=== PATIENT | female | born 1965 | race Caucasian/White ===

== ENCOUNTER → 2021-10-22 12:51 | Outpatient (BNVA) | payer MEDICARE, SELFPAY | PROVIDERS: PCP Physician Assistant Medical; Visit Provider Nurse Practitioner Family | DX: Z98.1 Arthrodesis status (principal); Z98.890 Other specified postprocedural states | CPT/HCPCS: 99202 ==

== ENCOUNTER → 2021-11-26 13:47 | Outpatient (BNVA) | payer MEDICARE, SELFPAY | PROVIDERS: PCP Family Medicine; Visit Provider Nurse Practitioner Family | DX: M47.816 Spondylosis without myelopathy or radiculopathy, lumbar region (principal); M96.1 Postlaminectomy syndrome, not elsewhere classified; M54.9 Dorsalgia, unspecified; G89.29 Other chronic pain; E66.01 Morbid (severe) obesity due to excess calories; Z68.43 Body mass index [BMI] 50.0-59.9, adult | CPT/HCPCS: 99212 ==

== ENCOUNTER 2021-12-25 18:07 | Emergency (ER) | payer MEDICARE, SELFPAY ==
[2021-12-25 19:01] VITALS: BP 142/64; PULSE 105; RESP 18; TEMP 37.2; O2SAT 97; BMI 64.3
--- NOTE | 2021-12-25 19:15 | ECG_ITS ---
Test Reason : med clear Blood Pressure : / mmHG Vent. Rate : 058 BPM Atrial Rate : 058 BPM P-R Int : 132 ms QRS Dur : 082 ms QT Int : 434 ms P-R-T Axes : 057 -07 046 degrees QTc Int : 426 ms Sinus bradycardia Otherwise normal ECG No previous ECGs available Referred By: Christina Wilks Electronically Signed By:KHRIS CHILEL MD
[2021-12-25 19:38] LABS: COVID-19 Test Negative (Negative)
--- NOTE | 2021-12-25 20:37 | ED_ITS ---
HPI - Psych General Chief Complaint: Psychiatric Symptoms Stated Complaint: Crisis Time Seen by Provider: 12/25/21 19:15 Source: patient Mode of arrival: ambulatory Limitations: no limitations History of Present Illness HPI Narrative: 56-year-old female with a past medical history of asthma, binge eating disorder, chronic back pain, hyperlipidemia, hypertensive disorder, hyperthyroidism, kidney stones, morbid obesity, major depressive disorder, restless leg syndrome and transit cerebral ischemia currently in pain management for her chronic back pain presenting to the ED with complaints of increased anxiety/depression with PTSD exacerbation with racing thoughts and suicidal ideations no plan in place over the past few months since September worse over the past few days. She reports that she has been having flashbacks of her grandmother, uncle and mother dying and this has been really affecting her. She denies any auditory visualizations. She denies any self-injury pearl. She denies any homicidal ideations. She denies any drug or alcohol usage. She denies any other symptoms complaints or concerns at this time. MD complaint: suicidal ideation, feels depressed and anxiety Onset (ago): month(s) Duration: constant and getting worse History of same: Yes Relieving factors: none Exacerbating factors: other (Life stressor she reports she has been through a lot in life and has had multiple losses such as her grandmother uncle and mother) Associated psychiatric symptoms: depression, suicidal ideation and racing thoughts Associated symptoms: denies other symptoms Treatments prior to arrival: none If self harm: admits thoughts of self harm Related Data Home Medications Medication Instructions Recorded Confirmed albuterol sulfate 90 mcg/actuation 2 inh INHALATION Q6H 10/22/21 12/25/21 breath activated powder inhaler,sensor celecoxib 200 mg capsule 200 mg PO BID 10/22/21 12/25/21 famotidine 20 mg tablet 20 mg PO BID 10/22/21 12/25/21 furosemide 20 mg tablet 20 mg PO DAILY 10/22/21 12/25/21 lorazepam 0.5 mg tablet 0.5 mg PO BID PRN 10/22/21 12/25/21 pen needle, diabetic 32 gauge x 10/22/21 12/25/21/32 (BD Lulu 2nd Gen Pen Needle) fluticasone propionate 110 1 puff PO BID 12/25/21 12/25/21 mcg/actuation HFA aerosol inhaler (Flovent HFA) gabapentin 300 mg capsule 600 mg PO QAM 12/25/21 12/25/21 gabapentin 300 mg capsule 900 mg PO BEDTIME 12/25/21 12/25/21 insulin glargine 100 unit/mL (3 30 unit SUBCUT BEDTIME 12/25/21 12/25/21 mL) subcutaneous pen (Lantus Solostar U-100 Insulin) losartan 50 mg tablet 50 mg PO DAILY 12/25/21 12/25/21 methocarbamol 500 mg tablet 2 tab PO BID PRN 12/25/21 12/25/21 pioglitazone 45 mg tablet 1 tab PO DAILY 12/25/21 12/25/21 prazosin 2 mg capsule 2 cap PO BEDTIME 12/25/21 12/25/21 propranolol 40 mg tablet 1 tab PO TID 12/25/21 12/25/21 ropinirole 1 mg tablet 1 - 2 tab PO BEDTIME 12/25/21 12/25/21 tamsulosin 0.4 mg capsule 0.4 mg PO DAILY 12/25/21 12/25/21 tizanidine 4 mg tablet 4 mg PO TID PRN 12/25/21 12/25/21 venlafaxine 150 mg 1 cap PO DAILY 12/25/21 12/25/21 capsule,extended release 24 hr venlafaxine 75 mg capsule,extended 1 cap PO QAM 12/25/21 12/25/21 release 24 hr Allergies Allergy/AdvReac Type Severity Reaction Status Date / Time hydrochlorothiazide Allergy Severe vertigo Verified 11/26/21 14:44 nitrofurantoin Allergy Severe Unknown Verified 11/26/21 14:44 [From Macrobid] benzonatate [Tessalon Perles] Allergy Unknown Unknown Verified 11/26/21 14:44 codeine Allergy Unknown Unknown Verified 11/26/21 14:44 divalproex sodium [Depakote] Allergy Unknown Unknown Verified 11/26/21 14:44 epinephrine Allergy Unknown Unknown Verified 11/26/21 14:44 erythromycin base Allergy Unknown Hives Verified 11/26/21 14:44 Fish Containing Products Allergy Unknown Hives Verified 11/26/21 14:44 fluoxetine [Prozac] Allergy Unknown Unknown Verified 11/26/21 14:44 fluticasone Allergy Unknown Unknown Verified 11/26/21 14:44 guaifenesin Allergy Unknown Unknown Verified 11/26/21 14:44 iodine Allergy Unknown Rash Verified 11/26/21 14:44 levofloxacin [Levaquin] Allergy Unknown Unknown Verified 11/26/21 14:44 lidocaine Allergy Unknown Rash Verified 11/26/21 14:44 morphine Allergy Unknown Unknown Verified 11/26/21 14:44 nortriptyline Allergy Unknown Unknown Verified 11/26/21 14:44 oxcarbazepine Allergy Unknown Hives Verified 11/26/21 14:44 [From Trileptal] penicillin V Allergy Unknown Unknown Verified 11/26/21 14:44 shellfish derived Allergy Unknown Unknown Verified 11/26/21 14:44 Sulfa (Sulfonamide Allergy Unknown Rash Verified 11/26/21 14:44 Antibiotics) sumatriptan [From Imitrex] Allergy Unknown skin Verified 11/26/21 14:44 reaction tramadol Allergy Unknown Itching Verified 11/26/21 14:44 Tricyclic Compounds Allergy Unknown Rash Verified 11/26/21 14:44 strawberry Allergy Unknown Verified 11/26/21 14:44 albuterol AdvReac Unknown other Verified 11/26/21 14:44 bupropion [From Wellbutrin] AdvReac Unknown Hypertensio Verified 11/26/21 14:44 n buspirone AdvReac Unknown Hypertensio Verified 11/26/21 14:44 n duloxetine [From Cymbalta] AdvReac Unknown other Verified 11/26/21 14:44 mirtazapine [From Remeron] AdvReac Unknown Unknown Verified 11/26/21 14:44 montelukast AdvReac Unknown Depression Verified 11/26/21 14:44 prednisone AdvReac Unknown Headache Verified 11/26/21 14:44 prochlorperazine AdvReac Unknown Nausea Verified 11/26/21 14:44 thioridazine [From Mellaril] AdvReac Unknown Hypertensio Verified 11/26/21 14:44 n tiotropium AdvReac Unknown Headache Verified 11/26/21 14:44 [From Spiriva with HandiHaler] trazodone AdvReac Unknown Hallucinati Verified 11/26/21 14:44 ons adhesive tape AdvReac Rash Verified 11/26/21 14:44 Novocain Allergy Unknown Unknown Uncoded 10/22/21 13:28 Review of Systems Review of Systems: Constitutional : No Fever, No Chills ENT/Mouth : No Ear Pain, No Nasal Congestion, No sore throat Eyes: No Eye Pain, No Swelling, No Redness Cardiovascular : No Chest Pain, No SOB Respiratory : No Cough, No Sputum, No Dyspnea Gastrointestinal : No ingestions, No Nausea, No Vomiting, No Diarrhea, No Hematochezia, No Melena Genitourinary : No Dysuria, No Urinary Frequency, No Hematuria Musculoskeletal : No Myalgias Skin : No Skin Lesions, No rash Neuro : No Weakness, No Numbness, No Paresthesias, No Dizziness, No Headache Psych : + Anxiety, + Depression, + SI, No thoughts of self injury, No HI, No AVH, Heme/Lymph: No Lymphadenopathy Endocrine : No Polyuria, No Polydipsia Yes all other systems are reviewed and are negative [facility] Past Medical History Attestation statement: The following information was validated with the patient. Medical History Acquired hallux valgus Arthropathy of spinal facet joint Asthma Binge eating disorder Chronic back pain Congenital valgus deformity Hyperlipidemia Hypertensive disorder Hyperthyroidism Intestinal malabsorption of carbohydrate Kidney stone Morbid obesity Recurrent major depressive episodes Restless leg Transient cerebral ischemia Surgical History H/O gastric sleeve Family History Family History Mother Diabetes mellitus COPD (chronic obstructive pulmonary disease) Pemphigoid Depressive disorder Hyperlipidemia Father Malignant neoplastic disease Myocardial infarction Maternal Grandmother Myocardial infarction Social History Social History Alcohol intake: never Patient Tobacco Use Status: Never used Tobacco Advance Directives: No Advance Directives Information Provided: No Patient : No Physical Exam 2 Vital Signs: Vital Signs: Last Vital Signs Temp 99 F 12/25/21 19:01 Pulse 105 H 12/25/21 19:01 Resp 18 12/25/21 19:01 BP 142/64 H 12/25/21 19:01 Pulse Ox 97 12/25/21 19:01 BMI result Body Mass Index 64.3 vital signs have been reviewed as normal and appeared to be correct. Blood pressure 142/64. Heart rate 105. Respiration rate normal. Temperature normal. Oxygen saturation normal. Appearance: Alert. Oriented X3. No acute distress. Head: Normal external exam. Normocephalic. Atraumatic. No Rico signs noted. No raccoon eyes noted Eyes: PERRLA. EOMI. Conjunctiva and sclera normal. Eyelids normal. ENT: EAC normal. TM's Normal. Pharynx normal. Uvula midline. Moist mucous membranes. No trismus noted. No drooling noted. No muffled voice noted. Neck: Normal inspection. Neck supple. FROM. No adenopathy. Thyroid Normal. No meningeal signs. No neck mass noted. CVS: Normal heart rate and rhythm. Heart sound normal. No murmurs noted. Pulses normal throughout. Respiratory: No respiratory distress. Painless inspiration. Breath sounds normal. No wheezes/rales/rhonchi noted. Chest nontender. No accessory muscle usage noted or decreased air movement noted. Abdomen: Soft and nontender. Bowel sounds normal in all 4 quadrants. No distention noted. No organomegaly noted. No visible injury noted. Back: No CVA tenderness. Full range of motion noted. Skin: Skin warm and dry. Normal skin color. Normal skin turgor. No rashes/lesions/lacerations noted. Extremities: No lower extremity edema. Extremities exhibit normal range of motion. Extremities nontender. Neuro: Oriented X 3. No motor deficit. No sensory deficit. Reflexes normal. CN's II-XII intact bilaterally? Psych: Appearance grossly normal, well-kept, mental status normal, speech and movement normal, speech clear, patient appears very sad and anxious along with depressed. Is cooperative. Normal thought process. Normal thought content. Normal good insight. Judgment good. Course Course Course Narrative: 20:35pm - 56-year-old female with a past medical history of asthma, binge eating disorder, chronic back pain, hyperlipidemia, hypertensive disorder, hyperthyroidism, kidney stones, morbid obesity, major depressive disorder, restless leg syndrome and transit cerebral ischemia currently in pain management for her chronic back pain presenting to the ED with complaints of increased anxiety/depression with PTSD exacerbation with racing thoughts and suicidal ideations no plan in place over the past few months since September worse over the past few days. She reports that she has been having flashbacks of her grandmother, uncle and mother dying and this has been really affecting her. She denies any auditory visualizations. She denies any self-injury pearl. She denies any homicidal ideations. She denies any drug or alcohol usage. She denies any other symptoms complaints or concerns at this time. Plan: Labs, UA, EKG, Drug urine screen. Then Crisis evaluation Reevaluation(s) Reevaluation #1: - labs reviewed patient with an elevated white blood cell count at 11,000. Carbon dioxide 30. BUN 30. Random glucose 132. Otherwise all other labs are within normal limits. UA revealed 5 ketones otherwise no evidence of UTI. Drugs of abuse screen negative. ETOH level negative. COVID swab negative. - therefore at this time patient is medically cleared and placed in Physician observation because the patient needs more time to be evaluated by crisis. Will continue to monitor. Time: 21:28 [facility] - Psych Medical Records Attestation: I reviewed the patient's medical records. Lab Data Attestation: I reviewed the patient's lab results. Result diagrams: 12/25/21 20:35 12/25/21 20:35 Labs: Lab Results 12/25/21 12/25/21 12/25/21 Range/Units 19:15 20:35 20:35 WBC 11.5 H (4.8-10.8) X10*3/uL RBC 4.42 (4.20-5.50) X10*6/uL Hgb 12.8 (12.0-16.0) g/dl Hct 40.3 (37.0-47.0) % MCV 91.2 (80.0-98.0) fL MCH 29.0 (27.0-33.0) pg MCHC 31.8 (31.0-35.0) g/dl RDW 14.1 (11.0-16.0) % Plt Count 318 (160-400) X10*3/uL MPV 10.5 (9.4-12.3) fL Immature Gran % (Auto) 0.4 (0.0-0.4) % Neut % (Auto) 65.6 (45-73) % Lymph % (Auto) 22.9 (20-40) % [place] % (Auto) 8.8 (2-11) % Eos % (Auto) 2.0 (0-4) % Baso % (Auto) 0.3 (0-2) % Lymph # (Auto) 2.6 (1.2-4.9) X10*3/uL [place] # (Auto) 1.0 (0.1-1.2) X10*3/uL Eos # (Auto) 0.2 (0.0-0.4) X10*3/uL Baso # (Auto) 0.0 (0.0-0.2) X10*3/uL Abs Immat Gran (auto) 0.05 H (0.00-0.03) X10*3/uL Absolute Neuts (auto) 7.5 (2.0-8.3) x10*3/uL Absolute Nucleated RBC 0.000 (0.0-0.012) X10*3/uL Nucleated RBC % (auto) 0.0 (0.0-0.2) /100WBC Sodium 143 (135-145) mmol/L Potassium 4.3 (3.3-5.1) mmol/L Chloride 105 (96-108) mmol/L Carbon Dioxide 30 H (22-29) mmol/L Anion Gap 12 (12-20) BUN 30 H (9-16) mg/dL Creatinine 1.13 (0.5-1.4) mg/dL Estim Creat Clear Calc 88.4 Estimated GFR 50 Random Glucose 132 H (60-115) mg/dL Calcium 9.2 (8.4-10.2) mg/dL Magnesium 2.2 (1.6-2.6) mg/dL Total Bilirubin 0.4 (0.0-1.0) mg/dL AST 25 (5-31) U/L ALT 26 (0-31) U/L Alkaline Phosphatase 113 (39-117) U/L Total Protein 7.0 (6.5-8.0) g/dL Albumin 4.3 (3.5-5.0) g/dL Lipase 66 (8-78) U/L TSH 3.17 (0.32-4.0) uIU/mL Urine Color Urine Appearance Urine pH (5.0-8.0) Ur Specific [place] (1.005-1.025) Urine Protein (NEG-TRACE) MG/DL Urine Glucose (UA) (NEG) MG/DL Urine Ketones (NEG) MG/DL Urine Blood (NEG) Urine Nitrite (NEG) Ur Leukocyte Esterase (NEG) Urine Opiates Screen (Not Detect) Urine Fentanyl Screen (Not Detect) Ur Barbiturates Screen (Not Detect) Ur Phencyclidine Scrn (Not Detect) Ur Amphetamines Screen (Not Detect) U Benzodiazepines Scrn (Not Detect) Urine Cocaine Screen (Not Detect) U Marijuana (THC) Screen (Not Detect) Ethyl Alcohol mg/dL COVID-19 ([facility]) Negative (Negative) COVID-19 Clin Com See Note 12/25/21 12/25/21 12/25/21 Range/Units 20:35 20:43 20:43 WBC (4.8-10.8) X10*3/uL RBC (4.20-5.50) X10*6/uL Hgb (12.0-16.0) g/dl Hct (37.0-47.0) % MCV (80.0-98.0) fL MCH (27.0-33.0) pg MCHC (31.0-35.0) g/dl RDW (11.0-16.0) % Plt Count (160-400) X10*3/uL MPV (9.4-12.3) fL Immature Gran % (Auto) (0.0-0.4) % Neut % (Auto) (45-73) % Lymph % (Auto) (20-40) % [place] % (Auto) (2-11) % Eos % (Auto) (0-4) % Baso % (Auto) (0-2) % Lymph # (Auto) (1.2-4.9) X10*3/uL [place] # (Auto) (0.1-1.2) X10*3/uL Eos # (Auto) (0.0-0.4) X10*3/uL Baso # (Auto) (0.0-0.2) X10*3/uL Abs Immat Gran (auto) (0.00-0.03) X10*3/uL Absolute Neuts (auto) (2.0-8.3) x10*3/uL Absolute Nucleated RBC (0.0-0.012) X10*3/uL Nucleated RBC % (auto) (0.0-0.2) /100WBC Sodium (135-145) mmol/L Potassium (3.3-5.1) mmol/L Chloride (96-108) mmol/L Carbon Dioxide (22-29) mmol/L Anion Gap (12-20) BUN (9-16) mg/dL Creatinine (0.5-1.4) mg/dL Estim Creat Clear Calc Estimated GFR Random Glucose (60-115) mg/dL Calcium (8.4-10.2) mg/dL Magnesium (1.6-2.6) mg/dL Total Bilirubin (0.0-1.0) mg/dL AST (5-31) U/L ALT (0-31) U/L Alkaline Phosphatase (39-117) U/L Total Protein (6.5-8.0) g/dL Albumin (3.5-5.0) g/dL Lipase (8-78) U/L TSH (0.32-4.0) uIU/mL Urine Color YELLOW Urine Appearance CLEAR Urine pH 6.0 (5.0-8.0) Ur Specific [place] >= 1.030 H (1.005-1.025) Urine Protein TRACE (NEG-TRACE) MG/DL Urine Glucose (UA) NEG (NEG) MG/DL Urine Ketones 5 (NEG) MG/DL Urine Blood NEG (NEG) Urine Nitrite NEG (NEG) Ur Leukocyte Esterase NEG (NEG) Urine Opiates Screen Not Detected (Not Detect) Urine Fentanyl Screen Not Detected (Not Detect) Ur Barbiturates Screen Not Detected (Not Detect) Ur Phencyclidine Scrn Not Detected (Not Detect) Ur Amphetamines Screen Not Detected (Not Detect) U Benzodiazepines Scrn Not Detected (Not Detect) Urine Cocaine Screen Not Detected (Not Detect) U Marijuana (THC) Screen Not Detected (Not Detect) Ethyl Alcohol < 10 mg/dL COVID-19 ([facility]) (Negative) COVID-19 Clin Com Discharge Plan Discharge Clinical Impression: Suicidal ideation, Depression, Acute anxiety, Acute post-traumatic stress disorder Patient Disposition: Still a Patient Prescriptions: No Action gabapentin 300 mg capsule 600 mg PO QAM 0RF gabapentin 300 mg capsule 900 mg PO BEDTIME 0RF venlafaxine 75 mg capsule,extended release 24hr 1 cap PO QAM 0RF venlafaxine 150 mg capsule,extended release 24hr 1 cap PO DAILY 0RF Lantus Solostar U-100 Insulin 100 unit/mL (3 mL) insulin pen 30 unit SUBCUT BEDTIME 0RF losartan 50 mg tablet 50 mg PO DAILY 0RF methocarbamol 500 mg tablet 2 tab PO BID PRN (Reason: Pain) 0RF ropinirole 1 mg tablet 1 - 2 tab PO BEDTIME 0RF propranolol 40 mg tablet 1 tab PO TID 0RF prazosin 2 mg capsule 2 cap PO BEDTIME 0RF tizanidine 4 mg tablet 4 mg PO TID PRN (Reason: Pain muscle spasms) 0RF pioglitazone 45 mg tablet 1 tab PO DAILY 0RF tamsulosin 0.4 mg capsule 0.4 mg PO DAILY 0RF Flovent HFA 110 mcg/actuation HFA aerosol inhaler 1 puff PO BID 0RF albuterol sulfate 90 mcg/actuation aero powdr breath act w/sensor 2 inh inhalation Q6H 0RF (DME) pen needle, diabetic [BD Lulu 2nd Gen Pen Needle] 32 gauge x 5/32 needle See Rx Instructions .ROUTE 0RF Rx Instructions: As directed celecoxib 200 mg capsule 200 mg PO BID 0RF famotidine 20 mg tablet 20 mg PO BID 0RF furosemide 20 mg tablet 20 mg PO DAILY 0RF lorazepam 0.5 mg tablet 0.5 mg PO BID PRN (Reason: Anxiety) 0RF
[2021-12-25 20:48] LABS: MANUAL DIFF FLAG NO
[2021-12-25 20:54] LABS: Appearance Urine CLEAR; Color Urine YELLOW; Glucose Urine UA NEG (NEG); Leukocyte Esterase Urine NEG (NEG); Nitrite Urine NEG (NEG); Specific Gravity - Urine >= 1.030 (1.005-1.025); Urine Blood NEG (NEG); Urine Ketones 5 MG/DL (NEG); Urine Protein TRACE MG/DL (NEG-TRACE)
[2021-12-25 20:59] LABS: Basophils Percent Auto 0.3 % (0-2); Eosinophils Absolute Auto 0.2 X10*3/uL (0.0-0.4); Hematocrit 40.3 % (37.0-47.0); Hemoglobin 12.8 g/dl (12.0-16.0); Imm Gran Abs Auto 0.05 X10*3/uL (0.00-0.03); Imm Gran Pct Auto 0.4 % (0.0-0.4); Lymphocytes Absolute Auto 2.6 X10*3/uL (1.2-4.9); Lymphocytes Percent Auto 22.9 % (20-40); Mean Corpuscular HGB Conc 31.8 g/dl (31.0-35.0); Mean Corpuscular Volume 91.2 fL (80.0-98.0); Mean Platelet Volume 10.5 fL (9.4-12.3); Monocytes Percent Auto 8.8 % (2-11); Neutrophils Absolute Auto 7.5 x10*3/uL (2.0-8.3); Neutrophils Percent Auto 65.6 % (45-73); Platelet Count 318 X10*3/uL (160-400); Red Blood Count 4.42 X10*6/uL (4.20-5.50); Red Cell Distribution Width 14.1 % (11.0-16.0); White Blood Count 11.5 X10*3/uL (4.8-10.8)
[2021-12-25 21:00] LABS: Ethanol < 10 mg/dL
[2021-12-25 21:04] LABS: Alanine Aminotransferase 26 U/L (0-31); Albumin Level 4.3 g/dL (3.5-5.0); Alkaline Phosphatase 113 U/L (39-117); Anion Gap 12 (12-20); Aspartate Amino Transferase 25 U/L (5-31); Bilirubin Total 0.4 mg/dL (0.0-1.0); Blood Urea Nitrogen 30 mg/dL (9-16); Calcium 9.2 mg/dL (8.4-10.2); Carbon Dioxide 30 mmol/L (22-29); Chloride 105 mmol/L (96-108); Creatinine Clr Calc Pharmacy 88.4; Estimated Glomerular Filt Rate 50; Glucose Random 132 mg/dL (60-115); Lipase 66 U/L (8-78); Magnesium 2.2 mg/dL (1.6-2.6); Potassium 4.3 mmol/L (3.3-5.1); Sodium 143 mmol/L (135-145)
[2021-12-25 21:10] LABS: Amphetamine Screen Urine Not Detected (Not Detect); Barbiturates, Urine Not Detected (Not Detect); Benzodiazepines Screen Urine Not Detected (Not Detect); Cannabinoid Screen Urine Not Detected (Not Detect); Cocaine Screen Urine Not Detected (Not Detect); Fentanyl, urine Not Detected (Not Detect); Opiate Screen Urine Not Detected (Not Detect); Phencyclidine Screen Urine Not Detected (Not Detect)
[2021-12-25 21:26] LABS: TSH reflex Free T4 3.17 uIU/mL (0.32-4.0)
--- NOTE | 2021-12-25 21:34 | PHA.MEDREC ---
Pharmacy Consult ? Medication Reconciliation Pharmacy has completed the medication reconciliation.
[2021-12-26] MEDS: Gabapentin 300 MG CAPSULE 600 MG PO ×2 (01:10→08:00)
[2021-12-26] MEDS: Albuterol Sulfate 90 MCG 8 GM INHALER 2 PUFF INHALE (01:10)
[2021-12-26] MEDS: Famotidine 20 MG TABLET PO ×2 (01:10→08:00)
[2021-12-26] MEDS: Celecoxib 200 MG CAPSULE PO ×2 (01:12→07:59)
[2021-12-26] MEDS: Venlafaxine HCl ER 75 MG CAP.ER.24H PO ×2 (01:12→07:59)
[2021-12-26] MEDS: TiZANidine HCL 4 MG TABLET PO (01:35)
[2021-12-26 02:53] VITALS: BP 133/69; PULSE 61; RESP 19; TEMP 37.2; O2SAT 97
--- NOTE | 2021-12-26 06:43 | PC.NURSE ---
Patient was awake whole night, in and out of room multiple times, behavior appropriate and non concerning at this time, medication compliant, [facility] referral completed/confirmed/pending evaluation AM, VSS, will continue to monitor.
--- NOTE | 2021-12-26 07:24 | PC.NURSE ---
patient appears to remain asleep respirations are even and unlabored patient appears in no distress
[2021-12-26] MEDS: Pioglitazone HCL 45 MG TABLET PO (07:59)
[2021-12-26] MEDS: Tamsulosin HCL 0.4 MG CAPSULE PO (08:00)
[2021-12-26] MEDS: Cyclobenzaprine HCl 10 MG TABLET PO (08:00)
[2021-12-26] MEDS: Venlafaxine HCl ER 150 MG CAP.ER.24H PO (08:00)
[2021-12-26] MEDS: Losartan Potassium 50 MG TABLET PO (08:00)
[2021-12-26] MEDS: Furosemide 20 MG TABLET PO (08:00)
[2021-12-26] MEDS: Propranolol HCL 40 MG TABLET PO (09:38)
[2021-12-26] MEDS: Acetaminophen 325 MG TABLET 975 MG PO (09:40)
== END 2021-12-26 10:38 | disposition home or self-care (01) ==
PROVIDERS: Physician Assistant Medical; Emergency Provider Emergency Medicine Emergency Medical Services; PCP Family Medicine
DX: F33.1 Major depressive disorder, recurrent, moderate (principal); R45.851 Suicidal ideations; F41.1 Generalized anxiety disorder; F43.0 Acute stress reaction; F43.10 Post-traumatic stress disorder, unspecified; Z20.822 Contact with and (suspected) exposure to COVID-19; Z63.8 Other specified problems related to primary support group; Z79.899 Other long term (current) drug therapy
CPT/HCPCS: 36415; 80053; 80307; 81003; 82077; 83690; 83735; 84443; 85025; 87635; 93005; 99285

== ENCOUNTER → 2022-04-11 08:52 | Outpatient (BNVA) | payer MEDICARE, SELFPAY | PROVIDERS: PCP Family Medicine; Visit Provider Internal Medicine | DX: Z98.1 Arthrodesis status (principal); M96.1 Postlaminectomy syndrome, not elsewhere classified; Z98.890 Other specified postprocedural states | CPT/HCPCS: 99212 ==

== ENCOUNTER → 2022-06-03 08:04 | Outpatient (BNVA) | payer MEDICARE, SELFPAY | PROVIDERS: PCP Family Medicine; Visit Provider Internal Medicine | DX: M79.18 Myalgia, other site (principal); M96.1 Postlaminectomy syndrome, not elsewhere classified; Z98.1 Arthrodesis status | CPT/HCPCS: 20553; J2795 ==

== ENCOUNTER → 2022-08-15 11:43 | Outpatient (BNVA) | payer OTHER, SELFPAY | PROVIDERS: PCP Family Medicine; Visit Provider Internal Medicine | DX: M96.1 Postlaminectomy syndrome, not elsewhere classified (principal); R22.2 Localized swelling, mass and lump, trunk; Z98.1 Arthrodesis status | CPT/HCPCS: 99212 ==

== ENCOUNTER 2022-08-17 10:41 | Day surgery (SDC) | payer OTHER, SELFPAY ==
[2022-08-11 11:14] VITALS: BMI 52.8
--- NOTE | 2022-08-16 08:46 | HO.ANESPROP2 ---
Documented by User: Radha Valero NP 08/16/22 08:48 HPI - Anesthesia Eval Consult details Narrative: 57yo F for Lumbar Spinal Cord Stimulation Trial Chronic opioids *Multiple allergies including severe rash from drape tape* PMFSH Active Problems Active Problems: All Active Problems (Updated 08/11/22 @ 11:17 by Piper Parish RN) Failed back syndrome (Acute) History of fusion of lumbar spine (Acute) History of lumbar laminectomy (Acute) Lumbar spondylosis (Acute) Morbid obesity (Acute) Chronic back pain (Acute) Arthropathy of spinal facet joint (Acute) Past Medical History Medical History Acquired hallux valgus Arthropathy of spinal facet joint Asthma Binge eating disorder Chronic back pain Congenital valgus deformity Diabetes Hyperlipidemia Hypertensive disorder Hyperthyroidism Intestinal malabsorption of carbohydrate Kidney stone Morbid obesity Recurrent major depressive episodes Restless leg Sleep apnea Tachycardia Transient cerebral ischemia Family History Family History Mother Diabetes mellitus COPD (chronic obstructive pulmonary disease) Pemphigoid Depressive disorder Hyperlipidemia Father Malignant neoplastic disease Myocardial infarction Maternal Grandmother Myocardial infarction Surgical History Surgical History (Updated 08/17/22 @ 12:40 by Iva Hood MD) H/O gastric sleeve H/O: hysterectomy History of fusion of cervical spine History of fusion of lumbar spine History of laparoscopic cholecystectomy History of lumbar laminectomy Social History Social History Alcohol intake: never Patient Tobacco Use Status: Never used Tobacco Use of substances other than those prescribed or required for medical reasons: No Have you been hit, kicked, punched, or otherwise hurt by someone within the past year? If so, by whom?: No Are you DNR?: No Advance Directives: Yes Advance Directives Information Provided: Yes (as above noted-to bring copy DOS) Advance Directives on File: Yes Advance Directives Date on File: 08/17/22 Recently lost weight without trying: No Eating poorly because of decreased appetite: No Nutrition Risks: No Nutritional Risk Poor oral hygiene: No (adentulous-not able to wear dentures) Meds Allergies Allergy/AdvReac Type Severity Reaction Status Date / Time fluoxetine [Prozac] Allergy Severe suicidal Verified 08/15/22 11:52 ideation/HTN hydrochlorothiazide Allergy Severe vertigo Verified 08/15/22 11:52 benzonatate [Tessalon Perles] Allergy Intermediate Rash Verified 08/15/22 11:52 codeine Allergy Intermediate Itching Verified 08/15/22 11:52 divalproex sodium [Depakote] Allergy Intermediate rapid Verified 08/15/22 11:52 toxicity epinephrine Allergy Intermediate tachycardia Verified 08/15/22 11:52 erythromycin base Allergy Intermediate Hives Verified 08/15/22 11:52 Fish Containing Products Allergy Intermediate Hives Verified 08/15/22 11:52 guaifenesin Allergy Intermediate Itching Verified 08/15/22 11:52 iodine Allergy Intermediate Rash Verified 08/15/22 11:52 levofloxacin [Levaquin] Allergy Intermediate Itching/ivana Verified 08/15/22 11:52 h lidocaine Allergy Intermediate Rash Verified 08/15/22 11:52 morphine Allergy Intermediate itching/rash/redness Verified 08/15/22 11:52 @ injection site nitrofurantoin Allergy Intermediate Itching Verified 08/15/22 11:52 [From Macrobid] nortriptyline Allergy Intermediate Itching Verified 08/15/22 11:52 oxcarbazepine Allergy Intermediate Hives Verified 08/15/22 11:52 [From Trileptal] penicillin V Allergy Intermediate rash/itch Verified 08/15/22 11:52 shellfish derived Allergy Intermediate Rash Verified 08/15/22 11:52 strawberry Allergy Intermediate Itching Verified 08/15/22 11:52 Sulfa (Sulfonamide Allergy Intermediate Rash Verified 08/15/22 11:52 Antibiotics) sumatriptan [From Imitrex] Allergy Intermediate skin Verified 08/15/22 11:52 reaction tramadol Allergy Intermediate Itching Verified 08/15/22 11:52 Tricyclic Antidepressants Allergy Intermediate Rash Verified 08/15/22 11:52 and Tricy [Tricyclic Compounds] adhesive tape AdvReac Intermediate Rash Verified 08/15/22 11:52 bupropion [From Wellbutrin] AdvReac Intermediate Hypertensio Verified 08/15/22 11:52 n buspirone AdvReac Intermediate Hypertensio Verified 08/15/22 11:52 n duloxetine [From Cymbalta] AdvReac Intermediate tachycardia Verified 08/15/22 11:52 fluticasone AdvReac Intermediate burning of Verified 08/15/22 11:52 nasal passages mirtazapine [From Remeron] AdvReac Intermediate HTN/weight Verified 08/15/22 11:52 gain montelukast AdvReac Intermediate Depression Verified 08/15/22 11:52 prednisone AdvReac Intermediate Headache Verified 08/15/22 11:52 thioridazine [From Mellaril] AdvReac Intermediate Hypertensio Verified 08/15/22 11:52 n tiotropium AdvReac Intermediate Headache Verified 08/15/22 11:52 [From Spiriva with HandiHaler] trazodone AdvReac Intermediate Hallucinati Verified 08/15/22 11:52 ons Novocain Allergy Intermediate tachycardia Uncoded 08/15/22 11:52 (when given w/epinephrine) Home Medications Medication Instructions Recorded Confirmed Last Taken Type albuterol sulfate 90 mcg/actuation 2 inh inhalation Q6H 10/22/21 08/15/22 Unknown History breath activated powder inhaler,sensor celecoxib 200 mg capsule 200 mg PO BID 10/22/21 08/15/22 Unknown History famotidine 20 mg tablet 20 mg PO BID 10/22/21 08/15/22 Unknown History furosemide 20 mg tablet 20 mg PO DAILY 10/22/21 08/15/22 Unknown History lorazepam 0.5 mg tablet 0.5 mg PO BID PRN Anxiety 10/22/21 08/15/22 Unknown History pen needle, diabetic 32 gauge x 10/22/21 12/25/21 Unknown History (BD Lulu 2nd Gen Pen Needle) fluticasone propionate 110 1 puff PO BID 12/25/21 08/15/22 Unknown History mcg/actuation HFA aerosol inhaler (Flovent HFA) gabapentin 300 mg capsule 900 mg PO BID 12/25/21 08/15/22 Unknown History insulin glargine 100 unit/mL (3 40 unit subcut BEDTIME 12/25/21 08/15/22 Unknown History mL) subcutaneous pen (Lantus Solostar U-100 Insulin) losartan 50 mg tablet 50 mg PO DAILY 12/25/21 08/15/22 Unknown History methocarbamol 500 mg tablet 2 tab PO BID PRN Pain 12/25/21 08/15/22 Unknown History pioglitazone 45 mg tablet 1 tab PO DAILY 0408/15/22 12/25/21 History prazosin 2 mg capsule 2 cap PO BEDTIME 12/25/21 08/15/22 Unknown History ropinirole 1 mg tablet 1 - 2 tab PO BEDTIME 12/25/21 08/15/22 Unknown History tamsulosin 0.4 mg capsule 0.4 mg PO DAILY 12/25/21 08/11/22 12/25/21 History tizanidine 4 mg tablet 4 mg PO TID PRN Pain muscle spasms 12/25/21 08/15/22 12/25/21 History venlafaxine 150 mg 1 cap PO QAM 12/25/21 08/15/22 Unknown History capsule,extended release 24 hr venlafaxine 75 mg capsule,extended 1 cap PO QAM 12/25/21 08/15/22 Unknown History release 24 hr propranolol 40 mg tablet 40 mg PO DAILY 04/11/22 08/15/22 Unknown History melatonin 10 mg capsule 10 mg PO BEDTIME PRN Insomnia 06/03/22 08/15/22 Unknown History hydromorphone 2 mg tablet 2 mg PO BID PRN Pain 08/01/22 08/15/22 Unknown History Exam Exam Date and Time: August 16, 2022 0846 Height,Weight and Vital Signs: Height 5 ft 4 in Weight 139.706 kg Pertinent Lab Results Pertinent Lab Results: Laboratory Tests 12/25/21 12/25/21 20:35 20:35 WBC 11.5 H Hgb 12.8 Hct 40.3 Plt Count 318 Sodium 143 Potassium 4.3 Chloride 105 Carbon Dioxide 30 H BUN 30 H Creatinine 1.13 Assessment and Plan Assessment Anesthesia Assessment: Chart Reviewed Documented by User: Iva Hood MD 08/17/22 12:44 PMFSH Active Problems Active Problems: All Active Problems (Updated 08/11/22 @ 11:17 by Piper Parish RN) Failed back syndrome (Acute) History of fusion of lumbar spine (Acute) History of lumbar laminectomy (Acute) Lumbar spondylosis (Acute) Morbid obesity (Acute) BMI 52.9 Chronic back pain (Acute) Arthropathy of spinal facet joint (Acute) MICHAEL. Not using CPAP machine-unable to tolerate due to cervical fusion Restless leg syndrome, leg spasms Past Medical History Medical History Acquired hallux valgus Arthropathy of spinal facet joint Asthma Binge eating disorder Chronic back pain Congenital valgus deformity Diabetes Hyperlipidemia Hypertensive disorder Hyperthyroidism Intestinal malabsorption of carbohydrate Kidney stone Morbid obesity Recurrent major depressive episodes Restless leg Sleep apnea Tachycardia Transient cerebral ischemia Family History Family History Mother Diabetes mellitus COPD (chronic obstructive pulmonary disease) Pemphigoid Depressive disorder Hyperlipidemia Father Malignant neoplastic disease Myocardial infarction Maternal Grandmother Myocardial infarction Family history of problems with anesthesia: No Surgical History Surgical History (Updated 08/17/22 @ 12:40 by Iva Hood MD) H/O gastric sleeve H/O: hysterectomy History of fusion of cervical spine History of fusion of lumbar spine History of laparoscopic cholecystectomy History of lumbar laminectomy History of Problems with Anesthesia: No Social History Social History Alcohol intake: never Patient Tobacco Use Status: Never used Tobacco Use of substances other than those prescribed or required for medical reasons: No Have you been hit, kicked, punched, or otherwise hurt by someone within the past year? If so, by whom?: No Are you DNR?: No Advance Directives: Yes Advance Directives Information Provided: Yes (as above noted-to bring copy DOS) Advance Directives on File: Yes Advance Directives Date on File: 08/17/22 Recently lost weight without trying: No Eating poorly because of decreased appetite: No Nutrition Risks: No Nutritional Risk Poor oral hygiene: No (adentulous-not able to wear dentures) Meds Allergies Allergy/AdvReac Type Severity Reaction Status Date / Time fluoxetine [Prozac] Allergy Severe suicidal Verified 08/15/22 11:52 ideation/HTN hydrochlorothiazide Allergy Severe vertigo Verified 08/15/22 11:52 benzonatate [Tessalon Perles] Allergy Intermediate Rash Verified 08/15/22 11:52 codeine Allergy Intermediate Itching Verified 08/15/22 11:52 divalproex sodium [Depakote] Allergy Intermediate rapid Verified 08/15/22 11:52 toxicity epinephrine Allergy Intermediate tachycardia Verified 08/15/22 11:52 erythromycin base Allergy Intermediate Hives Verified 08/15/22 11:52 Fish Containing Products Allergy Intermediate Hives Verified 08/15/22 11:52 guaifenesin Allergy Intermediate Itching Verified 08/15/22 11:52 iodine Allergy Intermediate Rash Verified 08/15/22 11:52 levofloxacin [Levaquin] Allergy Intermediate Itching/ivana Verified 08/15/22 11:52 h lidocaine Allergy Intermediate Rash Verified 08/15/22 11:52 morphine Allergy Intermediate itching/rash/redness Verified 08/15/22 11:52 @ injection site nitrofurantoin Allergy Intermediate Itching Verified 08/15/22 11:52 [From Macrobid] nortriptyline Allergy Intermediate Itching Verified 08/15/22 11:52 oxcarbazepine Allergy Intermediate Hives Verified 08/15/22 11:52 [From Trileptal] penicillin V Allergy Intermediate rash/itch Verified 08/15/22 11:52 shellfish derived Allergy Intermediate Rash Verified 08/15/22 11:52 strawberry Allergy Intermediate Itching Verified 08/15/22 11:52 Sulfa (Sulfonamide Allergy Intermediate Rash Verified 08/15/22 11:52 Antibiotics) sumatriptan [From Imitrex] Allergy Intermediate skin Verified 08/15/22 11:52 reaction tramadol Allergy Intermediate Itching Verified 08/15/22 11:52 Tricyclic Antidepressants Allergy Intermediate Rash Verified 08/15/22 11:52 and Tricy [Tricyclic Compounds] adhesive tape AdvReac Intermediate Rash Verified 08/15/22 11:52 bupropion [From Wellbutrin] AdvReac Intermediate Hypertensio Verified 08/15/22 11:52 n buspirone AdvReac Intermediate Hypertensio Verified 08/15/22 11:52 n duloxetine [From Cymbalta] AdvReac Intermediate tachycardia Verified 08/15/22 11:52 fluticasone AdvReac Intermediate burning of Verified 08/15/22 11:52 nasal passages mirtazapine [From Remeron] AdvReac Intermediate HTN/weight Verified 08/15/22 11:52 gain montelukast AdvReac Intermediate Depression Verified 08/15/22 11:52 prednisone AdvReac Intermediate Headache Verified 08/15/22 11:52 thioridazine [From Mellaril] AdvReac Intermediate Hypertensio Verified 08/15/22 11:52 n tiotropium AdvReac Intermediate Headache Verified 08/15/22 11:52 [From Spiriva with HandiHaler] trazodone AdvReac Intermediate Hallucinati Verified 08/15/22 11:52 ons Novocain Allergy Intermediate tachycardia Uncoded 08/15/22 11:52 (when given w/epinephrine) Home Medications Medication Instructions Recorded Confirmed Last Taken Type albuterol sulfate 90 mcg/actuation 2 inh inhalation Q6H 10/22/21 08/15/22 Unknown History breath activated powder inhaler,sensor celecoxib 200 mg capsule 200 mg PO BID 10/22/21 08/15/22 Unknown History famotidine 20 mg tablet 20 mg PO BID 10/22/21 08/15/22 Unknown History furosemide 20 mg tablet 20 mg PO DAILY 10/22/21 08/15/22 Unknown History lorazepam 0.5 mg tablet 0.5 mg PO BID PRN Anxiety 10/22/21 08/15/22 Unknown History pen needle, diabetic 32 gauge x 10/22/21 12/25/21 Unknown History (BD Lulu 2nd Gen Pen Needle) fluticasone propionate 110 1 puff PO BID 12/25/21 08/15/22 Unknown History mcg/actuation HFA aerosol inhaler (Flovent HFA) gabapentin 300 mg capsule 900 mg PO BID 12/25/21 08/15/22 Unknown History insulin glargine 100 unit/mL (3 40 unit subcut BEDTIME 12/25/21 08/15/22 Unknown History mL) subcutaneous pen (Lantus Solostar U-100 Insulin) losartan 50 mg tablet 50 mg PO DAILY 12/25/21 08/15/22 Unknown History methocarbamol 500 mg tablet 2 tab PO BID PRN Pain 12/25/21 08/15/22 Unknown History pioglitazone 45 mg tablet 1 tab PO DAILY 12/25/21 08/15/22 12/25/21 History prazosin 2 mg capsule 2 cap PO BEDTIME 12/25/21 08/15/22 Unknown History ropinirole 1 mg tablet 1 - 2 tab PO BEDTIME 12/25/21 08/15/22 Unknown History tamsulosin 0.4 mg capsule 0.4 mg PO DAILY 12/25/21 08/11/22 12/25/21 History tizanidine 4 mg tablet 4 mg PO TID PRN Pain muscle spasms 12/25/21 08/15/22 12/25/21 History venlafaxine 150 mg 1 cap PO QAM 12/25/21 08/15/22 Unknown History capsule,extended release 24 hr venlafaxine 75 mg capsule,extended 1 cap PO QAM 12/25/21 08/15/22 Unknown History release 24 hr propranolol 40 mg tablet 40 mg PO DAILY 04/11/22 08/15/22 Unknown History melatonin 10 mg capsule 10 mg PO BEDTIME PRN Insomnia 06/03/22 08/15/22 Unknown History hydromorphone 2 mg tablet 2 mg PO BID PRN Pain 08/01/22 08/15/22 Unknown History Exam Height,Weight and Vital Signs: Height 5 ft 4 in Weight 139.706 kg Vital Signs Temp Pulse Resp BP Pulse Ox O2 Del Method 08/17/22 11:46 97 F 75 20 146/68 H 98 Room Air Narrative Narrative: Lab Results 08/17/22 Range/Units 11:30 POC Glucose 108 (60-115) mg/dL Airway Mallampati Class: II TM Dist: >3cm Neck ROM: Full Heart: RRR Lungs: CTAB Assessment and Plan Assessment Anesthesia Assessment: Anesthesia Plan Discussed Final Anesthetic Review Family History of Problems with Anesthesia: No History of Problems with Anesthesia: No NPO: Yes ASA Class: III Final Preanesthetic Review: No Changes in Pt Med Stat, Meds/Allgs Chart Reviewed, Consent Obtained/Reviewed and Anes Risks/Benef Reviewed Patient Risk: Intermediate Procedure Risk: Low Assessment/Block/Sedation in SS: Assess/Block/Sedation-SS Anesthetic Plan Anesthetic Plan: MAC: Disposition: Standard PACU
--- NOTE | ~2022-08-17 | FL_ITS ---
EXAMINATION: XR FLUOROSCOPY WITH IMAGES CLINICAL INFORMATION: Lumbar spinal cord stimulation trial COMPARISON: None. TECHNIQUE: Fluoroscopy Supervised By: Yvon Mock. Fluoroscopy Time: 10.9. Cumulative Dose: 436 mGy. DAP: 53.5 Gycm2. Images: 2. FINDINGS: There are 2 digital images revealing and posterior electrode insertion at the T12-L1 disc level. Visualized bones are grossly unremarkable. FL/FL guidance in OR IMPRESSION: Fluoroscopy was provided to referring physician for spinal cord stimulation trial.
[2022-08-17 11:33] LABS: Glucose, Whole Blood 108 mg/dL (60-115)
[2022-08-17 11:46] VITALS: BP 146/68; PULSE 75; RESP 20; TEMP 36.1; O2SAT 98
[2022-08-17] MEDS: Lactated Ringers 1,000 ML 100 ML IVCONT (12:22)
[2022-08-17 14:50] VITALS: BP 104/66; PULSE 89; RESP 22; TEMP 36.5; O2SAT 97
[2022-08-17 15:05] VITALS: BP 117/63; PULSE 96; RESP 20; O2SAT 97
[2022-08-17 15:15] VITALS: BP 136/70; PULSE 92; RESP 20; TEMP 37.1; O2SAT 95
--- NOTE | 2022-08-18 16:12 | MHC.SHP ---
Pre-Procedural Eval Section A Date of Service: 08/17/22 The patient is an INPATIENT: No Changes since office visit: Yes Patient answered all questions The History & Physical has been completed within 30 days and I have reviewed it.: Yes Section B Chief Complaint: Postlaminectomy syndrome, not elsewhere classified Relevant Family History (Specify if Yes): No Relevant Social History: None Present Medications: see Short Stay Collaborative assessment Medical History: No relevant PMH History of Previous Operations: Relevant previous surgery/procedure and date(s) (Spinal fusion lumbar) Allergies: Allergies Allergy/AdvReac Type Severity Reaction Status Date / Time fluoxetine [Prozac] Allergy Severe suicidal Verified 08/15/22 11:52 ideation/HTN hydrochlorothiazide Allergy Severe vertigo Verified 08/15/22 11:52 benzonatate [Tessalon Perles] Allergy Intermediate Rash Verified 08/15/22 11:52 codeine Allergy Intermediate Itching Verified 08/15/22 11:52 divalproex sodium [Depakote] Allergy Intermediate rapid Verified 08/15/22 11:52 toxicity epinephrine Allergy Intermediate tachycardia Verified 08/15/22 11:52 erythromycin base Allergy Intermediate Hives Verified 08/15/22 11:52 Fish Containing Products Allergy Intermediate Hives Verified 08/15/22 11:52 guaifenesin Allergy Intermediate Itching Verified 08/15/22 11:52 iodine Allergy Intermediate Rash Verified 08/15/22 11:52 levofloxacin [Levaquin] Allergy Intermediate Itching/ivana Verified 08/15/22 11:52 h lidocaine Allergy Intermediate Rash Verified 08/15/22 11:52 morphine Allergy Intermediate itching/rash/redness Verified 08/15/22 11:52 @ injection site nitrofurantoin Allergy Intermediate Itching Verified 08/15/22 11:52 [From Macrobid] nortriptyline Allergy Intermediate Itching Verified 08/15/22 11:52 oxcarbazepine Allergy Intermediate Hives Verified 08/15/22 11:52 [From Trileptal] penicillin V Allergy Intermediate rash/itch Verified 08/15/22 11:52 shellfish derived Allergy Intermediate Rash Verified 08/15/22 11:52 strawberry Allergy Intermediate Itching Verified 08/15/22 11:52 Sulfa (Sulfonamide Allergy Intermediate Rash Verified 08/15/22 11:52 Antibiotics) sumatriptan [From Imitrex] Allergy Intermediate skin Verified 08/15/22 11:52 reaction tramadol Allergy Intermediate Itching Verified 08/15/22 11:52 Tricyclic Antidepressants Allergy Intermediate Rash Verified 08/15/22 11:52 and Tricy [Tricyclic Compounds] adhesive tape AdvReac Intermediate Rash Verified 08/15/22 11:52 bupropion [From Wellbutrin] AdvReac Intermediate Hypertensio Verified 08/15/22 11:52 n buspirone AdvReac Intermediate Hypertensio Verified 08/15/22 11:52 n duloxetine [From Cymbalta] AdvReac Intermediate tachycardia Verified 08/15/22 11:52 fluticasone AdvReac Intermediate burning of Verified 08/15/22 11:52 nasal passages mirtazapine [From Remeron] AdvReac Intermediate HTN/weight Verified 08/15/22 11:52 gain montelukast AdvReac Intermediate Depression Verified 08/15/22 11:52 prednisone AdvReac Intermediate Headache Verified 08/15/22 11:52 thioridazine [From Mellaril] AdvReac Intermediate Hypertensio Verified 08/15/22 11:52 n tiotropium AdvReac Intermediate Headache Verified 08/15/22 11:52 [From Spiriva with HandiHaler] trazodone AdvReac Intermediate Hallucinati Verified 08/15/22 11:52 ons Novocain Allergy Intermediate tachycardia Uncoded 08/15/22 11:52 (when given w/epinephrine) Review of Systems Sugical H&P ROS: Negative: Constitution, Cardiovascular and Respiratory Exam Surgical H&P Exam: Normal: HEENT, Normal: Heart and Normal: Lungs Plan Diagnosis/Plan: Unchanged I have reviewed the history and physical and performed a pertinent physical examination on my patient. No changes have occurred unless specified. Time Spent With Patient Time: Total time managing care of this patient today 150 minutes.
--- NOTE | 2022-08-18 16:13 | P.BOP_ITS ---
Brief Operative Note Date of Service: 08/17/22 Pre-op diagnosis: Lumbar post-laminectomy syndrome Post-op diagnosis: same Procedure: Attempted lumbar spinal cord stimulation trial lead placement Implants: None Surgeon: Yvon Urias MD Anesthesia: MAC Was an Qualified Craft Worker Electrician used for this Procedure?: No Estimated blood loss (mL): 15 Pathology: none sent Condition: stable Disposition: PACU
--- NOTE | 2022-08-18 16:13 | W.PM.OPN ---
Operative Note Operative Note Date of Service: 08/17/22 Narrative: Attempted Percutaneous Spinal Cord Stimulator Trial, Lumbar After obtaining written consent, pre-procedure blood pressure and heart rate were recorded and are in the nursing record for review. A peripheral IV was started. Antibiotics, clindamycin 900 mg, were given intraoperatively. The patient was placed in a prone position.? The patient was sedated by the anesthesiologist. The thoracolumbar area was widely prepped with ChloraPrep, allowed to dry and draped in sterile fashion. Fluoroscopy was used to identify the T12/L1 interlaminar spaces and appropriate needle insertion sites. The skin and subcutaneous tissue was anesthetized with a mixture of 0.25% ropivacaine and 1% lidocaine. Access was first attempted on the right side using a 4 in 14 gauge Touhy needle, advanced in a paramedian approach from 2 levels below. Unfortunately the 4 inch needle length was found to be insufficient to access the epidural space given the patient's morbid obesity. The needle was removed. A 6 in 14 gauge Touhy needle was requested from the [employer] bilingual inside sales representative but I was informed that this is not available. Needle procurement time was stated to be more than 2 hours. At this point I decided to attempt epidural access from the left side using a more steep trajectory starting one level below the intended level of access. Loss of resistance was found in the T12/L1 interlaminar space using air. No paresthesias were elicited with needle placement. No CSF or heme was present upon needle placement. A guidewire was then used to confirm placement into the epidural space under live fluoroscopy. Multiple attempts were made to thread the lead in in the dorsal epidural space but unfortunately due to the angle of access, the lead tended to drop ventrally immediately upon entering the epidural space. Given the inability to achieve the desired lead trajectory with the 4 in Touhy needle, the procedure was aborted in the interest of minimizing adverse effects related to anesthesia and fluoroscopy exposure. The Tuohy needle was then completely removed. The patient tolerated the procedure well and no complications were encountered. Following the procedure the patient's vital signs were stable. The patient was discharged home in good condition after being informed of the course of events while she was under anesthesia. The patient expressed her interest in rescheduling the procedure with appropriate needles available under general anesthesia to minimize intraoperative movement. Time Out: Immediately prior to the procedure, the following was verbally confirmed that there is a signed consent form and that the correct patient, planned procedure, site and side are consistent with documentation and that necessary equipment and/or blood products are available prior to the start of the case. Complications: none EBL: 15 cc
== END 2022-08-17 15:37 | disposition home or self-care (01) ==
LOC: HO.SSS 10:42
PROVIDERS: PCP Family Medicine; Visit Provider Internal Medicine
PROC: (CPT 63650; principal; 2022-08-17 12:30)
DX: M96.1 Postlaminectomy syndrome, not elsewhere classified (principal); G89.29 Other chronic pain; Z98.1 Arthrodesis status; E66.01 Morbid (severe) obesity due to excess calories; Z68.43 Body mass index [BMI] 50.0-59.9, adult; I10 Essential (primary) hypertension; E11.9 Type 2 diabetes mellitus without complications; J45.909 Unspecified asthma, uncomplicated; Z79.4 Long term (current) use of insulin; Z79.51 Long term (current) use of inhaled steroids; Z79.899 Other long term (current) drug therapy; Z88.8 Allergy status to other drugs, medicaments and biological substances; Z88.0 Allergy status to penicillin; Z88.1 Allergy status to other antibiotic agents; Z88.2 Allergy status to sulfonamides; Z98.84 Bariatric surgery status
CPT/HCPCS: 63650; 82947; J1100; J2250; J2405; J2795; J3010

== ENCOUNTER 2022-10-26 10:31 | Day surgery (SDC) | payer OTHER, SELFPAY ==
[2022-10-14 10:46] VITALS: BMI 52.0
[2022-10-26] VITALS (9 sets, daily range): BP systolic 114–190; BP diastolic 70–81; PULSE 77–89; RESP 16–20; TEMP 36.2–36.7; O2SAT 91–98
--- NOTE | ~2022-10-26 | FL_ITS ---
EXAMINATION: XR FLUOROSCOPY WITH IMAGES CLINICAL INFORMATION: Lumbar spinal cord stimulation lead trail system. COMPARISON: Fluoroscopic spot views spine 08/17/2022 TECHNIQUE: Fluoroscopy Supervised By: Dr. Yvon Urias. Fluoroscopy Time: 8.7 minutes. Cumulative Dose: 294 mGy. DAP: 39.0 Gycm2. Images: 6. FINDINGS: There are 2 spinal stimulator electrodes seen ascending the posterior spinal canal. The electrode tips are at level of mid thoracic spine, approximately T7. There is no visible kinking or defect of the leads. FL/FL guidance in OR IMPRESSION: Fluoroscopy for pain management procedure.
[2022-10-26 11:02] LABS: Glucose, Whole Blood 111 mg/dL (60-115)
--- NOTE | 2022-10-26 11:02 | HO.ANESPROP2 ---
HPI - Anesthesia Eval Consult details Narrative: Dorsal column stimulator implant PMFSH Active Problems Active Problems: All Active Problems (Updated 08/11/22 @ 11:17 by Piper Parish RN) Failed back syndrome (Acute) Lumbar spondylosis (Acute) Morbid obesity (Acute) Chronic back pain (Acute) Arthropathy of spinal facet joint (Acute) Past Medical History Medical History Acquired hallux valgus Arthropathy of spinal facet joint Asthma Binge eating disorder Chronic back pain Congenital valgus deformity Diabetes Hyperlipidemia Hypertensive disorder Hyperthyroidism Intestinal malabsorption of carbohydrate Kidney stone Morbid obesity Recurrent major depressive episodes Restless leg Sleep apnea Tachycardia Transient cerebral ischemia Family History Family History Mother Diabetes mellitus COPD (chronic obstructive pulmonary disease) Pemphigoid Depressive disorder Hyperlipidemia Father Malignant neoplastic disease Myocardial infarction Maternal Grandmother Myocardial infarction Family history of problems with anesthesia: No Surgical History Surgical History (Updated 08/17/22 @ 12:40 by Iva Hood MD) H/O gastric sleeve H/O: hysterectomy History of fusion of cervical spine History of fusion of lumbar spine History of laparoscopic cholecystectomy History of lumbar laminectomy History of Problems with Anesthesia: No Social History Social History (Updated 10/14/22 @ 10:50 by Naheed Khan RN) Are you a primary day care supervisor to a significant other at home: No Do you presently have visiting nurse or other home services: No Alcohol intake: never Patient Tobacco Use Status: Never used Tobacco Use of substances other than those prescribed or required for medical reasons: No Have you been hit, kicked, punched, or otherwise hurt by someone within the past year? If so, by whom?: No Are you DNR?: No Advance Directives: Yes Advance Directives Information Provided: No Advance Directives on File: Yes Advance Directives Date on File: 08/17/22 Recently lost weight without trying: No Nutrition Risks: No Nutritional Risk Meds Allergies Allergy/AdvReac Type Severity Reaction Status Date / Time codeine Allergy Severe Itching Verified 10/26/22 11:02 divalproex sodium [Depakote] Allergy Severe rapid Verified 10/26/22 11:02 toxicity fluoxetine [Prozac] Allergy Severe suicidal Verified 10/26/22 11:02 ideation/HTN hydrochlorothiazide Allergy Severe vertigo Verified 10/26/22 11:02 benzonatate [Tessalon Perles] Allergy Intermediate Rash Verified 10/26/22 11:02 epinephrine Allergy Intermediate tachycardia Verified 10/26/22 11:02 erythromycin base Allergy Intermediate Hives Verified 10/26/22 11:02 Fish Containing Products Allergy Intermediate Hives Verified 10/26/22 11:02 guaifenesin Allergy Intermediate Itching Verified 10/26/22 11:02 iodine Allergy Intermediate Rash Verified 10/26/22 11:02 levofloxacin [Levaquin] Allergy Intermediate Itching/ivana Verified 10/26/22 11:02 h lidocaine Allergy Intermediate Rash Verified 10/26/22 11:02 morphine Allergy Intermediate itching/rash/redness Verified 10/26/22 11:02 @ injection site nitrofurantoin Allergy Intermediate Itching Verified 10/26/22 11:02 [From Macrobid] nortriptyline Allergy Intermediate Itching Verified 10/26/22 11:02 oxcarbazepine Allergy Intermediate Hives Verified 10/26/22 11:02 [From Trileptal] penicillin V Allergy Intermediate rash/itch Verified 10/26/22 11:02 shellfish derived Allergy Intermediate Rash Verified 10/26/22 11:02 strawberry Allergy Intermediate Itching Verified 10/26/22 11:02 Sulfa (Sulfonamide Allergy Intermediate Rash Verified 10/26/22 11:02 Antibiotics) sumatriptan [From Imitrex] Allergy Intermediate skin Verified 10/26/22 11:02 reaction tramadol Allergy Intermediate Itching Verified 10/26/22 11:02 Tricyclic Antidepressants Allergy Intermediate Rash Verified 10/26/22 11:02 and Tricy [Tricyclic Compounds] adhesive tape AdvReac Intermediate Rash Verified 10/26/22 11:02 bupropion [From Wellbutrin] AdvReac Intermediate Hypertensio Verified 10/26/22 11:02 n buspirone AdvReac Intermediate Hypertensio Verified 10/26/22 11:02 n duloxetine [From Cymbalta] AdvReac Intermediate tachycardia Verified 10/26/22 11:02 fluticasone AdvReac Intermediate burning of Verified 10/26/22 11:02 nasal passages mirtazapine [From Remeron] AdvReac Intermediate HTN/weight Verified 10/26/22 11:02 gain montelukast AdvReac Intermediate Depression Verified 10/26/22 11:02 prednisone AdvReac Intermediate Headache Verified 10/26/22 11:02 thioridazine [From Mellaril] AdvReac Intermediate Hypertensio Verified 10/26/22 11:02 n tiotropium AdvReac Intermediate Headache Verified 10/26/22 11:02 [From Spiriva with HandiHaler] trazodone AdvReac Intermediate Hallucinati Verified 10/26/22 11:02 ons Novocain Allergy Intermediate tachycardia Uncoded 10/26/22 11:02 (when given w/epinephrine) Active Medications: Current Medications Clindamycin Phosphate (Cleocin) 900 mg in 50 mls @ 50 mls/hr IV PREOP ONE Stop: 10/26/22 11:36 Home Medications Medication Instructions Recorded Confirmed Last Taken Type albuterol sulfate 90 mcg/actuation 2 inh inhalation Q6H PRN Shortness 10/22/21 10/14/22 Unknown History breath activated powder Of Breath Or Wheezing inhaler,sensor celecoxib 200 mg capsule 200 mg PO BID 10/22/21 10/14/22 Unknown History famotidine 20 mg tablet 20 mg PO BID 10/22/21 10/14/22 Unknown History furosemide 20 mg tablet 20 mg PO DAILY 10/22/21 10/14/22 Unknown History lorazepam 0.5 mg tablet 0.5 mg PO BID PRN Anxiety 10/22/21 10/14/22 Unknown History pen needle, diabetic 32 gauge x 10/22/21 12/25/21 Unknown History (BD Lulu 2nd Gen Pen Needle) fluticasone propionate 110 1 puff PO BID 12/25/21 10/14/22 Unknown History mcg/actuation HFA aerosol inhaler (Flovent HFA) gabapentin 300 mg capsule 900 mg PO BID 12/25/21 10/14/22 Unknown History insulin glargine 100 unit/mL (3 40 unit subcut BEDTIME 12/25/21 10/14/22 Unknown History mL) subcutaneous pen (Lantus Solostar U-100 Insulin) losartan 50 mg tablet 50 mg PO DAILY 12/25/21 10/14/22 Unknown History methocarbamol 500 mg tablet 2 tab PO BID PRN Pain 12/25/21 10/14/22 Unknown History pioglitazone 45 mg tablet 1 tab PO DAILY 12/25/21 10/14/22 12/25/21 History prazosin 2 mg capsule 2 cap PO BEDTIME 12/25/21 10/14/22 Unknown History ropinirole 1 mg tablet 1 - 2 tab PO BEDTIME 12/25/21 10/14/22 Unknown History tamsulosin 0.4 mg capsule 0.4 mg PO DAILY 12/25/21 10/14/22 12/25/21 History tizanidine 4 mg tablet 4 mg PO TID PRN Pain muscle spasms 12/25/21 10/14/22 12/25/21 History venlafaxine 75 mg capsule,extended 225 mg PO QAM 12/25/21 10/14/22 Unknown History release 24 hr melatonin 10 mg capsule 10 mg PO BEDTIME PRN Insomnia 06/03/22 10/14/22 Unknown History hydromorphone 2 mg tablet 2 mg PO TID PRN Pain 08/01/22 10/14/22 Unknown History propranolol 160 mg capsule,24 1 cap PO DAILY 10/14/22 10/14/22 Unknown History hr,extended release Exam Exam Date and Time: October 26, 2022 1102 Height,Weight and Vital Signs: Height 5 ft 5 in Weight 141.974 kg Last Vital Signs Temp 98.1 F 10/26/22 10:54 Pulse 77 10/26/22 10:54 Resp 16 10/26/22 10:54 BP 190/81 H 10/26/22 10:54 Pulse Ox 98 10/26/22 10:54 O2 Del Method 10/26/22 10:54 Pertinent Lab Results Pertinent Lab Results: Laboratory Tests 10/26/22 10:58 POC Glucose 111 Airway Mallampati Class: II TM Dist: >3cm Neck ROM: Limited Heart: rrr Lungs: cta Assessment and Plan Assessment Anesthesia Assessment: Anesthesia Plan Discussed and Chart Reviewed Final Anesthetic Review Family History of Problems with Anesthesia: No History of Problems with Anesthesia: No NPO: Yes ASA Class: III Final Preanesthetic Review: No Changes in Pt Med Stat, Meds/Allgs Chart Reviewed, Consent Obtained/Reviewed and Anes Risks/Benef Reviewed Patient Risk: Intermediate Procedure Risk: Intermediate Anesthetic Plan Anesthetic Plan: GA and Agree w/ Assess. and Plan Disposition: Standard PACU
[2022-10-26 12:24] LABS: MRSA Nasal PCR NEGATIVE (Negative); SA Nasal PCR POSITIVE (Negative)
--- NOTE | 2022-10-26 12:40 | PC.NURSE ---
Dr. Amin made aware of patients blood pressure in preop. He stated I will take care of it in the OR . No new orders at this time. Dr. Urias made aware of patients preop MRSA swab results.
--- NOTE | 2022-10-26 13:00 | MHC.SHP ---
Pre-Procedural Eval Section A Date of Service: 10/26/22 Changes since office visit: Yes Patient answered all questions The History & Physical has been completed within 30 days and I have reviewed it.: No Section B Chief Complaint: Postlaminectomy syndrome, lumbar Relevant Family History (Specify if Yes): No Relevant Social History: None Present Medications: see Short Stay Collaborative assessment Medical History: No relevant PMH History of Previous Operations: Relevant previous surgery/procedure and date(s) (Lumbar spine surgeries) Allergies: Allergies Allergy/AdvReac Type Severity Reaction Status Date / Time codeine Allergy Severe Itching Verified 10/26/22 11:02 divalproex sodium [Depakote] Allergy Severe rapid Verified 10/26/22 11:02 toxicity fluoxetine [Prozac] Allergy Severe suicidal Verified 10/26/22 11:02 ideation/HTN hydrochlorothiazide Allergy Severe vertigo Verified 10/26/22 11:02 benzonatate [Tessalon Perles] Allergy Intermediate Rash Verified 10/26/22 11:02 epinephrine Allergy Intermediate tachycardia Verified 10/26/22 11:02 erythromycin base Allergy Intermediate Hives Verified 10/26/22 11:02 Fish Containing Products Allergy Intermediate Hives Verified 10/26/22 11:02 guaifenesin Allergy Intermediate Itching Verified 10/26/22 11:02 iodine Allergy Intermediate Rash Verified 10/26/22 11:02 levofloxacin [Levaquin] Allergy Intermediate Itching/ivana Verified 10/26/22 11:02 h lidocaine Allergy Intermediate Rash Verified 10/26/22 11:02 morphine Allergy Intermediate itching/rash/redness Verified 10/26/22 11:02 @ injection site nitrofurantoin Allergy Intermediate Itching Verified 10/26/22 11:02 [From Macrobid] nortriptyline Allergy Intermediate Itching Verified 10/26/22 11:02 oxcarbazepine Allergy Intermediate Hives Verified 10/26/22 11:02 [From Trileptal] penicillin V Allergy Intermediate rash/itch Verified 10/26/22 11:02 shellfish derived Allergy Intermediate Rash Verified 10/26/22 11:02 strawberry Allergy Intermediate Itching Verified 10/26/22 11:02 Sulfa (Sulfonamide Allergy Intermediate Rash Verified 10/26/22 11:02 Antibiotics) sumatriptan [From Imitrex] Allergy Intermediate skin Verified 10/26/22 11:02 reaction tramadol Allergy Intermediate Itching Verified 10/26/22 11:02 Tricyclic Antidepressants Allergy Intermediate Rash Verified 10/26/22 11:02 and Tricy [Tricyclic Compounds] adhesive tape AdvReac Intermediate Rash Verified 10/26/22 11:02 bupropion [From Wellbutrin] AdvReac Intermediate Hypertensio Verified 10/26/22 11:02 n buspirone AdvReac Intermediate Hypertensio Verified 10/26/22 11:02 n duloxetine [From Cymbalta] AdvReac Intermediate tachycardia Verified 10/26/22 11:02 fluticasone AdvReac Intermediate burning of Verified 10/26/22 11:02 nasal passages mirtazapine [From Remeron] AdvReac Intermediate HTN/weight Verified 10/26/22 11:02 gain montelukast AdvReac Intermediate Depression Verified 10/26/22 11:02 prednisone AdvReac Intermediate Headache Verified 10/26/22 11:02 thioridazine [From Mellaril] AdvReac Intermediate Hypertensio Verified 10/26/22 11:02 n tiotropium AdvReac Intermediate Headache Verified 10/26/22 11:02 [From Spiriva with HandiHaler] trazodone AdvReac Intermediate Hallucinati Verified 10/26/22 11:02 ons Novocain Allergy Intermediate tachycardia Uncoded 10/26/22 11:02 (when given w/epinephrine) Review of Systems Sugical H&P ROS: Negative: Constitution, Cardiovascular and Respiratory Exam Surgical H&P Exam: Normal: HEENT, Normal: Heart and Normal: Lungs Plan Diagnosis/Plan: Unchanged I have reviewed the history and physical and performed a pertinent physical examination on my patient. No changes have occurred unless specified. Time Spent With Patient Time: Total time managing care of this patient today ____ minutes.
--- NOTE | 2022-10-26 13:00 | PM.OP ---
Brief Operative Note Date of Service: 10/26/22 Pre-op diagnosis: Lumbar postlaminectomy pain syndrome Post-op diagnosis: same Procedure: Thoracolumbar SCS trial lead placement Implants: Santana Proclaim temporary SCS trial leads Surgeon: Yvon Urias MD Anesthesia: MAC Was an Applications Coordinator used for this Procedure?: No Estimated blood loss (mL): 3 Pathology: none sent Condition: stable Disposition: PACU
--- NOTE | 2022-10-26 13:01 | W.PM.OPN ---
Operative Note Operative Note Date of Service: 10/26/22 Narrative: Percutaneous Spinal Cord Stimulator Trial, Lumbar After obtaining written consent, pre-procedure blood pressure and heart rate were recorded and are in the nursing record for review. A peripheral IV was started. Antibiotics, clindamycin 900 milligram, were given intraoperatively. The patient was anesthetized and intubated by the anesthesiologist. The patient was placed in a prone position with appropriate cushioning. The thoracolumbar area was widely prepped with ChloraPrep, allowed to dry and draped in sterile fashion. Fluoroscopy was used to identify the T12/L1 interlaminar spaces and appropriate needle insertion sites. The skin and subcutaneous tissue was anesthetized with 0.5% ropivacaine at all subsequent needle insertion sites. A 14 gauge 6 in Touhy needle was advanced to the T12/L1 interspace in the left parasagittal position first. Loss of resistance was obtained to air. There were no signs of CSF leakage with needle placement. Three attempts were made to advance the lead but we were unable to achieve satisfactory dorsal positioning. The lead and the needle were removed. The needle was then placed in the T11/T12 interspace in the left parasagittal position and loss of resistance was obtained to air once again. There were no signs of CSF leakage with needle placement. Lead was once again inserted and advanced in the epidural space but it continued to travel in the right parasagittal gutter without satisfactory dorsal positioning. The lead and the needle were then removed. Two separate 14 gauge Tuohy epidural needles were then advanced in a right paramedian approach to the epidural space opening at T11/T12 interspace, where loss of resistance was found using air. No paresthesias were elicited with needle placement. No CSF or heme was present upon needle placement. The 1x8 stimulator lead wire was then threaded to the top of T7 in the right parasagittal position and top of of T8 in the left parasagittal position under live fluoroscopy. The leads advanced midline.? There were some coursing of the lead body observed along the paramedian gutter but the eventual electrode positioning was confirmed to be dorsal on lateral fluoroscopy. The Tuohy needles were then completely removed under live fluoroscopy. The stimulator wires were then secured with 1-0 Tycron sutures to the skin, followed by steristrips, gauze and tegaderm for skin dressing. The patient tolerated the procedure well and no complications were encountered. Following the procedure the patient's vital signs were stable. Postoperative neurologic exam was consistent with preoperative exam. She endorsed normal lower extremity strength and sensation. The patient was programmed for paresthesia coverage in the PACU and confirmed adequate programming for both low back and leg pain. The patient was discharged home in good condition after being given discharge instructions. Time Out: Immediately prior to the procedure, the following was verbally confirmed that there is a signed consent form and that the correct patient, planned procedure, site and side are consistent with documentation and that necessary equipment and/or blood products are available prior to the start of the case. Complications: none EBL: <5 cc Breast [place] Node Biopsy Substrate(s) used for sentinel node biopsy in the neoadjuvant setting: N/A General Surg. - Synoptic Notes Breast [place] Node Biopsy Substrate(s) used for sentinel node biopsy in the neoadjuvant setting: N/A
--- NOTE | 2022-10-26 16:54 | PC.NURSE ---
patient sitting up in chair following walk to bathroom and encouraged coughing and deep breathing,and incentive spriometry, sats 96% or greater.
== END 2022-10-26 17:19 | disposition home or self-care (01) ==
PROVIDERS: Nurse Practitioner Family; PCP Family Medicine; Visit Provider Internal Medicine
PROC: (CPT 63650; principal; 2022-10-26 12:00)
DX: M96.1 Postlaminectomy syndrome, not elsewhere classified (principal); M47.816 Spondylosis without myelopathy or radiculopathy, lumbar region; M46.96 Unspecified inflammatory spondylopathy, lumbar region; G89.29 Other chronic pain; Z98.1 Arthrodesis status; I10 Essential (primary) hypertension; J45.909 Unspecified asthma, uncomplicated; F50.81 Binge eating disorder; E66.01 Morbid (severe) obesity due to excess calories; Z68.43 Body mass index [BMI] 50.0-59.9, adult; E11.9 Type 2 diabetes mellitus without complications; Z79.84 Long term (current) use of oral hypoglycemic drugs; Z79.51 Long term (current) use of inhaled steroids; Z79.4 Long term (current) use of insulin; Z79.899 Other long term (current) drug therapy; Z88.1 Allergy status to other antibiotic agents; Z88.8 Allergy status to other drugs, medicaments and biological substances; Z91.041 Radiographic dye allergy status; Z98.890 Other specified postprocedural states
CPT/HCPCS: 63650 ×2; 82947; 87640; 87641; C1897; J1100; J2405; J2795

== ENCOUNTER → 2022-11-03 09:01 | Outpatient (BNVA) | payer OTHER, SELFPAY | PROVIDERS: PCP Family Medicine; Visit Provider Internal Medicine | DX: M96.1 Postlaminectomy syndrome, not elsewhere classified (principal) | CPT/HCPCS: 99212 ==

== ENCOUNTER → 2022-11-10 09:04 | Outpatient (BNVA) | payer OTHER, SELFPAY | PROVIDERS: PCP Family Medicine; Visit Provider Internal Medicine ==

== ENCOUNTER → 2023-01-13 13:20 | Outpatient (BNVA) | payer OTHER, SELFPAY | PROVIDERS: PCP Family Medicine; Visit Provider Registered Nurse Emergency | DX: M96.1 Postlaminectomy syndrome, not elsewhere classified (principal) | CPT/HCPCS: 99212 ==

== ENCOUNTER 2023-01-18 09:48 | Day surgery (SDC) | payer OTHER, SELFPAY ==
[2023-01-13 14:47] VITALS: BMI 53.2
--- NOTE | 2023-01-17 10:55 | HO.ANESPROP2 ---
Documented by User: Radha Valero NP 01/17/23 10:57 HPI - Anesthesia Eval Consult details Narrative: 57yo F for Lumbar Spinal cord Stimulation Implant s/p Trial 10/2022 with GA-ETT 7 *Multiple Allergies* PMFSH Active Problems Active Problems: All Active Problems (Updated 08/11/22 @ 11:17 by Piper Parish RN) Failed back syndrome (Acute) Lumbar spondylosis (Acute) Morbid obesity (Acute) Chronic back pain (Acute) Arthropathy of spinal facet joint (Acute) Past Medical History Medical History Acquired hallux valgus Arthropathy of spinal facet joint Asthma Binge eating disorder Chronic back pain Congenital valgus deformity Diabetes Hyperlipidemia Hypertensive disorder Hyperthyroidism Intestinal malabsorption of carbohydrate Kidney stone Morbid obesity Recurrent major depressive episodes Restless leg Sleep apnea Tachycardia Transient cerebral ischemia Family History Family History Mother Diabetes mellitus COPD (chronic obstructive pulmonary disease) Pemphigoid Depressive disorder Hyperlipidemia Father Malignant neoplastic disease Myocardial infarction Maternal Grandmother Myocardial infarction Family history of problems with anesthesia: No Surgical History Surgical History H/O gastric sleeve H/O: hysterectomy History of fusion of cervical spine History of fusion of lumbar spine History of laparoscopic cholecystectomy History of lumbar laminectomy History of surgery History of Problems with Anesthesia: No Social History Social History Are you a primary healthcare sales representative to a significant other at home: No Do you presently have visiting nurse or other home services: No Alcohol intake: never Patient Tobacco Use Status: Never used Tobacco Second Hand Smoke Exposure: No Use of substances other than those prescribed or required for medical reasons: No Are you DNR?: No Advance Directives: No Advance Directives Information Provided: Yes Advance Directives on File: Yes Advance Directives Date on File: 08/17/22 Meds Allergies Allergy/AdvReac Type Severity Reaction Status Date / Time codeine Allergy Severe Itching Verified 01/13/23 13:35 divalproex sodium [Depakote] Allergy Severe rapid Verified 01/13/23 13:35 toxicity fluoxetine [Prozac] Allergy Severe suicidal Verified 01/13/23 13:35 ideation/HTN hydrochlorothiazide Allergy Severe vertigo Verified 01/13/23 13:35 benzonatate [Tessalon Perles] Allergy Intermediate Rash Verified 01/13/23 13:35 epinephrine Allergy Intermediate tachycardia Verified 01/13/23 13:35 erythromycin base Allergy Intermediate Hives Verified 01/13/23 13:35 Fish Containing Products Allergy Intermediate Hives Verified 01/13/23 13:35 guaifenesin Allergy Intermediate Itching Verified 01/13/23 13:35 iodine Allergy Intermediate Rash Verified 01/13/23 13:35 levofloxacin [Levaquin] Allergy Intermediate Itching/ivana Verified 01/13/23 13:35 h lidocaine Allergy Intermediate Rash Verified 01/13/23 13:35 morphine Allergy Intermediate itching/rash/redness Verified 01/13/23 13:35 @ injection site nitrofurantoin Allergy Intermediate Itching Verified 01/13/23 13:35 [From Macrobid] nortriptyline Allergy Intermediate Itching Verified 01/13/23 13:35 oxcarbazepine Allergy Intermediate Hives Verified 01/13/23 13:35 [From Trileptal] penicillin V Allergy Intermediate rash/itch Verified 01/13/23 13:35 shellfish derived Allergy Intermediate Rash Verified 01/13/23 13:35 strawberry Allergy Intermediate Itching Verified 01/13/23 13:35 Sulfa (Sulfonamide Allergy Intermediate Rash Verified 01/13/23 13:35 Antibiotics) sumatriptan [From Imitrex] Allergy Intermediate skin Verified 01/13/23 13:35 reaction tramadol Allergy Intermediate Itching Verified 01/13/23 13:35 Tricyclic Antidepressants Allergy Intermediate Rash Verified 01/13/23 13:35 and Tricy [Tricyclic Compounds] adhesive tape AdvReac Intermediate Rash Verified 01/13/23 13:35 bupropion [From Wellbutrin] AdvReac Intermediate Hypertensio Verified 01/13/23 13:35 n buspirone AdvReac Intermediate Hypertensio Verified 01/13/23 13:35 n duloxetine [From Cymbalta] AdvReac Intermediate tachycardia Verified 01/13/23 13:35 fluticasone AdvReac Intermediate burning of Verified 01/13/23 13:35 nasal passages mirtazapine [From Remeron] AdvReac Intermediate HTN/weight Verified 01/13/23 13:35 gain montelukast AdvReac Intermediate Depression Verified 01/13/23 13:35 prednisone AdvReac Intermediate Headache Verified 01/13/23 13:35 thioridazine [From Mellaril] AdvReac Intermediate Hypertensio Verified 01/13/23 13:35 n tiotropium AdvReac Intermediate Headache Verified 01/13/23 13:35 [From Spiriva with HandiHaler] trazodone AdvReac Intermediate Hallucinati Verified 01/13/23 13:35 ons Novocain Allergy Intermediate tachycardia Uncoded 10/26/22 11:02 (when given w/epinephrine) Home Medications Medication Instructions Recorded Confirmed Last Taken Type albuterol sulfate 90 mcg/actuation 2 inh inhalation Q6H PRN Shortness 10/22/21 01/13/23 Unknown History breath activated powder Of Breath Or Wheezing inhaler,sensor celecoxib 200 mg capsule 200 mg PO BID 10/22/21 01/13/23 10/24/22 History famotidine 20 mg tablet 20 mg PO BID 10/22/21 01/13/23 Unknown History furosemide 20 mg tablet 20 mg PO DAILY 10/22/21 01/13/23 Unknown History lorazepam 0.5 mg tablet 0.5 mg PO BID PRN Anxiety 10/22/21 01/13/23 Unknown History pen needle, diabetic 32 gauge x 10/22/21 10/26/22 Unknown History (BD Lulu 2nd Gen Pen Needle) fluticasone propionate 110 1 puff PO BID 12/25/21 01/13/23 Unknown History mcg/actuation HFA aerosol inhaler (Flovent HFA) gabapentin 300 mg capsule 900 mg PO BID 12/25/21 01/13/23 Unknown History insulin glargine 100 unit/mL (3 40 unit subcut BEDTIME 12/25/21 01/13/23 10/25/22 History mL) subcutaneous pen (Lantus 20 units Solostar U-100 Insulin) losartan 50 mg tablet 50 mg PO DAILY 12/25/21 01/13/23 10/25/22 History methocarbamol 500 mg tablet 2 tab PO BID PRN Pain 12/25/21 01/13/23 Unknown History pioglitazone 45 mg tablet 1 tab PO DAILY 12/25/21 01/13/23 12/25/21 History prazosin 2 mg capsule 2 cap PO BEDTIME 12/25/21 01/13/23 Unknown History ropinirole 1 mg tablet 1 - 2 tab PO BEDTIME 12/25/21 01/13/23 Unknown History tamsulosin 0.4 mg capsule 0.4 mg PO DAILY 12/25/21 01/13/23 12/25/21 History tizanidine 4 mg tablet 4 mg PO TID PRN Pain muscle spasms 12/25/21 01/13/23 12/25/21 History venlafaxine 75 mg capsule,extended 225 mg PO QAM 12/25/21 01/13/23 Unknown History release 24 hr melatonin 10 mg capsule 10 mg PO BEDTIME PRN Insomnia 06/03/22 01/13/23 Unknown History hydromorphone 2 mg tablet 2 mg PO TID PRN Pain 08/01/22 01/13/23 Unknown History propranolol 160 mg capsule,24 1 cap PO DAILY 10/14/22 01/13/23 10/25/22 History hr,extended release Exam Exam Date and Time: January 17, 2023 1055 Height,Weight and Vital Signs: Height 5 ft 5 in Weight 145.15 kg Assessment and Plan Assessment Anesthesia Assessment: Chart Reviewed Final Anesthetic Review Family History of Problems with Anesthesia: No History of Problems with Anesthesia: No Documented by User: Iva Hood MD 01/18/23 12:30 [facility] Active Problems Active Problems: All Active Problems (Updated 01/18/23 @ 12:10 by Raisa Hood MD) Failed back syndrome (Acute) Lumbar spondylosis (Acute) Morbid obesity (Acute) BMI 53 Chronic back pain (Acute) Arthropathy of spinal facet joint (Acute) Some MICHAEL. No CPAP machine Past Medical History Medical History Acquired hallux valgus Arthropathy of spinal facet joint Asthma Binge eating disorder Chronic back pain Congenital valgus deformity Diabetes Hyperlipidemia Hypertensive disorder Hyperthyroidism Intestinal malabsorption of carbohydrate Kidney stone Morbid obesity Recurrent major depressive episodes Restless leg Sleep apnea Tachycardia Transient cerebral ischemia Family History Family History Mother Diabetes mellitus COPD (chronic obstructive pulmonary disease) Pemphigoid Depressive disorder Hyperlipidemia Father Malignant neoplastic disease Myocardial infarction Maternal Grandmother Myocardial infarction Surgical History Surgical History H/O gastric sleeve H/O: hysterectomy History of fusion of cervical spine History of fusion of lumbar spine History of laparoscopic cholecystectomy History of lumbar laminectomy History of surgery Social History Social History Are you a primary healthcare sales representative to a significant other at home: No Do you presently have visiting nurse or other home services: No Alcohol intake: never Patient Tobacco Use Status: Never used Tobacco Second Hand Smoke Exposure: No Use of substances other than those prescribed or required for medical reasons: No Are you DNR?: No Advance Directives: No Advance Directives Information Provided: Yes Advance Directives on File: Yes Advance Directives Date on File: 08/17/22 Meds Allergies Allergy/AdvReac Type Severity Reaction Status Date / Time codeine Allergy Severe Itching Verified 01/13/23 13:35 divalproex sodium [Depakote] Allergy Severe rapid Verified 01/13/23 13:35 toxicity fluoxetine [Prozac] Allergy Severe suicidal Verified 01/13/23 13:35 ideation/HTN hydrochlorothiazide Allergy Severe vertigo Verified 01/13/23 13:35 benzonatate [Tessalon Perles] Allergy Intermediate Rash Verified 01/13/23 13:35 epinephrine Allergy Intermediate tachycardia Verified 01/13/23 13:35 erythromycin base Allergy Intermediate Hives Verified 01/13/23 13:35 Fish Containing Products Allergy Intermediate Hives Verified 01/13/23 13:35 guaifenesin Allergy Intermediate Itching Verified 01/13/23 13:35 iodine Allergy Intermediate Rash Verified 01/13/23 13:35 levofloxacin [Levaquin] Allergy Intermediate Itching/ivana Verified 01/13/23 13:35 h lidocaine Allergy Intermediate Rash Verified 01/13/23 13:35 morphine Allergy Intermediate itching/rash/redness Verified 01/13/23 13:35 @ injection site nitrofurantoin Allergy Intermediate Itching Verified 01/13/23 13:35 [From Macrobid] nortriptyline Allergy Intermediate Itching Verified 01/13/23 13:35 oxcarbazepine Allergy Intermediate Hives Verified 01/13/23 13:35 [From Trileptal] penicillin V Allergy Intermediate rash/itch Verified 01/13/23 13:35 shellfish derived Allergy Intermediate Rash Verified 01/13/23 13:35 strawberry Allergy Intermediate Itching Verified 01/13/23 13:35 Sulfa (Sulfonamide Allergy Intermediate Rash Verified 01/13/23 13:35 Antibiotics) sumatriptan [From Imitrex] Allergy Intermediate skin Verified 01/13/23 13:35 reaction tramadol Allergy Intermediate Itching Verified 01/13/23 13:35 Tricyclic Antidepressants Allergy Intermediate Rash Verified 01/13/23 13:35 and Tricy [Tricyclic Compounds] adhesive tape AdvReac Intermediate Rash Verified 01/13/23 13:35 bupropion [From Wellbutrin] AdvReac Intermediate Hypertensio Verified 01/13/23 13:35 n buspirone AdvReac Intermediate Hypertensio Verified 01/13/23 13:35 n duloxetine [From Cymbalta] AdvReac Intermediate tachycardia Verified 01/13/23 13:35 fluticasone AdvReac Intermediate burning of Verified 01/13/23 13:35 nasal passages mirtazapine [From Remeron] AdvReac Intermediate HTN/weight Verified 01/13/23 13:35 gain montelukast AdvReac Intermediate Depression Verified 01/13/23 13:35 prednisone AdvReac Intermediate Headache Verified 01/13/23 13:35 thioridazine [From Mellaril] AdvReac Intermediate Hypertensio Verified 01/13/23 13:35 n tiotropium AdvReac Intermediate Headache Verified 01/13/23 13:35 [From Spiriva with HandiHaler] trazodone AdvReac Intermediate Hallucinati Verified 01/13/23 13:35 ons Novocain Allergy Intermediate tachycardia Uncoded 10/26/22 11:02 (when given w/epinephrine) Home Medications Medication Instructions Recorded Confirmed Last Taken Type albuterol sulfate 90 mcg/actuation 2 inh inhalation Q6H PRN Shortness 10/22/21 01/13/23 Unknown History breath activated powder Of Breath Or Wheezing inhaler,sensor celecoxib 200 mg capsule 200 mg PO BID 10/22/21 01/13/23 10/24/22 History famotidine 20 mg tablet 20 mg PO BID 10/22/21 01/13/23 Unknown History furosemide 20 mg tablet 20 mg PO DAILY 10/22/21 01/13/23 Unknown History lorazepam 0.5 mg tablet 0.5 mg PO BID PRN Anxiety 10/22/21 01/13/23 Unknown History pen needle, diabetic 32 gauge x 10/22/21 10/26/22 Unknown History (BD Lulu 2nd Gen Pen Needle) fluticasone propionate 110 1 puff PO BID 12/25/21 01/13/23 Unknown History mcg/actuation HFA aerosol inhaler (Flovent HFA) gabapentin 300 mg capsule 900 mg PO BID 12/25/21 01/13/23 Unknown History insulin glargine 100 unit/mL (3 40 unit subcut BEDTIME 12/25/21 01/13/23 10/25/22 History mL) subcutaneous pen (Lantus 20 units Solostar U-100 Insulin) losartan 50 mg tablet 50 mg PO DAILY 12/25/21 01/13/23 10/25/22 History methocarbamol 500 mg tablet 2 tab PO BID PRN Pain 12/25/21 01/13/23 Unknown History pioglitazone 45 mg tablet 1 tab PO DAILY 12/25/21 01/13/23 12/25/21 History prazosin 2 mg capsule 2 cap PO BEDTIME 12/25/21 01/13/23 Unknown History ropinirole 1 mg tablet 1 - 2 tab PO BEDTIME 12/25/21 01/13/23 Unknown History tamsulosin 0.4 mg capsule 0.4 mg PO DAILY 12/25/21 01/13/23 12/25/21 History tizanidine 4 mg tablet 4 mg PO TID PRN Pain muscle spasms 12/25/21 01/13/23 12/25/21 History venlafaxine 75 mg capsule,extended 225 mg PO QAM 12/25/21 01/13/23 Unknown History release 24 hr melatonin 10 mg capsule 10 mg PO BEDTIME PRN Insomnia 06/03/22 01/13/23 Unknown History hydromorphone 2 mg tablet 2 mg PO TID PRN Pain 08/01/22 01/13/23 Unknown History propranolol 160 mg capsule,24 1 cap PO DAILY 10/14/22 01/13/23 10/25/22 History hr,extended release Exam Height,Weight and Vital Signs: Height 5 ft 5 in Weight 145.15 kg Vital Signs Temp Pulse Resp BP Pulse Ox O2 Del Method 01/18/23 10:28 98.3 F 72 18 133/49 L 96 Room Air Pertinent Lab Results Pertinent Lab Results: Lab Results 01/18/23 01/18/23 Range/Units 10:46 10:53 POC Glucose 129 H (60-115) mg/dL Nasal Screen MRSA (PCR) NEGATIVE (Negative) Nasal S. aureus Screen NEGATIVE (Negative) Nasal MRSA/S.aureus Interp SEE NOTE Airway Mallampati Class: II TM Dist: >3cm Neck ROM: Full Denture: Upper and Lower Loose/Missing/Broken Teeth: Yes (Dentures at home) Heart: RRR Lungs: CTAB Assessment and Plan Assessment Anesthesia Assessment: Anesthesia Plan Discussed Final Anesthetic Review NPO: Yes ASA Class: III Final Preanesthetic Review: No Changes in Pt Med Stat, Meds/Allgs Chart Reviewed, Consent Obtained/Reviewed and Anes Risks/Benef Reviewed Patient Risk: Intermediate Procedure Risk: Low Assessment/Block/Sedation in SS: Assess/Block/Sedation-SS Anesthetic Plan Anesthetic Plan: GA Disposition: Standard PACU
[2023-01-18] VITALS (7 sets, daily range): BP systolic 108–143; BP diastolic 49–97; PULSE 72–91; RESP 18–24; TEMP 36.2–36.8; O2SAT 94–100
--- NOTE | ~2023-01-18 | FL_ITS ---
EXAMINATION: XR FLUOROSCOPY WITH IMAGES CLINICAL INFORMATION: Lumbar spine stimulator implant. COMPARISON: None available. TECHNIQUE: Fluoroscopy Supervised By: Dr. Yvon Urias. Fluoroscopy Time: 11.6 minutes. Cumulative Dose: 403 mGy. DAP: 56.5 Gy-cm2. Images: 2. FINDINGS: There are 2 digital images revealing 2 stimulator implants posterior from T8 through T10 vertebrae. Visualized bones are grossly unremarkable. FL/FL guidance in OR IMPRESSION: Fluoroscopy was provided to referring physician for pain management.
[2023-01-18 10:57] LABS: Glucose, Whole Blood 129 mg/dL (60-115)
[2023-01-18 12:11] LABS: MRSA Nasal PCR NEGATIVE (Negative); SA Nasal PCR NEGATIVE (Negative)
--- NOTE | 2023-01-18 18:01 | PM.OP ---
Brief Operative Note Date of Service: 01/18/23 Pre-op diagnosis: Lumbar postlaminectomy syndrome Post-op diagnosis: same Procedure: Lumbar spinal cord stimulator implant Implants: [employer] recharge-free SCS system Surgeon: Yvon Urias MD Anesthesia: GETA Was an Server Support Technician used for this Procedure?: No Estimated blood loss (mL): 25 Pathology: none sent Condition: stable Disposition: PACU
--- NOTE | 2023-01-18 18:03 | W.PM.OPN ---
Operative Note Operative Note Date of Service: 01/18/23 Narrative: Lumbar SCS Implant After proper identification, the patient was brought to the operating room. After the patient was placed under general anesthesia, she was placed in the prone position with adequate padding. Care was taken during positioning to protect and pad all pressure points. Clindamycin 900 mg was given as preoperative antibiotic prophylaxis. The back was prepped and draped in the usual sterile fashion using Chloroprep. The fluoroscope unit was sterilely draped and brought into field, the vertebral target and the T12/L1 interspace was localized with fluoroscopy. Two 6 in 14 gauge coude needles were then advanced in a parasagittal position starting to levels below the target at the level of the skin under AP and contralateral oblique fluoroscopy to the target interspace on either side of the inferior spinous process. Upon loss of resistance, a flexible stylet was advanced and verified to be in the epidural space. The left electrode was then threaded up to the bottom of T7 vertebral body. The right electrode was threaded to the bottom of T6 vertebral body. A 4 in incision was then made in the midline back with a 15 blade between the L1 and L3 spinous processes. Electrocautery was used to dissect down to the prevertebral fascia. The incision was dissected until the 2 paramedian needles were internalized within the incision. With the needles covering the leads, we placed 2 sets of Ticron sutures per electrode for the anchor stitches. We then backed out the needle under live fluoroscopy, verifying that the electrodes were in the correct position and we then used the locking anchors to secure the electrodes down to the prevertebral fascia, tying them down with the Tycron sutures. The needles were removed from the original insertion sites and the leads were internalized within the midline incision. At this point, a pocket for the generator was made in the left iliac fossa. With the skin and subcutaneous tissues anesthetized with 0.25% ropivicaine with 1:200,000 epinephrine and 1% lidocaine, a horizontal 2-inch incision was made using a 15 blade and combination of sharp dissection, blunt dissection and electrocautery was used. A pocket was created about half an inch below the skin. The pocket was then irrigated with normal saline containing vancomycin. Hemostasis was attained with electrocautery. We then tunneled the electrodes from the back into the pocket using the tunneling device. The electrodes were then connected to the generator. Two Tycron sutures were thrown across the floor of the pocket and through the medial and lateral anchor holds of the generator. Both the incision sites were then irrigated with copious vancomycin solution. Both the wounds were closed with a continuous 2-0 Vicryl running suture, followed by 3-0 Vicryl interrupted sutures, followed by lu for skin closure. Bacitracin ointment was applied on top of the lu. The site was dressed with gauze and Tegaderm. The patient was then flipped supine, extubated and brought to the PACU in stable condition.
[2023-01-18] MEDS: Acetaminophen 1,000 MG/100 ML PIGGYBACK 400 MG IV (18:32)
== END 2023-01-18 19:18 | disposition home or self-care (01) ==
PROVIDERS: Registered Nurse Emergency; PCP Internal Medicine; Visit Provider Internal Medicine
PROC: (CPT 63685; principal; 2023-01-18 12:00)
DX: M96.1 Postlaminectomy syndrome, not elsewhere classified (principal); M47.816 Spondylosis without myelopathy or radiculopathy, lumbar region; G89.29 Other chronic pain; M54.50 Low back pain, unspecified; Z98.1 Arthrodesis status; F33.9 Major depressive disorder, recurrent, unspecified; I10 Essential (primary) hypertension; R00.0 Tachycardia, unspecified; E78.5 Hyperlipidemia, unspecified; E05.90 Thyrotoxicosis, unspecified without thyrotoxic crisis or storm; G45.9 Transient cerebral ischemic attack, unspecified; E66.01 Morbid (severe) obesity due to excess calories; E11.9 Type 2 diabetes mellitus without complications; Z79.4 Long term (current) use of insulin; Z79.51 Long term (current) use of inhaled steroids; Z79.899 Other long term (current) drug therapy; Z88.0 Allergy status to penicillin; Z88.1 Allergy status to other antibiotic agents; Z88.2 Allergy status to sulfonamides; Z88.8 Allergy status to other drugs, medicaments and biological substances; Z91.041 Radiographic dye allergy status; Z98.84 Bariatric surgery status; Z98.890 Other specified postprocedural states; Z90.49 Acquired absence of other specified parts of digestive tract
CPT/HCPCS: 63685; 63650 ×2; 82947; 87640; 87641; C1713; C1883; C1897; J0131; J1100; J2250; J2405; J3010; J3370

== ENCOUNTER → 2023-01-24 14:21 | Outpatient (BNVA) | payer OTHER, SELFPAY | PROVIDERS: PCP Internal Medicine; Visit Provider Registered Nurse Emergency | DX: Z48.811 Encounter for surgical aftercare following surgery on the nervous system (principal); M96.1 Postlaminectomy syndrome, not elsewhere classified; Z96.82 Presence of neurostimulator | CPT/HCPCS: 99212 ==

== ENCOUNTER → 2023-01-31 13:51 | Outpatient (BNVA) | payer OTHER, SELFPAY | PROVIDERS: PCP Family Medicine; Visit Provider Registered Nurse Emergency | DX: Z48.02 Encounter for removal of sutures (principal); M96.1 Postlaminectomy syndrome, not elsewhere classified | CPT/HCPCS: 99212; Q3014 ==

== ENCOUNTER → 2023-02-07 12:52 | Outpatient (BNVA) | payer OTHER, SELFPAY | PROVIDERS: PCP Family Medicine; Visit Provider Registered Nurse Emergency | DX: Z48.01 Encounter for change or removal of surgical wound dressing (principal); Z96.82 Presence of neurostimulator | CPT/HCPCS: 99211 ==

== ENCOUNTER 2023-04-28 09:49 | Outpatient (AMB) | payer OTHER, SELFPAY ==
--- NOTE | 2023-04-28 10:00 | MHC.OFFVIS ---
Intake Vital Signs 04/28/23 10:01 Height 5 ft 5 in Weight 312 lb BMI 51.9 BP 158/66 H Blood Pressure Location Rt radial Position Sitting Respiration 14 Intake Visit Reasons: Patient C/O Increasing Pain Allergies codeine Allergy (Severe, Verified 04/28/23 10:01) Itching divalproex sodium [Depakote] Allergy (Severe, Verified 04/28/23 10:01) rapid toxicity fluoxetine [Prozac] Allergy (Severe, Verified 04/28/23 10:01) suicidal ideation/HTN hydrochlorothiazide Allergy (Severe, Verified 04/28/23 10:01) vertigo benzonatate [Tessalon Perles] Allergy (Intermediate, Verified 04/28/23 10:01) Rash epinephrine Allergy (Intermediate, Verified 04/28/23 10:01) tachycardia erythromycin base Allergy (Intermediate, Verified 04/28/23 10:01) Hives Fish Containing Products Allergy (Intermediate, Verified 04/28/23 10:01) Hives guaifenesin Allergy (Intermediate, Verified 04/28/23 10:01) Itching iodine Allergy (Intermediate, Verified 04/28/23 10:01) Rash levofloxacin [Levaquin] Allergy (Intermediate, Verified 04/28/23 10:01) Itching/rash lidocaine Allergy (Intermediate, Verified 04/28/23 10:01) Rash morphine Allergy (Intermediate, Verified 04/28/23 10:01) itching/rash/redness @ injection site nitrofurantoin [From Macrobid] Allergy (Intermediate, Verified 04/28/23 10:01) Itching nortriptyline Allergy (Intermediate, Verified 04/28/23 10:01) Itching oxcarbazepine [From Trileptal] Allergy (Intermediate, Verified 04/28/23 10:01) Hives penicillin V Allergy (Intermediate, Verified 04/28/23 10:01) rash/itch shellfish derived Allergy (Intermediate, Verified 04/28/23 10:01) Rash strawberry Allergy (Intermediate, Verified 04/28/23 10:01) Itching Sulfa (Sulfonamide Antibiotics) Allergy (Intermediate, Verified 04/28/23 10:01) Rash sumatriptan [From Imitrex] Allergy (Intermediate, Verified 04/28/23 10:01) skin reaction tramadol Allergy (Intermediate, Verified 04/28/23 10:01) Itching Tricyclic Antidepressants and Tricy [Tricyclic Compounds] Allergy (Intermediate, Verified 04/28/23 10:01) Rash adhesive tape Adverse Reaction (Intermediate, Verified 04/28/23 10:01) Rash bupropion [From Wellbutrin] Adverse Reaction (Intermediate, Verified 04/28/23 10:01) Hypertension buspirone Adverse Reaction (Intermediate, Verified 04/28/23 10:01) Hypertension duloxetine [From Cymbalta] Adverse Reaction (Intermediate, Verified 04/28/23 10:01) tachycardia fluticasone Adverse Reaction (Intermediate, Verified 04/28/23 10:01) burning of nasal passages mirtazapine [From Remeron] Adverse Reaction (Intermediate, Verified 04/28/23 10:01) HTN/weight gain montelukast Adverse Reaction (Intermediate, Verified 04/28/23 10:01) Depression prednisone Adverse Reaction (Intermediate, Verified 04/28/23 10:01) Headache thioridazine [From Mellaril] Adverse Reaction (Intermediate, Verified 04/28/23 10:01) Hypertension tiotropium [From Spiriva with HandiHaler] Adverse Reaction (Intermediate, Verified 04/28/23 10:01) Headache trazodone Adverse Reaction (Intermediate, Verified 04/28/23 10:01) Hallucinations Novocain Allergy (Intermediate, Uncoded 04/28/23 10:01) tachycardia (when given w/epinephrine) oxycodone/acetaminophen Allergy (Mild, Uncoded 04/28/23 10:01) Rash HPI Patient C/O Increasing Pain HPI Details 58-year-old female presenting today for a follow-up of increasing pain. The patient reports 40-50% relief from the spinal cord stimulator but continues to have some axial pain especially with activity. She states her pain symptom aggravates with weather changes. She had 12 surgeries in the past with no significant benefits. The patient is currently on hydromorphone 3 mg T.I.D. she is interested in trying to wean off the hydromorphone. She also has significant knee pain. She has tried gel injections in the past without much benefit. Past procedures: 01/18/23: Lumbar SCS Implant: 40-50% relief. 10/26/22: Percutaneous Spinal Cord Stimulator Trial, Lumbar: >60% relief. PFSH Medical History Acquired hallux valgus Arthropathy of spinal facet joint Asthma Binge eating disorder Chronic back pain Congenital valgus deformity Diabetes Hyperlipidemia Hypertensive disorder Hyperthyroidism Intestinal malabsorption of carbohydrate Kidney stone Morbid obesity Recurrent major depressive episodes Restless leg Sleep apnea Tachycardia Transient cerebral ischemia Surgical History H/O gastric sleeve H/O: hysterectomy History of fusion of cervical spine History of fusion of lumbar spine History of laparoscopic cholecystectomy History of lumbar laminectomy History of surgery Family History Mother Diabetes mellitus COPD (chronic obstructive pulmonary disease) Pemphigoid Depressive disorder Hyperlipidemia Father Malignant neoplastic disease Myocardial infarction Maternal Grandmother Myocardial infarction Social History Are you a primary career services director to a significant other at home: No Do you presently have visiting nurse or other home services: No Alcohol intake: never Patient Tobacco Use Status: Never used Tobacco Second Hand Smoke Exposure: No Advance Directives Date on File: 08/17/22 Review of Systems Const All systems reviewed & are unremarkable except as noted in HPI and below Physical Exam Vital Signs: Last Vital Signs Resp 14 04/28/23 10:01 BP 158/66 H 04/28/23 10:01 BMI result Body Mass Index 51.9 General: Appears afebrile. Alert and oriented. Mood and affect appropriate. Follows and participates in conversation appropriately. Respiratory effort is unlabored. Able to transition from sit to stand unassisted. Ambulates with bilaterally normal heel strike and toe off. Results Reviewed Results Reviewed: No imaging is available for review. Assessment & Plan Assessment & Plan (1) Failed back syndrome: Code(s): M96.1 - Postlaminectomy syndrome, not elsewhere classified (2) Lumbar spondylosis: Code(s): M47.816 - Spondylosis without myelopathy or radiculopathy, lumbar region Plan Discussed facet injections vs. RFA as possible treatment options with the patient for facet mediated pain. Will start with bilateral L3-L4-L5 diagnostic medial branch block. Discussed the risks and benefits of the procedure with the patient in detail. All questions were answered. The patient is on board with the plan. Justification for interventional therapy: ? Patient with average pain > 6/10 ? Patient is already utilizing multiple modes of therapy with residual pain including SCS, oral medication, multiple spine surgeries ? Patient unable to tolerate physical therapy due to pain Scribed for Dr. Urias by Mario Power, medical records custodian, on 04/28/2023. I, Dr. Urias, have personally reviewed and agree with the information entered by the scribe. Coding Level of Care Code Est Pt Level 3 (50941) Diagnoses Failed back syndrome M96.1 Lumbar spondylosis M47.816
[2023-04-28 10:01] VITALS: BP 158/66; RESP 14; BMI 51.9
== END 2023-04-28 10:37 | disposition home or self-care (01) ==
PROVIDERS: PCP Family Medicine; Visit Provider Internal Medicine
DX: M96.1 Postlaminectomy syndrome, not elsewhere classified (principal); M47.816 Spondylosis without myelopathy or radiculopathy, lumbar region
CPT/HCPCS: 99213

== ENCOUNTER → 2023-04-28 09:49 | Outpatient (BNVA) | payer OTHER, SELFPAY | PROVIDERS: PCP Family Medicine; Visit Provider Internal Medicine | DX: M96.1 Postlaminectomy syndrome, not elsewhere classified (principal); M47.816 Spondylosis without myelopathy or radiculopathy, lumbar region | CPT/HCPCS: 99212 ==

== ENCOUNTER → 2023-05-02 14:20 | Outpatient (BNVA) | payer OTHER, SELFPAY | PROVIDERS: PCP Family Medicine; Visit Provider Nurse Practitioner Family ==

== ENCOUNTER 2023-07-03 19:46 | Inpatient (IN) | payer OTHER, SELFPAY ==
[2023-07-03 20:10] VITALS: BP 134/60; PULSE 68; RESP 18; TEMP 36; O2SAT 95
[2023-07-03 21:57] LABS: Glucose, Whole Blood 134 mg/dL (60-115)
[2023-07-03] MEDS: Gabapentin 300 MG CAPSULE 900 MG PO (23:38)
[2023-07-03] MEDS: Melatonin 3 MG TABLET 9 MG PO (23:38)
[2023-07-03] MEDS: Prazosin HCL 1 MG CAPSULE 4 MG PO (23:38)
[2023-07-03] MEDS: Insulin Glargine,Hum.rec.anlog 100 UNIT/ML 10 ML VIAL 40 UNIT SUBCUT (23:39)
[2023-07-03] MEDS: LORazepam 0.5 MG TABLET PO (23:41)
[2023-07-04] MEDS: Zolpidem Tartrate 5 MG TABLET PO ×2 (00:24→20:27)
[2023-07-04] MEDS: rOPINIRole HCL 2 MG TABLET PO ×2 (00:25→20:26)
[2023-07-04] MEDS: TiZANidine HCL 4 MG TABLET PO ×2 (00:25→20:32)
[2023-07-04 00:39] VITALS: BMI 52.2
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
[2023-07-04 07:55] VITALS: BP 132/70; PULSE 70; RESP 18; TEMP 36.7; O2SAT 97
[2023-07-04 08:09] LABS: Estimated Average Glucose 137 mg/dL; Hemoglobin A1c % 6.4 % (<6.0)
[2023-07-04 08:25] LABS: Alanine Aminotransferase 16 U/L (0-31); Albumin Level 3.9 g/dL (3.5-5.0); Alkaline Phosphatase 83 U/L (39-117); Anion Gap 15 (12-20); Aspartate Amino Transferase 24 U/L (5-31); Bilirubin Total 0.4 mg/dL (0.0-1.0); Blood Urea Nitrogen 22 mg/dL (9-16); Calcium 9.5 mg/dL (8.4-10.2); Carbon Dioxide 25 mmol/L (22-29); Chloride 107 mmol/L (96-108); Cholesterol 133 mg/dL (<200); Creatinine Clr Calc Pharmacy 84.8; Estimated Glomerular Filt Rate 54; Glucose Fasting 133 mg/dL (60-99); HDL Cholesterol 42 mg/dL (>40); LDL Cholesterol Calculated 68 mg/dL (<100); Sodium 143 mmol/L (135-145); Total Protein 6.7 g/dL (6.5-8.0); Triglycerides 119 mg/dL (<150)
[2023-07-04] MEDS: Gabapentin 300 MG CAPSULE 900 MG PO ×2 (08:25→20:25)
[2023-07-04] MEDS: Propranolol HCL LA 80 MG CAP.SA.24H 160 MG PO (08:25)
[2023-07-04] MEDS: Furosemide 20 MG TABLET PO (08:25)
[2023-07-04] MEDS: Tamsulosin HCL 0.4 MG CAPSULE PO (08:25)
[2023-07-04] MEDS: Pioglitazone HCL 45 MG TABLET PO (08:25)
[2023-07-04] MEDS: Famotidine 20 MG TABLET PO ×2 (08:26→20:29)
[2023-07-04] MEDS: Pravastatin Sodium 40 MG TABLET PO (08:26)
[2023-07-04] MEDS: Losartan Potassium 50 MG TABLET PO (08:26)
[2023-07-04] MEDS: Calcium + Vitamin D 250 MG TABLET PO ×2 (08:26→20:31)
[2023-07-04] MEDS: Loratadine 10 MG TABLET PO (08:26)
[2023-07-04] MEDS: Venlafaxine HCl ER 150 MG CAP.ER.24H PO (08:26)
[2023-07-04 08:39] LABS: Thyroid Stimulating Hormone 1.55 uIU/mL (0.32-4.0)
[2023-07-04 08:45] LABS: Vitamin B12 839 pg/mL (200-900)
[2023-07-04 11:31] LABS: Glucose, Whole Blood 119 mg/dL (60-115)
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
[2023-07-04 18:00] VITALS: BP 111/79; PULSE 64; RESP 16; TEMP 36.5; O2SAT 96
[2023-07-04] MEDS: Prazosin HCL 1 MG CAPSULE 4 MG PO (20:24)
[2023-07-04] MEDS: Melatonin 3 MG TABLET 9 MG PO (20:31)
[2023-07-04] MEDS: Insulin Glargine,Hum.rec.anlog 100 UNIT/ML 10 ML VIAL 40 UNIT SUBCUT (20:33)
[2023-07-05 07:45] LABS: Glucose, Whole Blood 159 mg/dL (60-115)
[2023-07-05 08:36] VITALS: BP 127/66; PULSE 72; RESP 18; TEMP 36.5; O2SAT 98
[2023-07-05] MEDS: Calcium + Vitamin D 250 MG TABLET PO ×2 (08:40→20:08)
[2023-07-05] MEDS: Famotidine 20 MG TABLET PO ×2 (08:41→20:08)
[2023-07-05] MEDS: Furosemide 20 MG TABLET PO (08:41)
[2023-07-05] MEDS: Gabapentin 300 MG CAPSULE 900 MG PO ×2 (08:42→20:08)
[2023-07-05] MEDS: Losartan Potassium 50 MG TABLET PO (08:43)
[2023-07-05] MEDS: Propranolol HCL LA 80 MG CAP.SA.24H 160 MG PO (08:43)
[2023-07-05] MEDS: Pioglitazone HCL 45 MG TABLET PO (08:44)
[2023-07-05] MEDS: Venlafaxine HCl ER 150 MG CAP.ER.24H PO (08:44)
--- NOTE | 2023-07-05 10:39 | PC.NURSE ---
BS poc 176 on 07/05 at 10:36, RN notified.
[2023-07-05 10:40] LABS: Glucose, Whole Blood 176 mg/dL (60-115)
[2023-07-05] MEDS: Pravastatin Sodium 40 MG TABLET PO (12:01)
--- NOTE | 2023-07-05 12:19 | HO.PSYCHPN ---
Subjective Subjective Date of Service: 07/05/23 Reason For Visit: Depression, Borderline Personality Disorder. Subjective Notes: Conditional Voluntary Interim History: The nursing staff reported the patient had been compliant with treatment she is alert oriented x4 denies active suicidal ideation. She slept 8 hours. The occupational therapist reported that she scored 26/30 on the [place] test and over 4.2 on the [place] test. She has very mild cognitive impairment. On interview the patient reports that she is feeling depressed, I offered to increase her Effexor up to 225 mg daily. She will think about it but at this moment she does not want to change her medications.. Mental Status Exam Mental Status Exam Patient Appearance: Well Grooomed and Appropriate Patient Orientation: Person and Situation Level of Consciousness: Awake and Appropriate Patient Behavior: Guarded and Passive Mood Description: Withdrawn Affect Description: Constricted Patient Cognition Impaired: Yes Ability to Follow Directions: Good Speech Pattern: Clear Hallucinations: None Delusions: Not Present Thought Process: Goal Oriented and Linear Thought Content: positive for [place] and positive for Poverty of Content Judgement: Fair Diagnostics Vital Signs (24Hr): Vital Signs - 24 hr 07/04/23 18:00 07/05/23 08:36 Temperature 97.7 F 97.7 F Pulse Rate 64 72 Respiratory Rate 16 18 Blood Pressure 111/79 127/66 Pulse Oximetry 96 98 Oxygen Delivery Method Room Air Room Air BMI result Body Mass Index 52.2 Labs 07/04/23 07:53 Labs: Laboratory Results - last 48 hr 07/03/23 07/04/23 07/04/23 21:52 06:12 07:53 Sodium 143 Potassium 4.0 Chloride 107 Carbon Dioxide 25 Anion Gap 15 BUN 22 H Creatinine 1.04 Estim Creat Clear Calc 84.8 Estimated GFR 54 POC Glucose 134 H 119 H Fasting Glucose 133 H Estimat Average Glucose 137 Hemoglobin A1c % 6.4 H Calcium 9.5 Total Bilirubin 0.4 AST 24 ALT 16 Alkaline Phosphatase 83 Total Protein 6.7 Albumin 3.9 Triglycerides 119 Cholesterol 133 LDL Cholesterol, Calc 68 HDL Cholesterol 42 Vitamin B12 839 TSH 1.55 07/04/23 07/05/23 19:51 10:36 Sodium Potassium Chloride Carbon Dioxide Anion Gap BUN Creatinine Estim Creat Clear Calc Estimated GFR POC Glucose 159 H 176 H Fasting Glucose Estimat Average Glucose Hemoglobin A1c % Calcium Total Bilirubin AST ALT Alkaline Phosphatase Total Protein Albumin Triglycerides Cholesterol LDL Cholesterol, Calc HDL Cholesterol Vitamin B12 TSH Medications Medications Current Medications Acetaminophen (Acetaminophen 325 Mg Tablet) 650 mg PO Q6H PRN PRN Reason: Headache/Pain Mild Scale (1-3) Al Hydroxide/Mg Hydroxide (Magnesium Hydrox/Alum Hydrox 30 Ml Oral.Susp) 30 ml PO Q6H PRN PRN Reason: Heartburn/Nausea Albuterol Sulfate (Albuterol Sulfate 90 Mcg 8 Gm Inhaler) 2 puff INHALE Q6H PRN PRN Reason: Shortness Of Breath Or Wheezing Calcium Carbonate/Cholecalciferol (Calcium + Vitamin D 250 Mg Tablet) 250 mg PO BID COUNTS INCLUDE 234 BEDS AT THE [facility] Last Admin: 07/05/23 08:40 Dose: 250 mg Famotidine (Famotidine 20 Mg Tablet) 20 mg PO BID COUNTS INCLUDE 234 BEDS AT THE [facility] Last Admin: 07/05/23 08:41 Dose: 20 mg Furosemide (Furosemide 20 Mg Tablet) 20 mg PO DAILY COUNTS INCLUDE 234 BEDS AT THE [facility]; Protocol Last Admin: 07/05/23 08:41 Dose: 20 mg Gabapentin (Gabapentin 300 Mg Capsule) 900 mg PO BID COUNTS INCLUDE 234 BEDS AT THE [facility] Last Admin: 07/05/23 08:42 Dose: 900 mg Hydroxyzine HCl (Hydroxyzine Hcl 25 Mg Tablet) 25 mg PO Q6H PRN PRN Reason: Anxiety Insulin Glargine (Insulin Glargine,Hum.Rec.Anlog 100 Unit/Ml 10 Ml Vial) 40 unit SUBCUT BEDTIME COUNTS INCLUDE 234 BEDS AT THE [facility] Last Admin: 07/04/23 20:33 Dose: 40 unit Loratadine (Loratadine 10 Mg Tablet) 10 mg PO DAILY COUNTS INCLUDE 234 BEDS AT THE [facility] Last Admin: 07/04/23 08:26 Dose: 10 mg Lorazepam (Lorazepam 0.5 Mg Tablet) 0.5 mg PO BID PRN PRN Reason: Anxiety Last Admin: 07/03/23 23:41 Dose: 0.5 mg Losartan Potassium (Losartan Potassium 50 Mg Tablet) 50 mg PO DAILY COUNTS INCLUDE 234 BEDS AT THE [facility]; Protocol Last Admin: 07/05/23 08:43 Dose: 50 mg Magnesium Hydroxide (Milk Of Magnesia 30 Ml Oral.Susp) 30 ml PO DAILY PRN PRN Reason: Constipation Melatonin (Melatonin 3 Mg Tablet) 9 mg PO BEDTIME PRN PRN Reason: Insomnia Last Admin: 07/04/23 20:31 Dose: 9 mg Pioglitazone HCl (Pioglitazone Hcl 45 Mg Tablet) 45 mg PO DAILY COUNTS INCLUDE 234 BEDS AT THE [facility] Last Admin: 07/05/23 08:44 Dose: 45 mg Pravastatin Sodium (Pravastatin Sodium 40 Mg Tablet) 40 mg PO DAILY COUNTS INCLUDE 234 BEDS AT THE [facility] Last Admin: 07/05/23 12:01 Dose: 40 mg Prazosin HCl (Prazosin Hcl 1 Mg Capsule) 4 mg PO BEDTIME COUNTS INCLUDE 234 BEDS AT THE [facility]; Protocol Last Admin: 07/04/23 20:24 Dose: 4 mg Propranolol HCl (Propranolol Hcl La 80 Mg Cap.Sa.24h) 160 mg PO DAILY COUNTS INCLUDE 234 BEDS AT THE [facility]; Protocol Last Admin: 07/05/23 08:43 Dose: 160 mg Ropinirole HCl (Ropinirole Hcl 2 Mg Tablet) 2 mg PO BEDTIME COUNTS INCLUDE 234 BEDS AT THE [facility] Last Admin: 07/04/23 20:26 Dose: 2 mg Tamsulosin HCl (Tamsulosin Hcl 0.4 Mg Capsule) 0.4 mg PO DAILY COUNTS INCLUDE 234 BEDS AT THE [facility] Last Admin: 07/04/23 08:25 Dose: 0.4 mg Tizanidine HCl (Tizanidine Hcl 4 Mg Tablet) 4 mg PO TID PRN PRN Reason: Pain muscle spasms Last Admin: 07/04/23 20:32 Dose: 4 mg Venlafaxine HCl (Venlafaxine Hcl Er 150 Mg Cap.Er.24h) 150 mg PO DAILY COUNTS INCLUDE 234 BEDS AT THE [facility] Last Admin: 07/05/23 08:44 Dose: 150 mg Zolpidem Tartrate (Zolpidem Tartrate 5 Mg Tablet) 5 mg PO BEDTIME COUNTS INCLUDE 234 BEDS AT THE [facility] Allergies Allergies Allergy/AdvReac Type Severity Reaction Status Date / Time codeine Allergy Severe Itching Verified 04/28/23 10:01 divalproex sodium [Depakote] Allergy Severe rapid Verified 04/28/23 10:01 toxicity fluoxetine [Prozac] Allergy Severe suicidal Verified 04/28/23 10:01 ideation/HTN hydrochlorothiazide Allergy Severe vertigo Verified 04/28/23 10:01 benzonatate [Tessalon Perles] Allergy Intermediate Rash Verified 04/28/23 10:01 epinephrine Allergy Intermediate tachycardia Verified 04/28/23 10:01 erythromycin base Allergy Intermediate Hives Verified 04/28/23 10:01 Fish Containing Products Allergy Intermediate Hives Verified 04/28/23 10:01 guaifenesin Allergy Intermediate Itching Verified 04/28/23 10:01 iodine Allergy Intermediate Rash Verified 04/28/23 10:01 levofloxacin [Levaquin] Allergy Intermediate Itching/ivana Verified 04/28/23 10:01 h lidocaine Allergy Intermediate Rash Verified 04/28/23 10:01 morphine Allergy Intermediate itching/rash/redness Verified 04/28/23 10:01 @ injection site nitrofurantoin Allergy Intermediate Itching Verified 04/28/23 10:01 [From Macrobid] nortriptyline Allergy Intermediate Itching Verified 04/28/23 10:01 oxcarbazepine Allergy Intermediate Hives Verified 04/28/23 10:01 [From Trileptal] penicillin V Allergy Intermediate rash/itch Verified 04/28/23 10:01 shellfish derived Allergy Intermediate Rash Verified 04/28/23 10:01 strawberry Allergy Intermediate Itching Verified 04/28/23 10:01 Sulfa (Sulfonamide Allergy Intermediate Rash Verified 04/28/23 10:01 Antibiotics) sumatriptan [From Imitrex] Allergy Intermediate skin Verified 04/28/23 10:01 reaction tramadol Allergy Intermediate Itching Verified 04/28/23 10:01 Tricyclic Antidepressants Allergy Intermediate Rash Verified 04/28/23 10:01 and Tricy [Tricyclic Compounds] adhesive tape AdvReac Intermediate Rash Verified 04/28/23 10:01 bupropion [From Wellbutrin] AdvReac Intermediate Hypertensio Verified 04/28/23 10:01 n buspirone AdvReac Intermediate Hypertensio Verified 04/28/23 10:01 n duloxetine [From Cymbalta] AdvReac Intermediate tachycardia Verified 04/28/23 10:01 fluticasone AdvReac Intermediate burning of Verified 04/28/23 10:01 nasal passages mirtazapine [From Remeron] AdvReac Intermediate HTN/weight Verified 04/28/23 10:01 gain montelukast AdvReac Intermediate Depression Verified 04/28/23 10:01 prednisone AdvReac Intermediate Headache Verified 04/28/23 10:01 thioridazine [From Mellaril] AdvReac Intermediate Hypertensio Verified 04/28/23 10:01 n tiotropium AdvReac Intermediate Headache Verified 04/28/23 10:01 [From Spiriva with HandiHaler] trazodone AdvReac Intermediate Hallucinati Verified 04/28/23 10:01 ons Novocain Allergy Intermediate tachycardia Uncoded 04/28/23 10:01 (when given w/epinephrine) oxycodone/acetaminophen Allergy Mild Rash Uncoded 04/28/23 10:01 Assessment & Plan Assessment & Plan (1) Major depressive disorder: Status: Acute Code(s): F32.9 - Major depressive disorder, single episode, unspecified (2) Borderline personality disorder: Status: Acute Code(s): F60.3 - Borderline personality disorder Plan The patient is a 58-year-old female, morbidly obese, with borderline personality disorder, major depressive disorder with several prior admissions into the hospital for suicidality. The patient also has several medical comorbidities and abundant allergies. She was brought into this facility due to exacerbation of depression after the of her sister 2 weeks ago. At this moment she is able to contract for safety. Plan 1. Gather collateral information. 2. Continue with regular psychotropics as per medication reconciliation form. 3. Continue with medical treatment as per hospitalist. 4. Regular blood work. 5. Reassessment with results 6. 15 minute checks. Reason for continued inpatient stay Substantial Risk for: inability to function, rapid decompensation and med/psych decompensation Time Spent With Patient Time: Total time managing care of this patient today __20__ minutes.
[2023-07-05] MEDS: Tamsulosin HCL 0.4 MG CAPSULE PO (13:46)
--- NOTE | 2023-07-05 14:59 | MHC.CLN ---
NUTRITION DISCUSSED DIET WITH PATIENT. WOULD LIKE PROTEIN SHAKES TID. STATED THAT TAKES AT HOME SINCE HAD BARIATRIC SURGERY 2019. DOES NOT WANT DIABETIC DIET. REPORTS THAT HAS MULTIPLE ALLERGIES INCLUDING ARTIFICIAL SWEETENERS.
[2023-07-05 18:00] VITALS: BP 156/73; PULSE 67; RESP 18; TEMP 36.2; O2SAT 98
[2023-07-05] MEDS: Prazosin HCL 1 MG CAPSULE 4 MG PO (20:08)
[2023-07-05] MEDS: rOPINIRole HCL 2 MG TABLET PO (20:08)
[2023-07-05] MEDS: Insulin Glargine,Hum.rec.anlog 100 UNIT/ML 10 ML VIAL 40 UNIT SUBCUT (20:08)
[2023-07-05] MEDS: TiZANidine HCL 4 MG TABLET PO (20:09)
[2023-07-05] MEDS: Melatonin 3 MG TABLET 9 MG PO (20:54)
[2023-07-05] MEDS: Acetaminophen 325 MG TABLET 650 MG PO (20:55)
[2023-07-05] MEDS: LORazepam 0.5 MG TABLET PO (20:56)
[2023-07-05] MEDS: Zolpidem Tartrate 5 MG TABLET PO (21:00)
[2023-07-06] MEDS: Acetaminophen 325 MG TABLET 650 MG PO ×2 (07:01→20:33)
[2023-07-06 07:03] LABS: Glucose, Whole Blood 135 mg/dL (60-115)
[2023-07-06 07:03] LABS: Glucose, Whole Blood 120 mg/dL (60-115)
[2023-07-06 08:00] VITALS: BP 130/80; PULSE 66; RESP 18; TEMP 36.2; O2SAT 96
[2023-07-06] MEDS: Famotidine 20 MG TABLET PO ×2 (08:09→20:33)
[2023-07-06] MEDS: Propranolol HCL LA 80 MG CAP.SA.24H 160 MG PO (08:09)
[2023-07-06] MEDS: Furosemide 20 MG TABLET PO (08:09)
[2023-07-06] MEDS: Gabapentin 300 MG CAPSULE 900 MG PO ×2 (08:10→20:33)
[2023-07-06] MEDS: Loratadine 10 MG TABLET PO (08:10)
[2023-07-06] MEDS: Losartan Potassium 50 MG TABLET PO (08:10)
[2023-07-06] MEDS: Calcium + Vitamin D 250 MG TABLET PO ×2 (08:10→20:33)
[2023-07-06] MEDS: Pioglitazone HCL 45 MG TABLET PO (08:10)
[2023-07-06] MEDS: Venlafaxine HCl ER 150 MG CAP.ER.24H PO (08:10)
[2023-07-06] MEDS: Pravastatin Sodium 40 MG TABLET PO (11:50)
[2023-07-06] MEDS: LORazepam 0.5 MG TABLET PO ×2 (11:51→20:34)
--- NOTE | 2023-07-06 13:31 | P.PNPSI_ITS ---
Subjective Subjective Date of Service: 07/06/23 Reason For Visit: Depression, Borderline Personality Disorder. Subjective Notes: Conditional Voluntary Interim History: The nursing staff reported the patient had been pleasant, asking for changes in his point of care medications. She was seen watching TV and reported severe pain later on. The staff has noticed that the patient is and honest with another peer who is grossly demented. On interview I explained her that her peer is very impaired. Since there were no safety concerns we are discussing the possibility of discharge planning. Mental Status Exam Mental Status Exam Patient Appearance: Well Grooomed and Appropriate Patient Orientation: Person and Situation Level of Consciousness: Awake and Appropriate Patient Behavior: Guarded and Passive Mood Description: Withdrawn Affect Description: Constricted Patient Cognition Impaired: Yes Ability to Follow Directions: Good Speech Pattern: Clear Hallucinations: None Delusions: Not Present Thought Process: Distracted and Linear Thought Content: positive for [place] and positive for Poverty of Content Judgement: Fair Diagnostics Vital Signs (24Hr): Vital Signs - 24 hr 07/05/23 18:00 07/06/23 08:00 Temperature 97.1 F 97.2 F Pulse Rate 67 66 Respiratory Rate 18 18 Blood Pressure 156/73 H 130/80 Pulse Oximetry 98 96 Oxygen Delivery Method Room Air Room Air BMI result Body Mass Index 52.2 Labs 07/04/23 07:53 Labs: Laboratory Results - last 48 hr 07/04/23 07/05/23 07/05/23 19:51 10:36 19:54 POC Glucose 159 H 176 H 135 H 07/06/23 06:28 POC Glucose 120 H Medications Medications Current Medications Acetaminophen (Acetaminophen 325 Mg Tablet) 650 mg PO Q6H PRN PRN Reason: Headache/Pain Mild Scale (1-3) Last Admin: 07/06/23 07:01 Dose: 650 mg Al Hydroxide/Mg Hydroxide (Magnesium Hydrox/Alum Hydrox 30 Ml Oral.Susp) 30 ml PO Q6H PRN PRN Reason: Heartburn/Nausea Albuterol Sulfate (Albuterol Sulfate 90 Mcg 8 Gm Inhaler) 2 puff INHALE Q6H PRN PRN Reason: Shortness Of Breath Or Wheezing Calcium Carbonate/Cholecalciferol (Calcium + Vitamin D 250 Mg Tablet) 250 mg PO BID [facility] Last Admin: 07/06/23 08:10 Dose: 250 mg Famotidine (Famotidine 20 Mg Tablet) 20 mg PO BID [facility] Last Admin: 07/06/23 08:09 Dose: 20 mg Furosemide (Furosemide 20 Mg Tablet) 20 mg PO DAILY NEREYDA; Protocol Last Admin: 07/06/23 08:09 Dose: 20 mg Gabapentin (Gabapentin 300 Mg Capsule) 900 mg PO BID NEREYDA Last Admin: 07/06/23 08:10 Dose: 900 mg Hydroxyzine HCl (Hydroxyzine Hcl 25 Mg Tablet) 25 mg PO Q6H PRN PRN Reason: Anxiety Insulin Glargine (Insulin Glargine,Hum.Rec.Anlog 100 Unit/Ml 10 Ml Vial) 40 unit SUBCUT BEDTIME NEREYDA Last Admin: 07/05/23 20:08 Dose: 40 unit Loratadine (Loratadine 10 Mg Tablet) 10 mg PO DAILY NEREYDA Last Admin: 07/06/23 08:10 Dose: 10 mg Lorazepam (Lorazepam 0.5 Mg Tablet) 0.5 mg PO BID PRN PRN Reason: Anxiety Last Admin: 07/06/23 11:51 Dose: 0.5 mg Losartan Potassium (Losartan Potassium 50 Mg Tablet) 50 mg PO DAILY NEREYDA; Protocol Last Admin: 07/06/23 08:10 Dose: 50 mg Magnesium Hydroxide (Milk Of Magnesia 30 Ml Oral.Susp) 30 ml PO DAILY PRN PRN Reason: Constipation Melatonin (Melatonin 3 Mg Tablet) 9 mg PO BEDTIME PRN PRN Reason: Insomnia Last Admin: 07/05/23 20:54 Dose: 9 mg Nystatin (Nystatin Cream 15 Gm Tube) 1 appl TOPICAL BID NEREYDA; Protocol Pioglitazone HCl (Pioglitazone Hcl 45 Mg Tablet) 45 mg PO DAILY NEREYDA Last Admin: 07/06/23 08:10 Dose: 45 mg Pravastatin Sodium (Pravastatin Sodium 40 Mg Tablet) 40 mg PO DAILY NEREYDA Last Admin: 07/06/23 11:50 Dose: 40 mg Prazosin HCl (Prazosin Hcl 1 Mg Capsule) 4 mg PO BEDTIME NEREYDA; Protocol Last Admin: 07/05/23 20:08 Dose: 4 mg Propranolol HCl (Propranolol Hcl La 80 Mg Cap.Sa.24h) 160 mg PO DAILY NEREYDA; Protocol Last Admin: 07/06/23 08:09 Dose: 160 mg Ropinirole HCl (Ropinirole Hcl 2 Mg Tablet) 2 mg PO BEDTIME NEREYDA Last Admin: 07/05/23 20:08 Dose: 2 mg Tamsulosin HCl (Tamsulosin Hcl 0.4 Mg Capsule) 0.4 mg PO DAILY [facility] Last Admin: 07/05/23 13:46 Dose: 0.4 mg Tizanidine HCl (Tizanidine Hcl 4 Mg Tablet) 4 mg PO TID PRN PRN Reason: Pain muscle spasms Last Admin: 07/05/23 20:09 Dose: 4 mg Venlafaxine HCl (Venlafaxine Hcl Er 150 Mg Cap.Er.24h) 150 mg PO DAILY [facility] Last Admin: 07/06/23 08:10 Dose: 150 mg Zolpidem Tartrate (Zolpidem Tartrate 5 Mg Tablet) 5 mg PO BEDTIME [facility] Allergies Allergies Allergy/AdvReac Type Severity Reaction Status Date / Time codeine Allergy Severe Itching Verified 04/28/23 10:01 divalproex sodium [Depakote] Allergy Severe rapid Verified 04/28/23 10:01 toxicity fluoxetine [Prozac] Allergy Severe suicidal Verified 04/28/23 10:01 ideation/HTN hydrochlorothiazide Allergy Severe vertigo Verified 04/28/23 10:01 benzonatate [Tessalon Perles] Allergy Intermediate Rash Verified 04/28/23 10:01 epinephrine Allergy Intermediate tachycardia Verified 04/28/23 10:01 erythromycin base Allergy Intermediate Hives Verified 04/28/23 10:01 Fish Containing Products Allergy Intermediate Hives Verified 04/28/23 10:01 guaifenesin Allergy Intermediate Itching Verified 04/28/23 10:01 iodine Allergy Intermediate Rash Verified 04/28/23 10:01 levofloxacin [Levaquin] Allergy Intermediate Itching/ivana Verified 04/28/23 10:01 h lidocaine Allergy Intermediate Rash Verified 04/28/23 10:01 morphine Allergy Intermediate itching/rash/redness Verified 04/28/23 10:01 @ injection site nitrofurantoin Allergy Intermediate Itching Verified 04/28/23 10:01 [From Macrobid] nortriptyline Allergy Intermediate Itching Verified 04/28/23 10:01 oxcarbazepine Allergy Intermediate Hives Verified 04/28/23 10:01 [From Trileptal] penicillin V Allergy Intermediate rash/itch Verified 04/28/23 10:01 shellfish derived Allergy Intermediate Rash Verified 04/28/23 10:01 strawberry Allergy Intermediate Itching Verified 04/28/23 10:01 Sulfa (Sulfonamide Allergy Intermediate Rash Verified 04/28/23 10:01 Antibiotics) sumatriptan [From Imitrex] Allergy Intermediate skin Verified 04/28/23 10:01 reaction tramadol Allergy Intermediate Itching Verified 04/28/23 10:01 Tricyclic Antidepressants Allergy Intermediate Rash Verified 04/28/23 10:01 and Tricy [Tricyclic Compounds] adhesive tape AdvReac Intermediate Rash Verified 04/28/23 10:01 bupropion [From Wellbutrin] AdvReac Intermediate Hypertensio Verified 04/28/23 10:01 n buspirone AdvReac Intermediate Hypertensio Verified 04/28/23 10:01 n duloxetine [From Cymbalta] AdvReac Intermediate tachycardia Verified 04/28/23 10:01 fluticasone AdvReac Intermediate burning of Verified 04/28/23 10:01 nasal passages mirtazapine [From Remeron] AdvReac Intermediate HTN/weight Verified 04/28/23 10:01 gain montelukast AdvReac Intermediate Depression Verified 04/28/23 10:01 prednisone AdvReac Intermediate Headache Verified 04/28/23 10:01 thioridazine [From Mellaril] AdvReac Intermediate Hypertensio Verified 04/28/23 10:01 n tiotropium AdvReac Intermediate Headache Verified 04/28/23 10:01 [From Spiriva with HandiHaler] trazodone AdvReac Intermediate Hallucinati Verified 04/28/23 10:01 ons Novocain Allergy Intermediate tachycardia Uncoded 04/28/23 10:01 (when given w/epinephrine) oxycodone/acetaminophen Allergy Mild Rash Uncoded 04/28/23 10:01 Assessment & Plan Assessment & Plan (1) Major depressive disorder: Status: Acute Code(s): F32.9 - Major depressive disorder, single episode, unspecified (2) Borderline personality disorder: Status: Acute Code(s): F60.3 - Borderline personality disorder Plan The patient is a 58-year-old female, morbidly obese, with borderline personality disorder, major depressive disorder with several prior admissions into the hospital for suicidality. The patient also has several medical comorbidities and abundant allergies. She was brought into this facility due to exacerbation of depression after the of her sister 2 weeks ago. At this moment she is able to contract for safety. Plan 1. Gather collateral information. 2. Continue with regular psychotropics as per medication reconciliation form. 3. Continue with medical treatment as per hospitalist. 4. Regular blood work. 5. Reassessment with results 6. 15 minute checks. 7. Start working on discharge planning Reason for continued inpatient stay Substantial Risk for: inability to function, rapid decompensation and med/psych decompensation Time Spent With Patient Time: Total time managing care of this patient today __20__ minutes.
[2023-07-06] MEDS: Tamsulosin HCL 0.4 MG CAPSULE PO (13:33)
[2023-07-06] MEDS: LORazepam 1 MG TABLET PO (13:33)
[2023-07-06 19:50] VITALS: BP 131/64; PULSE 81; RESP 16; TEMP 35.3; O2SAT 96
[2023-07-06] MEDS: Insulin Glargine,Hum.rec.anlog 100 UNIT/ML 10 ML VIAL 40 UNIT SUBCUT (20:31)
[2023-07-06] MEDS: Prazosin HCL 1 MG CAPSULE 4 MG PO (20:32)
[2023-07-06] MEDS: Zolpidem Tartrate 5 MG TABLET PO (20:33)
[2023-07-06] MEDS: rOPINIRole HCL 2 MG TABLET PO (20:33)
[2023-07-06] MEDS: Melatonin 3 MG TABLET 9 MG PO (20:33)
[2023-07-06] MEDS: TiZANidine HCL 4 MG TABLET PO (20:33)
[2023-07-07 00:23] LABS: Glucose, Whole Blood 185 mg/dL (60-115)
[2023-07-07] MEDS: Acetaminophen 325 MG TABLET 650 MG PO (06:12)
[2023-07-07 06:50] LABS: Glucose, Whole Blood 114 mg/dL (60-115)
[2023-07-07 08:21] VITALS: BP 144/64; PULSE 80; RESP 20; TEMP 36.6; O2SAT 96
[2023-07-07] MEDS: Famotidine 20 MG TABLET PO (08:47)
[2023-07-07] MEDS: Losartan Potassium 50 MG TABLET PO (08:47)
[2023-07-07] MEDS: Tamsulosin HCL 0.4 MG CAPSULE PO (08:47)
[2023-07-07] MEDS: Gabapentin 300 MG CAPSULE 900 MG PO (08:47)
[2023-07-07] MEDS: Venlafaxine HCl ER 150 MG CAP.ER.24H PO (08:47)
[2023-07-07] MEDS: Propranolol HCL LA 80 MG CAP.SA.24H 160 MG PO (08:47)
[2023-07-07] MEDS: Calcium + Vitamin D 250 MG TABLET PO (08:47)
[2023-07-07] MEDS: Loratadine 10 MG TABLET PO (08:47)
[2023-07-07] MEDS: Pravastatin Sodium 40 MG TABLET PO (08:47)
[2023-07-07] MEDS: Furosemide 20 MG TABLET PO (08:47)
[2023-07-07] MEDS: Pioglitazone HCL 45 MG TABLET PO (08:47)
--- NOTE | 2023-07-07 09:21 | PM.PSYDC ---
DS: Providers Provider Date of Service: 07/07/23 Date of admission: 07/03/23 19:46 Date of discharge: 07/07/23 Primary care physician: Kylie Crook MD Consults: 07/03/23 20:19 Consult to Hospitalist Routine Comment: Consulting Provider: Hospitalist Reason For Exam: medical H&P Attending physician on discharge: Edu Gutierrez DS: Diagnosis Discharge Diagnosis (1) Major depressive disorder: Status: Acute (2) Borderline personality disorder: Status: Acute DS: Medications Discharge Medications Home Medications: Home Medications Medication Instructions Recorded Confirmed albuterol sulfate 90 mcg/actuation 2 inh inhalation Q6H PRN Shortness 10/22/21 07/03/23 breath activated powder Of Breath Or Wheezing inhaler,sensor famotidine 20 mg tablet 20 mg PO BID 10/22/21 07/03/23 furosemide 20 mg tablet 20 mg PO DAILY 10/22/21 07/03/23 lorazepam 0.5 mg tablet 0.5 mg PO BID PRN Anxiety 10/22/21 07/03/23 pen needle, diabetic 32 gauge x 10/22/21 07/03/23 5/32 (BD Lulu 2nd Gen Pen Needle) gabapentin 300 mg capsule 900 mg PO BID 12/25/21 07/03/23 insulin glargine 100 unit/mL (3 40 unit subcut BEDTIME 12/25/21 07/03/23 mL) subcutaneous pen (Lantus Solostar U-100 Insulin) losartan 50 mg tablet 50 mg PO DAILY 12/25/21 07/03/23 methocarbamol 500 mg tablet 2 tab PO BID PRN Pain 12/25/21 07/03/23 pioglitazone 45 mg tablet 1 tab PO DAILY 12/25/21 07/03/23 prazosin 2 mg capsule 2 cap PO BEDTIME 12/25/21 07/03/23 ropinirole 1 mg tablet 1 - 2 tab PO BEDTIME 12/25/21 07/03/23 tamsulosin 0.4 mg capsule 0.4 mg PO DAILY 12/25/21 07/03/23 tizanidine 4 mg tablet 4 mg PO TID PRN Pain muscle spasms 12/25/21 07/03/23 venlafaxine 75 mg capsule,extended 150 mg PO QAM 12/25/21 07/03/23 release 24 hr melatonin 10 mg capsule 10 mg PO BEDTIME PRN Insomnia 06/03/22 07/03/23 hydromorphone 2 mg tablet 2 mg PO TID PRN Pain 08/01/22 07/03/23 propranolol 160 mg capsule,24 1 cap PO DAILY 10/14/22 07/03/23 hr,extended release zolpidem 5 mg tablet 5 mg PO BEDTIME PRN Insomnia 02/07/23 07/03/23 calcium carbonate 600 mg-vitamin 1 tab PO BID 07/03/23 07/03/23 D3 10 mcg (400 unit) tablet levocetirizine 5 mg tablet 5 mg PO DAILY 07/03/23 07/03/23 pravastatin 40 mg tablet 40 mg PO DAILY 07/03/23 07/03/23 Mental Status Exam Mental Status Exam Patient Appearance: Well Grooomed and Appropriate Patient Orientation: Person, Place, Time and Situation Level of Consciousness: Awake and Appropriate Patient Behavior: Appropriate, Cooperative and Passive Mood Description: Calm Affect Description: Constricted Patient Cognition Impaired: No Ability to Follow Directions: Good Speech Pattern: Clear Hallucinations: None Delusions: Not Present Thought Process: Distracted, Goal Oriented and Linear Thought Content: positive for Circumstantial and positive for Linear Judgement: Fair Data Data Completed and Pending Completed studies during hospitalization [Text1]: 07/03/23 07/04/23 07/04/23 21:52 06:12 07:53 Sodium 143 Potassium 4.0 Chloride 107 Carbon Dioxide 25 Anion Gap 15 BUN 22 H Creatinine 1.04 Estim Creat Clear Calc 84.8 Estimated GFR 54 POC Glucose 134 H 119 H Fasting Glucose 133 H Estimat Average Glucose 137 Hemoglobin A1c % 6.4 H Calcium 9.5 Total Bilirubin 0.4 AST 24 ALT 16 Alkaline Phosphatase 83 Total Protein 6.7 Albumin 3.9 Triglycerides 119 Cholesterol 133 LDL Cholesterol, Calc 68 HDL Cholesterol 42 Vitamin B12 839 TSH 1.55 07/04/23 07/05/23 07/05/23 19:51 10:36 19:54 Sodium Potassium Chloride Carbon Dioxide Anion Gap BUN Creatinine Estim Creat Clear Calc Estimated GFR POC Glucose 159 H 176 H 135 H Fasting Glucose Estimat Average Glucose Hemoglobin A1c % Calcium Total Bilirubin AST ALT Alkaline Phosphatase Total Protein Albumin Triglycerides Cholesterol LDL Cholesterol, Calc HDL Cholesterol Vitamin B12 TSH 07/06/23 07/06/23 07/07/23 06:28 19:52 06:15 Sodium Potassium Chloride Carbon Dioxide Anion Gap BUN Creatinine Estim Creat Clear Calc Estimated GFR POC Glucose 120 H 185 H 114 Fasting Glucose Estimat Average Glucose Hemoglobin A1c % Calcium Total Bilirubin AST ALT Alkaline Phosphatase Total Protein Albumin Triglycerides Cholesterol LDL Cholesterol, Calc HDL Cholesterol Vitamin B12 TSH DS: Summary Hospital Course Hospital Course: The patient is a 58-year-old female, single, with no children, chronically mentally ill with a past history of major depressive disorder, borderline personality disorder and generalized anxiety disorder referred to this facility after she complained of exacerbation of depressions in the context of the loss of 1 of her sisters who a few weeks ago and she could not have closure with her. She was assessed by crisis and transferring to this facility for psychiatric stabilization since she was complaining of suicidal ideation. Please see the HPI of the admission note for further details. On intake, the patient reported that she was feeling very depressed, she stated that she was feeling worse due to the psychosocial stressors but she was able to contract for safety in the facility. We review her list of medications and apparently the patient had been on Effexor for a few months with no side effects. We decided to keep on her regular medications and reassess. The patient slept better here at the facility, she was able to contract for safety and she was future oriented, participating groups. Since there were no safety concerns discharge planning was discussed. We did a cognitive assessment and she scored 26/30 on the [place] and high score on the [place] test. At this moment there was no need to start any medications for neuro cognitive impairment. Time spent discussing smoking cessation with patient: 3 to 10 minutes Status at Discharge Cognitive/behavioral status at discharge: At baseline Functional status at discharge: independent ambulation Overall status at discharge: patient is back to baseline Time Spent with Patient Time attestation: Total time managing care of this patient today __30__ minutes. Discharge Plan Discharge Anticipated Discharge Date/Time: 07/07/23 10:00 Patient Disposition: Home, Self-Care Discharge Diagnosis: Major depressive disorder recurrent episode severe without psychotic symptoms. Borderline personality disorder Referrals: Dr. Becky Francisco - Psychiatrist [Other] - 07/11/23 3:15 pm (Appointment: 07/11/2023 @ 3:15pm ) Paula Dumont - Mental Health Therapist [Other] - 07/13/23 2:00 pm (Appointment: 07/13/2023 @ 2pm ) DR Ray - Endocrinology [Other] - 11/15/23 2:00 pm (Appointment: November 15, 2023 @ 2pm Patient will be called if there is any conciliation, for sooner appointment. ) Kylie Crook MD [Primary Care Provider] - 1 Week (Follow up appointment has been scheduled for 07/20/23 @ 8:15am. ) Discharge Medications: New ropinirole 2 mg Tablet 2 mg PO BEDTIME 30 Days Qty: 30 0RF zolpidem 5 mg Tablet 5 mg PO BEDTIME 30 Days Qty: 30 0RF nystatin 100,000 unit/gram Cream 1 appl topical BID 30 Days Qty: 1 0RF Protocol: Apply to: Apply to: affected area Continued losartan 50 mg tablet 50 mg PO DAILY 30 Days Qty: 30 0RF methocarbamol 500 mg tablet 2 tab PO BID PRN (Reason: Pain) 30 Days Qty: 60 0RF venlafaxine 75 mg capsule,extended release 24hr 150 mg PO QAM 30 Days Qty: 60 0RF propranolol 160 mg capsule,extended release 24 hr 1 cap PO DAILY 30 Days Qty: 30 0RF pravastatin 40 mg tablet 40 mg PO DAILY 30 Days Qty: 30 0RF tizanidine 4 mg tablet 4 mg PO TID PRN (Reason: Pain muscle spasms) 30 Days Qty: 60 0RF pioglitazone 45 mg tablet 1 tab PO DAILY 30 Days Qty: 30 0RF hydromorphone 2 mg tablet 2 mg PO TID PRN (Reason: Pain) 14 Days Qty: 28 0RF famotidine 20 mg tablet 20 mg PO BID 30 Days Qty: 60 0RF lorazepam 0.5 mg tablet 0.5 mg PO BID PRN (Reason: Anxiety) 30 Days Qty: 60 0RF tamsulosin 0.4 mg capsule 0.4 mg PO DAILY 30 Days Qty: 30 0RF gabapentin 300 mg capsule 900 mg PO BID 30 Days Qty: 180 0RF furosemide 20 mg tablet 20 mg PO DAILY 30 Days Qty: 30 0RF prazosin 2 mg capsule 2 cap PO BEDTIME 30 Days Qty: 60 0RF calcium carbonate-vitamin D3 600 mg-10 mcg (400 unit) tablet 1 tab PO BID Qty: 60 0RF insulin glargine [Lantus Solostar U-100 Insulin] 100 unit/mL (3 mL) insulin pen 40 unit SUBCUT BEDTIME 30 Days Qty: 12 0RF levocetirizine 5 mg tablet 5 mg PO DAILY 30 Days Qty: 30 0RF (DME) pen needle, diabetic 32 gauge x 5/32 needle See Rx Instructions .Route Qty: 1,200 0RF Rx Instructions: As directed melatonin 10 mg capsule 10 mg PO BEDTIME PRN (Reason: Insomnia) Qty: 30 0RF albuterol sulfate 90 mcg/actuation aero powdr breath act w/sensor 2 inh inhalation Q6H PRN (Reason: Shortness Of Breath Or Wheezing) Qty: 1 0RF Discontinued ropinirole 1 mg tablet 1 - 2 tab PO BEDTIME zolpidem 5 mg tablet 5 mg PO BEDTIME PRN (Reason: Insomnia) Discharge Orders: Discharge Order (Routine); Ordered 07/07/23 Ordered By: Edu Gutierrez Diet: Advance to usual diet Activity on Discharge: As tolerated Stand Alone Forms: Patient Portal Discharge page Care Plan Goals: Care plan goals achieved in this admission Health Concerns: Continue treatment with outpatient providers such as PCP and other specialists. Plan of Treatment: Continue with regular outpatient providers in the community. Assessment: Middle-aged female with a long history of major depressive disorder, borderline personality disorder and other medical comorbidities admitted for exacerbation of depression in the context of losses and psychosocial stressors with suicidal ideation. At this moment safe to be in the community, future oriented ready for discharge.
--- NOTE | 2023-07-07 11:21 | PC.ADMIT ---
Pt. alert and oriented X 4. Reports readiness for discharge, I'm not perfect, but I'm good to go. Discharge instructions and medications reviewed with pt., who verbalized understanding. Pt. left unit via WC at 10:58.
== END 2023-07-07 10:58 | disposition home or self-care (01) | DRG 885 ==
PROVIDERS: Social Worker; Admitting Provider Psychiatry & Neurology Psychiatry; PCP Family Medicine; Visit Provider Psychiatry & Neurology Psychiatry
DX: F33.2 Major depressive disorder, recurrent severe without psychotic features (principal); Z68.43 Body mass index [BMI] 50.0-59.9, adult; F60.3 Borderline personality disorder; E66.01 Morbid (severe) obesity due to excess calories; E03.9 Hypothyroidism, unspecified; M96.1 Postlaminectomy syndrome, not elsewhere classified; I12.9 Hypertensive chronic kidney disease with stage 1 through stage 4 chronic kidney disease, or unspecified chronic kidney disease; N18.30 Chronic kidney disease, stage 3 unspecified; E11.22 Type 2 diabetes mellitus with diabetic chronic kidney disease; J45.909 Unspecified asthma, uncomplicated; Z96.82 Presence of neurostimulator; Z71.3 Dietary counseling and surveillance; Z98.84 Bariatric surgery status; Z98.1 Arthrodesis status; Z79.4 Long term (current) use of insulin; Z79.899 Other long term (current) drug therapy
CPT/HCPCS: 36415; 80053; 80061; 82607; 82947; 83036; 84443

== ENCOUNTER → 2023-07-03 19:46 | Outpatient (BNV) | payer OTHER, SELFPAY | PROVIDERS: Admitting Provider Psychiatry & Neurology Psychiatry; PCP Family Medicine; Visit Provider Physician Assistant | DX: E11.22 Type 2 diabetes mellitus with diabetic chronic kidney disease (principal); N18.30 Chronic kidney disease, stage 3 unspecified; E66.09 Other obesity due to excess calories; Z68.43 Body mass index [BMI] 50.0-59.9, adult; Z98.84 Bariatric surgery status | CPT/HCPCS: 99222 ==

== ENCOUNTER → 2023-07-03 19:46 | Outpatient (BNV) | payer OTHER, SELFPAY | PROVIDERS: Admitting Provider Psychiatry & Neurology Psychiatry; PCP Family Medicine; Visit Provider Psychiatry & Neurology Psychiatry | DX: F60.3 Borderline personality disorder (principal); F33.2 Major depressive disorder, recurrent severe without psychotic features | CPT/HCPCS: 90792; 99231; 99239 ==

== ENCOUNTER 2023-07-17 11:35 | Outpatient (AMB) | payer OTHER, SELFPAY ==
--- NOTE | 2023-07-17 11:58 | MHC.OFFVIS ---
Intake Vital Signs 07/17/23 11:59 BP 118/84 Blood Pressure Location Rt radial Position Sitting Respiration 12 Pulse 92 Pulse Source Pulse Oximeter Intake Visit Reasons: increased pain at battery site/confirmed Allergies codeine Allergy (Severe, Verified 07/17/23 11:59) Itching divalproex sodium [Depakote] Allergy (Severe, Verified 07/17/23 11:59) rapid toxicity fluoxetine [Prozac] Allergy (Severe, Verified 07/17/23 11:59) suicidal ideation/HTN hydrochlorothiazide Allergy (Severe, Verified 07/17/23 11:59) vertigo benzonatate [Tessalon Perles] Allergy (Intermediate, Verified 07/17/23 11:59) Rash epinephrine Allergy (Intermediate, Verified 07/17/23 11:59) tachycardia erythromycin base Allergy (Intermediate, Verified 07/17/23 11:59) Hives Fish Containing Products Allergy (Intermediate, Verified 07/17/23 11:59) Hives guaifenesin Allergy (Intermediate, Verified 07/17/23 11:59) Itching iodine Allergy (Intermediate, Verified 07/17/23 11:59) Rash levofloxacin [Levaquin] Allergy (Intermediate, Verified 07/17/23 11:59) Itching/rash lidocaine Allergy (Intermediate, Verified 07/17/23 11:59) Rash morphine Allergy (Intermediate, Verified 07/17/23 11:59) itching/rash/redness @ injection site nitrofurantoin [From Macrobid] Allergy (Intermediate, Verified 07/17/23 11:59) Itching nortriptyline Allergy (Intermediate, Verified 07/17/23 11:59) Itching oxcarbazepine [From Trileptal] Allergy (Intermediate, Verified 07/17/23 11:59) Hives penicillin V Allergy (Intermediate, Verified 07/17/23 11:59) rash/itch shellfish derived Allergy (Intermediate, Verified 07/17/23 11:59) Rash strawberry Allergy (Intermediate, Verified 07/17/23 11:59) Itching Sulfa (Sulfonamide Antibiotics) Allergy (Intermediate, Verified 07/17/23 11:59) Rash sumatriptan [From Imitrex] Allergy (Intermediate, Verified 07/17/23 11:59) skin reaction tramadol Allergy (Intermediate, Verified 07/17/23 11:59) Itching Tricyclic Antidepressants and Tricy [Tricyclic Compounds] Allergy (Intermediate, Verified 07/17/23 11:59) Rash adhesive tape Adverse Reaction (Intermediate, Verified 07/17/23 11:59) Rash bupropion [From Wellbutrin] Adverse Reaction (Intermediate, Verified 07/17/23 11:59) Hypertension buspirone Adverse Reaction (Intermediate, Verified 07/17/23 11:59) Hypertension duloxetine [From Cymbalta] Adverse Reaction (Intermediate, Verified 07/17/23 11:59) tachycardia fluticasone Adverse Reaction (Intermediate, Verified 07/17/23 11:59) burning of nasal passages mirtazapine [From Remeron] Adverse Reaction (Intermediate, Verified 07/17/23 11:59) HTN/weight gain montelukast Adverse Reaction (Intermediate, Verified 07/17/23 11:59) Depression prednisone Adverse Reaction (Intermediate, Verified 07/17/23 11:59) Headache thioridazine [From Mellaril] Adverse Reaction (Intermediate, Verified 07/17/23 11:59) Hypertension tiotropium [From Spiriva with HandiHaler] Adverse Reaction (Intermediate, Verified 07/17/23 11:59) Headache trazodone Adverse Reaction (Intermediate, Verified 07/17/23 11:59) Hallucinations Novocain Allergy (Intermediate, Uncoded 07/17/23 11:59) tachycardia (when given w/epinephrine) oxycodone/acetaminophen Allergy (Mild, Uncoded 07/17/23 11:59) Rash HPI increased pain at battery site/confirmed HPI Details 58-year-old female who presents today to the office for an increased pain at battery site. The patient reports swelling around her battery that started a few weeks ago. She scratched the site last night. She has been experiencing sensitivity to the skin around the device. She reports a rash as an allergic reaction to adhesives. She states her back pain is not completely resolved, but the pain frequency has been reduced. Past procedures: 01/18/23: Lumbar SCS Implant: 40-50% relief. 10/26/22: Percutaneous Spinal Cord Stimulator Trial, Lumbar: >60% relief. [facility] Medical History (Updated 07/15/23 @ 00:04 by Background Daemon) Lumbar spondylosis Failed back syndrome Tachycardia Diabetes Sleep apnea Congenital valgus deformity Acquired hallux valgus Chronic back pain Arthropathy of spinal facet joint Kidney stone Intestinal malabsorption of carbohydrate Asthma Transient cerebral ischemia Hypertensive disorder Restless leg Binge eating disorder Recurrent major depressive episodes Morbid obesity Hyperlipidemia Hyperthyroidism Surgical History History of surgery History of fusion of cervical spine H/O: hysterectomy History of laparoscopic cholecystectomy History of lumbar laminectomy History of fusion of lumbar spine H/O gastric sleeve Family History Mother Diabetes mellitus COPD (chronic obstructive pulmonary disease) Pemphigoid Depressive disorder Hyperlipidemia Father Malignant neoplastic disease Myocardial infarction Maternal Grandmother Myocardial infarction Social History Household Members: None Housing: Apartment Are you a primary nursing care attendant to a significant other at home: No Do you presently have visiting nurse or other home services: Yes Alcohol intake: never Patient Tobacco Use Status: Never used Tobacco Second Hand Smoke Exposure: No Advance Directives Date on File: 08/17/22 service: No Sexual orientation: Straight/Heterosexual Review of Systems Const All systems reviewed & are unremarkable except as noted in HPI and below Physical Exam Vital Signs: Last Vital Signs Pulse 92 07/17/23 11:59 Resp 12 07/17/23 11:59 BP 118/84 07/17/23 11:59 General: Appears afebrile. Alert and oriented. Mood and affect appropriate. Follows and participates in conversation appropriately. Respiratory effort is unlabored. Able to transition from sit to stand unassisted. Ambulates with bilaterally normal heel strike and toe off. There is no swelling or erythema on site. There is mild tenderness to palpation at the edges of the IPG. There are some excoriation pearl as well. Results Reviewed Results Reviewed: No imaging is available for review. Assessment & Plan Assessment & Plan (1) Failed back syndrome: Code(s): M96.1 - Postlaminectomy syndrome, not elsewhere classified Plan I prescribed topical lidocaine ointment to be applied on the top of the skin around the IPG device. I advised her to try ointment away from the IPG site first and make sure she does not have any outbreaks of rash. If she is able to tolerate it, she can apply it as needed. I also advised the patient to avoid scratching the IPG site. Scribed for Dr. Urias by Mario Power, biomedical equipment support specialist, on 07/17/2023. I, Dr. Urias, have personally reviewed and agree with the information entered by the scribe. Medications: New lidocaine 5% 1 appl topical DAILY 50 grams 0RF Coding Level of Care Code Est Pt Level 3 (09963) Diagnoses Failed back syndrome M96.1
[2023-07-17 11:59] VITALS: BP 118/84; PULSE 92; RESP 12
== END 2023-07-17 12:08 | disposition home or self-care (01) ==
PROVIDERS: PCP Family Medicine; Visit Provider Internal Medicine
DX: M96.1 Postlaminectomy syndrome, not elsewhere classified (principal)
CPT/HCPCS: 99213

== ENCOUNTER → 2023-07-17 11:35 | Outpatient (BNVA) | payer OTHER, SELFPAY | PROVIDERS: PCP Family Medicine; Visit Provider Internal Medicine | DX: M96.1 Postlaminectomy syndrome, not elsewhere classified (principal) | CPT/HCPCS: 99212 ==

== ENCOUNTER 2024-07-12 11:22 | Outpatient (AMB) | payer OTHER, SELFPAY ==
--- NOTE | 2024-07-12 11:28 | A.OFFVIS_ITS ---
Vital Signs 07/12/24 11:32 Height 5 ft 5 in Weight 299 lb BMI 49.8 BP 129/83 Blood Pressure Location Lt radial Position Sitting Respiration 16 Pulse 80 Pulse Source Pulse Oximeter Pulse Oximetry (%) 98 Oxygen Delivery Method Room Air Intake Visit Reasons: Back pain Allergies codeine Allergy (Severe, Verified 07/12/24 11:33) Itching divalproex sodium [Depakote] Allergy (Severe, Verified 07/12/24 11:33) rapid toxicity fluoxetine [Prozac] Allergy (Severe, Verified 07/12/24 11:33) suicidal ideation/HTN hydrochlorothiazide Allergy (Severe, Verified 07/12/24 11:33) vertigo benzonatate [Tessalon Perles] Allergy (Intermediate, Verified 07/12/24 11:33) Rash epinephrine Allergy (Intermediate, Verified 07/12/24 11:33) tachycardia erythromycin base Allergy (Intermediate, Verified 07/12/24 11:33) Hives Fish Containing Products Allergy (Intermediate, Verified 07/12/24 11:33) Hives guaifenesin Allergy (Intermediate, Verified 07/12/24 11:33) Itching iodine Allergy (Intermediate, Verified 07/12/24 11:33) Rash levofloxacin [Levaquin] Allergy (Intermediate, Verified 07/12/24 11:33) Itching/rash lidocaine Allergy (Intermediate, Verified 07/12/24 11:33) Rash morphine Allergy (Intermediate, Verified 07/12/24 11:33) itching/rash/redness @ injection site nitrofurantoin [From Macrobid] Allergy (Intermediate, Verified 07/12/24 11:33) Itching nortriptyline Allergy (Intermediate, Verified 07/12/24 11:33) Itching oxcarbazepine [From Trileptal] Allergy (Intermediate, Verified 07/12/24 11:33) Hives penicillin V Allergy (Intermediate, Verified 07/12/24 11:33) rash/itch shellfish derived Allergy (Intermediate, Verified 07/12/24 11:33) Rash strawberry Allergy (Intermediate, Verified 07/12/24 11:33) Itching Sulfa (Sulfonamide Antibiotics) Allergy (Intermediate, Verified 07/12/24 11:33) Rash sumatriptan [From Imitrex] Allergy (Intermediate, Verified 07/12/24 11:33) skin reaction tramadol Allergy (Intermediate, Verified 07/12/24 11:33) Itching Tricyclic Antidepressants and Tricy [Tricyclic Compounds] Allergy (Intermediate, Verified 07/12/24 11:33) Rash adhesive tape Adverse Reaction (Intermediate, Verified 07/12/24 11:33) Rash bupropion [From Wellbutrin] Adverse Reaction (Intermediate, Verified 07/12/24 11:33) Hypertension buspirone Adverse Reaction (Intermediate, Verified 07/12/24 11:33) Hypertension duloxetine [From Cymbalta] Adverse Reaction (Intermediate, Verified 07/12/24 11:33) tachycardia fluticasone Adverse Reaction (Intermediate, Verified 07/12/24 11:33) burning of nasal passages mirtazapine [From Remeron] Adverse Reaction (Intermediate, Verified 07/12/24 11:33) HTN/weight gain montelukast Adverse Reaction (Intermediate, Verified 07/12/24 11:33) Depression prednisone Adverse Reaction (Intermediate, Verified 07/12/24 11:33) Headache thioridazine [From Mellaril] Adverse Reaction (Intermediate, Verified 07/12/24 11:33) Hypertension tiotropium [From Spiriva with HandiHaler] Adverse Reaction (Intermediate, Verified 07/12/24 11:33) Headache trazodone Adverse Reaction (Intermediate, Verified 07/12/24 11:33) Hallucinations Novocain Allergy (Intermediate, Uncoded 07/12/24 11:33) tachycardia (when given w/epinephrine) oxycodone/acetaminophen Allergy (Mild, Uncoded 07/12/24 11:33) Rash HPI HPI Back pain: Details: 59-year-old female who presents today to the office for a back pain and TPI. Denies any recent cough, cold, infection, fever or other significant changes in medical history since last office visit. She reports worsening of the muscle spasms. She states that spinal cord stimulator is helping with the pain but her muscle spasm is bothersome. She has tried flexeril, balcofen, and other muscle relaxants without any relief. She inquired about trying TPI for muscle spasms. She is amenable to receive TPI today in the office. Past procedures: 01/18/23: Lumbar SCS Implant: 40-50% relief. 10/26/22: Percutaneous Spinal Cord Stimulator Trial, Lumbar: >60% relief. 06/03/22: Trigger point injections to paraspinal muscles. [facility] Medical History (Updated 07/23/24 @ 15:27 by Yvon Urias MD) Lumbar spondylosis Failed back syndrome Tachycardia Diabetes Sleep apnea Congenital valgus deformity Acquired hallux valgus Chronic back pain Arthropathy of spinal facet joint Kidney stone Intestinal malabsorption of carbohydrate Asthma Transient cerebral ischemia Hypertensive disorder Restless leg Binge eating disorder Recurrent major depressive episodes Morbid obesity Hyperlipidemia Hyperthyroidism Surgical History History of surgery History of fusion of cervical spine H/O: hysterectomy History of laparoscopic cholecystectomy History of lumbar laminectomy History of fusion of lumbar spine H/O gastric sleeve Family History Mother Diabetes mellitus COPD (chronic obstructive pulmonary disease) Pemphigoid Depressive disorder Hyperlipidemia Father Malignant neoplastic disease Myocardial infarction Maternal Grandmother Myocardial infarction Social History Household Members: None Housing: Apartment Are you a primary post anesthesia care unit nurse to a significant other at home: No Do you presently have visiting nurse or other home services: Yes Alcohol intake: never Patient Tobacco Use Status: Never used Tobacco Second Hand Smoke Exposure: No Advance Directives Date on File: 08/17/22 service: No Sexual orientation: Straight/Heterosexual Review of Systems Const All systems reviewed & are unremarkable except as noted in HPI and below Physical Exam Vital Signs: Last Vital Signs Pulse 80 07/12/24 11:32 Resp 16 07/12/24 11:32 BP 129/83 07/12/24 11:32 Pulse Ox 98 07/12/24 11:32 Oxygen Delivery Method Room Air 07/12/24 11:32 BMI result Body Mass Index 49.8 General: Appears afebrile. Alert and oriented. Mood and affect appropriate. Follows and participates in conversation appropriately. Respiratory effort is unlabored. Able to transition from sit to stand unassisted. Ambulates with bilaterally normal heel strike and toe off. Office Procedures Injection Trigger Point Multi Pre-procedure diagnosis: Myofascial pain Post-procedure diagnosis: Myofascial pain Site and number of trigger points: Rhomboid Lumbar paraspinal muscles Solution: Total volume administered 9 ml (0.25% ropivacaine) The procedure, its benefits, and its risks were explained to the patient and all questions were answered. A pulse oximeter monitor was attached and the patient was monitored throughout the procedure. Prior to the start of the procedure, a ?time out? was performed to confirm correct patient, procedure, and laterality. Trigger points were identified by manual palpation and marked. The skin was cleaned with Chloraprep. A 5/8 inch 25 G needle was used. Each of the trigger points were approximated and elevated in the direction away from the body. Dry needling then took place for five seconds. Approximately 0.5 ml to 1 ml of injectate was delivered to the trigger point followed by dry needling for five seconds. This process was repeated at each trigger point site. The patient tolerated the procedure well. Post-procedure, breath sounds were equal at both sides of the chest. The patient tolerated the procedure well, without complication. The patient denied any numbness, paresthesias, or weakness. Post-procedure vitals were recorded as part of the nursing discharge note in electronic medical record. Following a period of observation, the patient was discharged in stable condition with written discharge instructions. Trigger Point Multiple: 19860- Trigger point injection =/>3 Results Reviewed Results Reviewed: No imaging is available for review. Assessment & Plan Assessment & Plan (1) Myofascial pain: Code(s): M79.18 - Myalgia, other site Category: Medical Plan Patient is status post trigger point injections to the lumbar paraspinal muscles. Patient tolerated procedure well and was discharged home in stable condition with discharge instructions.? All questions were answered. Follow up as needed. Scribed for Dr. Urias by Mario Power clinical medical assistant, on 07/12/2024. I, Dr. Urias, have personally reviewed and agree with the information entered by the scribe. Coding Level of Care Code Procedure Only Diagnoses Myofascial pain M79.18 CPT Codes Details - Trigger Point Multiple: 65106- Trigger point injection =/>3 ([id number])
[2024-07-12 11:32] VITALS: BP 129/83; PULSE 80; RESP 16; O2SAT 98; BMI 49.8
== END 2024-07-12 11:59 | disposition home or self-care (01) ==
PROVIDERS: PCP Family Medicine; Visit Provider Internal Medicine
DX: M79.18 Myalgia, other site (principal)
CPT/HCPCS: 20553

== ENCOUNTER → 2024-07-12 11:22 | Outpatient (BNVA) | payer OTHER, SELFPAY | PROVIDERS: PCP Family Medicine; Visit Provider Internal Medicine | DX: M79.18 Myalgia, other site (principal) | CPT/HCPCS: 20553; J2795 ==

== ENCOUNTER 2024-07-29 12:12 | Outpatient (AMB) | payer OTHER, SELFPAY ==
--- NOTE | 2024-07-29 12:13 | A.OFFVIS_ITS ---
Intake Visit Reasons: f/u s/p TPI Allergies codeine Allergy (Severe, Verified 07/12/24 11:33) Itching divalproex sodium [Depakote] Allergy (Severe, Verified 07/12/24 11:33) rapid toxicity fluoxetine [Prozac] Allergy (Severe, Verified 07/12/24 11:33) suicidal ideation/HTN hydrochlorothiazide Allergy (Severe, Verified 07/12/24 11:33) vertigo benzonatate [Tessalon Perles] Allergy (Intermediate, Verified 07/12/24 11:33) Rash epinephrine Allergy (Intermediate, Verified 07/12/24 11:33) tachycardia erythromycin base Allergy (Intermediate, Verified 07/12/24 11:33) Hives Fish Containing Products Allergy (Intermediate, Verified 07/12/24 11:33) Hives guaifenesin Allergy (Intermediate, Verified 07/12/24 11:33) Itching iodine Allergy (Intermediate, Verified 07/12/24 11:33) Rash levofloxacin [Levaquin] Allergy (Intermediate, Verified 07/12/24 11:33) Itching/rash lidocaine Allergy (Intermediate, Verified 07/12/24 11:33) Rash morphine Allergy (Intermediate, Verified 07/12/24 11:33) itching/rash/redness @ injection site nitrofurantoin [From Macrobid] Allergy (Intermediate, Verified 07/12/24 11:33) Itching nortriptyline Allergy (Intermediate, Verified 07/12/24 11:33) Itching oxcarbazepine [From Trileptal] Allergy (Intermediate, Verified 07/12/24 11:33) Hives penicillin V Allergy (Intermediate, Verified 07/12/24 11:33) rash/itch shellfish derived Allergy (Intermediate, Verified 07/12/24 11:33) Rash strawberry Allergy (Intermediate, Verified 07/12/24 11:33) Itching Sulfa (Sulfonamide Antibiotics) Allergy (Intermediate, Verified 07/12/24 11:33) Rash sumatriptan [From Imitrex] Allergy (Intermediate, Verified 07/12/24 11:33) skin reaction tramadol Allergy (Intermediate, Verified 07/12/24 11:33) Itching Tricyclic Antidepressants and Tricy [Tricyclic Compounds] Allergy (Intermediate, Verified 07/12/24 11:33) Rash adhesive tape Adverse Reaction (Intermediate, Verified 07/12/24 11:33) Rash bupropion [From Wellbutrin] Adverse Reaction (Intermediate, Verified 07/12/24 11:33) Hypertension buspirone Adverse Reaction (Intermediate, Verified 07/12/24 11:33) Hypertension duloxetine [From Cymbalta] Adverse Reaction (Intermediate, Verified 07/12/24 11:33) tachycardia fluticasone Adverse Reaction (Intermediate, Verified 07/12/24 11:33) burning of nasal passages mirtazapine [From Remeron] Adverse Reaction (Intermediate, Verified 07/12/24 11:33) HTN/weight gain montelukast Adverse Reaction (Intermediate, Verified 07/12/24 11:33) Depression prednisone Adverse Reaction (Intermediate, Verified 07/12/24 11:33) Headache thioridazine [From Mellaril] Adverse Reaction (Intermediate, Verified 07/12/24 11:33) Hypertension tiotropium [From Spiriva with HandiHaler] Adverse Reaction (Intermediate, Verified 07/12/24 11:33) Headache trazodone Adverse Reaction (Intermediate, Verified 07/12/24 11:33) Hallucinations Novocain Allergy (Intermediate, Uncoded 07/12/24 11:33) tachycardia (when given w/epinephrine) oxycodone/acetaminophen Allergy (Mild, Uncoded 07/12/24 11:33) Rash HPI HPI f/u s/p TPI: Details: 59-year-old female who presents today via tele visit for status post trigger point injection. The patient reports 50% relief following the procedure for a week. She reports burning sensations in her buttock region near battery pack with certain position and been in wheelchair. She recently changed her wheelchair. She suspects that the burning pain is from battery pack. She has tried lidocaine patches with minimal relief. She has been using heating pad for back pain. Past procedures: 07/12/24: Injection Trigger Point Multi: 50% relief. 01/18/23: Lumbar SCS Implant: 40-50% relief. 10/26/22: Percutaneous Spinal Cord Stimulator Trial, Lumbar: >60% relief. 06/03/22: Trigger point injections to paraspinal muscles. [facility] Medical History (Updated 07/23/24 @ 15:27 by Yvon Urias MD) Lumbar spondylosis Failed back syndrome Tachycardia Diabetes Sleep apnea Congenital valgus deformity Acquired hallux valgus Chronic back pain Arthropathy of spinal facet joint Kidney stone Intestinal malabsorption of carbohydrate Asthma Transient cerebral ischemia Hypertensive disorder Restless leg Binge eating disorder Recurrent major depressive episodes Morbid obesity Hyperlipidemia Hyperthyroidism Surgical History (Updated 07/31/24 @ 16:14 by Yvon Urias MD) Status post insertion of spinal cord stimulator History of surgery History of fusion of cervical spine H/O: hysterectomy History of laparoscopic cholecystectomy History of lumbar laminectomy History of fusion of lumbar spine H/O gastric sleeve Family History Mother Diabetes mellitus COPD (chronic obstructive pulmonary disease) Pemphigoid Depressive disorder Hyperlipidemia Father Malignant neoplastic disease Myocardial infarction Maternal Grandmother Myocardial infarction Social History Household Members: None Housing: Apartment Are you a primary dialysis patient care technician to a significant other at home: No Do you presently have visiting nurse or other home services: Yes Alcohol intake: never Patient Tobacco Use Status: Never used Tobacco Second Hand Smoke Exposure: No Advance Directives Date on File: 08/17/22 service: No Sexual orientation: Straight/Heterosexual Review of Systems Const All systems reviewed & are unremarkable except as noted in HPI and below Telehealth Telehealth Telehealth Platform: Telephone Location of provider rendering services: practice address Location of patient: address on file Patient Identification confirmed using: Name, : Yes Telehealth method: voice only Patient verbally consented to treatment: Yes Patient verbally consented to billing insurance company: Yes Patient informed of any privacy concerns related to visit: Yes Minutes spent on Phone/Video with Pt.: 8 Results Reviewed Results Reviewed: No imaging is available for review. Assessment & Plan Assessment & Plan (1) Chronic back pain: Code(s): M54.9 - Dorsalgia, unspecified; G89.29 - Other chronic pain Category: Medical (2) Myofascial pain: Code(s): M79.18 - Myalgia, other site Category: Medical (3) Status post insertion of spinal cord stimulator: Code(s): Z96.89 - Presence of other specified functional implants Category: Medical Plan She will follow up in two weeks for another round of trigger point injections as well as to assess her IPG site given recent complaints of increased burning and discomfort. The patient will call and schedule an appointment. Scribed for Dr. Urias by Mario Power, medical operations supervisor, on 07/29/2024. I, Dr. Urias, have personally reviewed and agree with the information entered by the scribe. Coding Level of Care Code Tele Est Pt Level 3 (80668) Diagnoses Chronic back pain M54.9; G89.29 Myofascial pain M79.18 Status post insertion of spinal cord stimulator Z96.89
== END 2024-07-29 12:13 | disposition home or self-care (01) ==
LOC: HO.PMC 12:12
PROVIDERS: PCP Family Medicine; Visit Provider Internal Medicine
DX: M54.9 Dorsalgia, unspecified (principal); G89.29 Other chronic pain; M79.18 Myalgia, other site; Z96.89 Presence of other specified functional implants
CPT/HCPCS: 99441

== ENCOUNTER → 2024-07-29 12:12 | Outpatient (BNVA) | payer OTHER, SELFPAY | PROVIDERS: PCP Family Medicine; Visit Provider Internal Medicine ==

== ENCOUNTER 2024-10-14 10:26 | Outpatient (AMB) | payer OTHER, SELFPAY ==
--- NOTE | 2024-10-14 10:30 | MHC.OFFVIS ---
Vital Signs 10/14/24 10:31 Height 5 ft 5 in Weight 300 lb BMI 49.9 BP 135/69 Blood Pressure Location Lt radial Position Sitting Respiration 16 Pulse 70 Pulse Source Pulse Oximeter Pulse Oximetry (%) 96 Oxygen Delivery Method Room Air Intake Visit Reasons: FOLLLOW UP FOR BACK SPASMS Exhibit Specialist Required: No Allergies codeine Allergy (Severe, Verified 10/14/24 10:33) Itching divalproex sodium [Depakote] Allergy (Severe, Verified 10/14/24 10:33) rapid toxicity fluoxetine [Prozac] Allergy (Severe, Verified 10/14/24 10:33) suicidal ideation/HTN hydrochlorothiazide Allergy (Severe, Verified 10/14/24 10:33) vertigo benzonatate [Tessalon Perles] Allergy (Intermediate, Verified 10/14/24 10:33) Rash epinephrine Allergy (Intermediate, Verified 10/14/24 10:33) tachycardia erythromycin base Allergy (Intermediate, Verified 10/14/24 10:33) Hives Fish Containing Products Allergy (Intermediate, Verified 10/14/24 10:33) Hives guaifenesin Allergy (Intermediate, Verified 10/14/24 10:33) Itching iodine Allergy (Intermediate, Verified 10/14/24 10:33) Rash levofloxacin [Levaquin] Allergy (Intermediate, Verified 10/14/24 10:33) Itching/rash lidocaine Allergy (Intermediate, Verified 10/14/24 10:33) Rash morphine Allergy (Intermediate, Verified 10/14/24 10:33) itching/rash/redness @ injection site nitrofurantoin [From Macrobid] Allergy (Intermediate, Verified 10/14/24 10:33) Itching nortriptyline Allergy (Intermediate, Verified 10/14/24 10:33) Itching oxcarbazepine [From Trileptal] Allergy (Intermediate, Verified 10/14/24 10:33) Hives penicillin V Allergy (Intermediate, Verified 10/14/24 10:33) rash/itch shellfish derived Allergy (Intermediate, Verified 10/14/24 10:33) Rash strawberry Allergy (Intermediate, Verified 10/14/24 10:33) Itching Sulfa (Sulfonamide Antibiotics) Allergy (Intermediate, Verified 10/14/24 10:33) Rash sumatriptan [From Imitrex] Allergy (Intermediate, Verified 10/14/24 10:33) skin reaction tramadol Allergy (Intermediate, Verified 10/14/24 10:33) Itching Tricyclic Antidepressants and Tricy [Tricyclic Compounds] Allergy (Intermediate, Verified 10/14/24 10:33) Rash adhesive tape Adverse Reaction (Intermediate, Verified 10/14/24 10:33) Rash bupropion [From Wellbutrin] Adverse Reaction (Intermediate, Verified 10/14/24 10:33) Hypertension buspirone Adverse Reaction (Intermediate, Verified 10/14/24 10:33) Hypertension duloxetine [From Cymbalta] Adverse Reaction (Intermediate, Verified 10/14/24 10:33) tachycardia fluticasone Adverse Reaction (Intermediate, Verified 10/14/24 10:33) burning of nasal passages mirtazapine [From Remeron] Adverse Reaction (Intermediate, Verified 10/14/24 10:33) HTN/weight gain montelukast Adverse Reaction (Intermediate, Verified 10/14/24 10:33) Depression prednisone Adverse Reaction (Intermediate, Verified 10/14/24 10:33) Headache thioridazine [From Mellaril] Adverse Reaction (Intermediate, Verified 10/14/24 10:33) Hypertension tiotropium [From Spiriva with HandiHaler] Adverse Reaction (Intermediate, Verified 10/14/24 10:33) Headache trazodone Adverse Reaction (Intermediate, Verified 10/14/24 10:33) Hallucinations Novocain Allergy (Intermediate, Uncoded 10/14/24 10:33) tachycardia (when given w/epinephrine) oxycodone/acetaminophen Allergy (Mild, Uncoded 10/14/24 10:33) Rash Medication List - Last Reconciled 10/14/24 by Shyanne Castellanos LPN albuterol sulfate 90 mcg/actuation 2 inhalations inhalation Q6H PRN calcium carbonate-vitamin D3 600 mg-10 mcg (400 unit) 1 tab PO BID famotidine 20 mg PO BID 30 days furosemide 20 mg PO DAILY 30 days gabapentin 900 mg (3 x 300 mg) PO BID 30 days hydromorphone 2 mg PO TID PRN 14 days insulin glargine (Lantus Solostar U-100 Insulin) 40 units (0.4 mL) subcut BEDTIME 30 days levocetirizine 5 mg PO DAILY 30 days lidocaine 5% 1 appl topical DAILY lorazepam 0.5 mg PO BID PRN 30 days losartan 50 mg PO DAILY 30 days melatonin 10 mg PO BEDTIME PRN methocarbamol 2 tabs PO BID PRN 30 days nystatin 1 appl See Protocol topical BID 30 days pen needle, diabetic As directed pioglitazone 1 tab PO DAILY 30 days pravastatin 40 mg PO DAILY 30 days prazosin 2 caps PO BEDTIME 30 days propranolol ER 1 cap PO DAILY 30 days ropinirole 2 mg PO BEDTIME 30 days tizanidine 4 mg PO TID PRN 30 days venlafaxine ER 150 mg (2 x 75 mg) PO QAM 30 days zolpidem 5 mg PO BEDTIME 30 days HPI HPI FOLLLOW UP FOR BACK SPASMS: Details: History of Present Illness The patient is a 59-year-old female presenting with chronic muscle spasms in the lower back. She manages the condition with a spinal cord stimulator but cannot use it continuously due to causing leg spasms. The patient reports that hydromorphone is not providing adequate relief, and she is interested in more permanent pain management options. There's resistance to prolonged cortisone injections for knee osteoarthritis, as they have become ineffective. Cold weather exacerbates femur pain caused by the position of the stimulator?s battery pack. The patient manages her symptoms with postural adjustments, occasional use of a heating pad, and public transportation for mobility. Pain Description - Primary Location: Lower back with radiating spasms to the legs and knee. - Quality: Muscle spasms. - Exacerbating Factors: Continuous stimulator use, cold weather. - Relieving Factors: Intermittent use of spinal cord stimulator, brief heating pad application, postural adjustments. - Functional Impact: Difficulty maintaining continuous stimulator usage, reliance on public transportation. Physical Exam - Mild tenderness IPG inferior border; skin intact Results Pain Management - Affect: Chronic pain leads to fatigue and decreased motivation. - Analgesia: Current pain managed with hydromorphone and spinal cord stimulator (intermittent). - Adverse Effects: Discomfort from battery pack. - Activities of Daily Living: Patient uses public transportation; chronic pain management affects daily function. - Aberrant Drug Related Behaviors: None reported. [facility] Medical History (Updated 07/23/24 @ 15:27 by Yvon Urias MD) Lumbar spondylosis Failed back syndrome Tachycardia Diabetes Sleep apnea Congenital valgus deformity Acquired hallux valgus Chronic back pain Arthropathy of spinal facet joint Kidney stone Intestinal malabsorption of carbohydrate Asthma Transient cerebral ischemia Hypertensive disorder Restless leg Binge eating disorder Recurrent major depressive episodes Morbid obesity Hyperlipidemia Hyperthyroidism Surgical History (Updated 07/31/24 @ 16:14 by Yvon Urias MD) Status post insertion of spinal cord stimulator History of surgery History of fusion of cervical spine H/O: hysterectomy History of laparoscopic cholecystectomy History of lumbar laminectomy History of fusion of lumbar spine H/O gastric sleeve Family History Mother Diabetes mellitus COPD (chronic obstructive pulmonary disease) Pemphigoid Depressive disorder Hyperlipidemia Father Malignant neoplastic disease Myocardial infarction Maternal Grandmother Myocardial infarction Social History Household Members: None Housing: Apartment Are you a primary critical care clinical nurse specialist to a significant other at home: No Do you presently have visiting nurse or other home services: Yes Alcohol intake: never Patient Tobacco Use Status: Never used Tobacco Second Hand Smoke Exposure: No Advance Directives Date on File: 08/17/22 service: No Sexual orientation: Straight/Heterosexual Physical Exam Vital Signs: Last Vital Signs Pulse 70 10/14/24 10:31 Resp 16 10/14/24 10:31 BP 135/69 10/14/24 10:31 Pulse Ox 96 10/14/24 10:31 Oxygen Delivery Method Room Air 10/14/24 10:31 BMI result Body Mass Index 49.9 Assessment & Plan Assessment & Plan (1) Status post insertion of spinal cord stimulator: Code(s): Z96.89 - Presence of other specified functional implants Category: Medical (2) Failed back syndrome: Code(s): M96.1 - Postlaminectomy syndrome, not elsewhere classified Category: Medical Plan Plan For the management of chronic muscle spasms, the patient is to continue with the spinal cord stimulator and explore additional program settings with her provider. Lidocaine patches are suggested for relief from battery pack discomfort. Alternative pain relief measures should be reconsidered due to the ineffectiveness of cortisone injections. Monitoring and reassessment of the patient's pain management plan will continue as needed. Patient was informed and verbally consented to the use of an ambient scribe for clinic note documentation during this visit. Discussion Notes I discussed with the patient that there are no permanent nerve block options available for her current condition. The importance of continuing with the spinal cord stimulator, despite its limitations, was emphasized. I suggested trying different program settings, including tingling options, and recommended using lidocaine patches for localized pain relief from the battery pack. Risks and benefits of using brief applications of a heating pad were addressed. I advised against further cortisone injections for knee pain due to their lack of efficacy, and we agreed on maintaining a [id number] approach with the stimulator?s settings. We covered follow-up options should the patient require further intervention. Patient Instructions - Continue using the spinal cord stimulator as currently configured. - Discuss alternative program settings with the provider, including tingling sensations. - Apply lidocaine patches for localized discomfort from the battery pack. - Use a heating pad briefly for occasional relief. - Avoid further cortisone shots for knee pain unless otherwise advised. - Use public transportation for mobility and daily activities. Coding Level of Care Code Est Pt Level 3 (66837) Diagnoses Status post insertion of spinal cord stimulator Z96.89 Failed back syndrome M96.1
[2024-10-14 10:31] VITALS: BP 135/69; PULSE 70; RESP 16; O2SAT 96; BMI 49.9
== END 2024-10-14 11:28 | disposition home or self-care (01) ==
PROVIDERS: PCP Family Medicine; Visit Provider Internal Medicine
DX: Z96.89 Presence of other specified functional implants (principal); M96.1 Postlaminectomy syndrome, not elsewhere classified
CPT/HCPCS: 99213

== ENCOUNTER → 2024-10-14 10:26 | Outpatient (BNVA) | payer OTHER, SELFPAY | PROVIDERS: PCP Family Medicine; Visit Provider Internal Medicine | DX: M96.1 Postlaminectomy syndrome, not elsewhere classified (principal); Z96.89 Presence of other specified functional implants | CPT/HCPCS: 99212 ==

== ENCOUNTER 2024-12-30 11:48 | Outpatient (AMB) | payer OTHER, SELFPAY ==
--- NOTE | 2024-12-30 12:07 | A.OFFVIS_ITS ---
Vital Signs 12/30/24 12:09 Height 5 ft 5 in Weight 305 lb BMI 50.7 BP 130/80 Blood Pressure Location Rt radial Position Sitting Respiration 16 Pulse 69 Pulse Source Pulse Oximeter Pulse Oximetry (%) 100 Oxygen Delivery Method Room Air Intake Visit Reasons: F/U: Increased Pain at Battery Site & (R)Knee Pain Sales Associate Key Holder Required: No Allergies codeine Allergy (Severe, Verified 12/30/24 12:10) Itching divalproex sodium [Depakote] Allergy (Severe, Verified 12/30/24 12:10) rapid toxicity fluoxetine [Prozac] Allergy (Severe, Verified 12/30/24 12:10) suicidal ideation/HTN hydrochlorothiazide Allergy (Severe, Verified 12/30/24 12:10) vertigo benzonatate [Tessalon Perles] Allergy (Intermediate, Verified 12/30/24 12:10) Rash epinephrine Allergy (Intermediate, Verified 12/30/24 12:10) tachycardia erythromycin base Allergy (Intermediate, Verified 12/30/24 12:10) Hives Fish Containing Products Allergy (Intermediate, Verified 12/30/24 12:10) Hives guaifenesin Allergy (Intermediate, Verified 12/30/24 12:10) Itching iodine Allergy (Intermediate, Verified 12/30/24 12:10) Rash levofloxacin [Levaquin] Allergy (Intermediate, Verified 12/30/24 12:10) Itching/rash lidocaine Allergy (Intermediate, Verified 12/30/24 12:10) Rash morphine Allergy (Intermediate, Verified 12/30/24 12:10) itching/rash/redness @ injection site nitrofurantoin [From Macrobid] Allergy (Intermediate, Verified 12/30/24 12:10) Itching nortriptyline Allergy (Intermediate, Verified 12/30/24 12:10) Itching oxcarbazepine [From Trileptal] Allergy (Intermediate, Verified 12/30/24 12:10) Hives penicillin V Allergy (Intermediate, Verified 12/30/24 12:10) rash/itch shellfish derived Allergy (Intermediate, Verified 12/30/24 12:10) Rash strawberry Allergy (Intermediate, Verified 12/30/24 12:10) Itching Sulfa (Sulfonamide Antibiotics) Allergy (Intermediate, Verified 12/30/24 12:10) Rash sumatriptan [From Imitrex] Allergy (Intermediate, Verified 12/30/24 12:10) skin reaction tramadol Allergy (Intermediate, Verified 12/30/24 12:10) Itching Tricyclic Antidepressants and Tricy [Tricyclic Compounds] Allergy (Intermediate, Verified 12/30/24 12:10) Rash adhesive tape Adverse Reaction (Intermediate, Verified 12/30/24 12:10) Rash bupropion [From Wellbutrin] Adverse Reaction (Intermediate, Verified 12/30/24 12:10) Hypertension buspirone Adverse Reaction (Intermediate, Verified 12/30/24 12:10) Hypertension duloxetine [From Cymbalta] Adverse Reaction (Intermediate, Verified 12/30/24 12:10) tachycardia fluticasone Adverse Reaction (Intermediate, Verified 12/30/24 12:10) burning of nasal passages mirtazapine [From Remeron] Adverse Reaction (Intermediate, Verified 12/30/24 12:10) HTN/weight gain montelukast Adverse Reaction (Intermediate, Verified 12/30/24 12:10) Depression prednisone Adverse Reaction (Intermediate, Verified 12/30/24 12:10) Headache thioridazine [From Mellaril] Adverse Reaction (Intermediate, Verified 12/30/24 12:10) Hypertension tiotropium [From Spiriva with HandiHaler] Adverse Reaction (Intermediate, Verified 12/30/24 12:10) Headache trazodone Adverse Reaction (Intermediate, Verified 12/30/24 12:10) Hallucinations Novocain Allergy (Intermediate, Uncoded 12/30/24 12:10) tachycardia (when given w/epinephrine) oxycodone/acetaminophen Allergy (Mild, Uncoded 12/30/24 12:10) Rash Medication List - Last Reconciled 12/30/24 by Shyanne Castellanos LPN albuterol sulfate 90 mcg/actuation 2 inhalations inhalation Q6H PRN calcium carbonate-vitamin D3 600 mg-10 mcg (400 unit) 1 tab PO BID famotidine 20 mg PO BID 30 days furosemide 20 mg PO DAILY 30 days gabapentin 900 mg (3 x 300 mg) PO BID 30 days hydromorphone 2 mg PO TID PRN 14 days insulin glargine (Lantus Solostar U-100 Insulin) 40 units (0.4 mL) subcut BEDTIME 30 days levocetirizine 5 mg PO DAILY 30 days lidocaine 5% 1 appl topical DAILY lorazepam 0.5 mg PO BID PRN 30 days losartan 50 mg PO DAILY 30 days melatonin 10 mg PO BEDTIME PRN methocarbamol 2 tabs PO BID PRN 30 days nystatin 1 appl See Protocol topical BID 30 days pen needle, diabetic As directed pioglitazone 1 tab PO DAILY 30 days pravastatin 40 mg PO DAILY 30 days prazosin 2 caps PO BEDTIME 30 days propranolol ER 1 cap PO DAILY 30 days ropinirole 2 mg PO BEDTIME 30 days tizanidine 4 mg PO TID PRN 30 days venlafaxine ER 150 mg (2 x 75 mg) PO QAM 30 days zolpidem 5 mg PO BEDTIME 30 days HPI HPI F/U: Increased Pain at Battery Site & (R)Knee Pain: Details: History of Present Illness The patient is a 59-year-old female presenting with persistent pain despite the use of a spinal cord stimulator. Her pain experience includes sporadic zap sensations suggestive of electrode displacement, affecting the overall effectiveness of the stimulation. The partial benefit from the stimulator highlights the challenge in achieving adequate pain relief. Furthermore, elevated blood sugar levels limit the administration of corticosteroid injections, necessitating alternative pain management approaches. Pain Description - Chronic persistent pain irrespective of stimulator use. - [place] sensations due to positional shifts of electrodes. - Pain relief through spinal stimulation is minimal. - Corticosteroid injections are limited by high blood sugar levels. Pain Management - Affect: Persistent pain despite stimulation leads to discomfort. - Analgesia: Both spinal cord stimulator and previous corticosteroid use are minimally effective. - Adverse Effects: Elevated blood sugars limit corticosteroid use. - Activities of Daily Living: Compromised due to persistent pain. - Aberrant Drug Related Behaviors: None reported or observed. [facility] Medical History (Updated 07/23/24 @ 15:27 by Yvon Urias MD) Lumbar spondylosis Failed back syndrome Tachycardia Diabetes Sleep apnea Congenital valgus deformity Acquired hallux valgus Chronic back pain Arthropathy of spinal facet joint Kidney stone Intestinal malabsorption of carbohydrate Asthma Transient cerebral ischemia Hypertensive disorder Restless leg Binge eating disorder Recurrent major depressive episodes Morbid obesity Hyperlipidemia Hyperthyroidism Surgical History (Updated 07/31/24 @ 16:14 by Yvon Urias MD) Status post insertion of spinal cord stimulator History of surgery History of fusion of cervical spine H/O: hysterectomy History of laparoscopic cholecystectomy History of lumbar laminectomy History of fusion of lumbar spine H/O gastric sleeve Family History Mother Diabetes mellitus COPD (chronic obstructive pulmonary disease) Pemphigoid Depressive disorder Hyperlipidemia Father Malignant neoplastic disease Myocardial infarction Maternal Grandmother Myocardial infarction Social History Household Members: None Housing: Apartment Are you a primary acute care surgeon to a significant other at home: No Do you presently have visiting nurse or other home services: Yes Alcohol intake: never Patient Tobacco Use Status: Never used Tobacco Second Hand Smoke Exposure: No Advance Directives Date on File: 08/17/22 service: No Sexual orientation: Straight/Heterosexual Physical Exam Vital Signs: Last Vital Signs Pulse 69 12/30/24 12:09 Resp 16 12/30/24 12:09 BP 130/80 12/30/24 12:09 Pulse Ox 100 12/30/24 12:09 Oxygen Delivery Method Room Air 12/30/24 12:09 BMI result Body Mass Index 50.7 Assessment & Plan Assessment & Plan (1) Status post insertion of spinal cord stimulator: Code(s): Z96.89 - Presence of other specified functional implants Category: Medical (2) Lumbar spondylosis: Code(s): M47.816 - Spondylosis without myelopathy or radiculopathy, lumbar region Category: Medical (3) Failed back syndrome: Code(s): M96.1 - Postlaminectomy syndrome, not elsewhere classified Category: Medical (4) Myofascial pain: Code(s): M79.18 - Myalgia, other site Category: Medical Plan Plan - Evaluate potential spinal cord stimulator adjustments or additional interven tions to manage electrode shift-related discomfort. - Schedule and execute non-corticosteroid trigger point injections, respecting patient's medical history of high blood sugars. - Collaborate on further pain management considering limitations and patient preference for physical therapies. Patient was informed and verbally consented to the use of an ambient scribe for clinic note documentation during this visit. Discussion Notes During the visit, I discussed with the patient the persistent nature of her pain despite the use of a spinal cord stimulator. We reviewed the limitations posed by her elevated blood sugar, particularly affecting the use of corticosteroid injections. We agreed on scheduling trigger point injections without corticosteroids, mindful of her diabetic status's implications. Consent was obtained for the planned interventions, ensuring her understanding of the potential benefits and risks. We also explored alternative pain management options that align with her current health needs and preferences. Patient Instructions - Follow up as scheduled for trigger point injections. - Continue current pain management regimen as directed. - Monitor blood sugar levels regularly. - Report any new symptoms or discomforts promptly. - Avoid exceeding prescribed medication doses. - Maintain appointments for further evaluations and adjustments. Coding Level of Care Code Est Pt Level 3 (58912) Diagnoses Status post insertion of spinal cord stimulator Z96.89 Lumbar spondylosis M47.816 Failed back syndrome M96.1 Myofascial pain M79.18
[2024-12-30 12:09] VITALS: BP 130/80; PULSE 69; RESP 16; O2SAT 100; BMI 50.7
--- OUTSIDE RECORDS SUMMARY | 2024-12-30 14:10 | XMS_ITS | Data Portability ---
Author Organization [place] [facility] Address [address] [place] [id number] Care Team Providers Care Thread Twister Name Role Phone IMELDA GARCES Primary Care Provider [phone] Assessment Encounter Date Assessment Date Assessment LastModified by Organization Details LastModified Time 05/10/2020 05/10/2020 Time On Scene with Patient: 00:37:50 DDX: kidney stone, UTI, pyelonephritis, sciatica, cauda equina, SEA, Pt has no red flags to suggest acute cord compression or cauda equina and low risk for SEA given lack of risk factors. Consider kidney stone and UTI but UA done unremarkable. Pt appears non-toxic, hemodynamically stable. Will treat for sciatica with toradol IM. Pt has multiple allergies. Will defer other medications. Pt has follow up and will seek ED for any worsening pain. Not available 05/10/2020 14:50:57 06/14/2020 06/14/2020 Overview/History : 55yoF known to DH pmhx obesity, HTN, HDL, DM, multiple back surgeries most recently in 2016 with worsened back pain x 2 days. Patient reports walking on an unever surface. Denies new LE pain or numbness and tingling. Denies fever or drug use. No trauma to the spine. No urinary symptoms. She is taking Dilaudid 2mg TID and Tizanidine for the pain Exam: VSS patient well appearing Heart and lung sounds clear Lower extremity sensation intact and symmetrical 5/5 motor throughout all joints of LE no rash noted to area of pain on the back full ROM of R arm witout sig pain DDx considered, but not limited to: chrnic back pain patient is not demonstrating signs of cauda equina, epidural abscess or hematoma doubt fx as no trauma doubt renal colic as no urinary symptoms Work up/Results: none at this time Plan/Discussion: Patient is hemodynamically stable non toxic appearing seen for lower back pain. Patient reports the last time her kidney function was checked it was normal. Patient given an injection of 15mg of Toradol into L arm. States this helped in the past. Patient given precautions that if she develops worsened pain, LE pain, weakness, saddle paresthesias or bowel and bladder incontinence to seek immediate medical care. She verbalized understanding and was agreeable with overall plan Proper Personal Protective Equipment (PPE), including gloves, eye protection and masks were donned and doffed appropriately and all equipment cleaned using approved technique with germicidal disposable wipes prior to and after care of this patient according to [facility] Time On Scene with Patient: 00:31:20 [email or web address] Not available 06/14/2020 16:45:04 08/17/2020 08/17/2020 Overview/History : This is a 55-year-old female who is known to [facility] but new to this provider with a past medical history significant for diabetes, obesity, chronic kidney disease, chronic back pain, hypertension, high cholesterol, depression, in chronic pain for which she takes Dilantin. She is being seen today for a blister on her right foot 2nd toe. The blister has been there for several months since the summer. She reports when it becomes painful she will pop it with a needle it will drain a blood tinged clear fluid and relieve the pain. Inevitably reappears and she pops it again she called today requesting us to pop it because it is difficult for her to get into the physician to reach her toe. She denies any fevers or pus draining from the toe. Denies any chest pain or shortness of breath. Denies any nausea, vomiting, or diarrhea. Reports eating a normal appetite & feeling well besides the blister. She does have a gas appliance adjuster that she has not seen in some time. Exam: Patient is alert and oriented, in no apparent distress, nontoxic appearing. Normal heart sounds. Lungs sound clear, no rales, rhonchi or wheezes. Palpable pulses. She has a blister noted on her right 2nd toe. There is no erythema, warmth or signs of infection- see picture attached to chart.. DDx considered, but not limited to: Herpes zoster, stasis dermatitis, tinea pedis, bug bite or sting, all considered. Cellulitis considered however area is not red or warm. Irritant contact dermatitis most likely from shoes causing the blister. Work up/Results: Blister cleaned with alcohol prep (pt reports intolerance to betadine), sm nevaeh performed at patients insistence, sm amt serosanguinous fluid drained, cleansed with wound wash, Bacitracin applied with non adhesive dsg and Coban tape. Instructed to leave in place x 24hrs. Plan/Discussion: Discussed with patient she should no longer wear those shoes since it keeps causing her to have the same blister on the same toe. Encouraged to elevate her legs, soak feet in warm water and Epsom salts. Encouraged to keep clean & not pop the blister if it reappears but let it heal on its own. Instructed if area becomes red warm or she develops a fever or shows any signs of infection to be evaluated at the ER. Since patient is diabetic, I advised patient to make an appointment with her gas appliance adjuster to have the blister evaluated as well as new shoes ordered. ER precautions were reviewed, and all questions answered prior to her departure. The patient is advised to make an appt with PCP in 3-5 days to discuss ongoing symptoms/ further management. The patient is also advised to go to the ED immediately for any worsening symptoms. The patient understood and agreed with this plan. The patient was given discharge instructions and all questions were answered prior to DH team departure. In order to obtain further information and compare any laboratory results/values, I have accessed old patient records. This information was pertinent in my medical decision making today. Proper Personal Protective Equipment (PPE), including gloves, eye protection and masks were donned and doffed appropriately and all equipment cleaned using approved technique with germicidal disposable wipes prior to and after care of this patient according to [facility] infection prevention protocols. Time On Scene with Patient: 00:36:14 Not available 08/17/2020 16:20:05 08/23/2020 08/23/2020 Overview/History : 55-year-old female with past medical history significant for hyperlipidemia, hypertension, CKD, nephrolithiasis, depression, and chronic back pain, [facility], who presents with complaints of a thing on her neck . She is a very vague historian. She states it started itching night when she noticed it and she tried using tweezers to dig something out but never found anything. She states that it is not very painful. Denies drainage. She never had anything like this before. Nothing makes it better or worse. No trouble swallowing. No fever or chills. No numbness or tingling. No recent injuries. Exam: afebrile, RRR, mildly hypertensive, normal resps, O2 sat 97% on RA, non-toxic, well appearing. GENERAL: well developed, well nourished, appears stated age, sitting comfortably in no acute distress. HEENT: normocephalic, atraumatic, PERRL, EOMI, sclera anicteric, no conjunctival injection, nares patent, mmm. NECK: trachea midline, no masses, cervical lymphadenopathy, or thyromegaly. RESP: normal I:E, clear to auscultation bilaterally, no wheezes, rhonchi, or rales. CARDIO: RRR, normal S1, S2, no murmurs, rubs, or gallops, radial pulses 2+ bilaterally. NEURO: awake, alert, oriented x3, no focal neuro deficits, moving all extremities spontaneously, b/l upper extremities with intact sensation to light touch distally. SKIN: 1 cm healing abrasion on left lower neck mildly TTP without erythema, edema, mass, ecchymosis, drainage, skin intact, good turgor, no cyanosis, pallor, or lacerations. DDx considered, but not limited to: abrasion - most likely, patient reports digging at her skin goiter - unlikely, lesion too high and lateral lymphadenopathy - unlikely, no cervical lymphadenopathy on exam, no URI sxs abscess - unlikely, no fluctuance or drainage cellulitis - unlikely, no erythema or calor Work up/Results: No further work up indicated at this time. Plan/Discussion: No mass, deformity, or lesion noted. There is a small abrasion likely due to patient digging at neck with tweezers. Does not appear infected at this time and is healing. Applied small amount of bacitracin and 2x2 sterile gauze with tegaderm to clean and dry abrasion. Patient states allergic to adhesives but can use tegaderm. Continue to monitor for signs of infection. Follow up with PCP as scheduled. Thank you for your visit with [facility] today. We cannot always find the exact cause of your symptoms during your initial visit. Please follow up with your primary care provider or specialist to be rechecked or seek medical attention if your symptoms do not go away or get worse. If you develop any new or worsening symptoms and need after hours care, please go to nearest ER and/or call 911. If you have additional concerns or develop a change in your condition between 8am-10pm, please call [facility] at [phone] to help navigate your care. In order to obtain further information and compare any laboratory results/values, I have accessed old patient records. This information was pertinent in my medical decision making today. [email or web address] Not available 08/23/2020 14:16:41 10/10/2020 10/10/2020 Overview/History : 55yoF known to pmx HTN, HDL, CKD, depression and chronic back pain reports worsened back pain. Patient reports recent admission to [facility] from 08/28-09/04/2020 for suicidal ideation. Patient denies any change in her medications but reports she just felt a lot better with the support. Denies any SI at this time. Reports while in the hospital her back pain worsened and radiates into her hips. Patient is taking hydromorphone 2mg BID with some relief. No numbness and tingling or saddle paresthesias. Patient wants to have her pain stimulator put back in to help with the pain. Patient had an appointment with her PCP this week. Patient also reports a hx of vertigo diagnosed a few years ago. Patient was lying in bed and the room began to spin. Took Meclazine and the spinning went away. No dizziness today. No ALCANTARA, vision changes, trouble talking or swallowing. No nasal congestion or ear fullness. Reports it feels like her vertigo. Patient also reports rash in her abdominal skin fold for as long as she remembers. No pain. No itching but some irritation. Patient is not applying any creams or lotions to the area. Exam: VSS patient well appearing heart and lung sounds clear 5/5 motor of all 4 extremities no midline lumbar tenderness +paraspinal tenderness CN III-XII intact. Patient able to perform cerebellar testing without fdi DDx considered, but not limited to: chronic back pain spinal fracture-doubt as no injury cauda equina-doubt as no Le weakness episural abscess-doubt as no fever AAA-doubt as pain has been ongoing for years and patient is not hepertensive renal colick-doubt as no urinary symptoms vertigo posterior CVA-doubt as symptoms resolved and patient is neuro intact skin candidal infection no signs of cellulitis no signs of necrrotizing fascitis Work up/Results: none at this time Plan/Discussion: Patient is hemodynamically stable non toxic appearing seen today for multiple complaints. Patient has been seen in the past for similar back pain. Will provide a single injection of Toradol for pain relief. Patient understands she needs to follow up with her PCP for her continued pain. Precautions given to again seek care if the pain worsens, she develops LE weakness or any bowel and bladder incontinence. Patient also reports a single episode of vertigo last night. Maria Eugenia has a hx of this and symptoms went away with Meclizine. Neuro exam intact at this time. Again precautions given to seek immediate care if she develops a headache, vision changes, weakness, numbness and tingling or again develops vertigo. Patient is noted to have a yeast infection in one of her abdominal folds. She has nystatin powder at home and I encouraged her to use this. Patient verbalized understanding of plan and was agreeable. In order to obtain further information and compare any laboratory results/values, I have accessed old patient records. This information was pertinent in my medical decision making today. Time On Scene with Patient: 00:27:19 [email or web address] Not available 10/10/2020 19:33:50 Plan of Treatment Reminders Order Date Submit Date Provider Last Modified By Organization Details Last Modified Time Details Appointments None recorded. Lab urinalysi s, dipstick [address] [facility], [address] [place] [address], [id number], 0 14:16:41 Referral None recorded. Procedures None recorded. Surgeries None recorded. Imaging None recorded. Medication Orders ketorolac 30 mg/mL (1 mL) injection solution 2020 021 [email or web address] Not available 1 11:42:22 ketorolac 30 mg/mL (1 mL) injection solution 2019 020 [email or web address] Not available 0 16:30:25 ketorolac 30 mg/mL (1 mL) injection solution 2019 020 jere Jerez ([facility]), [address] , [place], [place], [id number], 0 14:12:59 Patient TargetsNo targets recorded. Patient Instructions Encounter Date Encounter Id Patient Instructions Last Modified By Organization Details Last Modified Time 05/10/2020 [id number] [facility] for evaluation of left lower back pain that radiates into your butt. This has been going on for the past 4 days. You had one bout of nausea yesterday that went away after zofran and has not recurred. You have been eating without difficulty. We checked your urine and it was unremarkable. We gave you toradol for your pain. You should continue your medications. Please call your PCP for follow up . If you develop any worsening pain, or you develop weakness, urinary symptoms, fevers or chills, please go to the emergency department. Back Pain - Discharge Instructions Basic Information: Back pain is a common problem, and has many different causes. Most back pain will improve within 2 weeks of onset. Common causes include lifting, twisting movements, overuse, unusual movements, stress, prolonged sitting, poor posture, being overweight and less commonly structural issues such as disc problems(sciatica) or fractures. X-rays and MRI? s are rarely indicated unless there has been significant trauma, if you are having certain abnormal neurologic abnormalities, or if you have certain underlying medical conditions that can cause spinal problems. Instructions: Avoid heavy lifting, bending ,twisting or prolonged sitting. Be as active as you can comfortably be, walking often makes back pain feel better. Be sure to change position at least every 2 hours to avoid stiffening up. BED REST IS NOT RECOMMENDED FOR BACK PAIN AND WILL MAKE YOU FEEL WORSE! Ice for 15 minutes every 2 hours and after 48 hours you may alternate with moist heat for 15 minutes. DO NOT FALL ASLEEP ON THE HEATING PAD, this will cause the area to swell and hurt more! When getting out of bed, roll to your side, and dangle your legs over the edge of the bed while pushing up with your hand and elbow to a seated position. Place a pillow between your knees while lying on your side, and under your legs when lying on your back to remove stress from the spine. Practice good posture as much as you are able, shoulders back, head up, abdomen pulled in. Gentle stretching, lie on your back and gently hug your knees. When you are feeling better there are many exercises that can help you treat and prevent low back pain, check with your Provider. If you are having pain/numbness going down your legs the Shira exercises are designed to relieve this pain, you can find demonstrations on [employer] loss will help to relieve stress on your back. Smoking can make back pain worse, try to limit or quit smoking, check with your provider about methods to help stop smoking. Medications: Based on your history and examination your provider will design a medication regimen specifically for your condition, this may include some of the following medications. Acetaminophen/Tyle nol: if you do not have any liver issues. Non-steroidal anti inflammatories/NSA IDS: These category includes ibuprofen (Motrin. Advil) and Naproxen (Aleve/Naprsoyn) and other medications. Anti-inflammatorie s are powerful pain relievers and the first line treatment for back pain. NSAID? s should be taken with food. People with kidney disease, hypertension or on blood thinners should not take these medications. Other medications may be prescribed, if they contain muscle relaxants or narcotic pain relievers DO NOT DRINK ALCOHOL, DRIVE OR OPERATE HEAVY MACHINERY WHILE TAKING THESE MEDICATIONS! Follow Up: You will need to follow up with your PCP for reevaluation within a few days If your back pain persists for more than 2 months or your condition deteriorates you may require further evaluation and testing. If you experience worsening and persistent numbness/weakness/ tingling, have numbness of your genitals, inability to urinate or losing urine, severe pain, fever more than 101.5, or are worse go to the ER for further evaluation. If you have additional concerns or develop a change in your condition between 8am-10pm, please call [facility] at [phone] to help navigate your care. Not available 05/10/2020 14:17:06 06/14/2020 [id number] low back pain: exercises [email or web address] Not available 06/14/2020 16:17:00 TODAY YOU WERE GIVEN 15MG OF TORADOL PLEASE FOLLOW UP WITH YOUR PRIMARY CARE PROVIDER FOR YOUR CONTINUED BACK PAIN TAKE YOUR OTHER MEDICATIONS PRESCRIBED TRY DOING SOME OF THE STRETCHES AND EXERCISES GIVEN TO YOU FOLLOW UP WITH YOUR PRIMARY CARE PROVIDER IF YOU DEVELOP SEVERE PAIN, PAIN OR WEAKNESS IN YOUR LEGS OR DIFFICULTY CONTROLLING YOUR BOWEL AND BLADDER PLEASE SEEK IMMEDIATE MEDICAL HELP Thank you for your visit with [facility] today. We cannot always find the exact cause of your symptoms during your initial visit. Please follow up with your primary care provider or specialist within 12-24 hours within 24-48 hours within 2-3 days to be rechecked or seek medical attention if your symptoms do not go away or get worse. If you develop any new or worsening symptoms and need after hours care, please go to nearest ER and/or call 911. If you have additional concerns or develop a change in your condition between 8am-10pm, please call [facility] at [phone] to help navigate your care. Not available 06/14/2020 16:18:34 08/17/2020 [id number] Please call and arrange a visit with a gas appliance adjuster and have toe evaluated and new shoes prescribed. [facility]. You were seen today for treatment of a wound. Please seek immediate medical attention if you develop increased pain, redness, or swelling of your wound. Also, you should be evaluated if the wound becomes warm to the touch, or if there is a cloudy, yellow-brown discharge from the wound. There is always the possibility of a hidden tendon injury or foreign object in the wound. If you have problems moving your arm or leg, or if you see red streaks up the arm or leg, seek immediate medical attention. If you develop any new or worsening symptoms and need after hours care, please go to nearest ER and/or call 911. If you have additional concerns or develop a change in your condition between 8am-10pm, please call [facility] at [phone] to help navigate your care. [email or web address] Not available 08/17/2020 14:22:27 08/23/2020 [id number] [facility] came to evaluate the sore on your neck. You have an abrasion, likely from digging at it with tweezers. It does not appear infected at this time. Keep clean and covered with antibiotic ointment and bandaid until healed. Change dressing daily. Continue to monitor for signs of infection, increasing redness, pain, swelling, warmth, drainage, or fever. Follow up with your PCP as scheduled. Call [facility] for new or worsening symptoms. Thank you for your visit with [facility] today. We cannot always find the exact cause of your symptoms during your initial visit. Please follow up with your primary care provider or specialist to be rechecked or seek medical attention if your symptoms do not go away or get worse. If you develop any new or worsening symptoms and need after hours care, please go to nearest ER and/or call 911. If you have additional concerns or develop a change in your condition between 8am-10pm, please call [facility] at [phone] to help navigate your care. [email or web address] Not available 08/23/2020 13:51:57 Reason for Referral None Reported. Results Created Date Observation Date Name Description Value Unit Range Abnormal Flag Note LastModifiedBy Organization Detail LastModifiedTime 05/10/20 20 05/10/2020 urina lysis , dipst ick Appearance clear Not Available [facility] [address] [place], [address], 05/10/2020 14:04:26 05/10/20 20 05/10/2020 urina lysis , dipst ick Color yellow Not Available [facility] [address] [place], [address], 05/10/2020 14:04:26 05/10/2005/10/2020 urina lysis , dipst ick Glucose negati ve Not Available [facility] [address] [place], [address], 05/10/2020 14:04:26 05/10/20 20 05/10/2020 urina lysis , dipst ick Bilirubin negati ve Not Available [facility] [address] [place], [address], 05/10/2020 14:04:26 05/10/20 20 05/10/2020 urina lysis , dipst ick Ketones NEG Not Available [facility] [address] [place], [address], 05/10/2020 14:04:26 05/10/2005/10/2020 urina lysis , dipst ick Sp. Forest 1.03 Not Available [facility] [address] [place], [address], 05/10/2020 14:04:26 05/10/2005/10/2020 urina lysis , dipst ick Blood NEG Not Available [facility] [address] [place], [address], 05/10/2020 14:04:26 05/10/2005/10/2020 urina lysis , dipst ick pH 5.0 Not Available [facility] [address] [place], [address], 05/10/2020 14:04:26 05/10/2005/10/2020 urina lysis , dipst ick Protein positi ve Not Available [facility] [address] [place], [address], 05/10/2020 14:04:26 05/10/2005/10/2020 urina lysis , dipst ick Urobilirubin negati ve Not Available [facility] [address] [place], [address], 05/10/2020 14:04:26 05/10/2005/10/2020 urina lysis , dipst ick Nitrites NEG Not Available [facility] [address] [place], [address], 05/10/2020 14:04:26 05/10/2005/10/2020 urina lysis , dipst ick Leukocytes NEG Not Available [facility] [address] [place], [address], 05/10/2020 14:04:26 Result Notes None recorded. Problems Name Problem SNOMED Code Status Onset Date Resolution Date Notes Provider Name and Address Organization Details Recorded Time Obesity 229779406 Active 020 QUETA GONZALES NP [address], [place], [address], [place] [facility] 0 13:57:59 Chronic back pain 647396639 Active 020 QEUTA GONZALES NP [address], [place], [address], [place] [facility] 0 13:58:09 Problem Notes None recorded. Procedures Surgical History Date Name Laterality Status Provider Name and Address Organization Details Recorded Time neurostimulation of spinal cord tissue completed QUETA GONZALES NP [address], [place], [address], [place] [facility] 05/10/2020 13:54:09 Cholecystectomy completed QUETA GONZALES NP [address], [place], [address], [place] [facility] 05/10/2020 13:54:55 hysterectomy completed QUETA GONZALES NP [address], [place], [address], [place] [facility] 05/10/2020 13:55:05 Appendectomy completed QUETA GONZALES NP [address], [place], [address], [place] [facility] 05/10/2020 13:55:14 lithotripsy completed QUETA GONZALES NP [address], [place], [address], [place] [facility] 05/10/2020 13:55:25 Imaging Results None recorded. Procedure Notes None recorded. Medical Equipment None Reported. Allergies Allergen ID Allergen Name Allergen Category Reaction Reaction Severity Criticality Documentation Date Start Date Code Code System Note Provider Name and Address Organization Details Recorded Time 239882 codeine medicatio n Not available Not available Not available 05/10/2020 2670 RxNorm QUETA GONZALES NP [address] [place] [place], [address], [place] [facility] 0 13:50:21 [id number] adhesive environme nt,medica tion Not available Not available Not available 05/10/2020 78332 UNK QUETA GONZALES NP [address] [place] [place], [address], [place] [facility] 0 13:50:30 [id number] Cymbalta medicatio n Not available Not available Not available 05/10/2020 98184 4 RxNorm QUETA GONZALES, PHYSICAL AERODYNAMICIST [address], [place], [address], [place] [facility] 0 13:50:43 [id number] Depakote medicatio n Not available Not available Not available 05/10/2020 47093 9 RxNorm QUETA GONZALES, PHYSICAL AERODYNAMICIST [address], [place], [address], [place] [facility] 0 13:50:58 198225 morphine medicatio n Not available Not available Not available 05/10/2020 7052 RxNorm QUETA GONZALES, PHYSICAL AERODYNAMICIST [address], [place], [address], [place] [facility] 0 13:51:11 916561 Levaquin medicatio n Not available Not available Not available 05/10/2020 29751 2 RxNorm QUETA GONZALES, PHYSICAL AERODYNAMICIST [address], [place], [address], [place] [facility] 0 13:51:23 [id number] Product containin g penicilli n (product) medicatio n Not available Not available Not available 05/10/2020 29655 8001 SNOMED QUETA GONZALES, PHYSICAL AERODYNAMICIST [address], [place], [address], [place] [facility] 0 13:51:37 380299 Prozac medicatio n Not available Not available Not available 05/10/2020 43476 RxNorm QUETA GONZALES, PHYSICAL AERODYNAMICIST [address], [place], [address], [place] [facility] 0 13:51:46 706704 Substance with sulfonami de structure and antibacte rial mechanism of action (substanc e) medicatio n Not available Not available Not available 05/10/2020 98472 8003 SNOMED QUETA GONZALES, PHYSICAL AERODYNAMICIST [address], [place], [address], [place] [facility] 0 13:51:59 051339 trazodone medicatio n Not available Not available Not available 05/10/2020 95788 RxNorm QUETA GONZALES, PHYSICAL AERODYNAMICIST [address], [place], [address], [place] [facility] 0 13:52:06 807087 Trileptal medicatio n Not available Not available Not available 05/10/2020 26255 0 RxNorm QUETA GONZALES, PHYSICAL AERODYNAMICIST [address], [place], [address], [place] [facility] 0 13:52:19 850016 nortripty line medicatio n Not available Not available Not available 05/10/2020 7531 RxNorm QUETA GONZALES, PHYSICAL AERODYNAMICIST [address], [place], [address], [place] [facility] 0 13:52:40 884395 shellfish derived food,medi cation Not available Not available Not available 05/10/2020 31346 UNK QUETA GONZALES, PHYSICAL AERODYNAMICIST [address], [place], [address], [place] [facility] 0 13:52:51 764905 sumatript an medicatio n Not available Not available Not available 05/10/2020 95848 RxNorm QUETA GONZALES, PHYSICAL AERODYNAMICIST [address], [place], [address], [place] [facility] 0 13:53:02 207896 procaine hydrochlo ride medicatio n Not available Not available Not available 05/10/2020 95864 8 RxNorm QUETA GONZALES, PHYSICAL AERODYNAMICIST [address], [place], [address], [place] [facility] 0 13:53:15 128732 thioridaz ine hydrochlo ride medicatio n Not available Not available Not available 05/10/2020 10912 5 RxNorm QUETA GONZALES, JENNIFER [address] [place], [address] [facility] 0 13:53:23 Medications Name Sig Start Date Stop Date Status Note LastModified by Organization Details LastModified Time losartan 50 mg tablet TAKE 2 TABLETS BY MOUTH DAILY active Not Available Not Available Not Available cyclobenzapr ine 10 mg tablet TAKE 1 TABLET BY MOUTH EVERY DAY AT BEDTIME NEEDED FOR SPASM active Not Available Not Available No t Available hydroxyzine pamoate 100 mg capsule active Not Available Not Available N ot Available lamotrigine 150 mg tablet TK 1 T PO D active Not Available Not Available Not Available venlafaxine ER 75 mg capsule,exte nded release 24 hr active Not Available Not Available Not Available doxycycline hyclate 100 mg capsule TK 1 C PO BID FOR 10 DAYS active Not Available Not Available No t Available lamotrigine 200 mg tablet active Not Available Not Available Not Available ropinirole 1 mg tablet TAKE 1 TABLET BY MOUTH DAILY AT BEDTIME active Not Available Not Available N ot Available tizanidine 2 mg tablet TK 1 T PO QID active Not Available Not Available No t Available clindamycin HCl 300 mg capsule TK ONE C PO Q 6 H TAT active Not Available Not Available No t Available loperamide 2 mg capsule active Not Available Not Available N ot Available pravastatin 40 mg tablet TAKE 1 TABLET BY MOUTH EVERY DAY active Not Available Not Available No t Available tizanidine 4 mg tablet TK 1 T PO D FOR 15 DAYS active Not Available Not Available Not Available fluconazole 150 mg tablet TAKE 1 TABLET BY MOUTH EVERY 72 HOURS FOR 6 DAYS active Not Available Not Available N ot Available Nystop 100,000 unit/gram topical powder APPLY TOPICALLY TWICE DAILY TO SKIN FOLDS active Not Available Not Available No t Available ondansetron HCl 8 mg tablet TAKE 1 TABLET BY MOUTH EVERY DAY NEEDED FOR NAUSEA active Not Available Not Available No t Available sucralfate 1 gram tablet active Not Available Not Available Not Available lisinopril 20 mg tablet active Not Available Not Available Not Available prednisone 20 mg tablet active Not Available Not Available Not Available venlafaxine ER 150 mg capsule,exte nded release 24 hr TK 2 CS PO QD active Not Available Not Available No t Available cyanocobalam in (vit B-12) 1,000 mcg tablet TK 1 T PO QD active Not Available Not Available No t Available hydroxyzine pamoate 50 mg capsule TK 2 CS PO HS active Not Available Not Available No t Available pioglitazone 45 mg tablet active Not Available Not Available Not Available meclizine 12.5 mg tablet active Not Available Not Available Not Available hydroxyzine HCl 50 mg tablet TK 2 TS PO HS active Not Available Not Available No t Available melatonin 3 mg tablet TAKE 1 TO 2 TABLETS BY MOUTH AT NIGHT FOR INSOMNIA NEEDED active Not Available Not Available No t Available bacitracin zinc 500 unit/gram topical ointment TC TOPICALLY BID FOR 7 DAYS active Not Available Not Available No t Available ketorolac 30 mg/mL (1 mL) injection solution 15 mg IM administere d on scene. Time administere d: 1412 2020 active Not Available Not Available Not Avai lable propranolol 40 mg tablet active Not Available Not Available Not Available hydromorphon e 2 mg tablet TAKE 1 TABLET BY MOUTH TWICE DAILY NEEDED FOR PAIN active Not Available Not Available No t Available famotidine 20 mg tablet TK 1 T PO BID active Not Available Not Available No t Available DOK 100 mg capsule active Not Available Not Available Not Available tamsulosin 0.4 mg capsule TAKE 1 CAPSULE BY MOUTH DAILY active Not Available Not Available Not Available colesevelam 625 mg tablet active Not Available Not Available Not Available baclofen 10 mg tablet TK 1 T PO TID active Not Available Not Available No t Available lisinopril 10 mg tablet TK 1 T PO QD active Not Available Not Available No t Available ferrous gluconate 240 mg (27 mg iron) tablet TK 1 T PO QD active Not Available Not Available No t Available nitroglyceri n 0.4 mg sublingual tablet active Not Available Not Available Not Available gabapentin 300 mg capsule TAKE 2 CAPSULES BY MOUTH EVERY MORNING AND 3 CAPSULES BY MOUTH EVERY NIGHT AT BEDTIME active Not Available Not Available N ot Available omeprazole 20 mg capsule,francesca yed release TK 1 C PO BID active Not Available Not Available No t Available Banophen 25 mg capsule active Not Available Not Available N ot Available etodolac 400 mg tablet TAKE 1 TABLET BY MOUTH TWICE DAILY FOR 3 DAYS NEEDED FOR HEADACHE active Not Available Not Available No t Available montelukast 10 mg tablet TAKE 1 TABLET BY MOUTH AT BEDTIME active Not Available Not Available No t Available pravastatin 20 mg tablet TAKE 1 TABLET BY MOUTH DAILY BEFORE LUNCH active Not Available Not Available No t Available furosemide 20 mg tablet TAKE 1 TABLET BY MOUTH DAILY active Not Available Not Available Not Available lorazepam 1 mg tablet TK 1 T PO HS PRF INSOMNIA active Not Available Not Available No t Available ibuprofen 600 mg tablet TAKE 1 TABLET BY MOUTH EVERY 6 HOURS NEEDED FOR PAIN active Not Available Not Available No t Available albuterol sulfate HFA 90 mcg/actuatio n aerosol inhaler INL 2 PFS PO QID PRF WHZ active Not Available Not Available No t Available pioglitazone 30 mg tablet active Not Available Not Available Not Available ketoconazole 2 % topical cream TC EXT AA BID active Not Available Not Available No t Available ondansetron 4 mg disintegrati ng tablet active Not Available Not Available No t Available dicyclomine 10 mg capsule active Not Available Not Available Not Available lamotrigine 100 mg tablet TK 1 AND 1/2 TS PO HS active Not Available Not Available No t Available ipratropium bromide 0.02 % solution for inhalation U 2.5 ML VIA NEB QID active Not Available Not Available Not Available prazosin 2 mg capsule TK 2 CS PO HS active Not Available Not Available No t Available metocloprami de 10 mg tablet active Not Available Not Available Not Available topiramate 50 mg tablet TK 1 T PO BID active Not Available Not Available No t Available nitrofuranto in monohydrate/ macrocrystal s 100 mg capsule active Not Available Not Available Not Available Flovent HFA 110 mcg/actuatio n aerosol inhaler INHALE 1 PUFF BY MOUTH TWICE DAILY active Not Available Not Available No t Available chlorhexidin e gluconate 0.12 % mouthwash SWISH 1 CFL AND HOLD FOR 2 MIN THEN EXPECTORATE TID PC active Not Available Not Available No t Available FreeStyle Lite Meter kit USE TO CHECK BLOOD SUGAR TID active Not Available Not Available No t Available Calcium 600 + D(3) 600 mg-10 mcg (400 unit) tablet active Not Available Not Available Not Available FreeStyle Lite Strips USE TO TEST THREE TIMES DAILY BEFORE MEALS active Not Available Not Available No t Available Lantus Solostar U-100 Insulin 100 unit/mL (3 mL) subcutaneous pen INJECT 40 UNITS SUBCUTANEOU S NIGHTLY active Not Available Not Available No t Available levocetirizi ne 5 mg tablet TAKE 1 TABLET BY MOUTH DAILY IN THE EVENING active Not Available Not Available No t Available cholecalcife rol (vitamin D3) 50 mcg (2,000 unit) tablet TK 1 T PO QD active Not Available Not Available No t Available calcium 315 mg (as citrate)-vit steinberg D3 6.25 mcg (250 unit) tablet TK 1 T PO ONCE A DAY active Not Available Not Available N ot Available Mucus Relief ER 600 mg tablet, extended release TK 1 T PO Q 12 H FOR 10 DAYS PRF COUGH active Not Available Not Available No t Available Wal-Mucil Fiber 0.52 gram capsule TAKE 2 CAPSULES BY MOUTH DAILY BEFORE LUNCH active Not Available Not Available No t Available BD Lulu 2nd Gen Pen Needle 32 gauge x USE ONCE D active Not Available Not Available N ot Available Vitals Date Recorded Heart rate Oxygen saturation Oxygen saturation in Arterial blood by Pulse oximetry Respiratory rate Body temperature Systolic blood pressure Diastolic blood pressure Provider Name and Address Organization Details Last Updated DateTime 0 75 /min 98 % 98 % 22 /min 98.2 [degF] 134 mm[Hg] 76 mm[Hg] Not Available [facility] 0 13:51:53 Date Recorded Respiratory rate Body temperature Heart rate Oxygen saturation Oxygen saturation in Arterial blood by Pulse oximetry Systolic blood pressure Diastolic blood pressure Provider Name and Address Organization Details Last Updated DateTime 0 18 /min 98.9 [degF] 89 /min 97 % 97 % 108 mm[Hg] 62 mm[Hg] Not Available [facility] 0 16:13:12 Date Recorded Body temperature Heart rate Respiratory rate Oxygen saturation Oxygen saturation in Arterial blood by Pulse oximetry Systolic blood pressure Diastolic blood pressure Provider Name and Address Organization Details Last Updated DateTime 0 97.6 [degF] 87 /min 20 /min 98 % 98 % 112 mm[Hg] 82 mm[Hg] Not Available [facility] 0 14:11:34 Date Recorded Oxygen saturation Oxygen saturation in Arterial blood by Pulse oximetry Heart rate Respiratory rate Body temperature Systolic blood pressure Diastolic blood pressure Provider Name and Address Organization Details Last Updated DateTime 0 97 % 97 % 72 /min 20 /min 98.9 [degF] 132 mm[Hg] 86 mm[Hg] Not Available [facility] 0 13:42:44 Date Recorded Body temperature Respiratory rate Heart rate Oxygen saturation Oxygen saturation in Arterial blood by Pulse oximetry Systolic blood pressure Diastolic blood pressure Provider Name and Address Organization Details Last Updated DateTime 1 98.3 [degF] 18 /min 78 /min 98 % 98 % 110 mm[Hg] 70 mm[Hg] Not Available [facility] 1 16:30:24 Social History Question Answer Notes LastModified by Organizat ion Details LastModified Time Tobacco Smoking Status Never Smoker QUETA GONZALES NP [address], [place], [address], [place] [facility] 05/10/2020 13:57:08 What Is Your Code Status? Full Code Information not available 05/10/2020 Sex: Unknown Functional Status None recorded. Mental Status None recorded. Family History Nothing Reported. Medical History Condition Response Hypertension Y High Cholesterol Y Kidney Disease Y Gynecological HistoryNo gynecological history recorded. Obstetrics History GPAL:G 0 P 0 0 0 0 Past Encounters Encounter ID Performer Location Encounter Start Date Encounter Closed Date Diagnosis/Indication Diagnosis SNOMED-CT Code Diagnosis ICD10 Code Diagnosis Note [id number] QUETA GONZALES NP [facility] [address] [place] [address] 05/10/2020 13:47:10 05/13/2020 21:43:00 Low back pain 395067216 M54.5 [id number] JAY HERRERA [facility] [address] [place] [address] 06/14/2020 15:58:29 06/18/2020 11:03:39 Low back pain 039176957 M54.5 [id number] Caron Mendez NP [facility] [address] [place] [address] 08/17/2020 14:03:23 08/18/2020 10:56:08 Blister 727625716 R23.8 R second toe Diabetes mellitus 494262 09 E11.9 [id number] JAY GONSALVES [facility] [address] [place] [address] 08/23/2020 13:34:57 08/24/2020 17:26:27 Abrasion [id number] T14.8XXA [id number] JAY [facility]A [facility] [address] [facility] [address] 10/10/2020 15:38:43 10/13/2020 11:59:02 Low back pain 156410326 M54.5 Candidiasis of skin 4988 3006 B37.2 Vertigo 414033921 R42 Health Concerns Section Related Observation LastModified by Organization Detai ls LastModified Time None Recorded Concern Status LastModified by Organization Details LastModified Time None Recorded Advance Directives Directive None Recorded Payers Encounter Date Sequence Insurance Name Policy Number Policy Jc Covered Member ID Jc Member ID Guarantor Name 05/10/[address] [facility] - DOS PRIOR TO 2022 - DUAL ELIGIBLE (MEDICARE REPLACEMENT/AD VANTAGE - HMO) Kaur Meyre [id number] Kaur Meyer 06/14/[address] [facility] - DOS PRIOR TO 2022 - DUAL ELIGIBLE (MEDICARE REPLACEMENT/AD VANTAGE - HMO) Kaur Meyer [id number] Kaur Meyer 08/17/[address] [facility] - DOS PRIOR TO 2022 - DUAL ELIGIBLE (MEDICARE REPLACEMENT/AD VANTAGE - HMO) Kaur Meyer [id number] Kaur Meyer 08/23/[address] [facility] - DOS PRIOR TO 2022 - DUAL ELIGIBLE (MEDICARE REPLACEMENT/AD VANTAGE - HMO) Kaur Meyer [id number] Kaur Meyer 10/10/[address] [facility] - DOS PRIOR TO 2022 - DUAL ELIGIBLE (MEDICARE REPLACEMENT/AD VANTAGE - HMO) Kaur Meyer [id number] Kaur Meyer 10/10/2020 2 [place] [facility] Kaur Meyer [id number] Kaur Meyer Notes Date Note Type Note Provider Name and Address Organization Details Recorded Time 05/10/2020 text/html 55 year-old female, morbidly obese, multiple back surgeries, most recent 2016, chronic back pain, HTN, HLD, depression, anxiety, DM, and kidney stones, who calls to her home for evaluation of back pain. Pt reports she has been having left lower back pain that radiates into her left buttock. She has had flares like this before. She has been taking her dilaudid as prescribed but finds it isn'thelping. She went to the ED a couple of weeks ago for similar pain and was given toradol and muscle relaxant which helped.She denies any numbness or weakness. She denies any urinary symptoms, fevers, chills, or recent trauma. She has been eating as usual. She did have some nausea last night but used zofran and it has not returned. QUETA GONZALES NP [address], [place], [address], [place] [facility] 05/10/2020 14:51:06 06/14/2020 text/html 55yoF known to H pmhx HTN, HDL, CKD, DM (blood sugar 125 this AM), multiple back surgeries in the past with chronic back pain with worsened back pain x 2 days while walking on some planks. Denies any new pain or numbness and tingling in her legs. No saddle paresthesias or bowel and bladder incontinence. No urinary symptoms. No fevers. No drug use. Patient takes Tizanidine and Dilaudid 2mg TID for the pain. JAY HERRERA [address], [place], [address], [place] [facility] 06/14/2020 16:45:11 08/17/2020 text/html This is a 55-year-old female who is known to [facility] but new to this provider with a past medical history of high cholesterol, hypertension, kidney disease, kidney stones, chronic back pain, depression, diabetes and obesity. She requested to be seen today to evaluate a blister on her right 2nd toe. She reports she has had this blister since the summer. She admits when it becomes painful she pops it with a needle, which relieves the pain. It drains a a blood tinged thin liquid, no pus. She reports it comes back whenever she wears her shoes. She denies any fevers. She denies any chest pain, shortness of breath, nausea vomiting or diarrhea. She reports feeling well, no fevers, normal appetite. She has an extensive list of allergies denies any recent rashes, reports she cannot use adhesive tape Coban tape is okay Caron Mendez, JENNIFER [address], [place], [address], [place] [facility] 08/17/2020 18:37:19 08/23/2020 text/html 55-year-old femwilmer ramirez with past medical history significant for hyperlipidemia, hypertension, CKD, nephrolithiasis, depression, and chronic back pain, [facility], who presents with complaints of a thing on her neck . She is a very vague historian. She states it started itching Th night when she noticed it and she tried using tweezers to dig something out but never found anything. She states that it is not very painful. Denies drainage. She never had anything like this before. Nothing makes it better or worse. No trouble swallowing. No fever or chills. No numbness or tingling. No recent injuries. JAY GONSALVES [address], [place], [address], [place] [facility] 08/23/2020 14:17:03 10/10/2020 text/html 55yoF known to D H pmhx HTN, HDL, CKD, depression and chronic back pain reports worsened back pain. Patient reports recent admission to [facility] from 08/28-09/04/2020 for suicidal ideation. Patient denies any change in her medications but reports she just felt a lot better with the support. Denies any SI at this time. Reports while in the hospital her back pain worsened and radiates into her hips. Patient is taking hydrocodone-acetam inophen 5/325mg BID with some relief. No numbness and tingling or saddle paresthesias. Patient wants to have her pain stimulator put back in to help with the pain. Patient had an appointment with her PCP this week. Patient also reports a hx of vertigo diagnosed a few years ago. Patient was lying in bed and the room began to spin. Took Meclazine and the spinning went away. No dizziness today. No ALC[place]ARA, vision changes, trouble talking or swallowing. No nasal congestion or ear fullness. Reports it feels like her vertigo. Patient also reports rash in her abdominal skin fold for as long as she remembers. No pain. No itching but some irritation. Patient is not applying any creams or lotions to the area. JAY HERRERA [address], [place], [address], [place] [facility] 10/10/2020 19:34:08 OBGyn Episode No OBEpisode recorded.
--- OUTSIDE RECORDS SUMMARY | 2024-12-30 14:10 | XMS_ITS | Data Portability ---
Author Organization Send Word Now [facility] [place] - [employer] Address [address] [place] [address] Care Team Providers Care Trap Operator Name Role Phone HIM CCA OTHER Assessment Encounter Date Assessment Date Assessment LastModified by Organization Details LastModified Time 01/27/2023 01/27/2023 Ms. Kaur Meyer is a 57yoF who is s/p spinal cord stimulator implantation on 01/20 who is seen today for a wound check/dressing change. Ms. Meyer reports that her dressing and ul are supposed to be removed this upcoming Monday, but her dressing came off today [facility]. She has no complaints and feels well otherwise. VSS. Heater Installer on site reports wound appears to be healing well, with no discharge or erythema. Area re-dressed. [email or web address] Not available 01/27/2023 19:39:10 08/05/2024 08/05/2024 59 yo F with recent R ankle pain and swelling. No injury or trauma to the area. Has used an TANIA wrap, which has helped. On exam, VS wnl. No visible joint swelling or edema of surrounding tissue. Pt is able to bear weight and has full ROM ankle. Can take tylenol PRN pain and should FUP PCP should sxs continue. [email or web address] Not available 08/05/2024 20:26:43 Plan of Treatment Reminders Order Date Submit Date Provider Last Modified By Organization Details Last Modified Time Details Appointments None record ed. Lab None record ed. Referral None record ed. Procedures None record ed. Surgeries None record ed. Imaging None record ed. Medication Orders None record ed. Patient TargetsNo targets recorded. Patient InstructionsNo instructions recorded. Reason for Referral None Reported. Medical Equipment None Reported. Allergies Allergen ID Allergen Name Allergen Category Reaction Reaction Severity Criticality Documentation Date Start Date Code Code System Note Provider Name and Address Organization Details Recorded Time Adderall medicatio n Not available Not available Not available 08/05/2024 43934 [facility] 12:44:08 05635 albuterol medicatio n Not available Not available Not available 08/05/2024 435 RxNorm [facility] 12:44:08 86293 buspirone medicatio n Not available Not available Not available 08/05/2024 1827 RxNorm Not [facility] 12:44:08 43313 Celebrex medicatio n Not available Not available Not available 08/05/2024 78799 7 RxNorm [facility] 4 12:44:08 40849 codeine medicatio n Not available Not available Not available 08/05/2024 2670 RxNorm Not Available [facility] - production 4 12:44:08 03539 Cymbalta medicatio n Not available Not available Not available 08/05/2024 22784 4 RxNorm [facility] 12:44:08 59266 Depakote medicatio n Not available Not available Not available 08/05/2024 77001 9 RxNorm [facility] 12:44:08 44219 fentanyl medicatio n Not available Not available Not available 08/05/2024 4337 RxNorm Not [facility] 4 12:44:08 02339 fluticaso ne Not available Not available Not available Not available 08/05/2024 66582 RxNorm Not [facility] 4 12:44:08 59105 morphine medicatio n Not available Not available Not available 08/05/2024 7052 RxNorm Not Available [facility] 4 12:44:08 30765 acetamino phen / oxycodone medicatio n Not available Not available Not available 08/05/2024 75634 3 RxNorm Not [facility] 4 12:44:08 74465 prednison e medicatio n Not available Not available Not available 08/05/2024 8640 RxNorm Not Available [facility] - production 4 12:44:08 62101 tramadol medicatio n Not available Not available Not available 08/05/2024 80029 RxNorm Not Available [facility] - production 4 12:44:08 38676 erythromy bridget medicatio n Not available Not available Not available 08/05/2024 4053 RxNorm Not Available [facility] 4 12:44:08 03260 sulfameth oxazole medicatio n Not available Not available Not available 08/05/2024 [address] [facility] - production 4 12:44:08 7169 Bactrim medicatio n Not available Not available Not available 07/02/2024 54899 9 RxNorm Not Available [facility] 4 03:35:31 Medications Name Sig Start Date Stop Date Status Note LastModified by Organization Details LastModified Time losartan 50 mg tablet TAKE 1 TABLET BY MOUTH EVERY DAY active Not Available Not Available No t Available celecoxib 200 mg capsule TAKE 1 CAPSULE BY MOUTH TWICE DAILY active Not Available Not Available No t Available fluconazole 100 mg tablet TAKE 2 TABLETS BY MOUTH ON DAY 1 THEN 1 TABLET DAILY active Not Available Not Available No t Available methocarbamo l 500 mg tablet TAKE 2 TABLETS BY MOUTH TWICE DAILY NEEDED active Not Available Not Available No t Available venlafaxine ER 75 mg capsule,exte nded release 24 hr TAKE 1 CAPSULE BY MOUTH EVERY MORNING. TOTAL DAILY DOSE IS 225 MG active Not Available Not Available No t Available gabapentin 600 mg tablet TAKE 1 TABLET BY MOUTH THREE TIMES DAILY active Not Available Not Available Not Available propranolol ER 160 mg capsule,24 hr,extended release TAKE 1 CAPSULE BY MOUTH EVERY DAY active Not Available Not Available No t Available ropinirole 1 mg tablet TAKE 1 TO 2 TABLETS BY MOUTH DAILY AT BEDTIME active Not Available Not Available N ot Available pravastatin 40 mg tablet TAKE 1 TABLET BY MOUTH EVERY DAY active Not Available Not Available No t Available nystatin 100,000 unit/gram topical ointment APPLY TOPICALLY TO THE AFFECTED AREA THREE TIMES DAILY active Not Available Not Available Not Available tizanidine 4 mg tablet TAKE 1 TABLET BY MOUTH THREE TIMES DAILY NEEDED active Not Available Not Available No t Available fluconazole 150 mg tablet TAKE 1 TABLET BY MOUTH EVERY 72 HOURS active Not Available Not Available No t Available venlafaxine ER 150 mg capsule,exte nded release 24 hr TAKE 1 CAPSULE BY MOUTH EVERY DAY. TOTAL DAILY DOSE IS 225 MG active Not Available Not Available No t Available pioglitazone 45 mg tablet active Not Available Not Available Not Available melatonin 3 mg tablet TAKE 3 TABLETS BY MOUTH AT BEDTIME active Not Available Not Available No t Available acetaminophe n 500 mg tablet TAKE 2 CAPLETS BY MOUTH TWICE DAILY NEEDED active Not Available Not Available No t Available triamcinolon e acetonide 0.1 % topical cream APPLY THIN LAYER TOPICALLY TO THE AFFECTED AREA THREE TIMES DAILY FOR 14 DAYS active Not Available Not Available Not Available propranolol 40 mg tablet TAKE 1 TABLET BY MOUTH THREE TIMES DAILY active Not Available Not Available Not Available hydromorphon e 2 mg tablet TAKE 1 TABLET BY MOUTH TWICE DAILY NEEDED FOR PAIN. MAY TAKE AN EXTRA TABLET FOR A TOTAL OF 3 IN A 24 HOUR PERIOD UP TO 2 TIMES A WEEK active Not Available Not Available No t Available famotidine 20 mg tablet TAKE 1 TABLET BY MOUTH TWICE DAILY active Not Available Not Available No t Available lorazepam 0.5 mg tablet TAKE 1 TABLET BY MOUTH TWICE DAILY NEEDED active Not Available Not Available No t Available tamsulosin 0.4 mg capsule TAKE 1 CAPSULE BY MOUTH DAILY active Not Available Not Available Not Available meclizine 25 mg tablet TAKE 1 TABLET BY MOUTH THREE TIMES DAILY FOR 5 DAYS NEEDED FOR DIZZINESS active Not Available Not Available No t Available cephalexin 500 mg capsule TAKE 1 CAPSULE BY MOUTH THREE TIMES DAILY FOR 7 DAYS. active Not Available Not Available Not Available clotrimazole -betamethaso ne 1 %-0.05 % topical cream active Not Available Not Available Not Available nitroglyceri n 0.4 mg sublingual tablet active Not Available Not Available Not Available gabapentin 300 mg capsule TAKE 3 CAPSULES BY MOUTH EVERY MORNING AND AT BEDTIME active Not Available Not Available N ot Available Banophen 25 mg capsule TAKE 1-2 CAPSULES EVERY 4-6 HOURS NEEDED FOR ITCHING/ALL ERGY OR MIGRAINE COCKTAIL active Not Available Not Available No t Available etodolac 400 mg tablet TAKE 1 TABLET BY MOUTH TWICE DAILY FOR 3 TO 5 DAYS NEEDED FOR HEADACHE OR ACUTE PAIN active Not Available Not Available N ot Available furosemide 20 mg tablet TAKE 1 TABLET BY MOUTH DAILY. MAY TAKE EXTRA TABLET DAILY FOR TOTAL OF 2 TABLETS DIRECTED BY PROVIDER active Not Available Not Available No t Available nystatin 100,000 unit/gram topical powder APPLY TOPICALLY TWICE DAILY FOR SKIN FOLDS active Not Available Not Available No t Available epinephrine 0.3 mg/0.3 mL injection, auto-injecto r active Not Available Not Available Not Available hydroxyzine HCl 10 mg tablet TAKE 1 TO 2 TABLETS BY MOUTH EVERY NIGHT AT BEDTIME active Not Available Not Available No t Available prazosin 2 mg capsule TAKE 2 CAPSULES BY MOUTH AT BEDTIME active Not Available Not Available No t Available Ventolin HFA 90 mcg/actuatio n aerosol inhaler INHALE 2 PUFFS BY MOUTH EVERY 4 HOURS NEEDED active Not Available Not Available No t Available cyclobenzapr ine 5 mg tablet TAKE 1 TABLET BY MOUTH AT BEDTIME NEEDED FOR MODERATE PAIN FOR 3 DAYS active Not Available Not Available No t Available Flovent HFA 110 mcg/actuatio n aerosol inhaler INHALE 1 PUFF BY MOUTH TWICE DAILY active Not Available Not Available No t Available calcium 600 mg (as carbonate)-v itamin D3 10 mcg (400 unit) tablet TAKE 1 TABLET BY MOUTH TWICE DAILY. active Not Available Not Available No t Available FreeStyle Lite Meter kit USE DIRECTED active Not Available Not Available No t Available FreeStyle Lite Strips USE TO TEST THREE TIMES DAILY BEFORE A MEAL active Not Available Not Available No t Available Lantus Solostar U-100 Insulin 100 unit/mL (3 mL) subcutaneous pen ADMINISTER 40 UNITS UNDER THE SKIN DAILY active Not Available Not Available N ot Available levocetirizi ne 5 mg tablet TAKE 1 TABLET BY MOUTH TWICE DAILY FOR 14 DAYS THEN 1 TABLET EVERY DAY active Not Available Not Available No t Available diclofenac 1 % topical gel APPLY 2 GRAMS TOPICALLY TO THE AFFECTED AREA 3 TO 4 TIMES DAILY active Not Available Not Available Not Available Wal-Mucil Fiber 0.52 gram capsule TAKE 2 CAPSULES BY MOUTH DAILY BEFORE LUNCH active Not Available Not Available No t Available BD Lulu 2nd Gen Pen Needle 32 gauge x 5/32 USE ONCE DAILY active Not Available Not Available No t Available QuickVue At-Home COVID-19 Test kit TEST DIRECTED TODAY active Not Available Not Available No t Available Vitals Date Recorded Body temperature Body height Heart rate Body weight Respiratory rate Oxygen saturation Oxygen saturation in Arterial blood by Pulse oximetry Systolic blood pressure Diastolic blood pressure Provider Name and Address Organization Details Last Updated DateTime 4 97.1 [degF] 165.1 cm 70 /min 617733. 6 g 16 /min 96 % 96 % 132 mm[Hg] 94 mm[Hg] Not Available [email or web address] 4 20:08:51 Date Recorded Heart rate Body temperature Respiratory rate Oxygen saturation Oxygen saturation in Arterial blood by Pulse oximetry Respiratory rate Oxygen saturation Oxygen saturation in Arterial blood by Pulse oximetry Body temperature Heart rate Systolic blood pressure Diastolic blood pressure Systolic blood pressure Diastolic blood pressure Provider Name and Address Organization Details Last Updated DateTime 2 76 /min 99.1 [degF] 20 /min 96 % 96 % 20 /min 96 % 96 % 99.1 [degF] 76 /min 113 mm[Hg] 76 mm[Hg] 113 mm[Hg] 76 mm[Hg] Not Available [email or web address] 2 18:37:02 Date Recorded Respiratory rate Oxygen saturation Oxygen saturation in Arterial blood by Pulse oximetry Body temperature Heart rate Systolic blood pressure Diastolic blood pressure Provider Name and Address Organization Details Last Updated DateTime 3 18 /min 95 % 95 % 98.4 [degF] 60 /min 145 mm[Hg] 90 mm[Hg] Not Available [email or web address] 3 19:35:15 Social History None recorded. Functional Status None recorded. Mental Status None recorded. Family History Nothing Reported. Medical History No medical history recorded. Gynecological HistoryNo gynecological history recorded. Obstetrics History GPAL:G 0 P 0 0 0 0 Past Encounters Encounter ID Performer Location Encounter Start Date Encounter Closed Date Diagnosis/Indication Diagnosis SNOMED-CT Code Diagnosis ICD10 Code Diagnosis Note [id number] Rubio Goldberg MD [facility] [address] [place] [address] [id number] 07/29/2022 17:29:40 08/01/2022 10:50:25 Neuropathy 461862870 G62.9 New onset neuropathy in lower extremitie s with weakness; recommende d ED for evaluation but patient declined, as states has follow-up with surgeon soon Dizziness [id number] R42 Unclear etiology. Negative orthostati cs and states does not feel same as vertigo that was responsive to Meclizine in the past. Recommende d CMP and EKG, and definitive care/imagi ng [facility]. Pt refused further testing and ED recommenda tion. She was fully informed of the risks of refusing transport to the ED, and that her neurologic al symptoms could worsen and cause permanent damage up to and including . She still refused. Red flags discussed. Pt verbalized understand ing, and that she would contact and inform her surgeon [facility]. [id number] Carrie Lopez MD [facility] [address] [place] [address] [id number] 01/27/2023 19:35:14 01/30/2023 18:31:47 Post-surgical wound care [id number] Z48.01 [id number] JOSE PECK MD [facility] [address] [place] [address] [id number] 08/05/2024 20:08:47 08/05/2024 21:24:15 Ankle pain 894693599 M25.579 Health Concerns Section Related Observation LastModified by Organization Detai ls LastModified Time None Recorded Concern Status LastModified by Organization Details LastModified Time None Recorded Advance Directives Directive None Recorded Payers Encounter Date Sequence Insurance Name Policy Number Policy Jc Covered Member ID Jc Member ID Guarantor Name 07/29/2022 1 [facility] - DOS PRIOR TO 2022 - DUAL ELIGIBLE (MEDICARE REPLACEMENT/AD VANTAGE - HMO) Kaur Meyer [id number] Michell Meyer 01/27/2023 1 [facility] - DOS ON OR AFTER 2022 - DUAL ELIGIBLE - FPC OPTIONS AND ONE CARE (MEDICARE REPLACEMENT/AD VANTAGE - HMO) Kaur Meyer [id number] Michell Meyer 08/05/2024 1 [facility] - DOS ON OR AFTER 2022 - MEDICARE [place]VANTAGE [place] (MEDICARE REPLACEMENT/AD VANTAGE - PPO) Michell Meyer [id number] Michell Meyer Notes Date Note Type Note Provider Name and Address Organization Details Recorded Time 07/29/2022 text/html HPI: Todd is a 57 y/o with c/o lightheadedness and back pain. States that she hurt her back while lifting a 15lb turkey on 07/28. This morning she woke up feeling lightheaded with new onset tingling to bilateral feet. Dimar also c/o weakness to both legs. Mbr is a diabetic. Last BG 125. States that she walked to [employer] this morning using her walker and she felt like she was in 2 worlds. Reports that her eyes feel weird from the dizziness she is experiencing. States that she is concerned her BP is bottoming out. Asked mbr if she had a machine to check her BP and she said yes. Mbr checked her BP while on the call 135/60 with a pulse 70. Advised mbr that given the new onset lightheadedness with the BLE weakness and tingling in both feet mbr should go to the ER. Mbr opposed with going to the ER stating she has been to the ER a few times this week and they have sent her home with pain mgt. States she takes dilaudid at home. Unaware of when last dose was taken. Offered [facility]. Mbr agreeable. Best contact num [phone] CODE: Full Code ALLERGIES: PCN, Iodine, Trileptal, Epinephrine, Morphine, Oxycodone, Trazadone, Remeron, Wellbutrin, HCTZ, Tricyclic compounds, Levaquin, Shellfish, Prozac, Novocain, Tessalon and others PMHx: DM2, HTN, PTSD, major depressive d/o, borderline personality d/o, tachycardia ..................... ..................... ..................... ..................... ..................... ..................... ............... CRC Nursing Assessment: Comments: CRC RN did not require any additional information to process this visit. ..................... ..................... ..................... ..................... ..................... ..................... ............... Heater Installer Note: [facility] Heater Installer NarayanLeana Romulo [email or web address] dispatched to a [facility] for a 57 yof C/O dizziness. Upon arrival, the pt was sitting in her living room, awake and alert, VO X4, in no apparent distress. The pt stated that she had a failed back with multiple diagnoses, including spinal stenosis. She stated that she had a surgery scheduled in 2 weeks to implant a spinal stimulator. She stated that the day prior, her baseline lower back pain was exacerbated by lifting a turkey, and that in the morning she woke up with dizziness. She described the dizziness as different from her past vertigo, that it felt as if her head was spinning rather than the room spinning. She denied any N/V, falls, headaches, or vision changes. She stated the dizziness was intermittent at rest and more often while standing/walking, with feet numbness/tingling as well. No facial droop, confusion, slurred speech, or unilateral weakness. She stated her legs felt like jelly, ; ROM and sensation equal bilaterally. Orthostatic vitals: HR 74, systolic BP 105 at rest, HR 85 and BP 119/63 while standing. Pt was opposed to transport to ED. [facility] [place]; Physician recommended CMP and EKG, and definitive care/imaging [facility]. Pt refused further testing and ED recommendation. She was fully informed of the risks of refusing transport to the ED, and that her neurological symptoms could worsen and cause permanent damage up to and including . She still refused. Red flags discussed. Pt verbalized understanding, and that she would contact and inform her surgeon [facility]. ..................... ..................... ..................... ..................... ..................... ..................... ............... Disposition: Fulfilled Rubio Goldberg MD [address] [facility],[address], [place], [id number], [employer] 07/30/2022 08:20:38 01/27/2023 text/html CRC Nursing Assessment: Reason For Request: wound Chief Complaints: Wound Care PMH: Diabetes, Severe Persistent Mental Illness (SPMI), Hypertension Allergies: Bactrim Comments: Verified identity by Member had a spinal cord stimulator implant , per member she was told that the dressing she stay on . Larose to be removed Monday . They changed the dressing on Monday. The dressing is tegaderm and gauze pad. The member does not have tegaderm . ..................... ..................... ..................... ..................... ..................... ..................... ............... Heater Installer Note From Sharifa Hobson: Sent to evaluate pt with general wound care request. Upon arrival, found pt sitting in arm chair. Pt is awake and alert, airway open and patent, breathing regular. Pt had spinal cord stimulator placed in back on 01/18 with f/u on 01/23 where surgical site with dressed and bandaged. Pt states that the adhesive is starting to peel away and she's requesting dressing change. Pt denies complaints including pain around surgical site, fever, chills, cp, abd pain, clay, n/v/d, or sob. Pt reports itching around surgical site due to healing and pt reports she is self treating with benadryl. Pt has no other complaints. Assessment of site reveals clean and dry area, lu are intact with no drainage. No erythema or signs of infection. Placed strip of 5X9 and covered with two large tegaderms to secure in place. [place]ed [facility] who had no further recommendations or orders at this time. Left pt with additional dressing supplies and pt voiced understanding on how to instruct friend to do it if needed. Pt has f/u with surgeon office on 01/31. No further questions or concerns at this time. ..................... ..................... ..................... ..................... ..................... ..................... ............... Disposition: Fulfilled Carrie Lopez MD [address] [place] [address],[address], [place], [phone], [employer] 01/27/2023 21:13:47 08/05/2024 text/html HPI: Pt is having swelling to right ankle with pain, no known injury ..................... ..................... ..................... ..................... ..................... ..................... ............... CRC Nurse Triage Notes (Estefanía Lerma): Chief Complaints: Joint pain/swelling PMH: Severe Persistent Mental Illness (SPMI), Hypertension, Anxiety Disorder, Diabetes Mellitus Type 2, Depression, Chronic Kidney Disease, Hyperlipidemia, Kidney Stones, Asthma, Chronic Pain Comments: HPI reviewed- NE ..................... ..................... ..................... ..................... ..................... ..................... ............... Heater Installer Note From Marcell Steele: This 59-year-old female with a history including but not limited to chronic pain, anxiety/depression, HTN, DM type II, CKD, HLD, kidney stones, asthma requested a visit today to address one week of intermittent pain and swelling right. Patient denies any trauma and has never had pain like this before. Patient states she is taking Tylenol 1 g PO TID as well as her PRN Dilaudid and it seems to help with the pain. She says it's worse at times when walks. Patient states she wrapped it in an tania bandage last night and that seemed to help. Patient states she is also tried heat, ice, rest and elevation.Patient presents awake and alert, and no acute distress. Her vital signs are reasonably stable and she is afebrile. Nonfocal neurological exam. Normal gait. Lungs are clear throughout auscultation. Abdomen is soft, nontender, nondistended. No lower extremity edema, erythema, contusions or any other obvious signs of injury. Normal distal pulses, sensation, capillary refill and motor function.I recommend she follow up with her primary care office in the morning to discuss a plan that may include imaging and/or physical therapy. I recommend she continue taking her medications as prescribed and continue the RICE technique. The patient was given the opportunity to ask questions and is agreeable to this plan. ..................... ..................... ..................... ..................... ..................... ..................... ............... [facility] Consulted: Jose Peck ..................... ..................... ..................... ..................... ..................... ..................... ............... Disposition: Fulfilled JOSE PECK MD [address] [facility],[address], [place], [phone], [employer] - OmiciaWYATT MAYO 08/05/2024 21:12:16 OBGyn Episode No OBEpisode recorded.
== END 2024-12-30 12:35 | disposition home or self-care (01) ==
LOC: HO.PMC 11:49
PROVIDERS: PCP Family Medicine; Visit Provider Internal Medicine
DX: M47.816 Spondylosis without myelopathy or radiculopathy, lumbar region (principal); M96.1 Postlaminectomy syndrome, not elsewhere classified; M79.18 Myalgia, other site; Z96.89 Presence of other specified functional implants
CPT/HCPCS: 99213

== ENCOUNTER → 2024-12-30 11:48 | Outpatient (BNVA) | payer OTHER, SELFPAY | PROVIDERS: PCP Family Medicine; Visit Provider Internal Medicine | DX: M47.816 Spondylosis without myelopathy or radiculopathy, lumbar region (principal); M96.1 Postlaminectomy syndrome, not elsewhere classified; M79.18 Myalgia, other site; Z96.82 Presence of neurostimulator | CPT/HCPCS: 99212 ==

== ENCOUNTER 2025-02-21 15:49 | Inpatient (IN) | payer OTHER, SELFPAY ==
--- NOTE | ~2025-02-21 | CT_ITS ---
EXAMINATION: CT HEAD WITHOUT IV CONTRAST HISTORY: blackouts. TECHNIQUE: Unenhanced helical CT of the head was performed per standard departmental protocol. Coronal and sagittal reformats of the head were also evaluated. One or more of the following techniques was used for dose reduction: Automated exposure control, adjustment of the mA and/or kV according to patient size, use of iterative reconstruction technique. DLP: 730 mGy-cm COMPARISON: There are no prior studies available for comparison. FINDINGS: BRAIN: The brain parenchyma is unremarkable. There is normal perea/white differentiation. The ventricular system is normal in size and configuration. There is no mass effect or midline shift. No intra- or extra-axial fluid collections are identified. SINUSES: The visualized paranasal sinuses are clear. The mastoid air cells and middle ear cavities are well pneumatized. ORBITS: The visualized orbits are unremarkable. BONES/SOFT TISSUES: The extracranial soft tissues are unremarkable. The calvarium is intact. No suspicious lytic or sclerotic lesions. CT/CT head/brain wo IV con IMPRESSION: Unremarkable unenhanced head CT. Electronically signed by: Golden Ltaham MD 02/26/2025 12:19 PM EDT
[2025-02-21 16:22] VITALS: BP 131/58; PULSE 66; RESP 17; TEMP 36.8; O2SAT 99
--- NOTE | 2025-02-21 17:53 | PC.ADMIT ---
Pt arrived on the unit at 1605 via stretcher from [facility]. She has been admitted to for worsening depression, thoughts of self harm, and vague SI , per crisis report. Pt has past medical hx of: bipolar 1 d/o, anxiety, depression, and SI. Pt has been placed on 5 minute checks due to rollator. She reported a fall in December 2024. She appears to have a steady gait while using rollator. Pt with a plethora of allergies, please see MAR for additional information. However, most of note is artificial sweeteners which cause anaphylactic shock. Skin check reveled several scars. Three on spinal area are from previous surgeries, several on left forearm are from self inflicted wounds with finger nails, and one is a healing burn received while cooking. There is no s&s of infection anywhere. In addition, pt has what appears to be a fungal rash in groin area. In addition, pt.'s R leg is larger than her L. Non-pitting edema noted on R side only. Pt requires bariatric clothing, additional Johnnies brought up from basement. During admission interview, pt denied AH, however, endorsed hearing spirits , which give her information about self and others . Due to her chronic and persistent depression, pt is requesting ECT treatment. Pt is a POC BID. During assessment, pt was pleasant, cooperative, and forthcoming with information. She is here on a CV.
[2025-02-21 18:54] VITALS: BMI 45.2
[2025-02-21 20:00] VITALS: BP 135/62; PULSE 98; RESP 15; TEMP 36.4; O2SAT 100
[2025-02-21 22:51] LABS: Glucose, Whole Blood 185 mg/dL (60-115)
[2025-02-21] MEDS: Insulin Glargine,Hum.rec.anlog 100 UNIT/ML 10 ML VIAL 40 UNIT SUBCUT (23:02)
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
[2025-02-22 07:54] LABS: Glucose, Whole Blood 100 mg/dL (60-115)
[2025-02-22 08:07] VITALS: BP 97/60; PULSE 79; RESP 16; TEMP 36.7; O2SAT 98
[2025-02-22] MEDS: Calcium + Vitamin D 250 MG TABLET 500 MG PO ×2 (09:01→18:41)
[2025-02-22] MEDS: Propranolol HCL LA 80 MG CAP.SA.24H 160 MG PO (09:02)
[2025-02-22 09:25] LABS: Hemoglobin A1C 171.7926 umol/L; Total Hemoglobin (HGBA1C) 3405.6485 umol/L
[2025-02-22 09:42] LABS: Cholesterol 132 mg/dL (<200); HDL Cholesterol 49 mg/dL (>40); Magnesium 2.2 mg/dL (1.6-2.6); Triglycerides 81 mg/dL (<150)
[2025-02-22 10:00] LABS: Free T4 (Free Thyroxine) 1.17 ng/dL (0.71-1.85); Thyroid Stimulating Hormone 2.44 uIU/mL (0.32-4.0)
[2025-02-22 10:12] LABS: Folate 11.1 ng/mL (> or = 4.0); Vitamin B12 973 pg/mL (200-900)
--- NOTE | 2025-02-22 10:25 | PC.NURSE ---
pt reports she will utilize her nystatin and lidocaine creams after she naps then showers. will reapproach pt at the time
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
[2025-02-22 16:48] VITALS: BP 126/62; PULSE 69; O2SAT 98
[2025-02-22 17:07] LABS: Lipase 30 U/L (8-78)
--- NOTE | 2025-02-22 17:21 | PM.EVENT ---
Event Note Date of Service: 02/22/25 Event Note: 5:20 PM - hospitalist service was re-consulted for evaluation of severe abdominal pain. Denied nausea, vomiting or diarrhea. I evaluated the patient. She was sitting at her desk making puzzles, in no acute distress. She denied abdominal pain and abdominal exam is benign. Patient said: I am just wondering if my pancreatitis is flaring up . Labs ordered: CBC, CMP and lipase. Time Spent With Patient Time: Total time managing care of this patient today ____ minutes.
[2025-02-22 17:33] LABS: Glucose, Whole Blood 144 mg/dL (60-115)
[2025-02-22 18:14] LABS: MANUAL DIFF FLAG NO
[2025-02-22 18:15] LABS: Hematocrit 40.8 % (37.0-47.0); Hemoglobin 13.6 g/dl (12.0-16.0); Imm Gran Abs Auto 0.02 X10*3/uL (0.00-0.03); Imm Gran Pct Auto 0.2 % (0.0-0.4); Lymphocytes Absolute Auto 2.5 X10*3/uL (1.2-4.9); Mean Corpuscular HGB Conc 33.3 g/dl (31.0-35.0); Mean Corpuscular Hemoglobin 29.1 pg (27.0-33.0); Mean Corpuscular Volume 87.2 fL (80.0-98.0); NRBC Abs Auto 0.000 X10*3/uL (0.0-0.012); NRBC Pct Auto 0.0 /100WBC (0.0-0.2); Platelet Count 319 X10*3/uL (160-400); Red Blood Count 4.68 X10*6/uL (4.20-5.50); White Blood Count 8.3 X10*3/uL (4.8-10.8)
[2025-02-22 18:33] LABS: Alanine Aminotransferase 26 U/L (0-31); Albumin Level 4.7 g/dL (3.5-5.0); Alkaline Phosphatase 91 U/L (39-117); Anion Gap 15 (12-20); Aspartate Amino Transferase 30 U/L (5-31); Blood Urea Nitrogen 30 mg/dL (9-16); Calcium 9.9 mg/dL (8.4-10.2); Carbon Dioxide 29 mmol/L (22-29); Chloride 103 mmol/L (96-108); Creatinine Clr Calc Pharmacy 65.1; Estimated Glomerular Filt Rate 39; Lipase 44 U/L (8-78); Potassium 4.5 mmol/L (3.3-5.1); Sodium 142 mmol/L (135-145); Total Protein 7.8 g/dL (6.5-8.0)
--- NOTE | 2025-02-22 18:49 | PC.NURSE ---
per pharmacy; they are unable to deliver pt own bariatric vitamins as bottle is open. Pt would need to bring in a sealed bottle in order to administer.
[2025-02-22 20:00] VITALS: BP 135/58; PULSE 65; RESP 16; TEMP 36.6; O2SAT 99
[2025-02-22 21:19] LABS: Glucose, Whole Blood 152 mg/dL (60-115)
[2025-02-22] MEDS: Insulin Glargine,Hum.rec.anlog 100 UNIT/ML 10 ML VIAL 40 UNIT SUBCUT (21:30)
[2025-02-22] MEDS: Clotrimazole 1 % Cream 15 GM TUBE 1 APPL TOPICAL (21:50)
--- NOTE | 2025-02-23 | EEG_ITS ---
FINDINGS: The waking background activity consists of a [id number] diffuse 7 to 7.5 theta intermixed with low voltage, fast frequencies anteriorly. Photic stimulation is without activation. Hyperventilation is omitted. No focal, lateralizing, or paroxysmal discharges are seen. IMPRESSION: This EEG is considered mildly abnormal due to mild diffuse background slowing consistent with mild diffuse encephalopathic process. No epileptiform discharges are seen. MD JAROD Contreras/SUYAPA / [id number]
--- NOTE | 2025-02-23 05:36 | P.PNPSI_ITS ---
Subjective Subjective Date of Service: 02/23/25 Reason For Visit: major depressive disorder, recurrent episode Subjective Notes: Conditional Voluntary Healthcare Proxy: No Guardianship: No Medical Problems Affecting Mental Status: No Interim History: Pt calmer today. Becoming familiar with the unit, team and routine. Reports med regime to be correct. Discussed MICHAEL-she declines CPAP-we discussed possible consult for a more appropriate mask. Agrees to ordering an EEG to begin to assess blackout episodes Agrees to nutrition consult to address options to intolerances Discussed dx of MPD which she received a while ago, and the difficulties it brings to effective mgt of sx. Discussed possibly increasing Latuda in addition Medication Compliance: Yes Side effects from medications: No Attending Groups: Yes Review of Systems Acute medical concerns: Yes Medical Review of Systems: unchanged Review of Systems Review of Systems not currently Mental Status Exam Mental Status Exam Patient Appearance: Appropriate Patient Orientation: Person, Place, Time and Situation Level of Consciousness: Alert Patient Behavior: Talkative, Cooperative, Anxious and Good Eye Contact Mood Description: Anxious and Apprehensive Affect Description: Flat Patient Cognition Impaired: No Ability to Follow Directions: Good Speech Pattern: Spontaneous Speech Memory Description: Episodic Impaired Hallucinations: None Delusions: Not Present Perceptual Disturbances: Depersonalization and Derealization Thought Process: Intact and Goal Oriented Thought Content: positive for Intact, positive for Circumstantial and positive for Goal Oriented Depressive Symptoms: Increased Anxiety, Diff. Making Decisions, Difficulty Sleeping, Loss of Int. in Activity and Low Self Esteem Judgement: Good Diagnostics Vital Signs (24Hr): Vital Signs - 24 hr 02/22/25 08:07 02/22/25 16:48 02/22/25 20:00 Temperature 98.0 F 97.8 F Pulse Rate 79 69 65 Respiratory Rate 16 16 Blood Pressure 97/60 126/62 135/58 L Pulse Oximetry 98 98 99 Oxygen Delivery Method Room Air Room Air BMI result Body Mass Index 45.2 Labs 02/23/25 06:26 02/23/25 06:26 Labs: Laboratory Results - last 48 hr 02/21/25 02/22/25 02/22/25 22:46 07:50 08:46 WBC RBC Hgb Hct MCV MCH MCHC RDW Plt Count MPV Immature Gran % (Auto) Neut % (Auto) Lymph % (Auto) [place] % (Auto) Eos % (Auto) Baso % (Auto) Lymph # (Auto) [place] # (Auto) Eos # (Auto) Baso # (Auto) Abs Immat Gran (auto) Absolute Neuts (auto) Absolute Nucleated RBC Nucleated RBC % (auto) Sodium Potassium Chloride Carbon Dioxide Anion Gap BUN Creatinine Estim Creat Clear Calc Estimated GFR POC Glucose 185 H 100 Random Glucose Estimat Average Glucose 148 Hemoglobin A1c % 6.8 H Calcium Magnesium 2.2 Total Bilirubin AST ALT Alkaline Phosphatase Total Protein Albumin Triglycerides 81 Cholesterol 132 LDL Cholesterol, Calc 67 HDL Cholesterol 49 Lipase 30 Vitamin B12 973 H Folate 11.1 TSH 2.44 Free T4 1.17 02/22/25 02/22/25 02/22/25 16:55 17:35 21:13 WBC 8.3 RBC 4.68 Hgb 13.6 Hct 40.8 MCV 87.2 MCH 29.1 MCHC 33.3 RDW 13.7 Plt Count 319 MPV 10.0 Immature Gran % (Auto) 0.2 Neut % (Auto) 58.1 Lymph % (Auto) 30.0 [place] % (Auto) 8.9 Eos % (Auto) 2.3 Baso % (Auto) 0.5 Lymph # (Auto) 2.5 [place] # (Auto) 0.7 Eos # (Auto) 0.2 Baso # (Auto) 0.0 Abs Immat Gran (auto) 0.02 Absolute Neuts (auto) 4.8 Absolute Nucleated RBC 0.000 Nucleated RBC % (auto) 0.0 Sodium 142 Potassium 4.5 Chloride 103 Carbon Dioxide 29 Anion Gap 15 BUN 30 H Creatinine 1.38 Estim Creat Clear Calc 65.1 Estimated GFR 39 POC Glucose 144 H 152 H Random Glucose 140 H Estimat Average Glucose Hemoglobin A1c % Calcium 9.9 Magnesium Total Bilirubin 0.4 AST 30 ALT 26 Alkaline Phosphatase 91 Total Protein 7.8 Albumin 4.7 Triglycerides Cholesterol LDL Cholesterol, Calc HDL Cholesterol Lipase 44 Vitamin B12 Folate TSH Free T4 Medications Medications Current Medications Acetaminophen (Acetaminophen 325 Mg Tablet) 650 mg PO Q6H PRN PRN Reason: Headache/Pain, Scale 1-10 Last Admin: 02/22/25 21:31 Dose: 650 mg Albuterol Sulfate (Albuterol Sulfate 90 Mcg 8 Gm Inhaler) 2 puff INHALE RQ6H PRN PRN Reason: Shortness of Breath/Wheezing Calcium Carbonate/Cholecalciferol (Calcium + Vitamin D 250 Mg Tablet) 500 mg PO 1700 NEREYDA Last Admin: 02/22/25 18:41 Dose: 500 mg Clotrimazole (Clotrimazole 1 % Cream 15 Gm Tube) 1 appl TOPICAL BID COUNT INCLUDES THE [facility] Last Admin: 02/22/25 21:50 Dose: 1 appl Dextrose (Dextrose 50 % 25 Gm/50 Ml Syringe) 25 gm IVPUSH Q15M PRN; Protocol PRN Reason: per Hypoglycemia Standing Ord. Famotidine (Famotidine 20 Mg Tablet) 40 mg PO BID@0800,1700 COUNT INCLUDES THE [facility] Last Admin: 02/22/25 16:52 Dose: 40 mg Furosemide (Furosemide 20 Mg Tablet) 20 mg PO DAILY COUNT INCLUDES THE [facility]; Protocol Last Admin: 02/22/25 09:02 Dose: 20 mg Gabapentin (Gabapentin 300 Mg Capsule) 900 mg PO BID COUNT INCLUDES THE [facility] Last Admin: 02/22/25 21:32 Dose: 900 mg Glucose (Glucose Gel 15 Gm Gel..Gram.) 15 gm PO Q15M PRN; Protocol PRN Reason: per Hypoglycemia Standing Ord. Hydromorphone HCl (Hydromorphone Hcl 2 Mg Tablet) 4 mg PO Q8H PRN PRN Reason: Pain, Severe (Pain Scale 7-10) Last Admin: 02/22/25 17:01 Dose: 4 mg Insulin Glargine (Insulin Glargine,Hum.Rec.Anlog 100 Unit/Ml 10 Ml Vial) 40 unit SUBCUT BEDTIME COUNT INCLUDES THE [facility] Last Admin: 02/22/25 21:30 Dose: 40 unit Insulin Human Lispro (Insulin Lispro 100 Unit/Ml 3 Ml Vial) 0 unit SUBCUT QIDACHS COUNT INCLUDES THE [facility]; Protocol Last Admin: 02/22/25 22:03 Dose: Not Given Lidocaine (Lidocaine 5 % Ointment 35 Gm) 1 appl TOPICAL DAILY COUNT INCLUDES THE [facility]; Protocol Last Admin: 02/22/25 18:30 Dose: Not Given Loratadine (Loratadine 10 Mg Tablet) 10 mg PO BEDTIME COUNT INCLUDES THE [facility] Last Admin: 02/22/25 21:34 Dose: 10 mg Lorazepam (Lorazepam 1 Mg Tablet) 1 mg PO BEDTIME PRN PRN Reason: Anxiety Last Admin: 02/22/25 21:32 Dose: 1 mg Lurasidone HCl (Lurasidone Hcl 20 Mg Tablet) 20 mg PO DAILY COUNT INCLUDES THE [facility] Last Admin: 02/22/25 16:52 Dose: 20 mg Magnesium Hydroxide (Milk Of Magnesia 30 Ml Oral.Susp) 30 ml PO DAILY PRN PRN Reason: Constipation Melatonin (Melatonin 3 Mg Tablet) 9 mg PO BEDTIME PRN PRN Reason: Insomnia Last Admin: 02/22/25 21:31 Dose: 9 mg Methocarbamol (Methocarbamol 500 Mg Tablet) 1,000 mg PO BID@0900,1700 COUNT INCLUDES THE [facility] Last Admin: 02/22/25 18:37 Dose: Not Given Nitroglycerin (Nitroglycerin 0.4 Mg Tab.Subl) 0.4 mg SUBLINGUAL Q5MX3 PRN PRN Reason: Chest Pain Non-Formulary Medication (Bariatric Multivitamin) 1 cap PO DAILY COUNT INCLUDES THE [facility] Nystatin (Nystatin Cream 15 Gm Tube) 1 appl TOPICAL BID COUNT INCLUDES THE [facility]; Protocol Last Admin: 02/22/25 22:05 Dose: Not Given Ondansetron HCl (Ondansetron Odt 4 Mg Tab.Rapdis) 4 mg TRANSLINGU Q8H PRN PRN Reason: Nausea and Vomiting Last Admin: 02/22/25 19:17 Dose: 4 mg Pioglitazone HCl (Pioglitazone Hcl 45 Mg Tablet) 45 mg PO DAILY COUNT INCLUDES THE [facility] Pravastatin Sodium (Pravastatin Sodium 40 Mg Tablet) 40 mg PO DAILY@1200 NEREYDA Last Admin: 02/22/25 16:52 Dose: 40 mg Prazosin HCl (Prazosin Hcl 1 Mg Capsule) 4 mg PO BEDTIME COUNT INCLUDES THE [facility]; Protocol Last Admin: 02/22/25 21:33 Dose: 4 mg Propranolol HCl (Propranolol Hcl La 60 Mg Cap.Sa.24h) 120 mg PO DAILY COUNT INCLUDES THE [facility] Last Admin: 02/22/25 18:35 Dose: Not Given Ropinirole HCl (Ropinirole Hcl 2 Mg Tablet) 2 mg PO BEDTIME COUNT INCLUDES THE [facility] Last Admin: 02/22/25 21:35 Dose: 2 mg Tizanidine HCl (Tizanidine Hcl 4 Mg Tablet) 4 mg PO BEDTIME PRN PRN Reason: muscle cramping Last Admin: 02/22/25 21:33 Dose: 4 mg Allergies Allergies Allergy/AdvReac Type Severity Reaction Status Date / Time codeine Allergy Severe Itching Verified 12/30/24 12:10 divalproex sodium (Depakote) Allergy Severe rapid Verified 12/30/24 12:10 toxicity fluoxetine (Prozac) Allergy Severe suicidal Verified 12/30/24 12:10 ideation/HTN hydrochlorothiazide Allergy Severe vertigo Verified 12/30/24 12:10 benzonatate (Tessalon Perles) Allergy Intermediate Rash Verified 12/30/24 12:10 epinephrine Allergy Intermediate tachycardia Verified 12/30/24 12:10 erythromycin base Allergy Intermediate Hives Verified 12/30/24 12:10 Fish Containing Products Allergy Intermediate Hives Verified 12/30/24 12:10 guaifenesin Allergy Intermediate Itching Verified 12/30/24 12:10 iodine Allergy Intermediate Rash Verified 12/30/24 12:10 levofloxacin (Levaquin) Allergy Intermediate Itching/ivana Verified 12/30/24 12:10 h lidocaine Allergy Intermediate Rash Verified 12/30/24 12:10 morphine Allergy Intermediate itching/rash/redness Verified 12/30/24 12:10 @ injection site nitrofurantoin (From Allergy Intermediate Itching Verified 12/30/24 12:10 Macrobid) nortriptyline Allergy Intermediate Itching Verified 12/30/24 12:10 oxcarbazepine (From Allergy Intermediate Hives Verified 12/30/24 12:10 Trileptal) penicillin V Allergy Intermediate rash/itch Verified 12/30/24 12:10 shellfish derived Allergy Intermediate Rash Verified 12/30/24 12:10 strawberry Allergy Intermediate Itching Verified 12/30/24 12:10 Sulfa (Sulfonamide Allergy Intermediate Rash Verified 12/30/24 12:10 Antibiotics) sumatriptan (From Imitrex) Allergy Intermediate skin Verified 12/30/24 12:10 reaction tramadol Allergy Intermediate Itching Verified 12/30/24 12:10 Tricyclic Antidepressants Allergy Intermediate Rash Verified 12/30/24 12:10 and Tricy (Tricyclic Compounds) adhesive tape AdvReac Intermediate Rash Verified 12/30/24 12:10 bupropion (From Wellbutrin) AdvReac Intermediate Hypertensio Verified 12/30/24 12:10 n buspirone AdvReac Intermediate Hypertensio Verified 12/30/24 12:10 n duloxetine (From Cymbalta) AdvReac Intermediate tachycardia Verified 12/30/24 12:10 fluticasone AdvReac Intermediate burning of Verified 12/30/24 12:10 nasal passages mirtazapine (From Remeron) AdvReac Intermediate HTN/weight Verified 12/30/24 12:10 gain montelukast AdvReac Intermediate Depression Verified 12/30/24 12:10 prednisone AdvReac Intermediate Headache Verified 12/30/24 12:10 thioridazine (From Mellaril) AdvReac Intermediate Hypertensio Verified 12/30/24 12:10 n tiotropium (From Spiriva AdvReac Intermediate Headache Verified 12/30/24 12:10 with HandiHaler) trazodone AdvReac Intermediate Hallucinati Verified 12/30/24 12:10 ons Novocain Allergy Intermediate tachycardia Uncoded 12/30/24 12:10 (when given w/epinephrine) oxycodone/acetaminophen Allergy Mild Rash Uncoded 12/30/24 12:10 Assessment & Plan Assessment & Plan (1) Bipolar disorder: Status: Acute Code(s): F31.9 - Bipolar disorder, unspecified (2) PTSD (post-traumatic stress disorder): Status: Acute Code(s): F43.10 - Post-traumatic stress disorder, unspecified (3) Borderline personality disorder: Status: Acute Code(s): F60.3 - Borderline personality disorder Plan Admit, CV, 15 minute checks Diagnostics as needed Possible neuro consult and eval-blackouts Collateral Contacts Encourage full milieu Continue Latuda with titration as tolerated Discharge planning. 02/23: EEG Nutrition Evaluation Ensure tid Reason for continued inpatient stay Substantial Risk for: rapid decompensation Time Spent With Patient Time: Total time managing care of this patient today ____ minutes.
[2025-02-23 06:33] LABS: Hematocrit 35.5 % (37.0-47.0); Hemoglobin 11.8 g/dl (12.0-16.0); Mean Corpuscular HGB Conc 33.2 g/dl (31.0-35.0); Mean Corpuscular Hemoglobin 29.1 pg (27.0-33.0); Mean Corpuscular Volume 87.4 fL (80.0-98.0); NRBC Abs Auto 0.000 X10*3/uL (0.0-0.012); NRBC Pct Auto 0.0 /100WBC (0.0-0.2); Platelet Count 223 X10*3/uL (160-400); Red Blood Count 4.06 X10*6/uL (4.20-5.50); White Blood Count 5.1 X10*3/uL (4.8-10.8)
[2025-02-23 06:46] LABS: Anion Gap 12 (12-20); Blood Urea Nitrogen 30 mg/dL (9-16); Carbon Dioxide 27 mmol/L (22-29); Chloride 107 mmol/L (96-108); Creatinine Clr Calc Pharmacy 73.1; Estimated Glomerular Filt Rate 45; Potassium 3.9 mmol/L (3.3-5.1); Sodium 142 mmol/L (135-145)
[2025-02-23 06:53] LABS: Calcium 8.6 mg/dL (8.4-10.2)
[2025-02-23 08:16] LABS: Glucose, Whole Blood 103 mg/dL (60-115)
[2025-02-23 08:20] VITALS: BP 122/82; PULSE 70; RESP 16; TEMP 36.4; O2SAT 98
[2025-02-23] MEDS: Propranolol HCL LA 60 MG CAP.SA.24H 120 MG PO (08:24)
[2025-02-23 12:20] LABS: Glucose, Whole Blood 122 mg/dL (60-115)
[2025-02-23] MEDS: Calcium + Vitamin D 250 MG TABLET 500 MG PO (16:30)
[2025-02-23 17:17] LABS: Glucose, Whole Blood 114 mg/dL (60-115)
[2025-02-23 20:00] VITALS: BP 129/66; PULSE 69; RESP 15; TEMP 36.6; O2SAT 96
[2025-02-23 20:44] LABS: Glucose, Whole Blood 200 mg/dL (60-115)
[2025-02-23] MEDS: Insulin Glargine,Hum.rec.anlog 100 UNIT/ML 10 ML VIAL 40 UNIT SUBCUT (21:03)
[2025-02-23] MEDS: Albuterol Sulfate 90 MCG 8 GM INHALER 2 PUFF INHALE (21:36)
[2025-02-24 07:52] LABS: Glucose, Whole Blood 115 mg/dL (60-115)
[2025-02-24 08:22] VITALS: BP 124/66
[2025-02-24] MEDS: Propranolol HCL LA 60 MG CAP.SA.24H 120 MG PO ×2 (08:22→11:40)
[2025-02-24 08:23] VITALS: BP 124/66
--- NOTE | 2025-02-24 08:48 | MHC.CLN ---
NUTRITION CONSULT PATIENT WITH EXTREME OBESITY AND MULTIPLE ALLERGIES/INTOLERANCES. DISCUSSED WITH PROVIDER. ADM NOTE STATING ARTIFICIAL SWEETENERS CAUSE ANAPHYLACTIC SHOCK . PATIENT REQUESTED ENSURE 3 TIMES DAILY. SUPPLEMENT PROVIDES 1050 KCALS, 60 G PROTEIN. DOES NOT APPEAR TO HAVE NUTRITIONAL NEED FOR SUPPLEMENT BASED ON EXTREME OBESITY. ALERTED DINING SERVICES OF ALLERGIES ARTIFICIAL SWEETENERS, FISH AND STRAWBERRY. PROVIDER TO REVIEW ALLERGIES.
--- NOTE | 2025-02-24 09:18 | PC.NURSE ---
approached pt with 9am scheduled medication. Pt was irritable due to her breakfast order being incorrect. TW called kitchen to order correct breakfast for pt however pt continued with irritability. She was handed her medication and then asked what a particular pill was. TW explained it was a multivitamin and pt stated I have my own special bariatric vitamins TW explained that since her own bariatric vitamins were opened prior to admission the pharmacy was not allowed to dispense them as they could not be verified. Pt then slammed the medication cup down and several pills landed on the table and the floor. TW picked up and wasted all medication. Pt was instructed that RN would return in 1hr to allow her time to deescalate. Pt is currently sitting crossed arm in the common area.
--- NOTE | 2025-02-24 10:36 | PC.NURSE ---
approached pt to reattempt to administer 9am scheduled medications. Pt demanded to speak with the pharmacist and reports it's against my ADA rights to not have my bariatric vitamins that were specifically formulated just for me !!! Pt also reports she is upset that a SW approached her and started asking about her family. She began slamming her fist onto the table able and yelled, I hate when people ask about my family. They are all . Pt still refuses to accept any of her medications. TW offered pt a human rights complaint form. Complaint form refused by pt.
[2025-02-24 11:35] VITALS: BP 130/75; PULSE 78; RESP 16; TEMP 36.8; O2SAT 97
[2025-02-24 12:27] LABS: Glucose, Whole Blood 123 mg/dL (60-115)
--- NOTE | 2025-02-24 15:48 | P.PNPSI_ITS ---
Subjective Subjective Date of Service: 02/24/25 Reason For Visit: major depressive disorder, recurrent episode Subjective Notes: Conditional Voluntary Healthcare Proxy: No Guardianship: No Medical Problems Affecting Mental Status: No Interim History: Team reports pt to have increased irritability and lability. Angry this a.m. Refused and threw her medication. She is easily triggered by different people, interactions, attempt by team to gather history. Upset that [facility] will not allow her bariatric vitamins as they are open. A new supply was ordered for her today. Anxious about eval of blackouts, but feels this to be necessary as she wants to have some confirmation of what the issues are. Uses puzzles to help herself ground. Encouraging milieu involvement. Medication Compliance: Intermittent Side effects from medications: No Attending Groups: Intermittent Review of Systems Review of Systems Evaluation of blackouts Mental Status Exam Mental Status Exam Patient Appearance: Appropriate Patient Orientation: Person, Place, Time and Situation Level of Consciousness: Alert Patient Behavior: Talkative, Cooperative, Anxious and Good Eye Contact Mood Description: Anxious, Labile and Apprehensive Affect Description: Labile and Flat Patient Cognition Impaired: No Ability to Follow Directions: Good Speech Pattern: Spontaneous Speech Memory Description: Episodic Impaired Hallucinations: None Delusions: Not Present Perceptual Disturbances: Depersonalization and Derealization Thought Process: Intact and Goal Oriented Thought Content: positive for Intact, positive for Circumstantial and positive for Goal Oriented Depressive Symptoms: Increased Anxiety, Diff. Making Decisions, Difficulty Sleeping, Loss of Int. in Activity and Low Self Esteem Judgement: Good Diagnostics Vital Signs (24Hr): Vital Signs - 24 hr 02/23/25 20:00 02/24/25 08:22 02/24/25 08:23 Temperature 98 F Pulse Rate 69 Respiratory Rate 15 Blood Pressure 129/66 124/66 124/66 Pulse Oximetry 96 Oxygen Delivery Method 02/24/25 11:35 Temperature 98.2 F Pulse Rate 78 Respiratory Rate 16 Blood Pressure 130/75 Pulse Oximetry 97 Oxygen Delivery Method Room Air BMI result Body Mass Index 45.2 Labs 02/23/25 06:26 02/23/25 06:26 Labs: Laboratory Results - last 48 hr 02/22/25 02/22/25 02/22/25 08:46 16:55 17:35 WBC 8.3 RBC 4.68 Hgb 13.6 Hct 40.8 MCV 87.2 MCH 29.1 MCHC 33.3 RDW 13.7 Plt Count 319 MPV 10.0 Immature Gran % (Auto) 0.2 Neut % (Auto) 58.1 Lymph % (Auto) 30.0 [place] % (Auto) 8.9 Eos % (Auto) 2.3 Baso % (Auto) 0.5 Lymph # (Auto) 2.5 [place] # (Auto) 0.7 Eos # (Auto) 0.2 Baso # (Auto) 0.0 Abs Immat Gran (auto) 0.02 Absolute Neuts (auto) 4.8 Absolute Nucleated RBC 0.000 Nucleated RBC % (auto) 0.0 Sodium 142 Potassium 4.5 Chloride 103 Carbon Dioxide 29 Anion Gap 15 BUN 30 H Creatinine 1.38 Estim Creat Clear Calc 65.1 Estimated GFR 39 POC Glucose 144 H Random Glucose 140 H Calcium 9.9 Total Bilirubin 0.4 AST 30 ALT 26 Alkaline Phosphatase 91 Total Protein 7.8 Albumin 4.7 Lipase 30 44 02/22/25 02/23/25 02/23/25 21:13 06:26 08:13 WBC 5.1 RBC 4.06 L Hgb 11.8 L Hct 35.5 L MCV 87.4 MCH 29.1 MCHC 33.2 RDW 13.4 Plt Count 223 D MPV 9.9 Immature Gran % (Auto) Neut % (Auto) Lymph % (Auto) [place] % (Auto) Eos % (Auto) Baso % (Auto) Lymph # (Auto) [place] # (Auto) Eos # (Auto) Baso # (Auto) Abs Immat Gran (auto) Absolute Neuts (auto) Absolute Nucleated RBC 0.000 Nucleated RBC % (auto) 0.0 Sodium 142 Potassium 3.9 Chloride 107 Carbon Dioxide 27 Anion Gap 12 BUN 30 H Creatinine 1.23 Estim Creat Clear Calc 73.1 Estimated GFR 45 POC Glucose 152 H 103 Random Glucose 105 Calcium 8.6 D Total Bilirubin AST ALT Alkaline Phosphatase Total Protein Albumin Lipase 02/23/25 02/23/25 02/23/25 12:16 17:13 20:38 WBC RBC Hgb Hct MCV MCH MCHC RDW Plt Count MPV Immature Gran % (Auto) Neut % (Auto) Lymph % (Auto) [place] % (Auto) Eos % (Auto) Baso % (Auto) Lymph # (Auto) [place] # (Auto) Eos # (Auto) Baso # (Auto) Abs Immat Gran (auto) Absolute Neuts (auto) Absolute Nucleated RBC Nucleated RBC % (auto) Sodium Potassium Chloride Carbon Dioxide Anion Gap BUN Creatinine Estim Creat Clear Calc Estimated GFR POC Glucose 122 H 114 200 H Random Glucose Calcium Total Bilirubin AST ALT Alkaline Phosphatase Total Protein Albumin Lipase 02/24/25 02/24/25 07:46 12:24 WBC RBC Hgb Hct MCV MCH MCHC RDW Plt Count MPV Immature Gran % (Auto) Neut % (Auto) Lymph % (Auto) [place] % (Auto) Eos % (Auto) Baso % (Auto) Lymph # (Auto) [place] # (Auto) Eos # (Auto) Baso # (Auto) Abs Immat Gran (auto) Absolute Neuts (auto) Absolute Nucleated RBC Nucleated RBC % (auto) Sodium Potassium Chloride Carbon Dioxide Anion Gap BUN Creatinine Estim Creat Clear Calc Estimated GFR POC Glucose 115 123 H Random Glucose Calcium Total Bilirubin AST ALT Alkaline Phosphatase Total Protein Albumin Lipase Medications Medications Current Medications Acetaminophen (Acetaminophen 325 Mg Tablet) 650 mg PO Q6H PRN PRN Reason: Headache/Pain, Scale 1-10 Last Admin: 02/24/25 01:20 Dose: 650 mg Albuterol Sulfate (Albuterol Sulfate 90 Mcg 8 Gm Inhaler) 2 puff INHALE RQ6H PRN PRN Reason: Shortness of Breath/Wheezing Last Admin: 02/23/25 21:36 Dose: 2 puff Calcium Carbonate/Cholecalciferol (Calcium + Vitamin D 250 Mg Tablet) 500 mg PO 1700 [facility] Last Admin: 02/23/25 16:30 Dose: 500 mg Clotrimazole (Clotrimazole 1 % Cream 15 Gm Tube) 1 appl TOPICAL BID [facility] Last Admin: 02/24/25 11:55 Dose: Not Given Dextrose (Dextrose 50 % 25 Gm/50 Ml Syringe) 25 gm IVPUSH Q15M PRN; Protocol PRN Reason: per Hypoglycemia Standing Ord. Famotidine (Famotidine 20 Mg Tablet) 40 mg PO BID@0800,1700 [facility] Last Admin: 02/24/25 08:22 Dose: 40 mg Furosemide (Furosemide 20 Mg Tablet) 20 mg PO DAILY [facility]; Protocol Last Admin: 02/24/25 11:40 Dose: 20 mg Gabapentin (Gabapentin 300 Mg Capsule) 900 mg PO BID [facility] Last Admin: 02/24/25 11:41 Dose: 900 mg Glucose (Glucose Gel 15 Gm Gel..Gram.) 15 gm PO Q15M PRN; Protocol PRN Reason: per Hypoglycemia Standing Ord. Hydromorphone HCl (Hydromorphone Hcl 2 Mg Tablet) 4 mg PO Q8H PRN PRN Reason: Pain, Severe (Pain Scale 7-10) Last Admin: 02/23/25 21:06 Dose: 4 mg Insulin Glargine (Insulin Glargine,Hum.Rec.Anlog 100 Unit/Ml 10 Ml Vial) 40 unit SUBCUT BEDTIME [facility] Last Admin: 02/23/25 21:03 Dose: 40 unit Insulin Human Lispro (Insulin Lispro 100 Unit/Ml 3 Ml Vial) 0 unit SUBCUT QIDACHS [facility]; Protocol Last Admin: 02/24/25 12:48 Dose: Not Given Lidocaine (Lidocaine 5 % Ointment 35 Gm) 1 appl TOPICAL DAILY [facility]; Protocol Last Admin: 02/24/25 11:55 Dose: Not Given Loratadine (Loratadine 10 Mg Tablet) 10 mg PO BEDTIME [facility] Last Admin: 02/23/25 21:06 Dose: 10 mg Lorazepam (Lorazepam 1 Mg Tablet) 1 mg PO BEDTIME PRN PRN Reason: Anxiety Last Admin: 02/23/25 19:35 Dose: 1 mg Lorazepam (Lorazepam 0.5 Mg Tablet) 0.5 mg PO DAILY PRN PRN Reason: anxiety Lurasidone HCl (Lurasidone Hcl 20 Mg Tablet) 20 mg PO DAILY [facility] Last Admin: 02/24/25 11:40 Dose: 20 mg Magnesium Hydroxide (Milk Of Magnesia 30 Ml Oral.Susp) 30 ml PO DAILY PRN PRN Reason: Constipation Melatonin (Melatonin 3 Mg Tablet) 9 mg PO BEDTIME PRN PRN Reason: Insomnia Last Admin: 02/23/25 21:04 Dose: 9 mg Methocarbamol (Methocarbamol 500 Mg Tablet) 1,000 mg PO BID@0900,1700 [facility] Last Admin: 02/24/25 11:39 Dose: 1,000 mg Multivitamins/Vitamin C (Multivitamin Tablet) 1 tab PO DAILY [facility] Last Admin: 02/24/25 08:22 Dose: 1 tab Nitroglycerin (Nitroglycerin 0.4 Mg Tab.Subl) 0.4 mg SUBLINGUAL Q5MX3 PRN PRN Reason: Chest Pain Nystatin (Nystatin Cream 15 Gm Tube) 1 appl TOPICAL BID [facility]; Protocol Last Admin: 02/24/25 11:55 Dose: Not Given Ondansetron HCl (Ondansetron Odt 4 Mg Tab.Rapdis) 4 mg TRANSLINGU Q8H PRN PRN Reason: Nausea and Vomiting Last Admin: 02/22/25 19:17 Dose: 4 mg Pioglitazone HCl (Pioglitazone Hcl 45 Mg Tablet) 45 mg PO DAILY [facility] Last Admin: 02/24/25 11:40 Dose: 45 mg Pravastatin Sodium (Pravastatin Sodium 40 Mg Tablet) 40 mg PO DAILY@1200 [facility] Last Admin: 02/24/25 12:39 Dose: 40 mg Prazosin HCl (Prazosin Hcl 1 Mg Capsule) 4 mg PO BEDTIME [facility]; Protocol Last Admin: 02/23/25 21:05 Dose: 4 mg Propranolol HCl (Propranolol Hcl La 60 Mg Cap.Sa.24h) 120 mg PO DAILY [facility] Last Admin: 02/24/25 11:40 Dose: 120 mg Ropinirole HCl (Ropinirole Hcl 2 Mg Tablet) 2 mg PO BEDTIME [facility] Last Admin: 02/23/25 21:05 Dose: 2 mg Tizanidine HCl (Tizanidine Hcl 4 Mg Tablet) 4 mg PO BEDTIME PRN PRN Reason: muscle cramping Last Admin: 02/23/25 21:05 Dose: 4 mg Allergies Allergies Allergy/AdvReac Type Severity Reaction Status Date / Time codeine Allergy Severe Itching Verified 12/30/24 12:10 divalproex sodium (Depakote) Allergy Severe rapid Verified 12/30/24 12:10 toxicity fluoxetine (Prozac) Allergy Severe suicidal Verified 12/30/24 12:10 ideation/HTN hydrochlorothiazide Allergy Severe vertigo Verified 12/30/24 12:10 benzonatate (Tessalon Perles) Allergy Intermediate Rash Verified 12/30/24 12:10 epinephrine Allergy Intermediate tachycardia Verified 12/30/24 12:10 erythromycin base Allergy Intermediate Hives Verified 12/30/24 12:10 Fish Containing Products Allergy Intermediate Hives Verified 12/30/24 12:10 guaifenesin Allergy Intermediate Itching Verified 12/30/24 12:10 iodine Allergy Intermediate Rash Verified 12/30/24 12:10 levofloxacin (Levaquin) Allergy Intermediate Itching/ivana Verified 12/30/24 12:10 h lidocaine Allergy Intermediate Rash Verified 12/30/24 12:10 morphine Allergy Intermediate itching/rash/redness Verified 12/30/24 12:10 @ injection site nitrofurantoin (From Allergy Intermediate Itching Verified 12/30/24 12:10 Macrobid) nortriptyline Allergy Intermediate Itching Verified 12/30/24 12:10 oxcarbazepine (From Allergy Intermediate Hives Verified 12/30/24 12:10 Trileptal) penicillin V Allergy Intermediate rash/itch Verified 12/30/24 12:10 shellfish derived Allergy Intermediate Rash Verified 12/30/24 12:10 strawberry Allergy Intermediate Itching Verified 12/30/24 12:10 Sulfa (Sulfonamide Allergy Intermediate Rash Verified 12/30/24 12:10 Antibiotics) sumatriptan (From Imitrex) Allergy Intermediate skin Verified 12/30/24 12:10 reaction tramadol Allergy Intermediate Itching Verified 12/30/24 12:10 Tricyclic Antidepressants Allergy Intermediate Rash Verified 12/30/24 12:10 and Tricy (Tricyclic Compounds) adhesive tape AdvReac Intermediate Rash Verified 12/30/24 12:10 bupropion (From Wellbutrin) AdvReac Intermediate Hypertensio Verified 12/30/24 12:10 n buspirone AdvReac Intermediate Hypertensio Verified 12/30/24 12:10 n duloxetine (From Cymbalta) AdvReac Intermediate tachycardia Verified 12/30/24 12:10 fluticasone AdvReac Intermediate burning of Verified 12/30/24 12:10 nasal passages mirtazapine (From Remeron) AdvReac Intermediate HTN/weight Verified 12/30/24 12:10 gain montelukast AdvReac Intermediate Depression Verified 12/30/24 12:10 prednisone AdvReac Intermediate Headache Verified 12/30/24 12:10 thioridazine (From Mellaril) AdvReac Intermediate Hypertensio Verified 12/30/24 12:10 n tiotropium (From Spiriva AdvReac Intermediate Headache Verified 12/30/24 12:10 with HandiHaler) trazodone AdvReac Intermediate Hallucinati Verified 12/30/24 12:10 ons Novocain Allergy Intermediate tachycardia Uncoded 12/30/24 12:10 (when given w/epinephrine) oxycodone/acetaminophen Allergy Mild Rash Uncoded 12/30/24 12:10 artificial sweetners AdvReac Unknown Unknown Uncoded 02/24/25 08:43 Assessment & Plan Assessment & Plan (1) Bipolar disorder: Status: Acute Code(s): F31.9 - Bipolar disorder, unspecified (2) PTSD (post-traumatic stress disorder): Status: Acute Code(s): F43.10 - Post-traumatic stress disorder, unspecified (3) Borderline personality disorder: Status: Acute Code(s): F60.3 - Borderline personality disorder Plan Admit, CV, 15 minute checks Diagnostics as needed Possible neuro consult and eval-blackouts Collateral Contacts Encourage full milieu Continue Latuda with titration as tolerated Discharge planning. 02/23: EEG Nutrition Evaluation Ensure tid 02/24: Continue tx Encourage alliance Reason for continued inpatient stay Substantial Risk for: rapid decompensation Time Spent With Patient Time: Total time managing care of this patient today ____ minutes.
[2025-02-24] MEDS: Calcium + Vitamin D 250 MG TABLET 500 MG PO (18:03)
[2025-02-24 20:00] VITALS: BP 110/69; PULSE 74; RESP 16; TEMP 36.3; O2SAT 98
[2025-02-24 21:18] LABS: Glucose, Whole Blood 151 mg/dL (60-115)
[2025-02-24] MEDS: Insulin Glargine,Hum.rec.anlog 100 UNIT/ML 10 ML VIAL 40 UNIT SUBCUT (21:33)
[2025-02-24 21:36] VITALS: BP 110/69
[2025-02-25 07:43] LABS: Glucose, Whole Blood 87 mg/dL (60-115)
[2025-02-25 07:55] VITALS: BP 116/64; PULSE 60; TEMP 36.6; O2SAT 97
[2025-02-25] MEDS: Propranolol HCL LA 60 MG CAP.SA.24H 120 MG PO (08:06)
--- NOTE | 2025-02-25 11:02 | HO.PSYCHPN ---
Subjective Subjective Date of Service: 02/25/25 Reason For Visit: major depressive disorder, recurrent episode Subjective Notes: Conditional Voluntary Healthcare Proxy: No Guardianship: No Medical Problems Affecting Mental Status: No Interim History: Pt is difficult to calm. Several complaints-feels one of the team is a preditor, reports one of the team was doing checks when she was changing. 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 EEG completed. Zyprexa 2.5 mg prn ordered to assist with mood, grounding. Medication Compliance: Intermittent Side effects from medications: No Attending Groups: No Review of Systems In process of eval for blackouts Review of Systems Review of Systems Yes all other systems are reviewed and are negative Mental Status Exam Mental Status Exam Patient Appearance: Appropriate Patient Orientation: Person, Place, Time and Situation Level of Consciousness: Alert Patient Behavior: Talkative, Cooperative, Suspicious, Aggressive, Anxious, Resistive to Care, Distractible and Good Eye Contact Mood Description: Hostile, Anxious, Labile and Apprehensive Affect Description: Labile and Flat Patient Cognition Impaired: No Ability to Follow Directions: Good Speech Pattern: Spontaneous Speech Memory Description: Episodic Impaired Hallucinations: None Delusions: Not Present and Paranoid Ideation Perceptual Disturbances: Depersonalization and Derealization Thought Process: Intact and Goal Oriented Thought Content: positive for Intact, positive for Circumstantial, positive for Goal Oriented and positive for Suicidal Ideation Depressive Symptoms: Increased Anxiety, Diff. Making Decisions, Difficulty Sleeping, Loss of Int. in Activity, Thoughts of /Suicide and Low Self Esteem Judgement: Good Diagnostics Vital Signs (24Hr): Vital Signs - 24 hr 02/24/25 11:35 02/24/25 20:00 02/24/25 21:36 Temperature 98.2 F 97.3 F Pulse Rate 78 74 Respiratory Rate 16 16 Blood Pressure 130/75 110/69 110/69 Pulse Oximetry 97 98 Oxygen Delivery Method Room Air Room Air 02/25/25 07:55 Temperature 97.8 F Pulse Rate 60 Respiratory Rate Blood Pressure 116/64 Pulse Oximetry 97 Oxygen Delivery Method Room Air BMI result Body Mass Index 45.2 Labs 02/23/25 06:26 02/23/25 06:26 Labs: Laboratory Results - last 48 hr 02/23/25 02/23/25 02/23/25 12:16 17:13 20:38 POC Glucose 122 H 114 200 H 02/24/25 02/24/2502/24/25 07:46 12:24 21:09 POC Glucose 115 123 H 151 H 02/25/25 07:39 POC Glucose 87 Medications Medications Current Medications Acetaminophen (Acetaminophen 325 Mg Tablet) 650 mg PO Q6H PRN PRN Reason: Headache/Pain, Scale 1-10 Last Admin: 02/24/25 01:20 Dose: 650 mg Albuterol Sulfate (Albuterol Sulfate 90 Mcg 8 Gm Inhaler) 2 puff INHALE RQ6H PRN PRN Reason: Shortness of Breath/Wheezing Last Admin: 02/23/25 21:36 Dose: 2 puff Calcium Carbonate/Cholecalciferol (Calcium + Vitamin D 250 Mg Tablet) 500 mg PO 1700 [facility] Last Admin: 02/24/25 18:03 Dose: 500 mg Clotrimazole (Clotrimazole 1 % Cream 15 Gm Tube) 1 appl TOPICAL BID [facility] Last Admin: 02/25/25 10:08 Dose: Not Given Dextrose (Dextrose 50 % 25 Gm/50 Ml Syringe) 25 gm IVPUSH Q15M PRN; Protocol PRN Reason: per Hypoglycemia Standing Ord. Famotidine (Famotidine 20 Mg Tablet) 40 mg PO BID@0800,1700 [facility] Last Admin: 02/25/25 08:07 Dose: 40 mg Furosemide (Furosemide 20 Mg Tablet) 20 mg PO DAILY [facility]; Protocol Last Admin: 02/25/25 08:07 Dose: 20 mg Gabapentin (Gabapentin 300 Mg Capsule) 900 mg PO BID [facility] Last Admin: 02/25/25 08:07 Dose: 900 mg Glucose (Glucose Gel 15 Gm Gel..Gram.) 15 gm PO Q15M PRN; Protocol PRN Reason: per Hypoglycemia Standing Ord. Hydromorphone HCl (Hydromorphone Hcl 2 Mg Tablet) 4 mg PO Q8H PRN PRN Reason: Pain, Severe (Pain Scale 7-10) Last Admin: 02/25/25 08:13 Dose: 4 mg Insulin Glargine (Insulin Glargine,Hum.Rec.Anlog 100 Unit/Ml 10 Ml Vial) 40 unit SUBCUT BEDTIME [facility] Last Admin: 02/24/25 21:33 Dose: 40 unit Insulin Human Lispro (Insulin Lispro 100 Unit/Ml 3 Ml Vial) 0 unit SUBCUT QIDACHS [facility]; Protocol Last Admin: 02/25/25 08:51 Dose: Not Given Lidocaine (Lidocaine 5 % Ointment 35 Gm) 1 appl TOPICAL DAILY [facility]; Protocol Last Admin: 02/25/25 10:08 Dose: Not Given Loratadine (Loratadine 10 Mg Tablet) 10 mg PO BEDTIME [facility] Last Admin: 02/24/25 21:36 Dose: 10 mg Lorazepam (Lorazepam 1 Mg Tablet) 1 mg PO BEDTIME PRN PRN Reason: Anxiety Last Admin: 02/24/25 21:35 Dose: 1 mg Lorazepam (Lorazepam 0.5 Mg Tablet) 0.5 mg PO DAILY PRN PRN Reason: anxiety Last Admin: 02/24/25 16:25 Dose: 0.5 mg Lurasidone HCl (Lurasidone Hcl 20 Mg Tablet) 20 mg PO DAILY [facility] Last Admin: 02/25/25 08:06 Dose: 20 mg Magnesium Hydroxide (Milk Of Magnesia 30 Ml Oral.Susp) 30 ml PO DAILY PRN PRN Reason: Constipation Melatonin (Melatonin 3 Mg Tablet) 9 mg PO BEDTIME PRN PRN Reason: Insomnia Last Admin: 02/24/25 21:35 Dose: 9 mg Methocarbamol (Methocarbamol 500 Mg Tablet) 1,000 mg PO BID@0900,1700 [facility] Last Admin: 02/25/25 08:07 Dose: 1,000 mg Multivitamins/Vitamin C (Multivitamin Tablet) 1 tab PO DAILY [facility] Last Admin: 02/25/25 08:07 Dose: 1 tab Nitroglycerin (Nitroglycerin 0.4 Mg Tab.Subl) 0.4 mg SUBLINGUAL Q5MX3 PRN PRN Reason: Chest Pain Nystatin (Nystatin Cream 15 Gm Tube) 1 appl TOPICAL BID [facility]; Protocol Last Admin: 02/25/25 10:08 Dose: Not Given Ondansetron HCl (Ondansetron Odt 4 Mg Tab.Rapdis) 4 mg TRANSLINGU Q8H PRN PRN Reason: Nausea and Vomiting Last Admin: 02/24/25 17:54 Dose: 4 mg Pioglitazone HCl (Pioglitazone Hcl 45 Mg Tablet) 45 mg PO DAILY [facility] Last Admin: 02/25/25 08:07 Dose: 45 mg Pravastatin Sodium (Pravastatin Sodium 40 Mg Tablet) 40 mg PO DAILY@1200 [facility] Last Admin: 02/24/25 12:39 Dose: 40 mg Prazosin HCl (Prazosin Hcl 1 Mg Capsule) 4 mg PO BEDTIME [facility]; Protocol Last Admin: 02/24/25 21:36 Dose: 4 mg Propranolol HCl (Propranolol Hcl La 60 Mg Cap.Sa.24h) 120 mg PO DAILY [facility] Last Admin: 02/25/25 08:06 Dose: 120 mg Ropinirole HCl (Ropinirole Hcl 2 Mg Tablet) 2 mg PO BEDTIME [facility] Last Admin: 02/24/25 21:35 Dose: 2 mg Tizanidine HCl (Tizanidine Hcl 4 Mg Tablet) 4 mg PO BEDTIME PRN PRN Reason: muscle cramping Last Admin: 02/24/25 21:35 Dose: 4 mg Allergies Allergies Allergy/AdvReac Type Severity Reaction Status Date / Time codeine Allergy Severe Itching Verified 12/30/24 12:10 divalproex sodium (Depakote) Allergy Severe rapid Verified 12/30/24 12:10 toxicity fluoxetine (Prozac) Allergy Severe suicidal Verified 12/30/24 12:10 ideation/HTN hydrochlorothiazide Allergy Severe vertigo Verified 12/30/24 12:10 benzonatate (Tessalon Perles) Allergy Intermediate Rash Verified 12/30/24 12:10 epinephrine Allergy Intermediate tachycardia Verified 12/30/24 12:10 erythromycin base Allergy Intermediate Hives Verified 12/30/24 12:10 Fish Containing Products Allergy Intermediate Hives Verified 12/30/24 12:10 guaifenesin Allergy Intermediate Itching Verified 12/30/24 12:10 iodine Allergy Intermediate Rash Verified 12/30/24 12:10 levofloxacin (Levaquin) Allergy Intermediate Itching/ivana Verified 12/30/24 12:10 h lidocaine Allergy Intermediate Rash Verified 12/30/24 12:10 morphine Allergy Intermediate itching/rash/redness Verified 12/30/24 12:10 @ injection site nitrofurantoin (From Allergy Intermediate Itching Verified 12/30/24 12:10 Macrobid) nortriptyline Allergy Intermediate Itching Verified 12/30/24 12:10 oxcarbazepine (From Allergy Intermediate Hives Verified 12/30/24 12:10 Trileptal) penicillin V Allergy Intermediate rash/itch Verified 12/30/24 12:10 shellfish derived Allergy Intermediate Rash Verified 12/30/24 12:10 strawberry Allergy Intermediate Itching Verified 12/30/24 12:10 Sulfa (Sulfonamide Allergy Intermediate Rash Verified 12/30/24 12:10 Antibiotics) sumatriptan (From Imitrex) Allergy Intermediate skin Verified 12/30/24 12:10 reaction tramadol Allergy Intermediate Itching Verified 12/30/24 12:10 Tricyclic Antidepressants Allergy Intermediate Rash Verified 12/30/24 12:10 and Tricy (Tricyclic Compounds) adhesive tape AdvReac Intermediate Rash Verified 12/30/24 12:10 bupropion (From Wellbutrin) AdvReac Intermediate Hypertensio Verified 12/30/24 12:10 n buspirone AdvReac Intermediate Hypertensio Verified 12/30/24 12:10 n duloxetine (From Cymbalta) AdvReac Intermediate tachycardia Verified 12/30/24 12:10 fluticasone AdvReac Intermediate burning of Verified 12/30/24 12:10 nasal passages mirtazapine (From Remeron) AdvReac Intermediate HTN/weight Verified 12/30/24 12:10 gain montelukast AdvReac Intermediate Depression Verified 12/30/24 12:10 prednisone AdvReac Intermediate Headache Verified 12/30/24 12:10 thioridazine (From Mellaril) AdvReac Intermediate Hypertensio Verified 12/30/24 12:10 n tiotropium (From Spiriva AdvReac Intermediate Headache Verified 12/30/24 12:10 with HandiHaler) trazodone AdvReac Intermediate Hallucinati Verified 12/30/24 12:10 ons Novocain Allergy Intermediate tachycardia Uncoded 12/30/24 12:10 (when given w/epinephrine) oxycodone/acetaminophen Allergy Mild Rash Uncoded 12/30/24 12:10 artificial sweetners AdvReac Unknown Unknown Uncoded 02/24/25 08:43 Assessment & Plan Assessment & Plan (1) Bipolar disorder: Status: Acute Code(s): F31.9 - Bipolar disorder, unspecified (2) PTSD (post-traumatic stress disorder): Status: Acute Code(s): F43.10 - Post-traumatic stress disorder, unspecified (3) Borderline personality disorder: Status: Acute Code(s): F60.3 - Borderline personality disorder Plan Admit, CV, 15 minute checks Diagnostics as needed Possible neuro consult and eval-blackouts Collateral Contacts Encourage full milieu Continue Latuda with titration as tolerated Discharge planning. 02/23: EEG Nutrition Evaluation Ensure tid 02/25: Olanzapine 2.5 mg bid prn grounding support CAT 02/26. Reason for continued inpatient stay Substantial Risk for: rapid decompensation Time Spent With Patient Time: Total time managing care of this patient today ____ minutes.
[2025-02-25 12:19] LABS: Glucose, Whole Blood 149 mg/dL (60-115)
[2025-02-25 16:51] LABS: Glucose, Whole Blood 152 mg/dL (60-115)
[2025-02-25] MEDS: Calcium + Vitamin D 250 MG TABLET 500 MG PO (17:15)
[2025-02-25 20:00] VITALS: BP 123/70; PULSE 88; RESP 16; TEMP 36.6; O2SAT 96
[2025-02-25] MEDS: Insulin Glargine,Hum.rec.anlog 100 UNIT/ML 10 ML VIAL 40 UNIT SUBCUT (21:52)
[2025-02-25 21:54] VITALS: BP 123/70
[2025-02-26 00:09] LABS: Glucose, Whole Blood 158 mg/dL (60-115)
[2025-02-26 08:14] VITALS: BP 108/53; PULSE 61; TEMP 36.1; O2SAT 98
[2025-02-26] MEDS: Propranolol HCL LA 60 MG CAP.SA.24H 120 MG PO (08:45)
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
[2025-02-26 12:07] LABS: Glucose, Whole Blood 131 mg/dL (60-115)
[2025-02-26] MEDS: OLANZapine ODT 10 MG TAB.RAPDIS TRANSLINGU ×2 (15:01→21:13)
[2025-02-26 16:53] LABS: Glucose, Whole Blood 223 mg/dL (60-115)
[2025-02-26] MEDS: Calcium + Vitamin D 250 MG TABLET 500 MG PO (17:26)
[2025-02-26 20:00] VITALS: BP 136/60; PULSE 81; RESP 18; TEMP 36; O2SAT 97
[2025-02-26 21:01] LABS: Glucose, Whole Blood 214 mg/dL (60-115)
[2025-02-26] MEDS: Clotrimazole 1 % Cream 15 GM TUBE 1 APPL TOPICAL (21:07)
[2025-02-26] MEDS: Insulin Glargine,Hum.rec.anlog 100 UNIT/ML 10 ML VIAL 40 UNIT SUBCUT (21:18)
[2025-02-27 07:00] VITALS: BMI 45.9
[2025-02-27 07:51] LABS: Glucose, Whole Blood 123 mg/dL (60-115)
[2025-02-27 08:30] VITALS: BP 135/73; PULSE 83; TEMP 36.4; O2SAT 97
[2025-02-27] MEDS: OLANZapine ODT 10 MG TAB.RAPDIS TRANSLINGU ×2 (08:37→20:31)
[2025-02-27] MEDS: Propranolol HCL LA 60 MG CAP.SA.24H 120 MG PO (08:37)
[2025-02-27] MEDS: Calcium + Vitamin D 250 MG TABLET 500 MG PO (16:28)
[2025-02-27 17:26] LABS: Glucose, Whole Blood 181 mg/dL (60-115)
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
[2025-02-27 20:00] VITALS: BP 146/67; PULSE 74; TEMP 36.5; O2SAT 99
[2025-02-27 20:19] LABS: Glucose, Whole Blood 182 mg/dL (60-115)
[2025-02-27 20:27] VITALS: BP 155/78
[2025-02-27] MEDS: Insulin Glargine,Hum.rec.anlog 100 UNIT/ML 10 ML VIAL 40 UNIT SUBCUT (20:33)
[2025-02-28 07:49] LABS: Glucose, Whole Blood 109 mg/dL (60-115)
[2025-02-28 08:11] VITALS: BP 145/71; PULSE 90; RESP 16; TEMP 36.3; O2SAT 97
[2025-02-28] MEDS: Propranolol HCL LA 60 MG CAP.SA.24H 120 MG PO (08:56)
[2025-02-28] MEDS: OLANZapine ODT 10 MG TAB.RAPDIS TRANSLINGU (08:56)
--- NOTE | 2025-02-28 10:54 | HO.PSYCHPN ---
Subjective Subjective Date of Service: 02/28/25 Reason For Visit: major depressive disorder, recurrent episode Subjective Notes: Conditional Voluntary Healthcare Proxy: No Guardianship: No Medical Problems Affecting Mental Status: No Interim History: Await EEG results. Labile, angry, externally focused on others being the cause of mood lability. Reports Olanzapine to be ineffective at 20 mg with prns Changed to Haldol 5 mg bid with prns. Discussed potential assist with grounding Refused Lamictal, Medora trial (Hx of adversity with Depakote, Trileptal) Medication Compliance: Intermittent Side effects from medications: Yes (Olanzapine ineffective) Attending Groups: Intermittent Review of Systems Acute medical concerns: No Medical Review of Systems: unchanged Review of Systems Review of Systems Back pain due to bed being uncomfortable. Mental Status Exam Mental Status Exam Patient Appearance: Well Grooomed and Appropriate Patient Orientation: Person, Place, Time and Situation Level of Consciousness: Appropriate and Alert Patient Behavior: Cooperative, Passive, Anxious and Resistive to Care Mood Description: Withdrawn, Constricted, Depressed, Anxious and Labile Affect Description: Constricted, Depressed and Flat Patient Cognition Impaired: No Ability to Follow Directions: Good Speech Pattern: Clear, Appropriate and Spontaneous Speech Memory Description: Intact Hallucinations: None Delusions: Not Present Perceptual Disturbances: Depersonalization and Derealization Thought Process: Intact, Goal Oriented and Linear Thought Content: positive for Intact, positive for Goal Oriented and positive for Suicidal Ideation Depressive Symptoms: Increased Anxiety, Diff. Making Decisions, Loss of Int. in Activity, Thoughts of /Suicide and Low Self Esteem Judgement: Fair Diagnostics Vital Signs (24Hr): Vital Signs - 24 hr 02/27/25 20:00 02/27/25 20:27 02/28/25 08:11 Temperature 97.7 F 97.3 F Pulse Rate 74 90 Respiratory Rate 16 Blood Pressure 146/67 H 155/78 H 145/71 H Pulse Oximetry 99 97 Oxygen Delivery Method Room Air Room Air BMI result Body Mass Index 45.9 Labs 02/23/25 06:26 02/23/25 06:26 Labs: Laboratory Results - last 48 hr 02/26/25 02/26/25 02/26/25 12:04 16:49 20:57 POC Glucose 131 H 223 H 214 H 02/27/25 02/27/25 02/27/25 07:42 17:22 20:12 POC Glucose 123 H 181 H 182 H 02/28/25 07:41 POC Glucose 109 Imaging Radiology Impressions: ITS Impressions Head CT 02/26/25 11:10 IMPRESSION: Unremarkable unenhanced head CT. Electronically signed by: Golden Latham MD 02/26/2025 12:19 PM EDT Medications Medications Current Medications Acetaminophen (Acetaminophen 325 Mg Tablet) 650 mg PO Q6H PRN PRN Reason: Headache/Pain, Scale 1-10 Last Admin: 02/28/25 02:29 Dose: 650 mg Albuterol Sulfate (Albuterol Sulfate 90 Mcg 8 Gm Inhaler) 2 puff INHALE RQ6H PRN PRN Reason: Shortness of Breath/Wheezing Last Admin: 02/23/25 21:36 Dose: 2 puff Calcium Carbonate/Cholecalciferol (Calcium + Vitamin D 250 Mg Tablet) 500 mg PO 1700 [facility] Last Admin: 02/27/25 16:28 Dose: 500 mg Clotrimazole (Clotrimazole 1 % Cream 15 Gm Tube) 1 appl TOPICAL BID [facility] Last Admin: 02/27/25 20:37 Dose: Not Given Dextrose (Dextrose 50 % 25 Gm/50 Ml Syringe) 25 gm IVPUSH Q15M PRN; Protocol PRN Reason: per Hypoglycemia Standing Ord. Famotidine (Famotidine 20 Mg Tablet) 40 mg PO BID@0800,1700 [facility] Last Admin: 02/28/25 08:56 Dose: 40 mg Furosemide (Furosemide 20 Mg Tablet) 20 mg PO DAILY [facility]; Protocol Last Admin: 02/28/25 08:56 Dose: 20 mg Gabapentin (Gabapentin 300 Mg Capsule) 900 mg PO BID [facility] Last Admin: 02/28/25 08:56 Dose: 900 mg Glucose (Glucose Gel 15 Gm Gel..Gram.) 15 gm PO Q15M PRN; Protocol PRN Reason: per Hypoglycemia Standing Ord. Hydromorphone HCl (Hydromorphone Hcl 2 Mg Tablet) 4 mg PO Q8H PRN PRN Reason: Pain, Severe (Pain Scale 7-10) Last Admin: 02/28/25 04:33 Dose: 4 mg Insulin Glargine (Insulin Glargine,Hum.Rec.Anlog 100 Unit/Ml 10 Ml Vial) 40 unit SUBCUT BEDTIME [facility] Last Admin: 02/27/25 20:33 Dose: 40 unit Insulin Human Lispro (Insulin Lispro 100 Unit/Ml 3 Ml Vial) 0 unit SUBCUT BID@0830,2030 [facility]; Protocol Last Admin: 02/28/25 08:57 Dose: Not Given Lidocaine (Lidocaine 5 % Ointment 35 Gm) 1 appl TOPICAL DAILY [facility]; Protocol Last Admin: 02/27/25 08:39 Dose: Not Given Loratadine (Loratadine 10 Mg Tablet) 10 mg PO BEDTIME [facility] Last Admin: 02/27/25 20:31 Dose: 10 mg Lorazepam (Lorazepam 1 Mg Tablet) 1 mg PO BEDTIME PRN PRN Reason: Anxiety Last Admin: 02/27/25 20:31 Dose: 1 mg Lorazepam (Lorazepam 0.5 Mg Tablet) 0.5 mg PO DAILY PRN PRN Reason: anxiety Last Admin: 02/26/25 21:13 Dose: 0.5 mg Lurasidone HCl (Lurasidone Hcl 20 Mg Tablet) 20 mg PO DAILY [facility] Last Admin: 02/28/25 08:56 Dose: 20 mg Magnesium Hydroxide (Milk Of Magnesia 30 Ml Oral.Susp) 30 ml PO DAILY PRN PRN Reason: Constipation Melatonin (Melatonin 3 Mg Tablet) 9 mg PO BEDTIME PRN PRN Reason: Insomnia Last Admin: 02/27/25 20:29 Dose: 9 mg Methocarbamol (Methocarbamol 500 Mg Tablet) 1,000 mg PO BID@0900,1700 [facility] Last Admin: 02/28/25 08:59 Dose: 1,000 mg Multivitamins/Vitamin C (Multivitamin Tablet) 1 tab PO DAILY [facility] Last Admin: 02/28/25 08:58 Dose: Not Given Multivitamins/Vitamin C (Multivitamin Tablet) 1 tab PO DAILY [facility] Nitroglycerin (Nitroglycerin 0.4 Mg Tab.Subl) 0.4 mg SUBLINGUAL Q5MX3 PRN PRN Reason: Chest Pain Nystatin (Nystatin Cream 15 Gm Tube) 1 appl TOPICAL BID [facility]; Protocol Last Admin: 02/27/25 20:36 Dose: Not Given Olanzapine (Olanzapine Odt 10 Mg Tab.Rapdis) 10 mg TRANSLINGU BID [facility] Last Admin: 02/28/25 08:56 Dose: 10 mg Olanzapine (Olanzapine 5 Mg Tablet) 5 mg PO Q4H PRN PRN Reason: agitation Ondansetron HCl (Ondansetron Odt 4 Mg Tab.Rapdis) 4 mg TRANSLINGU Q8H PRN PRN Reason: Nausea and Vomiting Last Admin: 02/24/25 17:54 Dose: 4 mg Pioglitazone HCl (Pioglitazone Hcl 45 Mg Tablet) 45 mg PO DAILY [facility] Last Admin: 02/28/25 08:56 Dose: 45 mg Pravastatin Sodium (Pravastatin Sodium 40 Mg Tablet) 40 mg PO DAILY@1200 [facility] Last Admin: 02/27/25 12:40 Dose: 40 mg Prazosin HCl (Prazosin Hcl 1 Mg Capsule) 4 mg PO BEDTIME [facility]; Protocol Last Admin: 02/27/25 20:27 Dose: 4 mg Propranolol HCl (Propranolol Hcl La 60 Mg Cap.Sa.24h) 120 mg PO DAILY [facility] Last Admin: 02/28/25 08:56 Dose: 120 mg Ropinirole HCl (Ropinirole Hcl 2 Mg Tablet) 2 mg PO BEDTIME [facility] Last Admin: 02/27/25 20:30 Dose: 2 mg Tizanidine HCl (Tizanidine Hcl 4 Mg Tablet) 4 mg PO BEDTIME PRN PRN Reason: muscle cramping Last Admin: 02/27/25 20:29 Dose: 4 mg Allergies Allergies Allergy/AdvReac Type Severity Reaction Status Date / Time codeine Allergy Severe Itching Verified 12/30/24 12:10 divalproex sodium (Depakote) Allergy Severe rapid Verified 12/30/24 12:10 toxicity fluoxetine (Prozac) Allergy Severe suicidal Verified 12/30/24 12:10 ideation/HTN hydrochlorothiazide Allergy Severe vertigo Verified 12/30/24 12:10 benzonatate (Tessalon Perles) Allergy Intermediate Rash Verified 12/30/24 12:10 epinephrine Allergy Intermediate tachycardia Verified 12/30/24 12:10 erythromycin base Allergy Intermediate Hives Verified 12/30/24 12:10 Fish Containing Products Allergy Intermediate Hives Verified 12/30/24 12:10 guaifenesin Allergy Intermediate Itching Verified 12/30/24 12:10 iodine Allergy Intermediate Rash Verified 12/30/24 12:10 levofloxacin (Levaquin) Allergy Intermediate Itching/ivana Verified 12/30/24 12:10 h lidocaine Allergy Intermediate Rash Verified 12/30/24 12:10 morphine Allergy Intermediate itching/rash/redness Verified 12/30/24 12:10 @ injection site nitrofurantoin (From Allergy Intermediate Itching Verified 12/30/24 12:10 Macrobid) nortriptyline Allergy Intermediate Itching Verified 12/30/24 12:10 oxcarbazepine (From Allergy Intermediate Hives Verified 12/30/24 12:10 Trileptal) penicillin V Allergy Intermediate rash/itch Verified 12/30/24 12:10 shellfish derived Allergy Intermediate Rash Verified 12/30/24 12:10 strawberry Allergy Intermediate Itching Verified 12/30/24 12:10 Sulfa (Sulfonamide Allergy Intermediate Rash Verified 12/30/24 12:10 Antibiotics) sumatriptan (From Imitrex) Allergy Intermediate skin Verified 12/30/24 12:10 reaction tramadol Allergy Intermediate Itching Verified 12/30/24 12:10 Tricyclic Antidepressants Allergy Intermediate Rash Verified 12/30/24 12:10 and Tricy (Tricyclic Compounds) adhesive tape AdvReac Intermediate Rash Verified 12/30/24 12:10 bupropion (From Wellbutrin) AdvReac Intermediate Hypertensio Verified 12/30/24 12:10 n buspirone AdvReac Intermediate Hypertensio Verified 12/30/24 12:10 n duloxetine (From Cymbalta) AdvReac Intermediate tachycardia Verified 12/30/24 12:10 fluticasone AdvReac Intermediate burning of Verified 12/30/24 12:10 nasal passages mirtazapine (From Remeron) AdvReac Intermediate HTN/weight Verified 12/30/24 12:10 gain montelukast AdvReac Intermediate Depression Verified 12/30/24 12:10 prednisone AdvReac Intermediate Headache Verified 12/30/24 12:10 thioridazine (From Mellaril) AdvReac Intermediate Hypertensio Verified 12/30/24 12:10 n tiotropium (From Spiriva AdvReac Intermediate Headache Verified 12/30/24 12:10 with HandiHaler) trazodone AdvReac Intermediate Hallucinati Verified 12/30/24 12:10 ons Novocain Allergy Intermediate tachycardia Uncoded 12/30/24 12:10 (when given w/epinephrine) oxycodone/acetaminophen Allergy Mild Rash Uncoded 12/30/24 12:10 artificial sweetners AdvReac Unknown Unknown Uncoded 02/24/25 08:43 Assessment & Plan Assessment & Plan (1) Bipolar disorder: Status: Acute Code(s): F31.9 - Bipolar disorder, unspecified (2) PTSD (post-traumatic stress disorder): Status: Acute Code(s): F43.10 - Post-traumatic stress disorder, unspecified (3) Borderline personality disorder: Status: Acute Code(s): F60.3 - Borderline personality disorder Plan Admit, CV, 15 minute checks Diagnostics as needed Possible neuro consult and eval-blackouts Collateral Contacts Encourage full milieu Continue Latuda with titration as tolerated Discharge planning. 02/23: EEG Nutrition Evaluation Ensure tid 02/24: Continue tx Encourage alliance 02/26: Scheduled Zyprexa 02/27/25: Patient presented with passive SI. But no aggressive or threatening behavior today. She is mostly isolated herself in her room working on the Personal and listen to music as a coping skills. Occasionally goes to the common areas for personal needs. Denies side effects from medications. Appear to be sad when talking about the relationship between her and per best friend of 40 years who she was very upset on the phone yesterday and hung up on her . Per her request POC and insulin cover down to b.i.d.. She has not been compliant with insulin coverage or some of the medical medications. Denie side effects from medications. Per home health care social worker she had elderly housing services in [facility]. No for ambulate well using personal walker. Somewhat irritable and guarded. Passive SI. No other safety concerns. 02/28: DC Olanzapine (Tolerated however pt reports ineffective Haldol 5 mg bid and prn Reason for continued inpatient stay Substantial Risk for: rapid decompensation Time Spent With Patient Time: Total time managing care of this patient today ____ minutes.
--- NOTE | 2025-02-28 22:09 | PC.ADMIT ---
Patient refused HS POC/Insulin stating, I'll let you do it when I get my bear. Patient reminded that her team would have to approve it.
[2025-03-01 08:00] VITALS: BP 138/91; PULSE 78; RESP 18; TEMP 36.6; O2SAT 99
[2025-03-01 08:16] LABS: Glucose, Whole Blood 114 mg/dL (60-115)
[2025-03-01] MEDS: BARIATRIC MULTIVITAMIN 1 EACH PO (09:11)
[2025-03-01] MEDS: Propranolol HCL LA 60 MG CAP.SA.24H 120 MG PO (09:12)
[2025-03-01 12:01] LABS: IDNOW Serial# 55D5AD1C; Strep A Nucleic Acid Negative (Negative)
[2025-03-01] MEDS: Calcium + Vitamin D 250 MG TABLET 500 MG PO (16:48)
--- NOTE | 2025-03-01 17:20 | HO.PSYCHPN ---
Subjective Subjective Date of Service: 03/01/25 Reason For Visit: major depressive disorder, recurrent episode Interim History: As long as I stay to myself I am fine Patient seen in her room. She says she is staying away from patients that are aggravating her and she is doing a puzzle. She has been calm and cooperative. Denies SI. Review of Systems Review of Systems Back pain due to bed being uncomfortable. Yes all other systems are reviewed and are negative Mental Status Exam Mental Status Exam Patient Appearance: Well Grooomed and Appropriate Patient Orientation: Person, Place, Time and Situation Level of Consciousness: Appropriate and Alert Patient Behavior: Cooperative, Passive, Anxious and Resistive to Care Mood Description: Withdrawn, Constricted, Depressed, Anxious and Labile Affect Description: Constricted, Depressed and Flat Patient Cognition Impaired: No Ability to Follow Directions: Good Speech Pattern: Clear, Appropriate and Spontaneous Speech Memory Description: Intact Diagnostics Vital Signs (24Hr): Vital Signs - 24 hr 03/01/25 08:00 Temperature 97.8 F Pulse Rate 78 Respiratory Rate 18 Blood Pressure 138/91 H Pulse Oximetry 99 Oxygen Delivery Method Room Air BMI result Body Mass Index 45.9 Labs 02/23/25 06:26 02/23/25 06:26 Labs: Laboratory Results - last 48 hr 02/27/25 02/27/25 02/28/25 17:22 20:12 07:41 POC Glucose 181 H 182 H 109 S. pyogenes GrpA KENA 03/01/25 03/01/25 08:07 11:15 POC Glucose 114 S. pyogenes GrpA KENA Negative Imaging Radiology Impressions: ITS Impressions Head CT 02/26/25 11:10 IMPRESSION: Unremarkable unenhanced head CT. Electronically signed by: Golden Latham MD 02/26/2025 12:19 PM EDT Medications Medications Current Medications Acetaminophen (Acetaminophen 325 Mg Tablet) 650 mg PO Q6H PRN PRN Reason: Headache/Pain, Scale 1-10 Last Admin: 02/28/25 02:29 Dose: 650 mg Albuterol Sulfate (Albuterol Sulfate 90 Mcg 8 Gm Inhaler) 2 puff INHALE RQ6H PRN PRN Reason: Shortness of Breath/Wheezing Last Admin: 02/23/25 21:36 Dose: 2 puff Calcium Carbonate/Cholecalciferol (Calcium + Vitamin D 250 Mg Tablet) 500 mg PO 1700 [facility] Last Admin: 03/01/25 16:48 Dose: 500 mg Clotrimazole (Clotrimazole 1 % Cream 15 Gm Tube) 1 appl TOPICAL BID [facility] Last Admin: 03/01/25 09:14 Dose: Not Given Dextrose (Dextrose 50 % 25 Gm/50 Ml Syringe) 25 gm IVPUSH Q15M PRN; Protocol PRN Reason: per Hypoglycemia Standing Ord. Famotidine (Famotidine 20 Mg Tablet) 40 mg PO BID@0800,1700 [facility] Last Admin: 03/01/25 16:48 Dose: 40 mg Furosemide (Furosemide 20 Mg Tablet) 20 mg PO DAILY [facility]; Protocol Last Admin: 03/01/25 09:12 Dose: 20 mg Gabapentin (Gabapentin 300 Mg Capsule) 900 mg PO BID [facility] Last Admin: 03/01/25 09:12 Dose: 900 mg Glucose (Glucose Gel 15 Gm Gel..Gram.) 15 gm PO Q15M PRN; Protocol PRN Reason: per Hypoglycemia Standing Ord. Haloperidol (Haloperidol 5 Mg Tablet) 5 mg PO Q4H PRN PRN Reason: agitation Haloperidol (Haloperidol 5 Mg Tablet) 5 mg PO BID [facility] Last Admin: 03/01/25 09:12 Dose: 5 mg Hydromorphone HCl (Hydromorphone Hcl 2 Mg Tablet) 4 mg PO Q8H PRN PRN Reason: Pain, Severe (Pain Scale 7-10) Last Admin: 03/01/25 11:21 Dose: 4 mg Insulin Glargine (Insulin Glargine,Hum.Rec.Anlog 100 Unit/Ml 10 Ml Vial) 40 unit SUBCUT BEDTIME [facility] Last Admin: 02/28/25 21:08 Dose: Not Given Insulin Human Lispro (Insulin Lispro 100 Unit/Ml 3 Ml Vial) 0 unit SUBCUT BID@0830,2030 [facility]; Protocol Last Admin: 03/01/25 08:42 Dose: Not Given Lidocaine (Lidocaine 5 % Ointment 35 Gm) 1 appl TOPICAL DAILY [facility]; Protocol Last Admin: 03/01/25 09:14 Dose: Not Given Loratadine (Loratadine 10 Mg Tablet) 10 mg PO BEDTIME [facility] Last Admin: 02/28/25 21:05 Dose: 10 mg Lorazepam (Lorazepam 1 Mg Tablet) 1 mg PO BEDTIME PRN PRN Reason: Anxiety Last Admin: 03/01/25 01:14 Dose: 1 mg Lorazepam (Lorazepam 0.5 Mg Tablet) 0.5 mg PO DAILY PRN PRN Reason: anxiety Last Admin: 02/26/25 21:13 Dose: 0.5 mg Magnesium Hydroxide (Milk Of Magnesia 30 Ml Oral.Susp) 30 ml PO DAILY PRN PRN Reason: Constipation Melatonin (Melatonin 3 Mg Tablet) 9 mg PO BEDTIME PRN PRN Reason: Insomnia Last Admin: 02/27/25 20:29 Dose: 9 mg Methocarbamol (Methocarbamol 500 Mg Tablet) 1,000 mg PO BID@0900,1700 [facility] Last Admin: 03/01/25 16:48 Dose: 1,000 mg Nitroglycerin (Nitroglycerin 0.4 Mg Tab.Subl) 0.4 mg SUBLINGUAL Q5MX3 PRN PRN Reason: Chest Pain Pt Own (Bariatric (Multivitamin 1 Cap)) 1 cap PO DAILY [facility] Last Admin: 03/01/25 09:11 Dose: 1 cap Nystatin (Nystatin Cream 15 Gm Tube) 1 appl TOPICAL BID [facility]; Protocol Last Admin: 03/01/25 09:14 Dose: Not Given Ondansetron HCl (Ondansetron Odt 4 Mg Tab.Rapdis) 4 mg TRANSLINGU Q8H PRN PRN Reason: Nausea and Vomiting Last Admin: 02/24/25 17:54 Dose: 4 mg Pioglitazone HCl (Pioglitazone Hcl 45 Mg Tablet) 45 mg PO DAILY [facility] Last Admin: 03/01/25 09:12 Dose: 45 mg Pravastatin Sodium (Pravastatin Sodium 40 Mg Tablet) 40 mg PO DAILY@1200 [facility] Last Admin: 03/01/25 11:18 Dose: 40 mg Prazosin HCl (Prazosin Hcl 1 Mg Capsule) 4 mg PO BEDTIME [facility]; Protocol Last Admin: 02/28/25 21:03 Dose: 4 mg Propranolol HCl (Propranolol Hcl La 60 Mg Cap.Sa.24h) 120 mg PO DAILY [facility] Last Admin: 03/01/25 09:12 Dose: 120 mg Ropinirole HCl (Ropinirole Hcl 2 Mg Tablet) 2 mg PO BEDTIME [facility] Last Admin: 02/28/25 21:04 Dose: 2 mg Tizanidine HCl (Tizanidine Hcl 4 Mg Tablet) 4 mg PO BEDTIME PRN PRN Reason: muscle cramping Last Admin: 02/27/25 20:29 Dose: 4 mg Allergies Allergies Allergy/AdvReac Type Severity Reaction Status Date / Time codeine Allergy Severe Itching Verified 12/30/24 12:10 divalproex sodium (Depakote) Allergy Severe rapid Verified 12/30/24 12:10 toxicity fluoxetine (Prozac) Allergy Severe suicidal Verified 12/30/24 12:10 ideation/HTN hydrochlorothiazide Allergy Severe vertigo Verified 12/30/24 12:10 benzonatate (Tessalon Perles) Allergy Intermediate Rash Verified 12/30/24 12:10 epinephrine Allergy Intermediate tachycardia Verified 12/30/24 12:10 erythromycin base Allergy Intermediate Hives Verified 12/30/24 12:10 Fish Containing Products Allergy Intermediate Hives Verified 12/30/24 12:10 guaifenesin Allergy Intermediate Itching Verified 12/30/24 12:10 iodine Allergy Intermediate Rash Verified 12/30/24 12:10 levofloxacin (Levaquin) Allergy Intermediate Itching/ivana Verified 12/30/24 12:10 h lidocaine Allergy Intermediate Rash Verified 12/30/24 12:10 morphine Allergy Intermediate itching/rash/redness Verified 12/30/24 12:10 @ injection site nitrofurantoin (From Allergy Intermediate Itching Verified 12/30/24 12:10 Macrobid) nortriptyline Allergy Intermediate Itching Verified 12/30/24 12:10 oxcarbazepine (From Allergy Intermediate Hives Verified 12/30/24 12:10 Trileptal) penicillin V Allergy Intermediate rash/itch Verified 12/30/24 12:10 shellfish derived Allergy Intermediate Rash Verified 12/30/24 12:10 strawberry Allergy Intermediate Itching Verified 12/30/24 12:10 Sulfa (Sulfonamide Allergy Intermediate Rash Verified 12/30/24 12:10 Antibiotics) sumatriptan (From Imitrex) Allergy Intermediate skin Verified 12/30/24 12:10 reaction tramadol Allergy Intermediate Itching Verified 12/30/24 12:10 Tricyclic Antidepressants Allergy Intermediate Rash Verified 12/30/24 12:10 and Tricy (Tricyclic Compounds) adhesive tape AdvReac Intermediate Rash Verified 12/30/24 12:10 bupropion (From Wellbutrin) AdvReac Intermediate Hypertensio Verified 12/30/24 12:10 n buspirone AdvReac Intermediate Hypertensio Verified 12/30/24 12:10 n duloxetine (From Cymbalta) AdvReac Intermediate tachycardia Verified 12/30/24 12:10 fluticasone AdvReac Intermediate burning of Verified 12/30/24 12:10 nasal passages mirtazapine (From Remeron) AdvReac Intermediate HTN/weight Verified 12/30/24 12:10 gain montelukast AdvReac Intermediate Depression Verified 12/30/24 12:10 prednisone AdvReac Intermediate Headache Verified 12/30/24 12:10 thioridazine (From Mellaril) AdvReac Intermediate Hypertensio Verified 12/30/24 12:10 n tiotropium (From Spiriva AdvReac Intermediate Headache Verified 12/30/24 12:10 with HandiHaler) trazodone AdvReac Intermediate Hallucinati Verified 12/30/24 12:10 ons Novocain Allergy Intermediate tachycardia Uncoded 12/30/24 12:10 (when given w/epinephrine) oxycodone/acetaminophen Allergy Mild Rash Uncoded 12/30/24 12:10 artificial sweetners AdvReac Unknown Unknown Uncoded 02/24/25 08:43 Assessment & Plan Assessment & Plan (1) Bipolar disorder: Status: Acute Code(s): F31.9 - Bipolar disorder, unspecified (2) PTSD (post-traumatic stress disorder): Status: Acute Code(s): F43.10 - Post-traumatic stress disorder, unspecified (3) Borderline personality disorder: Status: Acute Code(s): F60.3 - Borderline personality disorder Plan Admit, CV, 15 minute checks Diagnostics as needed Possible neuro consult and eval-blackouts Collateral Contacts Encourage full milieu Continue Latuda with titration as tolerated Discharge planning. 02/23: EEG Nutrition Evaluation Ensure tid 02/24: Continue tx Encourage alliance 02/26: Scheduled Zyprexa 02/27/25: Patient presented with passive SI. But no aggressive or threatening behavior today. She is mostly isolated herself in her room working on the Personal and listen to music as a coping skills. Occasionally goes to the common areas for personal needs. Denies side effects from medications. Appear to be sad when talking about the relationship between her and per best friend of 40 years who she was very upset on the phone yesterday and hung up on her . Per her request POC and insulin cover down to b.i.d.. She has not been compliant with insulin coverage or some of the medical medications. Denie side effects from medications. Per child protective services social worker she had elderly housing services in [facility]. No for ambulate well using personal walker. Somewhat irritable and guarded. Passive SI. No other safety concerns. 02/28: DC Olanzapine (Tolerated however pt reports ineffective Haldol 5 mg bid and prn 03/01: Continue current management and treatment plan. Reason for continued inpatient stay Substantial Risk for: harm to self and rapid decompensation Time Spent With Patient Time: Total time managing care of this patient today ____ minutes.
[2025-03-01] MEDS: Albuterol Sulfate 90 MCG 8 GM INHALER 2 PUFF INHALE (18:24)
[2025-03-01 19:37] VITALS: BP 138/78; PULSE 80; TEMP 36.4; O2SAT 99
[2025-03-01 19:59] LABS: Glucose, Whole Blood 264 mg/dL (60-115)
[2025-03-01] MEDS: Insulin Glargine,Hum.rec.anlog 100 UNIT/ML 10 ML VIAL 40 UNIT SUBCUT (20:30)
[2025-03-02 08:00] VITALS: BP 118/55; PULSE 94; RESP 18; TEMP 36.2; O2SAT 99
[2025-03-02 08:04] LABS: Glucose, Whole Blood 172 mg/dL (60-115)
[2025-03-02] MEDS: BARIATRIC MULTIVITAMIN 1 EACH PO (08:38)
[2025-03-02] MEDS: Propranolol HCL LA 60 MG CAP.SA.24H 120 MG PO (08:39)
--- NOTE | 2025-03-02 09:41 | HO.PSYCHPN ---
Subjective Subjective Date of Service: 03/02/25 Reason For Visit: major depressive disorder, recurrent episode Interim History: I am doing the same as I was yesterday. Staying to myself. The haldol has been helpful. She is doing well. Feels medication changes have been helpful. Denies side effects. Feels calmer. She has been calm and cooperative. Denies SI. Review of Systems Review of Systems Back pain due to bed being uncomfortable. Yes all other systems are reviewed and are negative Mental Status Exam Mental Status Exam Patient Appearance: Well Grooomed and Appropriate Patient Orientation: Person, Place, Time and Situation Level of Consciousness: Appropriate and Alert Patient Behavior: Cooperative, Passive, Anxious and Resistive to Care Mood Description: Withdrawn, Constricted, Depressed, Anxious and Labile Affect Description: Constricted, Depressed and Flat Patient Cognition Impaired: No Ability to Follow Directions: Good Speech Pattern: Clear, Appropriate and Spontaneous Speech Memory Description: Intact Diagnostics Vital Signs (24Hr): Vital Signs - 24 hr 03/01/25 19:37 03/02/25 08:00 Temperature 97.5 F 97.1 F Pulse Rate 80 94 Respiratory Rate 18 Blood Pressure 138/78 118/55 L Pulse Oximetry 99 99 Oxygen Delivery Method Room Air Room Air BMI result Body Mass Index 45.9 Labs 02/23/25 06:26 02/23/25 06:26 Labs: Laboratory Results - last 48 hr 03/01/25 03/01/25 03/01/25 08:07 11:15 19:55 POC Glucose 114 264 H S. pyogenes GrpA KENA Negative 03/02/25 07:47 POC Glucose 172 H S. pyogenes GrpA KENA Imaging Radiology Impressions: ITS Impressions Head CT 02/26/25 11:10 IMPRESSION: Unremarkable unenhanced head CT. Electronically signed by: Golden Latham MD 02/26/2025 12:19 PM EDT Medications Medications Current Medications Acetaminophen (Acetaminophen 325 Mg Tablet) 650 mg PO Q6H PRN PRN Reason: Headache/Pain, Scale 1-10 Last Admin: 02/28/25 02:29 Dose: 650 mg Albuterol Sulfate (Albuterol Sulfate 90 Mcg 8 Gm Inhaler) 2 puff INHALE RQ6H PRN PRN Reason: Shortness of Breath/Wheezing Last Admin: 03/01/25 18:24 Dose: 2 puff Calcium Carbonate/Cholecalciferol (Calcium + Vitamin D 250 Mg Tablet) 500 mg PO 1700 [facility] Last Admin: 03/01/25 16:48 Dose: 500 mg Clotrimazole (Clotrimazole 1 % Cream 15 Gm Tube) 1 appl TOPICAL BID [facility] Last Admin: 03/02/25 08:40 Dose: Not Given Dextrose (Dextrose 50 % 25 Gm/50 Ml Syringe) 25 gm IVPUSH Q15M PRN; Protocol PRN Reason: per Hypoglycemia Standing Ord. Famotidine (Famotidine 20 Mg Tablet) 40 mg PO BID@0800,1700 [facility] Last Admin: 03/02/25 08:39 Dose: 40 mg Furosemide (Furosemide 20 Mg Tablet) 20 mg PO DAILY [facility]; Protocol Last Admin: 03/02/25 08:38 Dose: 20 mg Gabapentin (Gabapentin 300 Mg Capsule) 900 mg PO BID [facility] Last Admin: 03/02/25 08:39 Dose: 900 mg Glucose (Glucose Gel 15 Gm Gel..Gram.) 15 gm PO Q15M PRN; Protocol PRN Reason: per Hypoglycemia Standing Ord. Haloperidol (Haloperidol 5 Mg Tablet) 5 mg PO Q4H PRN PRN Reason: agitation Haloperidol (Haloperidol 5 Mg Tablet) 5 mg PO BID [facility] Last Admin: 03/02/25 08:39 Dose: 5 mg Hydromorphone HCl (Hydromorphone Hcl 2 Mg Tablet) 4 mg PO Q8H PRN PRN Reason: Pain, Severe (Pain Scale 7-10) Last Admin: 03/02/25 04:59 Dose: 4 mg Insulin Glargine (Insulin Glargine,Hum.Rec.Anlog 100 Unit/Ml 10 Ml Vial) 40 unit SUBCUT BEDTIME [facility] Last Admin: 03/01/25 20:30 Dose: 40 unit Insulin Human Lispro (Insulin Lispro 100 Unit/Ml 3 Ml Vial) 0 unit SUBCUT BID@0830,2030 [facility]; Protocol Last Admin: 03/02/25 08:40 Dose: Not Given Lidocaine (Lidocaine 5 % Ointment 35 Gm) 1 appl TOPICAL DAILY [facility]; Protocol Last Admin: 03/02/25 08:39 Dose: Not Given Loratadine (Loratadine 10 Mg Tablet) 10 mg PO BEDTIME [facility] Last Admin: 03/01/25 21:23 Dose: 10 mg Lorazepam (Lorazepam 1 Mg Tablet) 1 mg PO BEDTIME PRN PRN Reason: Anxiety Last Admin: 03/01/25 22:04 Dose: 1 mg Lorazepam (Lorazepam 0.5 Mg Tablet) 0.5 mg PO DAILY PRN PRN Reason: anxiety Last Admin: 02/26/25 21:13 Dose: 0.5 mg Magnesium Hydroxide (Milk Of Magnesia 30 Ml Oral.Susp) 30 ml PO DAILY PRN PRN Reason: Constipation Melatonin (Melatonin 3 Mg Tablet) 9 mg PO BEDTIME PRN PRN Reason: Insomnia Last Admin: 02/27/25 20:29 Dose: 9 mg Methocarbamol (Methocarbamol 500 Mg Tablet) 1,000 mg PO BID@0900,1700 [facility] Last Admin: 03/02/25 08:38 Dose: 1,000 mg Nitroglycerin (Nitroglycerin 0.4 Mg Tab.Subl) 0.4 mg SUBLINGUAL Q5MX3 PRN PRN Reason: Chest Pain Pt Own (Bariatric (Multivitamin 1 Cap)) 1 cap PO DAILY [facility] Last Admin: 03/02/25 08:38 Dose: 1 cap Nystatin (Nystatin Cream 15 Gm Tube) 1 appl TOPICAL BID [facility]; Protocol Last Admin: 03/02/25 08:39 Dose: Not Given Ondansetron HCl (Ondansetron Odt 4 Mg Tab.Rapdis) 4 mg TRANSLINGU Q8H PRN PRN Reason: Nausea and Vomiting Last Admin: 03/01/25 18:53 Dose: 4 mg Pioglitazone HCl (Pioglitazone Hcl 45 Mg Tablet) 45 mg PO DAILY [facility] Last Admin: 03/02/25 08:38 Dose: 45 mg Pravastatin Sodium (Pravastatin Sodium 40 Mg Tablet) 40 mg PO DAILY@1200 [facility] Last Admin: 03/01/25 11:18 Dose: 40 mg Prazosin HCl (Prazosin Hcl 1 Mg Capsule) 4 mg PO BEDTIME [facility]; Protocol Last Admin: 03/01/25 20:32 Dose: 4 mg Propranolol HCl (Propranolol Hcl La 60 Mg Cap.Sa.24h) 120 mg PO DAILY [facility] Last Admin: 03/02/25 08:39 Dose: 120 mg Ropinirole HCl (Ropinirole Hcl 2 Mg Tablet) 2 mg PO BEDTIME [facility] Last Admin: 03/01/25 21:23 Dose: 2 mg Tizanidine HCl (Tizanidine Hcl 4 Mg Tablet) 4 mg PO BEDTIME PRN PRN Reason: muscle cramping Last Admin: 03/01/25 20:42 Dose: 4 mg Allergies Allergies Allergy/AdvReac Type Severity Reaction Status Date / Time codeine Allergy Severe Itching Verified 12/30/24 12:10 divalproex sodium (Depakote) Allergy Severe rapid Verified 12/30/24 12:10 toxicity fluoxetine (Prozac) Allergy Severe suicidal Verified 12/30/24 12:10 ideation/HTN hydrochlorothiazide Allergy Severe vertigo Verified 12/30/24 12:10 benzonatate (Tessalon Perles) Allergy Intermediate Rash Verified 12/30/24 12:10 epinephrine Allergy Intermediate tachycardia Verified 12/30/24 12:10 erythromycin base Allergy Intermediate Hives Verified 12/30/24 12:10 Fish Containing Products Allergy Intermediate Hives Verified 12/30/24 12:10 guaifenesin Allergy Intermediate Itching Verified 12/30/24 12:10 iodine Allergy Intermediate Rash Verified 12/30/24 12:10 levofloxacin (Levaquin) Allergy Intermediate Itching/ivana Verified 12/30/24 12:10 h lidocaine Allergy Intermediate Rash Verified 12/30/24 12:10 morphine Allergy Intermediate itching/rash/redness Verified 12/30/24 12:10 @ injection site nitrofurantoin (From Allergy Intermediate Itching Verified 12/30/24 12:10 Macrobid) nortriptyline Allergy Intermediate Itching Verified 12/30/24 12:10 oxcarbazepine (From Allergy Intermediate Hives Verified 12/30/24 12:10 Trileptal) penicillin V Allergy Intermediate rash/itch Verified 12/30/24 12:10 shellfish derived Allergy Intermediate Rash Verified 12/30/24 12:10 strawberry Allergy Intermediate Itching Verified 12/30/24 12:10 Sulfa (Sulfonamide Allergy Intermediate Rash Verified 12/30/24 12:10 Antibiotics) sumatriptan (From Imitrex) Allergy Intermediate skin Verified 12/30/24 12:10 reaction tramadol Allergy Intermediate Itching Verified 12/30/24 12:10 Tricyclic Antidepressants Allergy Intermediate Rash Verified 12/30/24 12:10 and Tricy (Tricyclic Compounds) adhesive tape AdvReac Intermediate Rash Verified 12/30/24 12:10 bupropion (From Wellbutrin) AdvReac Intermediate Hypertensio Verified 12/30/24 12:10 n buspirone AdvReac Intermediate Hypertensio Verified 12/30/24 12:10 n duloxetine (From Cymbalta) AdvReac Intermediate tachycardia Verified 12/30/24 12:10 fluticasone AdvReac Intermediate burning of Verified 12/30/24 12:10 nasal passages mirtazapine (From Remeron) AdvReac Intermediate HTN/weight Verified 12/30/24 12:10 gain montelukast AdvReac Intermediate Depression Verified 12/30/24 12:10 prednisone AdvReac Intermediate Headache Verified 12/30/24 12:10 thioridazine (From Mellaril) AdvReac Intermediate Hypertensio Verified 12/30/24 12:10 n tiotropium (From Spiriva AdvReac Intermediate Headache Verified 12/30/24 12:10 with HandiHaler) trazodone AdvReac Intermediate Hallucinati Verified 12/30/24 12:10 ons Novocain Allergy Intermediate tachycardia Uncoded 12/30/24 12:10 (when given w/epinephrine) oxycodone/acetaminophen Allergy Mild Rash Uncoded 12/30/24 12:10 artificial sweetners AdvReac Unknown Unknown Uncoded 02/24/25 08:43 Assessment & Plan Assessment & Plan (1) Bipolar disorder: Status: Acute Code(s): F31.9 - Bipolar disorder, unspecified (2) PTSD (post-traumatic stress disorder): Status: Acute Code(s): F43.10 - Post-traumatic stress disorder, unspecified (3) Borderline personality disorder: Status: Acute Code(s): F60.3 - Borderline personality disorder Plan Admit, CV, 15 minute checks Diagnostics as needed Possible neuro consult and eval-blackouts Collateral Contacts Encourage full milieu Continue Latuda with titration as tolerated Discharge planning. 02/23: EEG Nutrition Evaluation Ensure tid 02/24: Continue tx Encourage alliance 02/26: Scheduled Zyprexa 02/27/25: Patient presented with passive SI. But no aggressive or threatening behavior today. She is mostly isolated herself in her room working on the Personal and listen to music as a coping skills. Occasionally goes to the common areas for personal needs. Denies side effects from medications. Appear to be sad when talking about the relationship between her and per best friend of 40 years who she was very upset on the phone yesterday and hung up on her . Per her request POC and insulin cover down to b.i.d.. She has not been compliant with insulin coverage or some of the medical medications. Denie side effects from medications. Per social worker assistant she had elderly housing services in [facility]. No for ambulate well using personal walker. Somewhat irritable and guarded. Passive SI. No other safety concerns. 02/28: DC Olanzapine (Tolerated however pt reports ineffective Haldol 5 mg bid and prn 03/01: Continue current management and treatment plan. 03/02: Continue current management and treatment plan. Reason for continued inpatient stay Substantial Risk for: inability to function and rapid decompensation Time Spent With Patient Time: Total time managing care of this patient today ____ minutes.
[2025-03-02] MEDS: Calcium + Vitamin D 250 MG TABLET 500 MG PO (16:29)
[2025-03-02 20:00] VITALS: BP 129/69; PULSE 84; TEMP 36.8; O2SAT 96
[2025-03-02 20:49] LABS: Glucose, Whole Blood 280 mg/dL (60-115)
[2025-03-02] MEDS: Insulin Glargine,Hum.rec.anlog 100 UNIT/ML 10 ML VIAL 40 UNIT SUBCUT (20:56)
[2025-03-03 07:55] LABS: Glucose, Whole Blood 138 mg/dL (60-115)
[2025-03-03 08:07] VITALS: BP 121/66; PULSE 77; RESP 16; TEMP 36.8; O2SAT 96
[2025-03-03 08:13] VITALS: BP 121/56
[2025-03-03] MEDS: Propranolol HCL LA 60 MG CAP.SA.24H 120 MG PO (08:13)
[2025-03-03] MEDS: BARIATRIC MULTIVITAMIN 1 EACH PO (09:05)
--- NOTE | 2025-03-03 12:33 | P.PNPSI_ITS ---
Subjective Subjective Date of Service: 03/03/25 Reason For Visit: major depressive disorder, recurrent episode Subjective Notes: Conditional Voluntary Healthcare Proxy: No Guardianship: No Medical Problems Affecting Mental Status: No Interim History: The Haldol helps . Decrease in lability, mood is improved today. Pt reports she is feeling less labile. Discussed Lamictal trial which she agrees with. URI sx over the weekend-asks to trial mucinex/robitussin. Discussed guaifenesin intolerance- pt reports it was minor-asks that we override and offer her URI sx relief EEG results are still pending. Pt anxious for these results. Discussed discharge with pt. She is thinking by 03/06. Will discuss with the team. Medication Compliance: Intermittent Side effects from medications: No Attending Groups: Intermittent Review of Systems Acute medical concerns: No Medical Review of Systems: unchanged Review of Systems Review of Systems URI sx Mental Status Exam Mental Status Exam Patient Appearance: Appropriate Patient Orientation: Person, Place, Time and Situation Level of Consciousness: Alert Patient Behavior: Talkative Mood Description: Constricted Affect Description: Constricted Patient Cognition Impaired: No Ability to Follow Directions: Good Speech Pattern: Spontaneous Speech Memory Description: Intact Hallucinations: None Delusions: Not Present Thought Process: Intact Thought Content: positive for Intact Depressive Symptoms: Increased Anxiety (EEG results, and meaning of blackout periods) Judgement: Good Diagnostics Vital Signs (24Hr): Vital Signs - 24 hr 03/02/25 20:00 03/03/25 08:07 03/03/25 08:13 Temperature 98.2 F 98.2 F Pulse Rate 84 77 Respiratory Rate 16 Blood Pressure 129/69 121/66 121/56 L Pulse Oximetry 96 96 Oxygen Delivery Method Room Air Room Air BMI result Body Mass Index 45.9 Labs 02/23/25 06:26 02/23/25 06:26 Labs: Laboratory Results - last 48 hr 03/01/25 03/02/25 03/02/25 19:55 07:47 20:35 POC Glucose 264 H 172 H 280 H 03/03/25 07:44 POC Glucose 138 H Imaging Radiology Impressions: ITS Impressions Head CT 02/26/25 11:10 IMPRESSION: Unremarkable unenhanced head CT. Electronically signed by: Golden Latham MD 02/26/2025 12:19 PM EDT Medications Medications Current Medications Acetaminophen (Acetaminophen 325 Mg Tablet) 650 mg PO Q6H PRN PRN Reason: Headache/Pain, Scale 1-10 Last Admin: 02/28/25 02:29 Dose: 650 mg Albuterol Sulfate (Albuterol Sulfate 90 Mcg 8 Gm Inhaler) 2 puff INHALE RQ6H PRN PRN Reason: Shortness of Breath/Wheezing Last Admin: 03/01/25 18:24 Dose: 2 puff Calcium Carbonate/Cholecalciferol (Calcium + Vitamin D 250 Mg Tablet) 500 mg PO 1700 [facility] Last Admin: 03/02/25 16:29 Dose: 500 mg Clotrimazole (Clotrimazole 1 % Cream 15 Gm Tube) 1 appl TOPICAL BID [facility] Last Admin: 03/03/25 10:49 Dose: Not Given Dextrose (Dextrose 50 % 25 Gm/50 Ml Syringe) 25 gm IVPUSH Q15M PRN; Protocol PRN Reason: per Hypoglycemia Standing Ord. Famotidine (Famotidine 20 Mg Tablet) 40 mg PO BID@0800,1700 [facility] Last Admin: 03/03/25 08:14 Dose: 40 mg Furosemide (Furosemide 20 Mg Tablet) 20 mg PO DAILY [facility]; Protocol Last Admin: 03/03/25 08:13 Dose: 20 mg Gabapentin (Gabapentin 300 Mg Capsule) 900 mg PO BID [facility] Last Admin: 03/03/25 08:14 Dose: 900 mg Glucose (Glucose Gel 15 Gm Gel..Gram.) 15 gm PO Q15M PRN; Protocol PRN Reason: per Hypoglycemia Standing Ord. Haloperidol (Haloperidol 5 Mg Tablet) 5 mg PO Q4H PRN PRN Reason: agitation Haloperidol (Haloperidol 5 Mg Tablet) 5 mg PO BID [facility] Last Admin: 03/03/25 08:14 Dose: 5 mg Hydromorphone HCl (Hydromorphone Hcl 2 Mg Tablet) 4 mg PO Q8H PRN PRN Reason: Pain, Severe (Pain Scale 7-10) Last Admin: 03/02/25 18:13 Dose: 4 mg Insulin Glargine (Insulin Glargine,Hum.Rec.Anlog 100 Unit/Ml 10 Ml Vial) 40 unit SUBCUT BEDTIME [facility] Last Admin: 03/02/25 20:56 Dose: 40 unit Insulin Human Lispro (Insulin Lispro 100 Unit/Ml 3 Ml Vial) 0 unit SUBCUT BID@0830,2030 [facility]; Protocol Last Admin: 03/03/25 10:49 Dose: Not Given Lidocaine (Lidocaine 5 % Ointment 35 Gm) 1 appl TOPICAL DAILY [facility]; Protocol Last Admin: 03/03/25 10:49 Dose: Not Given Loratadine (Loratadine 10 Mg Tablet) 10 mg PO BEDTIME [facility] Last Admin: 03/02/25 20:53 Dose: 10 mg Lorazepam (Lorazepam 1 Mg Tablet) 1 mg PO BEDTIME PRN PRN Reason: Anxiety Last Admin: 03/01/25 22:04 Dose: 1 mg Lorazepam (Lorazepam 0.5 Mg Tablet) 0.5 mg PO DAILY PRN PRN Reason: anxiety Last Admin: 02/26/25 21:13 Dose: 0.5 mg Magnesium Hydroxide (Milk Of Magnesia 30 Ml Oral.Susp) 30 ml PO DAILY PRN PRN Reason: Constipation Melatonin (Melatonin 3 Mg Tablet) 9 mg PO BEDTIME PRN PRN Reason: Insomnia Last Admin: 03/02/25 20:52 Dose: 9 mg Methocarbamol (Methocarbamol 500 Mg Tablet) 1,000 mg PO BID@0900,1700 [facility] Last Admin: 03/03/25 08:14 Dose: 1,000 mg Nitroglycerin (Nitroglycerin 0.4 Mg Tab.Subl) 0.4 mg SUBLINGUAL Q5MX3 PRN PRN Reason: Chest Pain Pt Own (Bariatric (Multivitamin 1 Cap)) 1 cap PO DAILY [facility] Last Admin: 03/03/25 09:05 Dose: 1 cap Nystatin (Nystatin Cream 15 Gm Tube) 1 appl TOPICAL BID [facility]; Protocol Last Admin: 03/03/25 10:49 Dose: Not Given Ondansetron HCl (Ondansetron Odt 4 Mg Tab.Rapdis) 4 mg TRANSLINGU Q8H PRN PRN Reason: Nausea and Vomiting Last Admin: 03/02/25 13:40 Dose: 4 mg Pioglitazone HCl (Pioglitazone Hcl 45 Mg Tablet) 45 mg PO DAILY [facility] Last Admin: 03/03/25 08:13 Dose: 45 mg Pravastatin Sodium (Pravastatin Sodium 40 Mg Tablet) 40 mg PO DAILY@1200 [facility] Last Admin: 03/03/25 11:49 Dose: 40 mg Prazosin HCl (Prazosin Hcl 1 Mg Capsule) 4 mg PO BEDTIME [facility]; Protocol Last Admin: 03/02/25 20:54 Dose: 4 mg Propranolol HCl (Propranolol Hcl La 60 Mg Cap.Sa.24h) 120 mg PO DAILY [facility] Last Admin: 03/03/25 08:13 Dose: 120 mg Ropinirole HCl (Ropinirole Hcl 2 Mg Tablet) 2 mg PO BEDTIME [facility] Last Admin: 03/02/25 20:51 Dose: 2 mg Tizanidine HCl (Tizanidine Hcl 4 Mg Tablet) 4 mg PO BEDTIME PRN PRN Reason: muscle cramping Last Admin: 03/02/25 20:53 Dose: 4 mg Allergies Allergies Allergy/AdvReac Type Severity Reaction Status Date / Time codeine Allergy Severe Itching Verified 12/30/24 12:10 divalproex sodium (Depakote) Allergy Severe rapid Verified 12/30/24 12:10 toxicity fluoxetine (Prozac) Allergy Severe suicidal Verified 12/30/24 12:10 ideation/HTN hydrochlorothiazide Allergy Severe vertigo Verified 12/30/24 12:10 benzonatate (Tessalon Perles) Allergy Intermediate Rash Verified 12/30/24 12:10 epinephrine Allergy Intermediate tachycardia Verified 12/30/24 12:10 erythromycin base Allergy Intermediate Hives Verified 12/30/24 12:10 Fish Containing Products Allergy Intermediate Hives Verified 12/30/24 12:10 guaifenesin Allergy Intermediate Itching Verified 12/30/24 12:10 iodine Allergy Intermediate Rash Verified 12/30/24 12:10 levofloxacin (Levaquin) Allergy Intermediate Itching/ivana Verified 12/30/24 12:10 h lidocaine Allergy Intermediate Rash Verified 12/30/24 12:10 morphine Allergy Intermediate itching/rash/redness Verified 12/30/24 12:10 @ injection site nitrofurantoin (From Allergy Intermediate Itching Verified 12/30/24 12:10 Macrobid) nortriptyline Allergy Intermediate Itching Verified 12/30/24 12:10 oxcarbazepine (From Allergy Intermediate Hives Verified 12/30/24 12:10 Trileptal) penicillin V Allergy Intermediate rash/itch Verified 12/30/24 12:10 shellfish derived Allergy Intermediate Rash Verified 12/30/24 12:10 strawberry Allergy Intermediate Itching Verified 12/30/24 12:10 Sulfa (Sulfonamide Allergy Intermediate Rash Verified 12/30/24 12:10 Antibiotics) sumatriptan (From Imitrex) Allergy Intermediate skin Verified 12/30/24 12:10 reaction tramadol Allergy Intermediate Itching Verified 12/30/24 12:10 Tricyclic Antidepressants Allergy Intermediate Rash Verified 12/30/24 12:10 and Tricy (Tricyclic Compounds) adhesive tape AdvReac Intermediate Rash Verified 12/30/24 12:10 bupropion (From Wellbutrin) AdvReac Intermediate Hypertensio Verified 12/30/24 12:10 n buspirone AdvReac Intermediate Hypertensio Verified 12/30/24 12:10 n duloxetine (From Cymbalta) AdvReac Intermediate tachycardia Verified 12/30/24 12:10 fluticasone AdvReac Intermediate burning of Verified 12/30/24 12:10 nasal passages mirtazapine (From Remeron) AdvReac Intermediate HTN/weight Verified 12/30/24 12:10 gain montelukast AdvReac Intermediate Depression Verified 12/30/24 12:10 prednisone AdvReac Intermediate Headache Verified 12/30/24 12:10 thioridazine (From Mellaril) AdvReac Intermediate Hypertensio Verified 12/30/24 12:10 n tiotropium (From Spiriva AdvReac Intermediate Headache Verified 12/30/24 12:10 with HandiHaler) trazodone AdvReac Intermediate Hallucinati Verified 12/30/24 12:10 ons Novocain Allergy Intermediate tachycardia Uncoded 12/30/24 12:10 (when given w/epinephrine) oxycodone/acetaminophen Allergy Mild Rash Uncoded 12/30/24 12:10 artificial sweetners AdvReac Unknown Unknown Uncoded 02/24/25 08:43 Assessment & Plan Assessment & Plan (1) Bipolar disorder: Status: Acute Code(s): F31.9 - Bipolar disorder, unspecified (2) PTSD (post-traumatic stress disorder): Status: Acute Code(s): F43.10 - Post-traumatic stress disorder, unspecified (3) Borderline personality disorder: Status: Acute Code(s): F60.3 - Borderline personality disorder Plan Admit, CV, 15 minute checks Diagnostics as needed Possible neuro consult and eval-blackouts Collateral Contacts Encourage full milieu Continue Latuda with titration as tolerated Discharge planning. 02/23: EEG Nutrition Evaluation Ensure tid 02/24: Continue tx Encourage alliance 02/26: Scheduled Zyprexa 02/27/25: Patient presented with passive SI. But no aggressive or threatening behavior today. She is mostly isolated herself in her room working on the Personal and listen to music as a coping skills. Occasionally goes to the common areas for personal needs. Denies side effects from medications. Appear to be sad when talking about the relationship between her and per best friend of 40 years who she was very upset on the phone yesterday and hung up on her . Per her request POC and insulin cover down to b.i.d.. She has not been compliant with insulin coverage or some of the medical medications. Denie side effects from medications. Per pediatric social worker she had elderly housing services in [facility]. No for ambulate well using personal walker. Somewhat irritable and guarded. Passive SI. No other safety concerns. 02/28: DC Olanzapine (Tolerated however pt reports ineffective Haldol 5 mg bid and prn 03/01: Continue current management and treatment plan. 03/02: Continue current management and treatment plan. 03/03: Lamictal 25 mg daily Mucinex/Robitussin prn Pt discussing discharge for 03/06 Reason for continued inpatient stay Substantial Risk for: rapid decompensation Time Spent With Patient Time: Total time managing care of this patient today ____ minutes.
[2025-03-03] MEDS: guaiFENesin DM 600/30 1 TAB TAB.ER.12H PO (15:36)
[2025-03-03] MEDS: Calcium + Vitamin D 250 MG TABLET 500 MG PO (17:00)
[2025-03-03 19:47] VITALS: BP 129/74; PULSE 86; TEMP 36.6; O2SAT 97
[2025-03-03 20:09] LABS: Glucose, Whole Blood 196 mg/dL (60-115)
[2025-03-03] MEDS: Insulin Glargine,Hum.rec.anlog 100 UNIT/ML 10 ML VIAL 40 UNIT SUBCUT (20:56)
[2025-03-04] MEDS: guaiFENesin DM 600/30 1 TAB TAB.ER.12H PO ×3 (00:09→20:38)
[2025-03-04 07:54] LABS: Glucose, Whole Blood 167 mg/dL (60-115)
[2025-03-04 08:00] VITALS: BP 137/70; PULSE 91; RESP 20; TEMP 36.6; O2SAT 97
[2025-03-04 09:01] VITALS: BP 137/70
[2025-03-04 09:03] VITALS: BP 137/70; PULSE 91
[2025-03-04] MEDS: Propranolol HCL LA 60 MG CAP.SA.24H 120 MG PO (09:03)
[2025-03-04] MEDS: BARIATRIC MULTIVITAMIN 1 EACH PO (09:04)
--- NOTE | 2025-03-04 11:28 | HO.PSYCHPN ---
Subjective Subjective Date of Service: 03/04/25 Reason For Visit: major depressive disorder, recurrent episode Subjective Notes: Conditional Voluntary Interim History: Pt preparing for discharge. Denies SI,HI,AH,VH Review of medications. At this time, pt asks to continue Lamictal at current dosing. Reports effective sx mgt and denies adverse effects. Medication Compliance: Yes Side effects from medications: No Attending Groups: Intermittent Review of Systems Acute medical concerns: No Review of Systems Review of Systems Denies today Mental Status Exam Mental Status Exam Patient Appearance: Appropriate Patient Orientation: Person, Place, Time and Situation Level of Consciousness: Alert Patient Behavior: Talkative Mood Description: Constricted Affect Description: Constricted Patient Cognition Impaired: No Ability to Follow Directions: Good Speech Pattern: Spontaneous Speech Memory Description: Intact Hallucinations: None Delusions: Not Present Thought Process: Intact Thought Content: positive for Intact Depressive Symptoms: Increased Anxiety (EEG results, and meaning of blackout periods) Judgement: Good Diagnostics Vital Signs (24Hr): Vital Signs - 24 hr 03/03/25 19:47 03/04/25 08:00 03/04/25 09:01 Temperature 97.9 F 98 F Pulse Rate 86 91 Respiratory Rate 20 Blood Pressure 129/74 137/70 137/70 Pulse Oximetry 97 97 Oxygen Delivery Method Room Air Room Air 03/04/25 09:03 Temperature Pulse Rate 91 Respiratory Rate Blood Pressure 137/70 Pulse Oximetry Oxygen Delivery Method BMI result Body Mass Index 45.9 Labs 02/23/25 06:26 02/23/25 06:26 Labs: Laboratory Results - last 48 hr 03/02/25 03/03/25 03/03/25 20:35 07:44 20:06 POC Glucose 280 H 138 H 196 H 03/04/25 07:49 POC Glucose 167 H Imaging Radiology Impressions: ITS Impressions Head CT 02/26/25 11:10 IMPRESSION: Unremarkable unenhanced head CT. Electronically signed by: Golden Latham MD 02/26/2025 12:19 PM EDT Medications Medications Current Medications Acetaminophen (Acetaminophen 325 Mg Tablet) 650 mg PO Q6H PRN PRN Reason: Headache/Pain, Scale 1-10 Last Admin: 03/03/25 23:21 Dose: 650 mg Albuterol Sulfate (Albuterol Sulfate 90 Mcg 8 Gm Inhaler) 2 puff INHALE RQ6H PRN PRN Reason: Shortness of Breath/Wheezing Last Admin: 03/01/25 18:24 Dose: 2 puff Calcium Carbonate/Cholecalciferol (Calcium + Vitamin D 250 Mg Tablet) 500 mg PO 1700 [facility] Last Admin: 03/03/25 17:00 Dose: 500 mg Clotrimazole (Clotrimazole 1 % Cream 15 Gm Tube) 1 appl TOPICAL BID [facility] Last Admin: 03/04/25 10:39 Dose: Not Given Dextrose (Dextrose 50 % 25 Gm/50 Ml Syringe) 25 gm IVPUSH Q15M PRN; Protocol PRN Reason: per Hypoglycemia Standing Ord. Famotidine (Famotidine 20 Mg Tablet) 40 mg PO BID@0800,1700 [facility] Last Admin: 03/04/25 09:02 Dose: 40 mg Furosemide (Furosemide 20 Mg Tablet) 20 mg PO DAILY [facility]; Protocol Last Admin: 03/04/25 09:01 Dose: 20 mg Gabapentin (Gabapentin 300 Mg Capsule) 900 mg PO BID [facility] Last Admin: 03/04/25 09:02 Dose: 900 mg Glucose (Glucose Gel 15 Gm Gel..Gram.) 15 gm PO Q15M PRN; Protocol PRN Reason: per Hypoglycemia Standing Ord. Guaifenesin/Dextromethorphan (Guaifenesin Dm 200/20/10 Ml 10 Ml Syrup) 10 ml PO Q6H PRN PRN Reason: Cough Guaifenesin/Dextromethorphan (Guaifenesin Dm 600/30 1 Tab Tab.Er.12h) 1 tab PO BID PRN PRN Reason: Cough Last Admin: 03/04/25 10:37 Dose: 1 tab Haloperidol (Haloperidol 5 Mg Tablet) 5 mg PO Q4H PRN PRN Reason: agitation Haloperidol (Haloperidol 5 Mg Tablet) 5 mg PO BID [facility] Last Admin: 03/04/25 09:04 Dose: 5 mg Hydromorphone HCl (Hydromorphone Hcl 2 Mg Tablet) 4 mg PO Q8H PRN PRN Reason: Pain, Severe (Pain Scale 7-10) Last Admin: 03/03/25 20:58 Dose: 4 mg Insulin Glargine (Insulin Glargine,Hum.Rec.Anlog 100 Unit/Ml 10 Ml Vial) 40 unit SUBCUT BEDTIME [facility] Last Admin: 03/03/25 20:56 Dose: 40 unit Insulin Human Lispro (Insulin Lispro 100 Unit/Ml 3 Ml Vial) 0 unit SUBCUT BID@0830,2030 [facility]; Protocol Last Admin: 03/04/25 08:24 Dose: Not Given Lamotrigine (Lamotrigine 25 Mg Tablet) 25 mg PO DAILY [facility] Last Admin: 03/04/25 09:02 Dose: 25 mg Lidocaine (Lidocaine 5 % Ointment 35 Gm) 1 appl TOPICAL DAILY [facility]; Protocol Last Admin: 03/04/25 10:39 Dose: Not Given Loratadine (Loratadine 10 Mg Tablet) 10 mg PO BEDTIME [facility] Last Admin: 03/03/25 20:59 Dose: 10 mg Lorazepam (Lorazepam 1 Mg Tablet) 1 mg PO BEDTIME PRN PRN Reason: Anxiety Last Admin: 03/03/25 20:59 Dose: 1 mg Lorazepam (Lorazepam 0.5 Mg Tablet) 0.5 mg PO DAILY PRN PRN Reason: anxiety Last Admin: 02/26/25 21:13 Dose: 0.5 mg Magnesium Hydroxide (Milk Of Magnesia 30 Ml Oral.Susp) 30 ml PO DAILY PRN PRN Reason: Constipation Melatonin (Melatonin 3 Mg Tablet) 9 mg PO BEDTIME PRN PRN Reason: Insomnia Last Admin: 03/02/25 20:52 Dose: 9 mg Methocarbamol (Methocarbamol 500 Mg Tablet) 1,000 mg PO BID@0900,1700 [facility] Last Admin: 03/04/25 09:03 Dose: 1,000 mg Nitroglycerin (Nitroglycerin 0.4 Mg Tab.Subl) 0.4 mg SUBLINGUAL Q5MX3 PRN PRN Reason: Chest Pain Pt Own (Bariatric (Multivitamin 1 Cap)) 1 cap PO DAILY [facility] Last Admin: 03/04/25 09:04 Dose: 1 cap Nystatin (Nystatin Cream 15 Gm Tube) 1 appl TOPICAL BID [facility]; Protocol Last Admin: 03/03/25 21:00 Dose: Not Given Ondansetron HCl (Ondansetron Odt 4 Mg Tab.Rapdis) 4 mg TRANSLINGU Q8H PRN PRN Reason: Nausea and Vomiting Last Admin: 03/04/25 00:06 Dose: 4 mg Pioglitazone HCl (Pioglitazone Hcl 45 Mg Tablet) 45 mg PO DAILY [facility] Last Admin: 03/04/25 09:03 Dose: 45 mg Pravastatin Sodium (Pravastatin Sodium 40 Mg Tablet) 40 mg PO DAILY@1200 [facility] Last Admin: 03/03/25 11:49 Dose: 40 mg Prazosin HCl (Prazosin Hcl 1 Mg Capsule) 4 mg PO BEDTIME [facility]; Protocol Last Admin: 03/03/25 20:59 Dose: 4 mg Propranolol HCl (Propranolol Hcl La 60 Mg Cap.Sa.24h) 120 mg PO DAILY [facility] Last Admin: 03/04/25 09:03 Dose: 120 mg Ropinirole HCl (Ropinirole Hcl 2 Mg Tablet) 2 mg PO BEDTIME [facility] Last Admin: 03/03/25 20:58 Dose: 2 mg Tizanidine HCl (Tizanidine Hcl 4 Mg Tablet) 4 mg PO BEDTIME PRN PRN Reason: muscle cramping Last Admin: 03/03/25 20:58 Dose: 4 mg Allergies Allergies Allergy/AdvReac Type Severity Reaction Status Date / Time codeine Allergy Severe Itching Verified 12/30/24 12:10 divalproex sodium (Depakote) Allergy Severe rapid Verified 12/30/24 12:10 toxicity fluoxetine (Prozac) Allergy Severe suicidal Verified 12/30/24 12:10 ideation/HTN hydrochlorothiazide Allergy Severe vertigo Verified 12/30/24 12:10 benzonatate (Tessalon Perles) Allergy Intermediate Rash Verified 12/30/24 12:10 epinephrine Allergy Intermediate tachycardia Verified 12/30/24 12:10 erythromycin base Allergy Intermediate Hives Verified 12/30/24 12:10 Fish Containing Products Allergy Intermediate Hives Verified 12/30/24 12:10 guaifenesin Allergy Intermediate Itching Verified 12/30/24 12:10 iodine Allergy Intermediate Rash Verified 12/30/24 12:10 levofloxacin (Levaquin) Allergy Intermediate Itching/ivana Verified 12/30/24 12:10 h lidocaine Allergy Intermediate Rash Verified 12/30/24 12:10 morphine Allergy Intermediate itching/rash/redness Verified 12/30/24 12:10 @ injection site nitrofurantoin (From Allergy Intermediate Itching Verified 12/30/24 12:10 Macrobid) nortriptyline Allergy Intermediate Itching Verified 12/30/24 12:10 oxcarbazepine (From Allergy Intermediate Hives Verified 12/30/24 12:10 Trileptal) penicillin V Allergy Intermediate rash/itch Verified 12/30/24 12:10 shellfish derived Allergy Intermediate Rash Verified 12/30/24 12:10 strawberry Allergy Intermediate Itching Verified 12/30/24 12:10 Sulfa (Sulfonamide Allergy Intermediate Rash Verified 12/30/24 12:10 Antibiotics) sumatriptan (From Imitrex) Allergy Intermediate skin Verified 12/30/24 12:10 reaction tramadol Allergy Intermediate Itching Verified 12/30/24 12:10 Tricyclic Antidepressants Allergy Intermediate Rash Verified 12/30/24 12:10 and Tricy (Tricyclic Compounds) adhesive tape AdvReac Intermediate Rash Verified 12/30/24 12:10 bupropion (From Wellbutrin) AdvReac Intermediate Hypertensio Verified 12/30/24 12:10 n buspirone AdvReac Intermediate Hypertensio Verified 12/30/24 12:10 n duloxetine (From Cymbalta) AdvReac Intermediate tachycardia Verified 12/30/24 12:10 fluticasone AdvReac Intermediate burning of Verified 12/30/24 12:10 nasal passages mirtazapine (From Remeron) AdvReac Intermediate HTN/weight Verified 12/30/24 12:10 gain montelukast AdvReac Intermediate Depression Verified 12/30/24 12:10 prednisone AdvReac Intermediate Headache Verified 12/30/24 12:10 thioridazine (From Mellaril) AdvReac Intermediate Hypertensio Verified 12/30/24 12:10 n tiotropium (From Spiriva AdvReac Intermediate Headache Verified 12/30/24 12:10 with HandiHaler) trazodone AdvReac Intermediate Hallucinati Verified 12/30/24 12:10 ons Novocain Allergy Intermediate tachycardia Uncoded 12/30/24 12:10 (when given w/epinephrine) oxycodone/acetaminophen Allergy Mild Rash Uncoded 12/30/24 12:10 artificial sweetners AdvReac Unknown Unknown Uncoded 02/24/25 08:43 Assessment & Plan Assessment & Plan (1) Bipolar disorder: Status: Acute Code(s): F31.9 - Bipolar disorder, unspecified (2) PTSD (post-traumatic stress disorder): Status: Acute Code(s): F43.10 - Post-traumatic stress disorder, unspecified (3) Borderline personality disorder: Status: Acute Code(s): F60.3 - Borderline personality disorder Plan Admit, CV, 15 minute checks Diagnostics as needed Possible neuro consult and eval-blackouts Collateral Contacts Encourage full milieu Continue Latuda with titration as tolerated Discharge planning. 02/23: EEG Nutrition Evaluation Ensure tid 02/24: Continue tx Encourage alliance 02/26: Scheduled Zyprexa 02/27/25: Patient presented with passive SI. But no aggressive or threatening behavior today. She is mostly isolated herself in her room working on the Personal and listen to music as a coping skills. Occasionally goes to the common areas for personal needs. Denies side effects from medications. Appear to be sad when talking about the relationship between her and per best friend of 40 years who she was very upset on the phone yesterday and hung up on her . Per her request POC and insulin cover down to b.i.d.. She has not been compliant with insulin coverage or some of the medical medications. Denie side effects from medications. Per health social work professor she had elderly housing services in [facility]. No for ambulate well using personal walker. Somewhat irritable and guarded. Passive SI. No other safety concerns. 02/28: DC Olanzapine (Tolerated however pt reports ineffective Haldol 5 mg bid and prn 03/01: Continue current management and treatment plan. 03/02: Continue current management and treatment plan. 03/03: Lamictal 25 mg daily Mucinex/Robitussin prn Pt discussing discharge for 03/06 03/04: DC 03/05 Reason for continued inpatient stay Substantial Risk for: stable for discharge Time Spent With Patient Time: Total time managing care of this patient today ____ minutes.
[2025-03-04] MEDS: Calcium + Vitamin D 250 MG TABLET 500 MG PO (16:52)
[2025-03-04 19:46] VITALS: BP 120/55; PULSE 89; TEMP 36.8; O2SAT 96
[2025-03-04 19:58] LABS: Glucose, Whole Blood 203 mg/dL (60-115)
[2025-03-04] MEDS: Insulin Glargine,Hum.rec.anlog 100 UNIT/ML 10 ML VIAL 40 UNIT SUBCUT (20:35)
[2025-03-05 08:00] VITALS: BP 146/70; PULSE 78; RESP 16; TEMP 36.6; O2SAT 98
[2025-03-05 08:05] LABS: Glucose, Whole Blood 172 mg/dL (60-115)
[2025-03-05] MEDS: Propranolol HCL LA 60 MG CAP.SA.24H 120 MG PO (08:24)
[2025-03-05] MEDS: BARIATRIC MULTIVITAMIN 1 EACH PO (08:27)
--- NOTE | 2025-03-08 08:06 | PC.NURSE ---
late entry: pt received 4mg hydromorphone at approximately 9am on 03/03/25. Documentation was not saved
--- NOTE | 2025-03-12 19:59 | PC.NURSE ---
On the evening of February 26, 2025 at 20:19 I withdrew Lorazepam 1mg from the Pyxis and again later on February at around 04:14I withdrew another 1mg tablet of Lorazepam. In reviewing the missing tablet of Lorazepam 1mg with Tiffanie Lopez the pharmacist in charge of reviewing errors it became apparent that though I withdrew Lorazepam 1 mg twice on the shift that started at 19:00 on 02/26/25 through 07:00 on 02/27/25. Though I withdrew 2 tabs of Lorazepam 1mg each I apparently charted that I dispensed 1 tablet 9in error) as a Lorazepam 0.5mg and at a different time on the same shift I charted correctly that I dispensed it as Lorazepam 1mg.
--- NOTE | 2025-04-02 13:28 | PM.PSYDC ---
DS: Providers Provider Date of Service: 03/05/25 Date of admission: 02/21/25 15:49 Date of discharge: 03/05/25 Primary care physician: Unknown Physician Admitting clinician: Nancy Melgoza Attending physician on admission: Pascual See Consults: 02/21/25 16:54 Consult to Hospitalist Routine Comment: Consulting Provider: [facility] Reason For Exam: Transfer pt 02/22/25 14:27 Consult to Hospitalist Routine Comment: pt believes this sx is pancreatitis Consulting Provider: [facility] Reason For Exam: severe abd pain, hx pancreatitis, Attending physician on discharge: Pascual See Discharging clinician: Nancy Melgoza DS: Diagnosis Discharge Diagnosis (1) Bipolar disorder: Status: Acute (2) PTSD (post-traumatic stress disorder): Status: Acute (3) Borderline personality disorder: Status: Acute DS: Medications Discharge Medications Home Medications: Home Medications ?Medication ?Instructions ?Recorded ?Confirmed lorazepam 0.5 mg tablet 1 mg PO BEDTIME PRN Anxiety 02/21/25 02/21/25 nitroglycerin 0.4 mg sublingual 0.4 mg sublingual Q5M PRN Heartburn 02/21/25 02/21/25 tablet prazosin 2 mg capsule 2 cap PO BEDTIME 02/21/25 02/21/25 sucralfate QID PRN Heartburn 02/21/25 Previous Rx's ?Medication ?Instructions ?Recorded albuterol sulfate 90 mcg/actuation 2 inh inhalation Q6H PRN Shortness 07/07/23 breath activated powder Of Breath Or Wheezing #1 ea inhaler,sensor calcium 600 mg (as 1 tab PO BID #60 tabs 07/07/23 carbonate)-vitamin D3 10 mcg (400 unit) tablet famotidine 20 mg tablet 20 mg PO BID 30 days #60 tabs 07/07/23 furosemide 20 mg tablet 20 mg PO DAILY 30 days #30 tabs 07/07/23 gabapentin 300 mg capsule 900 mg (3 x 300 mg) PO BID 30 days 07/07/23 #180 caps hydromorphone 2 mg tablet 2 mg PO TID PRN Pain 14 days #28 07/07/23 tabs insulin glargine 100 unit/mL (3 40 unit (0.4 mL) subcut BEDTIME 30 07/07/23 mL) subcutaneous pen (Lantus days #12 mL Solostar U-100 Insulin) levocetirizine 5 mg tablet 5 mg PO DAILY 30 days #30 tabs 07/07/23 losartan 50 mg tablet 50 mg PO DAILY 30 days #30 tabs 07/07/23 melatonin 10 mg capsule 10 mg PO BEDTIME PRN Insomnia #30 07/07/23 caps methocarbamol 500 mg tablet 2 tab PO BID PRN Pain 30 days #60 07/07/23 tabs nystatin 100,000 unit/gram topical 1 appl topical BID 30 days #1 g 07/07/23 cream pen needle, diabetic 32 gauge x #1,200 ea 07/07/23 pioglitazone 45 mg tablet 1 tab PO DAILY 30 days #30 tabs 07/07/23 pravastatin 40 mg tablet 40 mg PO DAILY 30 days #30 tabs 07/07/23 propranolol 160 mg capsule,24 1 cap PO DAILY 30 days #30 caps 07/07/23 hr,extended release ropinirole 2 mg tablet 2 mg PO BEDTIME 30 days #30 tabs 07/07/23 tizanidine 4 mg tablet 4 mg PO TID PRN Pain muscle spasms 07/07/23 30 days #60 tabs venlafaxine 75 mg capsule,extended 150 mg (2 x 75 mg) PO QAM 30 days 07/07/23 release 24 hr #60 caps zolpidem 5 mg tablet 5 mg PO BEDTIME 30 days #30 tabs 07/07/23 lidocaine 5 % topical ointment 1 appl topical DAILY #50 grams 07/17/23 Bariatric Multivitamin 1 cap PO DAILY ##0 03/05/25 haloperidol 5 mg tablet 5 mg PO BID #60 tabs 03/05/25 lamotrigine 25 mg tablet 25 mg PO BEDTIME #30 tabs 03/05/25 Mental Status Exam Mental Status Exam Patient Appearance: Appropriate Patient Orientation: Person, Place, Time and Situation Level of Consciousness: Alert Patient Behavior: Talkative Mood Description: Constricted Affect Description: Constricted Patient Cognition Impaired: No Ability to Follow Directions: Good Speech Pattern: Spontaneous Speech Memory Description: Intact Hallucinations: None Delusions: Not Present Thought Process: Intact Thought Content: positive for Intact Depressive Symptoms: Increased Anxiety (EEG results, and meaning of blackout periods) Judgement: Good Data Imaging Diagnostic Imaging Impressions Head CT 02/26/25 11:10 IMPRESSION: Unremarkable unenhanced head CT. Electronically signed by: Golden Latham MD 02/26/2025 12:19 PM EDT RP DS: Summary Hospital Course Hospital Course: Admission to adult psychiatry for exacerbation of PTSD, Bipolar Disorder. Medications were evaluated and adjusted. Pt was offered full milieu therapy. Diagnostics were negative. Pt would like to have a neurology consultation. She will discuss with primary care and they will need to generate an out patient referral. Pt will return to primary care for prescribing and to [facility] for psychotherapy. Status at Discharge Functional status at discharge: uses cane/walker Overall status at discharge: patient is progressing back to baseline Time Spent with Patient Time attestation: Total time managing care of this patient today ____ minutes. Time spent: Less than 30 minutes Discharge Plan Discharge Anticipated Discharge Date/Time: 03/05/25 12:00 Patient Disposition: Home, Self-Care Discharge Diagnosis: PTSD Bipolar Disorder DM Referrals: Psychiatry with Lexus Mccabe [Other] - 03/10/25 10:00 am Referral Note: You also have a follow up appointment with [facility] on March 25 at 1:30pm. [facility] Therapy with Jen Olivares [Other] - 03/11/25 2:00 pm Referral Note: Kylie Crook MD [Physician, Family Practice] Referral Note: Office will call to schedule follow up appointment Discharge Medications: New haloperidol 5 mg Tablet 5 mg PO BID Qty: 60 0RF lamotrigine 25 mg Tablet 25 mg PO BEDTIME Qty: 30 0RF Bariatric Multi 1 cap PO DAILY Qty: 0 0RF Continued ropinirole 2 mg Tablet 2 mg PO BEDTIME 30 Days Qty: 30 0RF zolpidem 5 mg Tablet 5 mg PO BEDTIME 30 Days Qty: 30 0RF nystatin 100,000 unit/gram Cream 1 appl topical BID 30 Days Qty: 1 0RF Protocol: Apply to: Apply to: affected area losartan 50 mg tablet 50 mg PO DAILY 30 Days Qty: 30 0RF methocarbamol 500 mg tablet 2 tab PO BID PRN (Reason: Pain) 30 Days Qty: 60 0RF venlafaxine 75 mg capsule,extended release 24hr 150 mg PO QAM 30 Days Qty: 60 0RF propranolol 160 mg capsule,extended release 24 hr 1 cap PO DAILY 30 Days Qty: 30 0RF pravastatin 40 mg tablet 40 mg PO DAILY 30 Days Qty: 30 0RF tizanidine 4 mg tablet 4 mg PO TID PRN (Reason: Pain muscle spasms) 30 Days Qty: 60 0RF pioglitazone 45 mg tablet 1 tab PO DAILY 30 Days Qty: 30 0RF hydromorphone 2 mg tablet 2 mg PO TID PRN (Reason: Pain) 14 Days Qty: 28 0RF famotidine 20 mg tablet 20 mg PO BID 30 Days Qty: 60 0RF gabapentin 300 mg capsule 900 mg PO BID 30 Days Qty: 180 0RF furosemide 20 mg tablet 20 mg PO DAILY 30 Days Qty: 30 0RF calcium carbonate-vitamin D3 600 mg-10 mcg (400 unit) tablet 1 tab PO BID Qty: 60 0RF insulin glargine [Lantus Solostar U-100 Insulin] 100 unit/mL (3 mL) insulin pen 40 unit SUBCUT BEDTIME 30 Days Qty: 12 0RF levocetirizine 5 mg tablet 5 mg PO DAILY 30 Days Qty: 30 0RF (DME) pen needle, diabetic 32 gauge x 5/32 needle See Rx Instructions .Route Qty: 1,200 0RF Rx Instructions: As directed melatonin 10 mg capsule 10 mg PO BEDTIME PRN (Reason: Insomnia) Qty: 30 0RF albuterol sulfate 90 mcg/actuation aero powdr breath act w/sensor 2 inh inhalation Q6H PRN (Reason: Shortness Of Breath Or Wheezing) Qty: 1 0RF lorazepam 0.5 mg tablet 1 mg PO BEDTIME PRN (Reason: Anxiety) prazosin 2 mg capsule 2 cap PO BEDTIME nitroglycerin 0.4 mg Tablet, Sublingual 0.4 mg SUBLINGUAL Q5M PRN (Reason: Heartburn) Rx Instructions: do not exceed 3 doses per episode sucralfate 1,000 mg QID PRN (Reason: Heartburn) lidocaine 5 % ointment 1 appl topical DAILY Qty: 50 0RF Discharge Orders: Discharge Order (Routine); Ordered 03/05/25 Ordered By: Nancy Melgoza Diet: Advance to usual diet Activity on Discharge: As tolerated Stand Alone Forms: Patient Portal Discharge page, Community Support Print Language: [place] Care Plan Goals: Mood and Behavioral Stabilization Health Concerns: Mood and Behavioral Stabilization Plan of Treatment: Attend scheduled appointments Take medications as directed Assessment: Denies SI,HI,AH,VH No sx of acute psychosis or herbert Pt in agreement with plan of care Discharge Date/Time: 03/05/25 11:04
== END 2025-03-05 11:04 | disposition home or self-care (01) | DRG 885 ==
PROVIDERS: Clinical Nurse Specialist Psychiatric/Mental Health, Adult; Internal Medicine; Admitting Provider Psychiatry & Neurology Psychiatry; Visit Provider Psychiatry & Neurology Psychiatry
DX: F31.9 Bipolar disorder, unspecified (principal); R45.851 Suicidal ideations; Z68.42 Body mass index [BMI] 45.0-49.9, adult; F60.3 Borderline personality disorder; E11.9 Type 2 diabetes mellitus without complications; F41.9 Anxiety disorder, unspecified; G89.29 Other chronic pain; E78.5 Hyperlipidemia, unspecified; G47.33 Obstructive sleep apnea (adult) (pediatric); G25.81 Restless legs syndrome; F43.10 Post-traumatic stress disorder, unspecified; J45.909 Unspecified asthma, uncomplicated; E66.01 Morbid (severe) obesity due to excess calories; Z71.3 Dietary counseling and surveillance; Z98.84 Bariatric surgery status; Z96.82 Presence of neurostimulator; Z98.1 Arthrodesis status; Z79.4 Long term (current) use of insulin; Z79.899 Other long term (current) drug therapy
CPT/HCPCS: 36415; 70450; 80048; 80053; 80061; 82607; 82746; 82947; 83036; 83690; 83735; 84439; 84443; 85025; 85027; 87651; 95816

== ENCOUNTER 2025-02-21 15:49 | Outpatient (BNV) | payer OTHER, SELFPAY | END 2025-02-26 11:10 | PROVIDERS: Admitting Provider Psychiatry & Neurology Psychiatry; Visit Provider Radiology Diagnostic Radiology | DX: R55 Syncope and collapse (principal) | CPT/HCPCS: 70450 ==

== ENCOUNTER → 2025-02-21 15:49 | Outpatient (BNV) | payer OTHER, SELFPAY | PROVIDERS: Admitting Provider Psychiatry & Neurology Psychiatry; Visit Provider Internal Medicine | DX: E11.9 Type 2 diabetes mellitus without complications (principal); Z79.4 Long term (current) use of insulin; M54.50 Low back pain, unspecified; G89.29 Other chronic pain | CPT/HCPCS: 99223; 99499 ==

== ENCOUNTER → 2025-02-21 15:49 | Outpatient (BNV) | payer OTHER, SELFPAY | PROVIDERS: Admitting Provider Psychiatry & Neurology Psychiatry; Visit Provider Clinical Nurse Specialist Psychiatric/Mental Health, Adult | DX: F31.4 Bipolar disorder, current episode depressed, severe, without psychotic features (principal); F60.3 Borderline personality disorder; F43.11 Post-traumatic stress disorder, acute | CPT/HCPCS: 90792; 99231; 99232 ==

== ENCOUNTER 2025-04-04 12:23 | Outpatient (AMB) | payer OTHER, SELFPAY ==
--- OUTSIDE RECORDS SUMMARY | 2025-04-02 23:59 | XMS_ITS | Continuity of Care Document ---
Author Organization [facility] Address [address] [place] [address] [place] [address]- Care Team Providers Care Director Of Fundraising Name Role Phone Armaan BROCK, Kylie Borrego Primary Care Physician [id number] Date(s): 02/25/25 - 04/02/[address] [address]- Attending Physician: Fermin Pfeiffer MD Admitting Physician: Fermin Pfeiffer MD Referring Physician: Fermin Pfeiffer MD Encounter Type: Pre-Outpt Allergies, Adverse Reactions, Alerts Substance Criticality Severity Reaction Reaction Severity Status codeine RASH Active nortriptyline HIVES Active hydrochlorothiazide vertigo Active guaifenesin ITCHY Active sulfa drugs RASH Active lidocaine 1 Active morphine STATES CANNOT WAKE UP FROM ANES RASH Active iodine topical rash Activ e epinephrine 2 vomitting INCREASED BP Active fluticasone devine throat Act parveen penicillins RASH Active Tessalon Perles RASH Acti ve Novocain nausea r/t epi Activ e tricyclic antidepressants RASH Active shellfish ITCH Active Mellaril [id number] BP Active Prozac SUICIDAL IDEATIONS Active Wellbutrin worsens HTN Activ e Remeron weight gain Active Levaquin RASH Active Adhesive Bandage rash Act parveen Depakote TOXIC Active celecoxib 3 Active Trileptal rash Active Fish Itching Active Seafood 4 Active Strawberries RASH Active Other Food Allergy 5 diet inks throat closes Active Other Environmental Allergy 6 COMBO OF TAPE AND IODINE Active SUMAtriptan RASH Active Cymbalta makes me crazy Activ e naproxen-sumatriptan itchy Active fentaNYL 7 elevated HR Weird taste in mouth back pain Nausea Active traZODone throws of the serotonin levels in my brain Active 1RASH 2per Dr Galvez- patient tolerated in office during prior procedure 3Itching 4Itching 5artificial sweetner 6pollen, dust mites 7TRANSDERMAL PATCH Immunizations Given and Recorded Vaccine Date Status Refusal Reason influenza virus vaccine, inactivated 1 05/27/20 Gi mu influenza virus vaccine, inactivated 2 06/08/18 Gi mu influenza virus vaccine, inactivated 3 05/25/17 Gi mu influenza virus vaccine, inactivated 4 06/06/16 Re corded Influenza Virus Vaccine (oldterm) 06/10/19 Recorde d diphtheria-tetanus toxoids (DT) 01/31/17 Given pneumococcal 23-valent vaccine 5 11/21/10 Given 1Early/Late Reason: Other : Not given earlier 2Result Comment: [06/08/2018] [facility] # [id number] 3Result Comment: [05/25/2017] [facility] [id number] 4Result Comment: [10/20/2016] [place] [facility]: Patient states she received it at [facility] Medications 1 pulse oximeter 1 pulse oximeter, See Instructions, # 1 each, Refills 0, Tot. Refills 0, Maintenance, none, 06/18/20 2:51:00 PM EDT, Supply Start Date: 06/18/20 Status: Ordered Quantity: 1.0 Unit: each Repeat number: 1 Indications: Unspecified asthma, uncomplicated; acetaminophen 500 mg oral tablet 2 tablet = 1,000 mg, By Mouth, 2 times a day, PRN as needed for pain, Maintenance, 03/12/22 7:08:00 PM EDT, Tablet Start Date: 03/12/22 Status: Ordered Repeat number: 1 Bariatric Multivitamins with 45 mg Iron oral capsule 1 capsule, By Mouth, Daily, # 90 capsule, 0 Refills, Maintenance, 06/30/21 2:27:00 PM EDT, Capsule,Partial fill upon patient request if the prescription is for a schedule II opioid drug. Start Date: 06/30/21 Status: Ordered Quantity: 90.0 Unit: capsule Repeat number: 1 calcium-vitamin D 600 mg-400 intl units oral tablet 1 tablet, By Mouth, Daily, at 5pm, Maintenance, 03/12/22 7:08:00 PM EDT, Tablet Start Date: 03/12/22 Status: Ordered Repeat number: 1 famotidine 40 mg oral tablet 1 tablet = 40 mg, By Mouth, 2 times a day, Maintenance, 07/02/23 9:15:00 AM EDT, Tablet, Partial fill upon patient request if the prescription is for a schedule II opioid drug. Start Date: 07/02/23 Status: Ordered Repeat number: 1 Flovent HFA 110 mcg/inh inhalation aerosol 2 puffs, Inhalation, 2 times a day, Maintenance, 03/12/22 7:08:00 PM EDT, Aerosol Start Date: 03/12/22 Status: Ordered Repeat number: 1 fluconazole 100 mg oral tablet 1 tablet = 100 mg, By Mouth, Daily, 0 Refills, Maintenance, 07/02/23 9:20:00 AM EDT, Partial fill upon patient request if the prescription is for a schedule II opioid drug. Start Date: 07/02/23 Status: Ordered Repeat number: 1 Freestyle Lite Monitor See Instructions, # 1 each, Maintenance, Dx: DM II, check BS TID, 07/29/20 1:28:00 PM EST, Compound, 167, cm, 07/14/20 13:29:00 EST, Height, 150.3, kg, 07/01/20 6:03:00 EDT, Dry Weight Start Date: 07/29/20 Status: Ordered Quantity: 1.0 Unit: each Repeat number: 1 Freestyle Lite Test Strips See Instructions, # 200 each, Refills 5, Tot. Refills 5, Maintenance, Dx: DM II, check BS TID, 11/26/18 10:26:01 AM EDT, Compound Start Date: 11/26/18 Status: Ordered Quantity: 200.0 Unit: each Repeat number: 6 furosemide 20 mg oral tablet 20 mg, 1, tablet, By Mouth, Daily, and an additional 20 mg as needed for swelling, Maintenance, 03/12/22 6:58:00 PM EDT Start Date: 03/12/22 Status: Ordered Repeat number: 1 gabapentin 300 mg oral capsule 900 mg, 3, capsule, By Mouth, 2 times a day, Maintenance, 03/12/22 7:00:00 PM EDT Start Date: 03/12/22 Status: Ordered Repeat number: 1 HYDROmorphone 2 mg oral tablet 1 tablet = 2 mg, By Mouth, 2 times a day, PRN as needed for pain, may take 3 tablets/day twice a week, 0 Refills, Maintenance, 03/12/22 7:08:00 PM EDT, Tablet Start Date: 03/12/22 Status: Ordered Repeat number: 1 ketoconazole 2% topical cream 1 application, Topically, Daily, to affected area (rash under breasts), Maintenance, 07/02/23 9:20:00 AM EDT, Cream, Partial fill upon patient request if the prescription is for a schedule II opioid drug. Start Date: 07/02/23 Status: Ordered Repeat number: 1 Lantus Solostar Pen 100 units/mL subcutaneous solution = 40 units, Subcutaneous Injection, Daily at bedtime, 2 Refills, Maintenance, 05/23/19 11:08:48 AM EDT Start Date: 05/23/19 Stop Date: 08/21/19 Status: Ordered Repeat number: 1 LORazepam 0.5 mg oral tablet TAKE 1 TABLET BY MOUTH TWICE DAILY NEEDED FOR ANXIETY AND 2 TABLETS BY MOUTH EVERY NIGHT AT BEDTIME Start Date: 07/02/23 Status: Ordered Repeat number: 1 losartan 50 mg oral tablet 1 tablet = 50 mg, By Mouth, Daily, Maintenance, 03/12/22 7:03:00 PM EDT, Tablet Start Date: 03/12/22 Status: Ordered Repeat number: 1 meclizine 25 mg oral tablet 1 tablet = 25 mg, By Mouth, 3 times a day, PRN for dizziness, Maintenance, 07/02/23 9:21:00 AM EDT,Tablet, Partial fill upon patient request if the prescription is for a schedule II opioid drug. Start Date: 07/02/23 Status: Ordered Repeat number: 1 melatonin 3 mg oral tablet 1 tablet = 3 mg, By Mouth, Daily at bedtime, 0 Refills, Maintenance, 09/26/20 6:30:00 PM EST, Partial fill upon patient request if the prescription is for a schedule II opioid drug. Start Date: 09/26/20 Status: Ordered Repeat number: 1 methocarbamol 500 mg oral tablet 2 tablet = 1,000 mg, By Mouth, 2 times a day, PRN as needed, 0 Refills, Maintenance, 02/16/22 6:02:00 PM EDT Start Date: 02/16/22 Status: Ordered Repeat number: 1 nitroglycerin 0.4 mg sublingual tablet 1-3 tabs, Sublingual, Every 5 minutes, PRN Chest Pain, not to exceed 3 doses/15 min--if pain persists, seek medical attention, # 100 tablet, 1 Refills, Maintenance, 07/08/20 3:33:00 PM EST, Tablet, [facility] [id number] ([employer] [facility]), 167, cm, 07/01/20 6:03:00 EDT, Height, 150.3, kg, 07/01/20 6:03:00 EDT, Dry Weight Start Date: 07/08/20 Stop Date: 09/06/20 Status: Ordered Quantity: 100.0 Unit: tablet Repeat number: 2 pioglitazone 45 mg oral tablet 1 tablet = 45 mg, By Mouth, Daily, Maintenance, 07/02/23 9:18:00 AM EDT, Tablet, Partial fill upon patient request if the prescription is for a schedule II opioid drug. Start Date: 07/02/23 Status: Ordered Repeat number: 1 power wheelchair power wheelchair, See Instructions, # 1 each, Refills 0, Tot. 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 Refills 1, Maintenance, 07/21/20 1:39:00 PM EST, Route to Pharmacy Electronically, Claudia Jerez ([facility]), 167, cm, 07/14/20 13:29:00 EST, Height, 150.3, kg, 07/01/20 6:03:00 EDT, Dry Weight Start Date: 07/21/20 Stop Date: 01/17/21 Status: Ordered Quantity: 90.0 Unit: tablet Repeat number: 2 prazosin 2 mg oral capsule 2 capsule = 4 mg, By Mouth, Daily at bedtime, Maintenance, 03/12/22 7:05:00 PM EDT, Capsule Start Date: 03/12/22 Status: Ordered Repeat number: 1 propranolol 160 mg oral capsule, extended release 1 capsule = 160 mg, By Mouth, Daily, Maintenance, 03/12/22 7:05:00 PM EDT, CR Capsule Start Date: 03/12/22 Status: Ordered Repeat number: 1 Pulse Oximeter Pulse Oximeter, See Instructions, # 1 kit, Refills 0, Tot. Refills 0, Maintenance, use as directed,06/24/20 3:50:00 PM EDT, Supply Start Date: 06/24/20 Status: Ordered Quantity: 1.0 Unit: kit Repeat number: 1 rOPINIRole 1 mg oral tablet 1 tablet = 1 mg, By Mouth, Daily at bedtime, may take an additional tablet as needed, 0 Refills, Maintenance, 01/19/21 1:53:00 PM EDT Start Date: 01/19/21 Status: Ordered Repeat number: 1 tamsulosin 0.4 mg oral capsule 1, capsule, By Mouth, Daily, # 90 capsule, Refills 0, Tot. Refills 0, Maintenance, 02/17/21 8:13:00 AM EDT, Route to Pharmacy Electronically, [facility]), 165, cm, 02/16/21 8:47:00 EDT, Height, 153.5, kg, 09/28/20 12:18:00 EST, Dry Weight Start Date: 02/17/21 Status: Ordered Quantity: 90.0 Unit: capsule Repeat number: 1 tiZANidine 4 mg oral tablet 4 mg, 1, tablet, By Mouth, Daily at bedtime, # 30 tablet, Refills 0, Tot. Refills 0, Maintenance, 03/10/21 9:35:00 AM EDT, Route to Pharmacy Electronically, [facility] Partial fill upon patient request if the prescription is for a schedule II opioid drug., 165, cm, 03/10/21 8:44:00 EDT, Height, 160.5, kg, 03/07/21 21:22:00 EDT, Dry Weight Start Date: 03/10/21 Status: Ordered Quantity: 30.0 Unit: tablet Repeat number: 1 venlafaxine 150 mg oral capsule, extended release 1 capsule = 150 mg, By Mouth, Daily, Maintenance, 03/12/22 7:07:00 PM EDT, ER Capsule Start Date: 03/12/22 Status: Ordered Repeat number: 1 Ventolin HFA 108 mcg/inh inhalation aerosol with adapter 2 puffs, Inhalation, Every 4 hours, PRN for wheezing, Maintenance, 03/12/22 7:10:00 PM EDT, Aerosol Start Date: 03/12/22 Status: Ordered Repeat number: 1 WAL-MUCIL FIBER CAPS WAL-MUCIL FIBER CAPS, See Instructions, # 60 capsule, 0 Refills, Maintenance, TAKE 2 CAPSULES BY MOUTH DAILY BEFORE LUNCH, 08/22/23 8:25:00 PM EST, 165, cm, 08/18/23 11:47:00 EST, Height, 142, kg, 07/01/23 22:18:00 EDT, Dry Weight Start Date: 08/22/23 Status: Ordered Quantity: 60.0 Unit: capsule Repeat number: 1 WAL-MUCIL FIBER CAPS WAL-MUCIL FIBER CAPS, 2, capsule, By Mouth, Daily before lunch, # 60 capsule, 11 Refills, Maintenance, 09/27/23 8:39:00 AM EST, 165, cm, 08/18/23 11:47:00 EST, Height, 142, kg, 07/01/23 22:18:00 EDT, Dry Weight Start Date: 09/27/23 Status: Ordered Quantity: 60.0 Unit: capsule Repeat number: 1 WAL-MUCIL FIBER CAPS WAL-MUCIL FIBER CAPS, 2, capsule, By Mouth, Daily before lunch, # 60 capsule, 5 Refills, Maintenance, 03/03/23 6:38:00 PM EDT, 165.1, cm, 11/16/22 11:52:00 EDT, Height, 139.1, kg, 05/11/22 11:01:00 EDT, Dry Weight Start Date: 03/03/23 Status: Ordered Quantity: 60.0 Unit: capsule Repeat number: 1 WAL-MUCIL FIBER CAPS WAL-MUCIL FIBER CAPS, 2, capsule, By Mouth, Daily before lunch, # 60 capsule, 5 Refills, Maintenance, 09/26/24 7:40:00 AM EST, 165, cm, 08/18/23 11:47:00 EST, Height, 142, kg, 07/01/23 22:18:00 EDT, Dry Weight Start Date: 09/26/24 Status: Ordered Quantity: 60.0 Unit: capsule Repeat number: 1 Xyzal 5 mg oral tablet 1 tablet = 5 mg, By Mouth, Daily in PM, # 30 tablet, 11 Refills, Maintenance, 02/17/20 2:49:00 PM EDT, Tablet, [id number] ([facility]), 1 tablet By Mouth Daily in PM,x30 days, 168, cm, 02/17/20 14:13:00 EDT, Height, 148.1, kg, 01/30/20 23:31:00 EDT, Dry Weight Start Date: 02/17/20 Stop Date: 02/11/21 Status: Ordered Quantity: 30.0 Unit: tablet Repeat number: 12 Zofran 4 mg oral tablet 1 tablet = 4 mg, By Mouth, Every 8 hours, PRN Nausea & Vomiting, # 10 tablet, 0 Refills, Maintenance, 07/16/21 7:30:00 AM EST, Tablet, [id number] ([facility]), Partial fill upon patient request if the prescription is for a schedule II opioid drug., 153.4, cm, 07/16/21 4:51:00 EST, Height, 165.1, kg, 07/14/21 8:55:00 EST, Dry Weight Start Date: 07/16/21 Status: Ordered Quantity: 10.0 Unit: tablet Repeat number: 1 zolpidem 5 mg oral tablet 1 tablet = 5 mg, By Mouth, Daily at bedtime, PRN as needed for insomnia, Maintenance, 07/02/23 9:29:00 AM EDT, Tablet, Partial fill upon patient request if the prescription is for a schedule II opioid drug. Start Date: 07/02/23 Status: Ordered Repeat number: 1 Problem List Condition Confirmation Course Effective Dates Status H ealth Status Informant Asthma Confirmed Active Atypical chest pain - non cardiac 1 Confirmed 03/2012 Active Borderline personality disorder Confirmed Active Chronic kidney disease stage 3 Confirmed Active Assistance needed for feeding Confirmed Active Depression Confirmed Active Bilateral leg edema 2 Confirmed Active Limitation due to disability 3 Confirmed Active Controlled substance agreement broken Confirmed Active Drug or alcohol risk assessment or counseling 4 Confirmed Active Headache Confirmed Active Hypertension Confirmed Active Low back pain Confirmed Active Menometrorrhagia Confirmed Active Migraine Confirmed Active Morbid obesity Confirmed Active Neck pain Confirmed Active Pancreatitis Confirmed Active PTSD (post-traumatic stress disorder) Confirmed Active Severe obesity Confirmed Active 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 visits with false + CDH sestamibi and normal cardiac cath. 2Takes prn lasix 3initial Oswestry Disability Index: 66% ( crippled') on 12/11/14; initial [place] Back Pain Scale: 70 on 12/11/14; initial [place]: 13 on 12/11/14 4SOAPP-R: 31 on 12/11/14 Social History Social History Type Response Smoking Status Never smoker; Tobacc o user in household: No entered on: 07/30/13 Sex Sex Representation Female (finding) Patient Care team information Care Team Personnel Name: Sunni Hobson RN Position: [facility] SN RN Member Role: Primary Care Nurse Name: Nicko Arreola RN Position: [facility] RN Member Role: Primary Care Nurse Name: Ana Ayala RN Position: [facility] RN Member Role: Primary Care Nurse Name: Radha Dyer RN Position: [facility] RN Member Role: Primary Care Nurse Name: Nirmala Baumann RN Position: [facility] RN Member Role: Primary Care Nurse Name: Kylie Crook MD Position: [facility] Outreach Member Role: PCP Address: [address] [place] [address] Telecom: Name: Wayne Wayne MD Position: [facility] Renal MD Member Role: Lifetime Consulting Physician Address: [address] [place], [place] [id number] [facility] [place] [address] Telecom: Name: Naheed Sewell Position: [facility] Outreach Member Role: Lifetime Consulting Physician Name: Renan Serrato RN Position: [facility] 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 Member Role: Primary Care Nurse Care Team Related Persons Name: ELIEZER OZZY Name: SANJAY DOMINGUEZ Name: SUSIE MCCARTNEY Name: CARMELA RICE Name: CARMELA CUENCA Insurance Providers Guarantor name: CALEB MCCARTNEY Health Plan Information #: 1 Payer: [facility] Payer Identifier: NA Member Number: [id number] Group Number: Subscriber Identifier: [id number] Relationship to Subscriber: self Coverage Type: Medicare Managed Care (Includes Medicare Advantage Plans) Coverage Verification Date: NA Telecom: NA Address: [facility] Plan Information #: 2 Payer: [facility] Payer Identifier: Member Number: [id number] Group Number: Subscriber Identifier: [id number] Relationship to Subscriber: self Coverage Type: MEDICAID Coverage Verification Date: NA Telecom: NA Address:
--- NOTE | 2025-04-04 12:27 | A.OFFVIS_ITS ---
Vital Signs 04/04/25 12:28 Height 5 ft 5 in Weight 316 lb BMI 52.6 BP 133/71 Blood Pressure Location Rt brachial Position Sitting Respiration 20 Pulse 79 Pulse Source Pulse Oximeter Pulse Oximetry (%) 98 Oxygen Delivery Method Room Air Intake Visit Reasons: SCS PAIN [employer] Required: No Allergies codeine Allergy (Severe, Verified 04/04/25 12:27) Itching divalproex sodium (Depakote) Allergy (Severe, Verified 04/04/25 12:27) rapid toxicity fluoxetine (Prozac) Allergy (Severe, Verified 04/04/25 12:27) suicidal ideation/HTN hydrochlorothiazide Allergy (Severe, Verified 04/04/25 12:27) vertigo benzonatate (Tessalon Perles) Allergy (Intermediate, Verified 04/04/25 12:27) Rash epinephrine Allergy (Intermediate, Verified 04/04/25 12:27) tachycardia erythromycin base Allergy (Intermediate, Verified 04/04/25 12:27) Hives Fish Containing Products Allergy (Intermediate, Verified 04/04/25 12:27) Hives guaifenesin Allergy (Intermediate, Verified 04/04/25 12:27) Itching iodine Allergy (Intermediate, Verified 04/04/25 12:27) Rash levofloxacin (Levaquin) Allergy (Intermediate, Verified 04/04/25 12:27) Itching/rash lidocaine Allergy (Intermediate, Verified 04/04/25 12:27) Rash morphine Allergy (Intermediate, Verified 04/04/25 12:27) itching/rash/redness @ injection site nitrofurantoin (From Macrobid) Allergy (Intermediate, Verified 04/04/25 12:27) Itching nortriptyline Allergy (Intermediate, Verified 04/04/25 12:27) Itching oxcarbazepine (From Trileptal) Allergy (Intermediate, Verified 04/04/25 12:27) Hives penicillin V Allergy (Intermediate, Verified 04/04/25 12:27) rash/itch shellfish derived Allergy (Intermediate, Verified 04/04/25 12:27) Rash strawberry Allergy (Intermediate, Verified 04/04/25 12:27) Itching Sulfa (Sulfonamide Antibiotics) Allergy (Intermediate, Verified 04/04/25 12:27) Rash sumatriptan (From Imitrex) Allergy (Intermediate, Verified 04/04/25 12:27) skin reaction tramadol Allergy (Intermediate, Verified 04/04/25 12:27) Itching Tricyclic Antidepressants and Tricy (Tricyclic Compounds) Allergy (Intermediate, Verified 04/04/25 12:27) Rash adhesive tape Adverse Reaction (Intermediate, Verified 04/04/25 12:27) Rash bupropion (From Wellbutrin) Adverse Reaction (Intermediate, Verified 04/04/25 12:27) Hypertension buspirone Adverse Reaction (Intermediate, Verified 04/04/25 12:27) Hypertension duloxetine (From Cymbalta) Adverse Reaction (Intermediate, Verified 04/04/25 12:27) tachycardia fluticasone Adverse Reaction (Intermediate, Verified 04/04/25 12:27) burning of nasal passages mirtazapine (From Remeron) Adverse Reaction (Intermediate, Verified 04/04/25 12:27) HTN/weight gain montelukast Adverse Reaction (Intermediate, Verified 04/04/25 12:27) Depression prednisone Adverse Reaction (Intermediate, Verified 04/04/25 12:27) Headache thioridazine (From Mellaril) Adverse Reaction (Intermediate, Verified 04/04/25 12:27) Hypertension tiotropium (From Spiriva with HandiHaler) Adverse Reaction (Intermediate, Verified 04/04/25 12:27) Headache trazodone Adverse Reaction (Intermediate, Verified 04/04/25 12:27) Hallucinations Novocain Allergy (Intermediate, Uncoded 12/30/24 12:10) tachycardia (when given w/epinephrine) oxycodone/acetaminophen Allergy (Mild, Uncoded 12/30/24 12:10) Rash artificial sweetners Adverse Reaction (Unknown, Uncoded 02/24/25 08:43) Unknown HPI HPI SCS PAIN: Details: History of Present Illness The patient is a 60-year-old female presenting with chronic low back pain and issues with her spinal nerve stimulator. The patient reports persistent low back pain that has not been alleviated by her spinal nerve stimulator. The pain is described as being located primarily in the lower back and is exacerbated by the heat generated from the stimulator pouch. The patient experiences significant discomfort during sleep due to the pain, w hich is primarily centralized along the spine. The spinal nerve stimulator, initially effective, has become less so over time, and the patient has not been able to contact the delivery representative for repr ogramming due to his paternity leave. Attempts to manage the pain with lidocaine cream over the stimulator pouch have been made, but the patient reports continued severe pain impacting her emotional well-being. Pain Description - Onset: Persistent low back pain - Quality: Centralized along the spine, exacerbated by heat from the stimulator pouch - Location: Primarily in the lower back - Exacerbating factors: Heat from the stimulator pouch, sleep disturbances - Relieving factors: None effectively noted - Interference: Significant discomfort during sleep, emotional impact Physical Exam - Musculoskeletal: Mild tenderness on palpation of the lower back Pain Management - Affect: Pain impacting emotional well-being - Analgesia: Current use of lidocaine cream, ineffective pain relief from spinal nerve stimulator - Adverse Effects: Heat from stimulator pouch causing discomfort - Activities of Daily Living: Pain causing significant sleep disturbances - Aberrant Drug Related Behaviors: None reported [facility] Medical History (Updated 03/13/25 @ 00:02 by Background Daemon) PTSD (post-traumatic stress disorder) Bipolar disorder Lumbar spondylosis Failed back syndrome Tachycardia Diabetes Sleep apnea Congenital valgus deformity Acquired hallux valgus Chronic back pain Arthropathy of spinal facet joint Kidney stone Intestinal malabsorption of carbohydrate Asthma Transient cerebral ischemia Hypertensive disorder Restless leg Binge eating disorder Recurrent major depressive episodes Morbid obesity Hyperlipidemia Hyperthyroidism Surgical History (Updated 03/13/25 @ 00:02 by Background Daemon) Status post insertion of spinal cord stimulator History of surgery History of fusion of cervical spine H/O: hysterectomy History of laparoscopic cholecystectomy History of lumbar laminectomy History of fusion of lumbar spine H/O gastric sleeve Family History Mother Diabetes mellitus COPD (chronic obstructive pulmonary disease) Pemphigoid Depressive disorder Hyperlipidemia Father Malignant neoplastic disease Myocardial infarction Maternal Grandmother Myocardial infarction Social History Household Members: None Housing: Apartment Are you a primary skin care instructor to a significant other at home: No Do you presently have visiting nurse or other home services: No Alcohol intake: never Patient Tobacco Use Status: Never used Tobacco Second Hand Smoke Exposure: No Advance Directives Date on File: 08/17/22 service: No Sexual orientation: Straight/Heterosexual Physical Exam Vital Signs: Last Vital Signs Pulse 79 04/04/25 12:28 Resp 20 04/04/25 12:28 BP 133/71 04/04/25 12:28 Pulse Ox 98 04/04/25 12:28 Oxygen Delivery Method Room Air 04/04/25 12:28 BMI result Body Mass Index 52.6 Assessment & Plan Assessment & Plan (1) Failed back syndrome: Code(s): M96.1 - Postlaminectomy syndrome, not elsewhere classified Category: Medical (2) Status post insertion of spinal cord stimulator: Code(s): Z96.89 - Presence of other specified functional implants Category: Surgical Plan Plan - Attempt to reprogram the spinal nerve stimulator to address ineffective pain relief. - client services representative from [employer] for reprogramming assistance. - Consider alternative pain management strategies if reprogramming is unsuccessful. Patient was informed and verbally consented to the use of an ambient scribe for clinic note documentation during this visit. Discussion Notes During the visit, we discussed the current issues with the spinal nerve stimulator and the persistent low back pain. We agreed to attempt reprogramming the stimulator and to contact the delivery representative from [employer] for assistance. If reprogramming does not provide relief, we will explore alternative pain management options. Patient Instructions - Attempt to contact the delivery representative from [employer] for reprogramming of the spinal nerve stimulator. - Monitor for any changes in pain or new symptoms and report them. - Follow up with the clinic if pain persists or worsens. Coding Level of Care Code Est Pt Level 3 (80761) Diagnoses Failed back syndrome M96.1 Status post insertion of spinal cord stimulator Z96.89
[2025-04-04 12:28] VITALS: BP 133/71; PULSE 79; RESP 20; O2SAT 98; BMI 52.6
== END 2025-04-04 13:06 | disposition home or self-care (01) ==
LOC: HO.PMC 12:23
PROVIDERS: Visit Provider Internal Medicine
DX: M96.1 Postlaminectomy syndrome, not elsewhere classified (principal); Z96.89 Presence of other specified functional implants
CPT/HCPCS: 99213

== ENCOUNTER → 2025-04-04 12:23 | Outpatient (BNVA) | payer OTHER, SELFPAY | PROVIDERS: Visit Provider Internal Medicine | DX: M96.1 Postlaminectomy syndrome, not elsewhere classified (principal); Z96.89 Presence of other specified functional implants | CPT/HCPCS: 99212 ==

== ENCOUNTER 2025-07-09 12:27 | Outpatient (AMB) | payer OTHER, SELFPAY ==
--- NOTE | 2025-07-09 12:42 | MHC.OFFVIS ---
Intake Visit Reasons: Syncope Allergies codeine Allergy (Severe, Verified 04/04/25 12:27) Itching divalproex sodium (Depakote) Allergy (Severe, Verified 04/04/25 12:27) rapid toxicity fluoxetine (Prozac) Allergy (Severe, Verified 04/04/25 12:27) suicidal ideation/HTN hydrochlorothiazide Allergy (Severe, Verified 04/04/25 12:27) vertigo benzonatate (Tessalon Perles) Allergy (Intermediate, Verified 04/04/25 12:27) Rash epinephrine Allergy (Intermediate, Verified 04/04/25 12:27) tachycardia erythromycin base Allergy (Intermediate, Verified 04/04/25 12:27) Hives Fish Containing Products Allergy (Intermediate, Verified 04/04/25 12:27) Hives guaifenesin Allergy (Intermediate, Verified 04/04/25 12:27) Itching iodine Allergy (Intermediate, Verified 04/04/25 12:27) Rash levofloxacin (Levaquin) Allergy (Intermediate, Verified 04/04/25 12:27) Itching/rash lidocaine Allergy (Intermediate, Verified 04/04/25 12:27) Rash morphine Allergy (Intermediate, Verified 04/04/25 12:27) itching/rash/redness @ injection site nitrofurantoin (From Macrobid) Allergy (Intermediate, Verified 04/04/25 12:27) Itching nortriptyline Allergy (Intermediate, Verified 04/04/25 12:27) Itching oxcarbazepine (From Trileptal) Allergy (Intermediate, Verified 04/04/25 12:27) Hives penicillin V Allergy (Intermediate, Verified 04/04/25 12:27) rash/itch shellfish derived Allergy (Intermediate, Verified 04/04/25 12:27) Rash strawberry Allergy (Intermediate, Verified 04/04/25 12:27) Itching Sulfa (Sulfonamide Antibiotics) Allergy (Intermediate, Verified 04/04/25 12:27) Rash sumatriptan (From Imitrex) Allergy (Intermediate, Verified 04/04/25 12:27) skin reaction tramadol Allergy (Intermediate, Verified 04/04/25 12:27) Itching Tricyclic Antidepressants and Tricy (Tricyclic Compounds) Allergy (Intermediate, Verified 04/04/25 12:27) Rash adhesive tape Adverse Reaction (Intermediate, Verified 04/04/25 12:27) Rash bupropion (From Wellbutrin) Adverse Reaction (Intermediate, Verified 04/04/25 12:27) Hypertension buspirone Adverse Reaction (Intermediate, Verified 04/04/25 12:27) Hypertension duloxetine (From Cymbalta) Adverse Reaction (Intermediate, Verified 04/04/25 12:27) tachycardia fluticasone Adverse Reaction (Intermediate, Verified 04/04/25 12:27) burning of nasal passages mirtazapine (From Remeron) Adverse Reaction (Intermediate, Verified 04/04/25 12:27) HTN/weight gain montelukast Adverse Reaction (Intermediate, Verified 04/04/25 12:27) Depression prednisone Adverse Reaction (Intermediate, Verified 04/04/25 12:27) Headache thioridazine (From Mellaril) Adverse Reaction (Intermediate, Verified 04/04/25 12:27) Hypertension tiotropium (From Spiriva with HandiHaler) Adverse Reaction (Intermediate, Verified 04/04/25 12:27) Headache trazodone Adverse Reaction (Intermediate, Verified 04/04/25 12:27) Hallucinations Novocain Allergy (Intermediate, Uncoded 12/30/24 12:10) tachycardia (when given w/epinephrine) oxycodone/acetaminophen Allergy (Mild, Uncoded 12/30/24 12:10) Rash artificial sweetners Adverse Reaction (Unknown, Uncoded 02/24/25 08:43) Unknown HPI Comments Details: 60 years old woman with past medical history significant for morbid obesity, bipolar disorder, chronic intractable depression with suicidal ideation status post treatment with TMS, type 2 diabetes mellitus, obstructive sleep apnea unable to tolerate CPAP, hypertension, chronic back pain with multiple lumbar spine surgeries was here with complain of forgetfulness. She also reported episode of passing out in December. She was in her kitchen and walking with a walker when something happened and she fell down and found herself later on the floor. There was no previous history of similar events. She has not passed out since then. He has been taking numerous medications. COUNT INCLUDES THE [facility] Medical History (Updated 07/09/25 @ 12:58 by Sonia Watson MD) PTSD (post-traumatic stress disorder) Bipolar disorder Lumbar spondylosis Failed back syndrome Tachycardia Diabetes Sleep apnea Congenital valgus deformity Acquired hallux valgus Chronic back pain Arthropathy of spinal facet joint Kidney stone Intestinal malabsorption of carbohydrate Asthma Transient cerebral ischemia Hypertensive disorder Restless leg Binge eating disorder Recurrent major depressive episodes Morbid obesity Hyperlipidemia Hyperthyroidism Surgical History (Updated 04/12/25 @ 00:01 by Background Daemon) Status post insertion of spinal cord stimulator History of surgery History of fusion of cervical spine H/O: hysterectomy History of laparoscopic cholecystectomy History of lumbar laminectomy History of fusion of lumbar spine H/O gastric sleeve Family History Mother Diabetes mellitus COPD (chronic obstructive pulmonary disease) Pemphigoid Depressive disorder Hyperlipidemia Father Malignant neoplastic disease Myocardial infarction Maternal Grandmother Myocardial infarction Social History Household Members: None Housing: Apartment Are you a primary healthcare financial analyst to a significant other at home: No Do you presently have visiting nurse or other home services: No Alcohol intake: never Patient Tobacco Use Status: Never used Tobacco Second Hand Smoke Exposure: No Advance Directives Date on File: 08/17/22 service: No Sexual orientation: Straight/Heterosexual Review of Systems Narrative Constitutional:? Complain of weight loss and gain and high blood pressure HEENT:?No headache, vision changes, hearing loss, nasal congestion, sore throat. Cardiovascular:?No chest pain, palpitations, orthopnea, PND, or leg swelling. Respiratory:? Complain of wheezing. Gastrointestinal:? Complain of diarrhea, nausea. Genitourinary:? Complain of urinary urgency. Musculoskeletal:? Complain of joint pain, back pain or neck pain. Neurological:? Complain of difficulty walking, confusion, cold intolerance, memory problems, heat intolerance, numbness and tingling, headaches, sleep problems, dizziness. Psychiatric:? Complain of anxiety, depression, suicidal thoughts. Endocrine:?No heat/cold intolerance, polydipsia, polyuria, or hair/skin changes. Hematologic/Lymphatic:?No easy bruising, bleeding, or lymphadenopathy. Integumentary (Skin):?No rash, lesions, itching, or color changes. Allergic/Immunologic:?No seasonal allergies, hives, or recurrent infections. Physical Exam Neuro Other: Mental Status: Alert and oriented to person, place, and time. Normal attention. Normal spontaneous speech, fluency, and comprehension. No obvious issues with mood and memory. Affect is appropriate. Cranial Nerves: CN II: Visual briones full to confrontation, visual acuity intact. CN III, IV, : Pupils equal, round, reactive to light and accommodation. Extraocular movements are normal. CN V: Facial sensation is normal. CN VII: Facial movements symmetrical. CN VIII: Hearing intact to bedside conversation is normal. CN IX, X: Palate elevates symmetrically. CN XI: Shoulder shrug and head turn symmetrical. CN XII: Tongue midline without atrophy or fasciculations. She is in a wheelchair and able to navigate the motorized wheelchair. She is able to move her extremities. Due to morbid obesity examination is limited. Extrapyramidal: Full facial expressions and blinking. No rigidity. Movements are appropriate with no tremor or abnormality. Speech: Normal; no dysarthria or tremor. Results Reviewed Results Reviewed: Laboratory Tests 02/22/25 08:46 Vitamin B12 973 H Folate 11.1 TSH 2.44 Assessment & Plan Assessment & Plan (1) MCI (mild cognitive impairment): Comment: CT brain at [facility] in 2024: [place] Code(s): G31.84 - Mild cognitive impairment of uncertain or unknown etiology Category: Medical (2) Syncope: Code(s): R55 - Syncope and collapse Category: Medical Qualifiers: Syncope type: unspecified Qualified Code(s): R55 - Syncope and collapse Plan Impression: 1. Mild cognitive impairment likely multifactorial from severe depression, morbid obesity with obstructive sleep apnea not treated as she could not tolerate CPAP, and multiple medicines. 2. Syncopal episode of unknown etiology Recommendations: 1. Reassurance and education. In answer to 1 of her questions, I do not think her cognitive issues are cause by it treatment with TMS. 2. EEG Orders: Orders EEG Routine Today R55 - Syncope and collapse Coding Level of Care Code New Pt Level 4 (61479) Diagnoses MCI (mild cognitive impairment) G31.84 Syncope, unspecified syncope type R55 Syncope type: unspecified
--- OUTSIDE RECORDS SUMMARY | 2025-07-09 15:06 | XMS_ITS | Continuity of Care Document ---
Author Name [facility], Medical Address [address] [place] [id number] Organization Unknown Address [address] [place] [id number] Medications No known medications Problems No known problems
--- OUTSIDE RECORDS SUMMARY | 2025-07-09 15:06 | XMS_ITS | Continuity of Care Document ---
Author Name Jamie Pascal Address [address] [place] [id number] Organization Unknown Address [address] [place] [address] Medications No known medications Problems No known problems
--- OUTSIDE RECORDS SUMMARY | 2025-07-09 15:06 | XMS_ITS | Data Portability ---
Author Organization 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 Kaur Meyer is a 57yoF who is s/p spinal cord stimulator implantation on 01/20 who is seen today for a wound check/dressing change. Ms. Meyer reports that her dressing and lu are supposed to be removed this upcoming Monday, but her dressing came off today and Counts include [facility] beds at the [facility] was called to re-dress it. She has no complaints and feels well otherwise. VSS. Border Guard on site reports wound appears to be [...] and should FUP PCP should sxs continue. [email or web address] Not available 08/05/2024 20:26:43 Plan of Treatment Reminders Order Date Submit Date Provider Last Modified By Organization Details Last Modified Time Details Appointments None recorded. Lab BMP, serum or plasma 2024 025 BENJY [facility], [address], [place], [address] 07:54:40 Referral None recorded. Procedures None recorded. Surgeries None recorded. Imaging None recorded. Medication Orders ketorolac 15 mg/mL injection solution 2024 025 gbaci [facility], [address] [place], [address], 5 21:02:05 Patient TargetsNo targets recorded. Patient InstructionsNo instructions recorded. Reason for Referral None Reported. Results Created Date Observation Date Name Description Value Unit Range Abnormal Flag Note LastModifiedBy Organization Detail LastModifiedTime Result Notes None recorded. Medical Equipment None Reported. Allergies Allergen ID Allergen Name Allergen Category Reaction Reaction Severity Criticality Documentation Date Start Date Code Code System Note Provider Name and Address Organization Details Recorded Time Adderall medicatio n Not available Not available Not available 08/05/2024 87325 RxNorm Not Available [facility] - production 4 12:44:08 08878 albuterol medicatio n Not available Not available Not available 08/05/2024 435 RxNorm Not Available [facility] - production 4 12:44:08 buspirone medicatio n Not available Not available Not available 08/05/2024 1827 RxNorm Not Available [facility] - production 4 12:44:08 65891 Celebrex medicatio n Not available Not available Not available 08/05/2024 88536 7 RxNorm Not Available [facility] - production 4 12:44:08 23641 codeine medicatio n Not available Not available Not available 08/05/2024 2670 RxNorm Not Available [facility] - production 4 12:44:08 86076 Cymbalta medicatio n Not available Not available Not available 08/05/2024 42731 4 RxNorm Not Available [facility] - production 4 12:44:08 31998 Depakote medicatio n Not available Not available Not available 08/05/2024 75709 9 RxNorm Not Available [facility] - production 4 12:44:08 40177 fentanyl medicatio n Not available Not available Not available 08/05/2024 4337 RxNorm Not Available [facility] - production 4 12:44:08 63635 fluticaso ne Not available Not available Not available Not available 08/05/2024 31191 Rx[facility] Not Available [facility] 4 12:44:08 96427 morphine medicatio n Not available Not available Not available 08/05/2024 7052 RxNorm Not Available [facility] - production 4 12:44:08 16268 acetamino phen / oxycodone medicatio n Not available Not available Not available 08/05/2024 60331 3 RxNorm Not Available [facility] - production 4 12:44:08 89337 prednison e medicatio n Not available Not available Not available 08/05/2024 8640 RxNorm Not Available [facility] - production 4 12:44:08 71862 tramadol medicatio n Not available Not available Not available 08/05/2024 09759 RxNorm Not Available [facility] - production 4 12:44:08 84406 erythromy bridget medicatio n Not available Not available Not available 08/05/2024 4053 RxNorm Not Available [facility] - production 4 12:44:08 78632 sulfameth oxazole medicatio n Not available Not available Not available 08/05/2024 88058 RxNorm Not Available [facility] - production 4 12:44:08 21732 adhesive tape environme nt,medica tion Not available Not available Not available 02/17/2025 Not Available [facility] - production 5 14:38:26 71946 guaifenes in medicatio n Not available Not available Not available 02/17/2025 5032 RxNorm Not Available [facility] - production 5 14:38:26 36338 hydrochlo rothiazid e medicatio n Not available Not available Not available 02/17/2025 5487 RxNorm Not Available [facility] - production 5 14:38:26 96205 Imitrex medicatio n Not available Not available Not available 02/17/2025 46994 3 RxNorm Not Available [facility] - production 5 14:38:26 20026 iodine medicatio n Not available Not available Not available 02/17/2025 5933 RxNorm Not Available [facility] - production 14:38:26 03306 Levaquin medicatio n Not available Not available Not available 02/17/2025 72255 2 RxNorm Not Available [facility] - production 5 14:38:26 11189 lidocaine medicatio n Not available Not available Not available 02/17/2025 6387 RxNorm Not Available [facility] - production 5 14:38:26 08724 Macrobid medicatio n Not available Not available Not available 02/17/2025 23119 1 RxNorm Not Available [facility] - 14:38:26 72473 thioridaz ine hydrochlo ride medicatio n Not available Not available Not available 02/17/2025 97676 5 RxNorm Not Available [facility] - production 5 14:38:26 04316 methylphe nidate medicatio n Not available Not available Not available 02/17/2025 6901 RxNorm Not Available [facility] - production 5 14:38:[address] medicatio n Not available Not available Not available 02/17/2025 55432 RxNorm Not Available [facility] - production 14:38:26 35192 nortripty line medicatio n Not available Not available Not available 02/17/2025 7531 RxNorm Not Available [facility] - production 5 14:38:26 09728 procaine hydrochlo ride medicatio n Not available Not available Not available 02/17/2025 04851 8 RxNorm Not Available [facility] - production 5 14:38:26 36748 Product containin g penicilli n (product) medicatio n Not available Not available Not available 02/17/2025 16115 8001 SNOMED Not Available [facility] - production 5 14:38:26 06428 phentermi ne medicatio n Not available Not available Not available 02/17/2025 8152 RxNorm Not Available [facility] - 5 14:38:26 74850 prochlorp erazine medicatio n Not available Not available Not available 02/17/2025 8704 RxNorm Not Available [facility] 5 14:38:26 41506 Prozac medicatio n Not available Not available Not available 02/17/2025 55362 RxNorm Not Available [facility] 5 14:38:26 02653 quetiapin e medicatio n Not available Not available Not available 02/17/2025 26771 RxNorm Not Available [facility] 5 14:38:26 22321 Remeron medicatio n Not available Not available Not available 02/17/2025 48183 4 RxNorm Not Available [facility] 5 14:38:26 93119 Spiriva medicatio n Not available Not available Not available 02/17/2025 99871 5 RxNorm Not Available [facility] 5 14:38:26 06860 Tessalon Perles medicatio n Not available Not available Not available 02/17/2025 65674 4 RxNorm Not Available [facility] 5 14:38:26 99388 topiramat e medicatio n Not available Not available Not available 02/17/2025 33339 RxNorm Not Available [facility] 5 14:38:26 58078 trazodone medicatio n Not available Not available Not available 02/17/2025 54004 RxNorm Not Available [facility] - 5 14:38:26 28798 Tricyclic antidepre ssant (substanc e) medicatio n Not available Not available Not available 02/17/2025 57894 3007 SNOMED Not Available [facility] - 5 14:38:26 63830 Trileptal medicatio n Not available Not available Not available 02/17/2025 76490 0 RxNorm Not Available [facility] - 5 14:38:26 18701 venlafaxi ne medicatio n Not available Not available Not available 02/17/2025 96715 RxNorm Not Available [facility] 5 14:38:26 05314 Wellbutri n medicatio n Not available Not available Not available 02/17/2025 84468 RxNorm Not Available [facility] 5 14:38:26 19955 Ultram medicatio n Not available Not available Not available 02/17/2025 59201 6 RxNorm Not Available [facility] 5 14:38:26 23002 Substance with sulfonami de structure and antibacte rial mechanism of action (substanc e) medicatio n Not available Not available Not available 02/17/2025 48879 8003 SNOMED Not Available [facility] 5 14:38:26 77574 oxycodone medicatio n Not available Not available Not available 02/17/2025 7804 RxNorm Not Available [facility] 5 14:38:26 82442 prednisol one medicatio n Not available Not available Not available 02/17/2025 8638 RxNorm Not Available [facility] 5 14:38:26 10929 Reglan medicatio n Not available Not available Not available 02/17/2025 9230 RxNorm Not Available [facility] 5 14:38:26 7169 Bactrim medicatio n Not available Not available Not available 07/02/2024 69206 9 RxNorm Not Available [facility] 4 03:35:31 Medications Name Sig Start [...] Pen Needle 32 gauge x USE ONCE DAILY active Not Available Not Available No t Available [employer]-Home COVID-19 Test kit TEST DIRECTED TODAY active Not Available Not Available No t Available Vitals Date Recorded Respiratory rate Oxygen saturation Oxygen saturation in Arterial blood by Pulse oximetry Body temperature Heart rate Systolic And Diastolic Provider Name and Address Organization Details Last Updated DateTime 3 18 /min 95 % 95 % 98.4 [degF] 60 /min 145/90 mm[Hg] Not Available [facility] 3 19:35:15 Date Recorded Respiratory rate Heart rate Body temperature Oxygen saturation Oxygen saturation in Arterial blood by Pulse oximetry Body weight Body height Systolic And Diastolic Provider Name and Address Organization Details Last Updated DateTime 5 20 /min 83 /min 98.5 [degF] 96 % 96 % 534983. 072 g 165.1 cm 182/81 mm[Hg] Not Available [facility] 5 20:23:27 Date Recorded Heart rate Body temperature Respiratory rate Oxygen saturation Oxygen saturation in Arterial blood by Pulse oximetry Respiratory rate Oxygen saturation Oxygen saturation in Arterial blood by Pulse oximetry Body temperature Heart rate Systolic And Diastolic Systolic And Diastolic Provider Name and Address Organization Details Last Updated DateTime 2 76 /min 99.1 [degF] 20 /min 96 % 96 % 20 /min 96 % 96 % 99.1 [degF] 76 /min 113/76 mm[Hg] 113/76 mm[Hg] Not Available [facility] 2 18:37:02 Date Recorded Body temperature Body height Heart rate Body weight Respiratory rate Oxygen saturation Oxygen saturation in Arterial blood by Pulse oximetry Systolic And Diastolic Provider Name and Address Organization Details Last Updated DateTime 4 97.1 [degF] 165.1 cm 70 /min 001101. 6 g 16 /min 96 % 96 % 132/94 mm[Hg] Not Available [facility] 4 20:08:51 Social History None recorded. Functional Status None recorded. Mental Status None recorded. Family History Nothing Reported. Medical History No medical history recorded. Gynecological HistoryNo gynecological history recorded. Obstetrics History GPAL:G 0 P 0 0 0 0 Past Encounters Encounter ID Performer Location Encounter Start Date Encounter Closed Date Diagnosis/Indication Diagnosis SNOMED-CT Code Diagnosis ICD10 Code Diagnosis IMO Codes Diagnosis Note [id number] Rubio Goldberg MD [facility] [place] [phone] 07/29/2022 17:29:40 08/01/2022 10:50:25 Neuropathy 200818679 G62.9 New onset neuropathy in lower extremitie s with weakness; recommende d ED for evaluation but patient declined, as states has follow-up with surgeon soon Dizziness [id number] R42 Unclear etiology. Negative orthostati cs and [...] would contact and inform her surgeon FRED. [id number] Carrie Lopez MD [facility] [place] [id number] 0 01/27/2023 19:35:14 01/30/2023 18:31:47 Post-surgical wound care [id number] Z48.01 [id number] JOSE CORDOVA MD [facility] - [address] [phone] 08/05/2024 20:08:47 08/05/2024 21:24:15 Ankle pain 724295142 M25.579 [id number] HAYLIE PAYNE MD [facility] ED Medical [address] [id number] 05/09/2025 20:20:36 05/11/2025 15:32:51 Chronic low back pain 968621351 M54.50 G89.29 [id number] Evaluation in the field was performed by my coding spec colleague, as noted above, I provided real-time direction and supervisio n for this visit. The evaluation revealed 60-year-ol d female with history of gastric sleeve, morbid obesity, chronic back pain s/p spinal cord stimulator implantati on (01/2023), multiple spinal fusions , neuropathy on chronic Dilaudid presents with lower back pain, described as chronic with flare-ups. Denies urinary complaints , new lower extremity weakness, saddle anesthesia , or bladder/ezequiel wel incontinen ce. No history of CKD or GI bleed. Not on anticoagul ation. Vital Signs: BP 182/81, HR 83, RR 20, SpO2 96% RA, Temp 98.5 FExam:AAO, NADLungs clear to auscultati on bilaterall yAbdomen soft, non-tender , non-disten dedNo focal neurologic deficitNa 142, K 4.7, Cl 100, TCO2 30iCa 1.08Glucos e 140BUN 23, Creatinine 1.9 (GRECIA vs CKD, baseline unknown)Hc t 41%, Hb 13.9 g/dLAllerg ies: Reviewed intoleranc e to Ultram and Celebrex related to gastric sleeve Impression :Acute on chronic low back pain in patient with spinal cord stimulator and chronic opioid use.No red flag symptoms for cord compressio n or cauda equina.Jennifer vated creatinine (1.9) concerning for underlying CKD vs GRECIA (baseline unclear).H ypertensio n noted (182/81). Plan:Ketor olac 15 mg IM 1 for pain control.Av oid NSAID use beyond this dose given elevated creatinine and gastric sleeve history.Re sume home pain regimen as prescribed .Recheck renal function with PCP consider trending BUN/Cr and evaluating for CKD.Monito r BP and follow up with PCP for management of hypertensi on.Red flags discussed with pt including : worsening pain, new weakness, numbness, saddle anesthesia , or incontinen ce ED evaluation . Primary care, considerre ferral to nephrology if creatinine remains elevated or worsens.Co nsider blood pressure management adjustment given elevated BP today. Dispositio n: We discussed the diagnostic uncertaint y of home visits and the risk associated with this. In this case, the patient and I felt this to be an acceptable and reasonable amount of risk given the benefit of avoiding an ED visit. We discussed the need to seek care urgently/e mergently in the setting of any new or worsening serious symptoms, particular ly worsening pain, new weakness, numbness, saddle anesthesia , or incontinen ce Health Concerns Section Related Observation LastModified by Organization Detai ls LastModified Time None Recorded Concern Status LastModified by Organization Details LastModified Time None Recorded Advance Directives Directive None Recorded Payers Insurance Date Sequence Insurance Name Policy Number Policy Jc Covered Member ID Jc Member ID Guarantor Name 01/27/2023 1 [facility] - DOS PRIOR TO 2022 - DUAL ELIGIBLE (MEDICARE REPLACEMENT/AD VANTAGE - HMO) Kaur Meyer [id number] [employer] 08/05/2024 1 [facility] - DOS ON OR AFTER 2022 - DUAL ELIGIBLE - PRISON OPTIONS AND ONE CARE (MEDICARE REPLACEMENT/AD VANTAGE - HMO) Kaur Meyer [id number] [employer] 08/06/2024 1 [facility] - DOS ON OR AFTER 2022 - MEDICARE [place]ANTAGE [place] (MEDICARE REPLACEMENT/AD VANTAGE - PPO) Michell Meyer [id number] [employer] 05/09/2025 1 [facility] - DOS ON OR AFTER 2022 - DUAL ELIGIBLE - PRISON OPTIONS AND ONE CARE (MEDICARE REPLACEMENT/AD VANTAGE - HMO) Michell Meyer [id number] Michell Meyer Notes Date Note Type Note Provider Name and Address Organization Details Recorded Time 07/29/2022 text/html ROS as noted in the HPI HPI: Todd is a 57 y/o with c/o lightheadedness and back pain. States that she hurt her back while lifting a 15lb turkey on 07/28. This morning she woke up feeling lightheaded with new onset tingling to bilateral feet. Dimar also c/o weakness to both legs. Todd is a diabetic. Last BG 125. States that she walked to [email or web address] this morning using her walker and she felt like she was in 2 worlds. Reports that her eyes feel weird from the dizziness she is experiencing. States that she is concerned her BP is bottoming out. Asked todd if she had a machine to check [...] Offered [facility]. Mbr agreeable. Best contact num [phone] CODE: Full Code ALLERGIES: PCN, Iodine, Trileptal, Epinephrine, Morphine, Oxycodone, Trazadone, Remeron, Wellbutrin, HCTZ, Tricyclic compounds, Levaquin, Shellfish, Prozac, Novocain, Tessalon and others PMHx: DM2, HTN, PTSD, major depressive d/o, borderline personality d/o, tachycardia ....................... ....................... ....................... ....................... ....................... ....................... ... CRC Nursing Assessment: Comments: CRC RN did not require any additional information to process this visit. ....................... ....................... ....................... ....................... ....................... ....................... ... Border Guard Note: Community Border Guard Jer Sebastian SC6 dispatched to a [facility] for a 57 yof C/O [...] Pt was opposed to transport to ED. [facility] consulted; Physician recommended CMP and EKG, and [...] would contact and inform her surgeon FRED. ....................... ....................... ....................... ....................... ....................... ....................... ... Disposition: Ankur Goldberg MD [address], [place], [address], [facility] - [employer] 07/30/2022 08:20:38 01/27/2023 text/html CRC Nursing Assessment: Reason For Request: wound Chief Complaints: Wound Care PMH: Diabetes, Severe Persistent Mental Illness (SPMI), Hypertension Allergies: Bactrim Comments: Verified identity by Member had a spinal cord stimulator implant , per member she was told that the dressing she stay on . [place] to be removed Monday . They changed the dressing on Monday. The dressing is tegaderm and gauze pad. The member does not have tegaderm . ....................... ....................... ....................... ....................... ....................... ....................... ... Border Guard Note From Sharifa Hobson: Sent to evaluate [...] large tegaderms to secure in place. Consulted [facility] who had no further recommendations or orders at this time. Left pt with additional dressing supplies and pt voiced understanding on how to instruct friend to do it if needed. Pt has f/u with surgeon office on 01/31. No further questions or concerns at this time. ....................... ....................... ....................... ....................... ....................... ....................... ... Disposition: Fulfilled Carrie Lopez MD [address] [place] [address],[address] [facility], [place], [address], [employer] 01/27/2023 21:13:47 08/05/2024 text/html HPI: Pt is having swelling to right ankle with pain, no known injury ....................... ....................... ....................... ....................... ....................... ....................... ... CRC Nurse Triage Notes (Estefanía Lerma): Chief Complaints: Joint pain/swelling PMH: Severe Persistent Mental Illness (SPMI), Hypertension, Anxiety Disorder, Diabetes Mellitus Type 2, Depression, Chronic Kidney Disease, Hyperlipidemia, Kidney Stones, Asthma, Chronic Pain Comments: HPI reviewed- NE ....................... ....................... ....................... ....................... ....................... ....................... ... Border Guard Note From Marcell Steele: This 59-year-old female [...] questions and is agreeable to this plan. ....................... ....................... ....................... ....................... ....................... ....................... ... [facility] Consulted: Jose Cordova ....................... ....................... ....................... ....................... ....................... ....................... ... Disposition: Fulfilled JOSE CORDOVA MD [address] [place] [address],[address], [place], [phone], [employer] 08/05/2024 21:12:16 05/09/2025 text/html ROS as noted in the HPI HPI: mbr with complaints of lower back pain states chronic with flare ups, denies any urinary complaints. requesting [facility] visit for evaluationProtocol Used: Back PainProtocol-Based Disposition: Consider Jamshid, [facility] Community clinician, MD/CANVASS MANAGER triage, PCP, or Urgent Care Visit within 4 HoursPositive Triage Questions:* [1] SEVERE back pain (e.g., excruciating, unable to do any normal activities) AND [2] not improved 2 hours after pain medicine* [1] Pain radiates into the thigh or further down the leg AND [2] both legsNegative Triage Questions:* Passed out (e.g., fainted, lost consciousness, blacked out and was not responding)* [1] SEVERE back pain (e.g., excruciating) AND [2] sudden onset AND [3] age > 60 years* [1] SEVERE abdominal pain AND [2] present > 1 hour* [1] Abdominal pain AND [2] age > 60 years ....................... ....................... ....................... ....................... ....................... ....................... ... [facility] Nurse Triage Notes (Shannan Snow): Chief Complaints: Back Pain PMH: Severe Persistent Mental Illness (SPMI), Hypertension, Anxiety Disorder, Diabetes Mellitus Type 2, Depression, Chronic Kidney Disease, Hyperlipidemia, Kidney Stones, Asthma, Chronic Pain, Post-Traumatic Stress Disorder (PTSD) PMH Reviewed at 05/09/2025 Allergies Reviewed at 05/09/2025:34 Comments: Reviewed HPI. Border Guard Organization Information for [employer] Business Legal Name: [employer]. Address: [address] [place] [address], Home School Coordinator: Michele Sierra MD CLIA No.: [id number] Border Guard POC Test Results from [employer] Chem8+ (20:54:49) Na: 142mEq/L K: 4.7mEq/L Cl: 100mEq/L iCa: 1.08mmol/L TCO2: 30mmol/L Glu: 140mg/dL BUN: 23mg/dL Crea: 1.9mg/dL Hct: 41% Hb: 13.9g/dL Ammol/L Cartridge Number: [id number] Attachments uploaded as part of this test result can be found under Documents section. ....................... ....................... ....................... ....................... ....................... ....................... ... Border Guard Note From [employer]ese Lim: SC6 and SC12 respond to the listed address for a 60 yof w/ a c/c of back pain. Upon arrival on scene, pt comes up the elevator behind [facility] and opens the door to her apartment. She is carrying a laundry basket full of clothes and laundry detergent containers and is walking bent over w/ a slight limp. She is c/o the basket being heavy and [facility] carries it inside for her as she walks to her lift chair and sits down. She is generally well-appearing, no ashen or perea color is noted. She does not wear a grimace of pain on her face, but she is moving slowly and deliberately. She is able to stand and sit while using her arms for assistance. Pt is obese at baseline and it is difficult to ascertain if she is having trouble walking due to pain or her weight. No stridor or sonorous respirations are noted, no facial droop or one-sided weakness are observed, and she is not bleeding anywhere. Pt tells [facility] she is having a flare up of her chronic back pain that has been gradually increasing over the past week. Pt describes the pain as 9/10 in severity, like someone is poking her in the back w/ a needle. She is almost out of her prescribed dilaudid and doesn't get a refill until next week. Her implanted spinal stimulator is not currently working as she needs to have it updated and has yet to have the appointment to do so. She denies any bladder or bowel incontinence, no new numbness or tingling in her legs or feet beyond her baseline. She does say the pain is from T12 on down to the coccyx and out to the iliac crests on both sides . Pt further denies cp, sob, n/v/d, clay, or recent dizzy spells, bouts of confusion, or recent falls or trauma to the lumbar spine as well as fevers/chills, black/bloody stools, difficult or painful urination, increased frequency, or foul smelling urine. Pt has hx of multiple spinal fusions she says all failed . Pt is hoping for help w/ pain relief this evening. She endorses a PmHx including gastric sleeve, diabetes, and chronic pain. Ddx: osteoarthritis flare up, UTI, kidney stone/infection, neuropathy. [facility] obtains vital signs and pt is assessed. HEENT is unremarkable and chest rises and falls equally and bilaterally. Pt is able to sit and stand on her own. Bilateral LE ROM is WNL and she is able to plantar and dorsiflex both ankles as well as abd/add her ankles and wiggle her toes. She has neuropathy at baseline and feet are slightly numb and tingle at her baseline. She is unable to bend into forward flexion and gets dizzy if she tries to extend her lumbar spine. Spinal stimulator is palpable on the L side of the lumbar region. All scars are well healed and no signs of redness, swelling, or blanching of skin are present. Pt is able to answer all questions and follows all commands. [facility] contacts [facility] and discusses the above. [facility] orders IV access for BMP. IV access is attempted in the L AC using aseptic technique and is not successful. IV access is obtained in the R AC using aseptic technique and a 23ga butterfly. Blood is obtained for bmp and butterfly is removed and pressure bandage applied w/ 2x2 and coban. [facility] orders 15mg toradol IM and encourages pt to contact her PCP regarding her kidney function. [facility] administers 15mg toradol IM in the R deltoid using aseptic technique. [facility] informs and discusses red flags w/ pt and she says she will contact her urologist next week. [facility] is clear. Report completed by CHINO Lim [id number]. [facility] Lab Orders: BMP, serum or plasma: Performed [facility] Medication Orders: ketorolac 15 mg/mL injection solution: Performed ....................... ....................... ....................... ....................... ....................... ....................... ... [facility] Consulted: Haylie Payne ....................... ....................... ....................... ....................... ....................... ....................... ... Disposition: Ankur PAYNE MD [address], [place], [address], JUANA - WYATT ARELLANO 05/09/2025 23:18:53 OBGyn Episode No OBEpisode recorded.
--- OUTSIDE RECORDS SUMMARY | 2025-07-09 15:06 | XMS_ITS | Encounter Summary ---
Author Organization [facility] Address [address] [place] [address] Encounters * CPT with Medical [facility] at [employer] on 2025-05-10 mbr with complaints of lower back pain states chronic with flare ups, denies any urinary complaints. requesting [facility] visit for evaluation Protocol Used: Back Pain Protocol-Based Disposition: Consider [facility] Community clinician, MD/MAGNETO SPECIALIST triage, PCP, or Urgent Care Visit within 4 Hours Positive Triage Questions: * [1] SEVERE back pain (e.g., excruciating, unable to do any normal activities) AND [2] not improved 2 hours after pain medicine * [1] Pain radiates into the thigh or further down the leg AND [2] both legs Negative Triage Questions: * Passed out (e.g., fainted, lost consciousness, blacked out and was not responding) * [1] SEVERE back pain (e.g., excruciating) AND [2] sudden onset AND [3] age >60 years * [1] SEVERE abdominal pain AND [2] present >1 hour * [1] Abdominal pain AND [2] age >60 years { reasonForRequest : , patientReports : , denies&quot ;:[], chiefComplaints : Back Pain , pmh : Severe Persistent Mental Illness (SPMI), Hypertension, Anxiety Disorder, Diabetes Mellitus Type 2, Depression, Chronic Kidney Disease, Hyperlipidemia, Kidney Stones, Asthma, Chronic Pain, Post-Traumatic Stress Disorder (PTSD) , allergies : Bactrim, Adderall, Albuterol, Buspirone, Celebrex, Codeine, Cymbalta, Depakote, Fentanyl, Fluticasone, Morphine, Percocet, Prednisone, Tramadol, Erythromycin Base, Sulfamethoxazole, Adhesive tape, Guaifenesin, Hydrochlorothiazide, Imitrex, Iodine, Levaquin, Lidocaine, Macrobid, Mellaril, Methylphenidate, Montelukast, Nortriptyline, Novocain, Penicillins, Phentermine, Prochlorperazine, Prozac, Quetiapine, Remeron, Spiriva With Handihaler, Tessalon Perles, Topiramate, Trazodone, Tricyclic Antidepressants and Tricyclic Compounds, Trileptal, Venlafaxine, Wellbutrin, Ultram, Sulfa (Sulfonamide Antibiotics), Oxycodone, Prednisolone, Reglan , otherAlle rgies :null, painAssessment : , visitOutcome : ,&quot ;additionalComments : Reviewed HPI. \n } [facility] and [facility] respond to the listed address for a 60 yof w/ a c/c of back pain. Upon arrival on scene, pt comes up the elevator behind [facility] and opens the door to her apartment. Sheis carrying a laundry basket full of clothes and laundry detergent containers and is walking bent over w/ a slight limp. She is c/o the basket being heavy and [facility] carries it inside for her as she walks to her lift chair and sits down. She is generally well-appearing, no ashen or perea color is noted. She does not wear a grimace of pain on her face, but she is moving slowly and deliberately. She isable to stand and sit while using her arms for assistance. Pt is obese at baseline and it is difficult to ascertain if she is having trouble walking due to pain or her weight. No stridor or sonorous r espirations are noted, no facial droop or one-sided weakness are observed, and she is not bleeding anywhere. Pt tells [facility] she is having a flare up of her chronic back pain that has been gradually increasing over the past week. Pt describes the pain as 9/10 in severity, like someone is poking her inthe back w/ a needle. She is almost [...] osteoarthritis flare up, UTI, kidney stone/infection, neuropathy. [facility] obtains vital signs and pt is assessed. HEENT is unremarkable and chest rises and falls equallyand bilaterally. Pt is able to sit and stand on her own. Bilateral LE ROM is WNL and she is able toplantar and dorsiflex both ankles as well as abd/add her ankles and wiggle her toes. She has neuropathy at baseline and feet are slightly numb and tingle at her baseline. She is unable to bend into forward flexion and gets dizzy if she tries to extend her lumbar spine. Spinal stimulator is palpableon the L side of the lumbar region. All scars are well healed and no signs of redness, swelling, orblanching of skin are present. Pt is able to answer all questions and follows all commands. [facility] contacts [facility] and discusses the above. [facility] orders IV access for BMP. IV access is attempted in the L AC using aseptic technique and is not successful. IV access is obtained in the R AC using aseptic technique and a 23ga butterfly. Blood is obtained for bmp and butterfly is removed and pressure bandage applied w/ 2x2 and coban. [facility] orders 15mg toradol IM and encourages pt to contact her PCP regarding her kidney function. [facility] administers 15mg toradol IM in the R deltoid using aseptic technique. [facility] informs and discusses red flags w/ pt and she says she will contact her urologist next week. [facility] is clear. Report completed by CHINO Lim [id number]. IV_(FLUIDS_AND/OR_MEDICATION), MEDICATION_IM, ORAL_MEDICATION, EKG Written by [facility] on 2025-05-10
== END 2025-07-09 13:08 | disposition home or self-care (01) ==
LOC: HO.HSM 12:28
PROVIDERS: Visit Provider Psychiatry & Neurology Neurology
DX: G31.84 Mild cognitive impairment of uncertain or unknown etiology (principal); R55 Syncope and collapse
CPT/HCPCS: 99204

== ENCOUNTER → 2025-07-09 12:27 | Outpatient (BNVA) | payer OTHER, SELFPAY | PROVIDERS: Visit Provider Psychiatry & Neurology Neurology | DX: R55 Syncope and collapse (principal); G31.84 Mild cognitive impairment of uncertain or unknown etiology | CPT/HCPCS: 99202 ==

== ENCOUNTER 2025-07-30 12:39 | Outpatient (REF) | payer OTHER, SELFPAY ==
--- OUTSIDE RECORDS SUMMARY | 2025-07-24 18:51 | XMS_ITS | Encounter Summary ---
Author Organization [facility] Address [address] [place] [id number] Phone Care Team Providers Care Housing Quality Standard Inspector Name Role Phone Saloni Smith Unavailable [email or web address] Daylin Nino MD Unavailable Rayshawn Love MD Unavailable [phone]- [phone] Kylie Crook MD Primary Care Provider [phone]- [phone] Reason for Visit * Reason Comments Allergic Reaction Encounter Details Date Type Department Care Team (Late st Contact Info) Description 07/24/2025 6:51 PM EST - 07/24/2025 10:34 PM EST Emergency [facility] [address] [place] [address] Discharge Disposition: Home or Self Care Social History Tobacco Use Types Packs/Day Years Used Date Smoking Tobacco: Never Smokeless Tobacco: Never Alcohol Use Standard Drinks/Week Comments No 0 (1 standard drink = 0.6 oz pure alcohol) alcohol abuse for one year following of father 2001 Education Answer Date Recorded Are you interested in more education? Not on cassandra e 12/29/2022 Are you concerned about learning? Not on file 12/29/2022 No 12/29/2022 No 12/29/2022 Food Answer Date Recorded Within the past 6 months we worried whether our food would run out before we got money to buy more. Never True 06/19/2025 Within the past 6 months the food we bought just didn't last and we didn't have enough money to get more. Never True Residential Stability Answer Date Recor ded What is your housing situation today? I have cedrick alaniz 06/19/2025 How many times have you move d in the past 12 months? Zero (I did not move) 06/19/2025 Paying for Meds Answer Date Recorded Do you have trouble paying for medicines? No 06/19/2025 Paying Utility Bills Answer Date Record ed Do you have trouble paying your heating or elect ricity bill? No 06/19/2025 Transportation Answer Date Recorded Has the lack of transportati on kept you from medical appointments or from getting medications? No 06/19/2025 Digital Access Answer Date Recorded No 06/19/2025 Yes 06/19/2025 Do you have reliable internet access at home? Ye s 06/19/2025 Do you have a device (e.g., phone, tablet, computer) with a working camera? Yes 06/19/2025 Intimate Partner Violence Answer Date R ecorded Are you denied basic needs s uch as food, clothing, or medical care? No 06/19/2025 In the past 12 months have y ou been in a relationship with a person who hurts, threatens, or tries to control you? No 06/19/2025 Are you denied basic needs s uch as food, clothing, or medical care? No 06/19/2025 In the past 12 months have y ou been in a relationship with a person who hurts, threatens, or tries to control you? No 06/19/2025 Comments No Sex and Gender Information Value Date Recorded Sex Assigned at Female 10/01/2017 1:35 PM EST Legal Sex Female 3:16 PM EDT Gender Identity Female 10/02/2017 5:09 PM EST Sexual Orientation Straight 10/02/2017 5: 09 PM EST documented as of this encounter Last Filed Vital Signs Vital Sign Reading Time Taken Comments Blood Pressure 145/85 07/24/2025 9:00 PM EST Pulse 70 07/24/2025 9:00 PM EST Temperature 36.5 C (97.7 F) 07/24/2025 9:00 PM EST Respiratory Rate 18 07/24/2025 9:00 PM EST Oxygen Saturation 100% 07/24/2025 9:00 PM EST Inhaled Oxygen Concentration - - Weight - - Height - - Body Mass Index - - documented in this encounter Functional Status * Calculated C-SSRS Risk Score (Lifetime/Recent) Answer Date of Assessment Author No Risk Indicated 07/24/2025 6:59 PM EST Bhakti Koo RN * [place] Suicide Severity Rating Scale (Screener/Recent Self-Report) Question Answer Date of Assessment Author 1. Wish to be (Past 1 Month) No 025 6:59 PM EST Bhakti Mark RN 2. Non-Specific Active Suici micha Thoughts (Past 1 Month) No 07/24/2025 6:59 PM EST Franko Mark RN 6. Suicidal Behavior (Lifetime) No 5 6:59 PM EST Bhakti Mark RN documented as of this encounter Discharge Instructions * Attachments The following attachments cannot be sent through Care Everywhere. * Allergic Reaction (Namibian) documented in this encounter Medications at Time of Discharge BD ULTRA-FINE KEIRY PEN NEEDLE 32 gauge x NdleIndications:Typ e 2 diabetes mellitus with hyperglycemia, with long-term current use of insulin USE ONCE DAILY 300 each 3 10/06/2021 calcium carbonate/vitamin D3 (CALCIUM 600 + D,3, ORAL) Take by mouth. d3 400 iu docusate sodium (COLACE) 100 MG capsule Take 100 mg by mouth. 07/16/2021 famotidine (PEPCID) 20 MG tablet Take 20 mg by mouth 2 (two) times a day. 04/27/2022 FREESTYLE FREEDOM LITE meter kitIndications:Type 2 diabetes mellitus with hyperglycemia, with long-term current use of insulin Test bg 3 times a day before meals 1 each 08/03/2020 FREESTYLE LITE Strp stripsIndications:T ype 2 diabetes mellitus with hyperglycemia, with long-term current use of insulin TEST THREE TIMES DAILY BEFORE A MEAL 300 strip 3 10/06/2021 furosemide (LASIX) 20 MG tablet Take 20 mg by mouth daily. gabapentin (NEURONTIN) 300 MG capsule Take 3 capsules (900 mg total) by mouth 2 (two) times a day. 01/05/2023 HYDROmorphone (DILAUDID) 2 MG tablet Take 1 tablet (2 mg total) by mouth every 6 (six) hours as needed. 0 01/05/2023 hydrOXYzine (VISTARIL) 50 MG capsule Take 50 mg by mouth nightly at bedtime. insulin glargine (LANTUS SOLOSTAR U-100 INSULIN) 100 unit/mL (3 mL) InPn injection penIndications:Type 2 diabetes mellitus with hyperglycemia, with long-term current use of insulin Inject 40 Units under the skin daily. 15 mL 6 05/04/2022 lamoTRIgine (LAMICTAL) 100 MG IMMEDIATE release tablet Take 100 mg by mouth daily. levocetirizine (XYZAL) 5 MG tablet Take 5 mg by mouth daily. 04/06/2022 lurasidone (LATUDA) 40 mg tablet Take 40 mg by mouth daily. 05/21/2025 meclizine (ANTIVERT) 25 mg tablet Take 25 mg by mouth 3 (three) times a day as needed for dizziness. 07/02/2023 melatonin 3 mg TabIndications:inso mnia associated with depression Take 10 mg by mouth nightly at bedtime. Indications: insomnia associated with depression methocarbamoL (ROBAXIN) 500 MG tablet 04/27/2022 miconazole 2 % Oint Apply topically 2 (two) times a day. 71 g 06/24/2025 multivit-min/iron/f olic acid/K (BARIATRIC MULTIVITAMINS ORAL) Take by mouth. 06/30/2021 nitroglycerin (NITROSTAT) 0.[address] under the tongue every 5 (five) minutes as needed for chest pain. pioglitazone (ACTOS) 45 MG tabletIndications:T ype 2 diabetes mellitus with hyperglycemia, with long-term current use of insulin Take 1 tablet (45 mg total) by mouth daily. 90 tablet 2 05/04/2022 pravastatin (PRAVACHOL) 20 MG tablet Take 2 tablets (40 mg total) by mouth daily. 01/05/2023 prazosin (MINIPRESS) 2 MG capsule Take 2 capsules (4 mg total) by mouth nightly at bedtime. 01/05/2023 propranoloL (INDERAL LA) 120 mg 24 hr capsule Take 120 mg by mouth daily. rOPINIRole (REQUIP) 1 MG tabletIndications:r estless leg syndrome Take 1-2 mg by mouth nightly at bedtime. Indications: restless legs syndrome, an extreme discomfort in the calf muscles when sitting or lying down tirzepatide (MOUNJARO) 2.5 mg/0.5 mL PnIj subcutaneous pen Inject 2.5 mg under the skin every 7 days. tiZANidine (ZANAFLEX) 4 MG tablet Take 1 tablet (4 mg total) by mouth nightly at bedtime. 01/05/2023 WAL-MUCIL FIBER 0.52 gram capsule 04/27/2022 documented as of this encounter ED Notes * Kathleen Hernandez RN - 07/24/2025 10:33 PM EST ED Discharge Nursing Note Pt d/c instructions reviewed with no questions or concerns, pt in NAD, breathing even and unlabored, speaking in clear full sentences, ambulates with steady gait to stretcher * Kathleen Hernandez RN - 07/24/2025 8:31 PM EST ED Nursing Progress Note Pt rang for the bathroom, disconnected pt and she ambulated with the restroom with a slow and steady gait with her cane. Pt endorsed having collarbone/clavicular pain and asked if it was from the epipen, stated that would be an unusual side effect and let PA know, PA stated it wouldn't be caused from that and is most likely a musculoskeletal pain * Bhakti Mark RN - 07/24/2025 6:57 PM EST Pt BIBA from home with an allergic reaction after consuming Sparkling Ice drink with sucralose. Pt has known allergy to artificial sweetner. Pt was unaware of ingredients until after consumption. Pt felt her throat closing and took 25mg oral Benadryl and administered her EpiPen approx 1830. Per EMSPt was in sinus rhythm, 98% RA, lungs clear in all briones. Pt experiencing hoarse voice. Pt speaking in clear, full sentences on arrival, maintaining airway and secretions. No oral or facial swelling, no hives. Call connors within reach. * Td Hennessy PA-C - 07/24/2025 6:47 PM EST Chief Complaint Chief Complaint Patient presents with Allergic Reaction History of Present Illness The patient, Yvonne Meyer,is a 60 y.o. female who presents for evaluation of Allergic Reaction The patient presented by EMS from home with subjective symptoms of an allergic reaction after consuming a sparkling ice drink with sucralose in it. Patient believes they are allergic to sucralose. Patient was not aware it was in the beverage until consuming it. Patient began to feel tight and closing in the throat, she is 25 mg of Benadryl and administered an EpiPen around 1830. Patient feels sheis has a hoarse voice compared to baseline. No shortness of breath, no urticaria, no angioedema, nonausea or vomiting. Unless otherwise specified, I have reviewed and agree with the triage and nursing notes. ROS A ten point review of systems was negative except what was noted in the HPI. Review of Systems Past Medical History Past Medical History: Diagnosis Date Adverse effect of anesthetic takes a while to wake up Allergic rhinitis Anxiety with depression Arthritis Atypical chest pain noncardiac Bipolar 1 disorder with depression Chronic back pain Colitis presumed to be due to infection and ischemic COVID-19 09/2022 Diabetes mellitus type 2, insulin dependent Disorder of thyroid Gastroesophageal reflux disease Gluten intolerance History of lumbar fusion History of pancreatitis Hypertensive disorder Kidney stones Migraine Mild intermittent asthma Neuromyopathy Obesity Obstructive sleep apnea of adult no cpap Palpitations absence of arrhythmia Psychiatric disorder PTSD (post-traumatic stress disorder) Vocal cord dysfunction normal voice no swallowing issues Past Surgical History Past Surgical History: Procedure Laterality Date APPENDECTOMY BACK SURGERY x 12 times CHOLECYSTECTOMY ESOPHAGOGASTRODUODENOSCOPY N/A 09/26/2019 Performed by Luis Ferro MD at [facility] ENDOSCOPY HYSTERECTOMY KNEE SURGERY Right LASER LITHOTRIPSY, CYSTOSCOPY, URETEROSCOPY, RETROGRADE PYELOGRAM, STENT PLACEMENT Right 05/07/2024 Performed by David Rossi MD at [facility] OR ORTHOPEDIC SURGERY SHOULDER SURGERY Left x 3 times UNCODED SURGICAL HISTORY Normal left dominant cardiac CATHETERIZATION done for non-cardiac chest pain UNCODED SURGICAL HISTORY Cholecystectomy UNCODED SURGICAL HISTORY [facility] cervical spine surgery with Dr. Gianluca Christina UNCODED SURGICAL HISTORY Parathyroidectomy at [facility] UNCODED SURGICAL HISTORY Spinal cord stimulator implant to address chonic pain Home Medications Prior to Admission medications Medication Sig BD ULTRA-FINE KEIRY PEN NEEDLE 32 gauge x Ndle USE ONCE DAILY calcium carbonate/vitamin D3 (CALCIUM 600 + D,3, ORAL) Take by mouth. d3 400 iu docusate sodium (COLACE) 100 MG capsule 100 mg Patient taking differently: Take 100 mg by mouth as needed. famotidine (PEPCID) 20 MG tablet 20 mg, 2 times daily Patient taking differently: Take 40 mg by mouth 2 (two) times a day. FREESTYLE FREEDOM LITE meter kit Test bg 3 times a day before meals FREESTYLE LITE Strp strips TEST THREE TIMES DAILY BEFORE A MEAL furosemide (LASIX) 20 MG tablet 20 mg, Daily gabapentin (NEURONTIN) 300 MG capsule 900 mg, Oral, 2 times daily HYDROmorphone (DILAUDID) 2 MG tablet 2 mg, Oral, Every 6 hours PRN Patient taking differently: Take 4 mg by mouth 2 (two) times a day as needed. hydrOXYzine (VISTARIL) 50 MG capsule 50 mg, Nightly insulin glargine (LANTUS SOLOSTAR U-100 INSULIN) 100 unit/mL (3 mL) InPn injection pen 40 Units, Subcutaneous, Daily Patient taking differently: Inject 20 Units under the skin daily. lamoTRIgine (LAMICTAL) 100 MG IMMEDIATE release tablet 100 mg, Daily Patient taking differently: Take 200 mg by mouth daily. levocetirizine (XYZAL) 5 MG tablet 5 mg, Daily lurasidone (LATUDA) 40 mg tablet 40 mg, Daily meclizine (ANTIVERT) 25 mg tablet 25 mg, 3 times daily PRN melatonin 3 mg Tab 10 mg, Nightly methocarbamoL (ROBAXIN) 500 MG tablet miconazole 2 % Oint Topical, 2 times daily multivit-min/iron/folic acid/K (BARIATRIC MULTIVITAMINS ORAL) Take by mouth. nitroglycerin (NITROSTAT) 0.4 MG SL tablet Every 5 min PRN pioglitazone (ACTOS) 45 MG tablet 45 mg, Oral, Daily pravastatin (PRAVACHOL) 20 MG tablet 40 mg, Oral, Daily prazosin (MINIPRESS) 2 MG capsule 4 mg, Oral, Nightly propranoloL (INDERAL LA) 120 mg 24 hr capsule 120 mg, Daily rOPINIRole (REQUIP) 1 MG tablet 1-2 mg, Nightly tirzepatide (MOUNJARO) 2.5 mg/0.5 mL PnIj subcutaneous pen 2.5 mg, Every 7 days tiZANidine (ZANAFLEX) 4 MG tablet 4 mg, Oral, Nightly WAL-MUCIL FIBER 0.52 gram capsule Allergies Allergies Allergen Reactions Adhesive Other reaction(s): rash Other Reaction(s): Not available Albuterol Unknown Bupropion Other reaction(s): worsens HTN , worsening HTN Buspirone Unknown Celecoxib Itching Cephalexin Itchy Codeine Cymbalta [Duloxetine] Depakote [Divalproex] Dextroamphetamine-Amphetamine Unknown Epinephrine Erythromycin Unknown Fentanyl sets everything crazy Fish Other reaction(s): Itching Other reaction(s): Itching Other reaction(s): Itching Fluticasone Guaifenesin Hydrochlorothiazide Levaquin [Levofloxacin] Lidocaine RASH Mellaril [Thioridazine] Metformin Diarrhea Metoclopramide Hcl Other Reaction(s): Not available Montelukast Other Reaction(s): Not available Morphine Nitrofurantoin Monohyd/M-Cryst Other Reaction(s): Not available Nortriptyline Novocain [Procaine] Other Artificial sweetners, states that her throat closes Itching Other reaction(s): diet drinks throat closes artificial sweetner Other reaction(s): COMBO OF TAPE AND IODINE pollen, dust mites Other Reaction(s): diet drinks throat closes Other Reaction(s): COMBO OF TAPE AND IODINE Other Reaction(s): rash Other Reaction(s): Not available Oxycodone-Acetaminophen Unknown Penicillin Other Reaction(s): Not available Penicillins Phentermine Other Reaction(s): Not available Prozac [Fluoxetine] Quetiapine Other Reaction(s): Not available Remeron [Mirtazapine] Ritalin [Methylphenidate Hcl] Seafood [Fish Derived] Itching Shellfish Containing Products [place] Other reaction(s): RASH Other Reaction(s): RASH Sulfa (Sulfonamide Antibiotics) Other reaction(s): Itching Other reaction(s): RASH Sulfamethoxazole-Trimethoprim Unknown Sumatriptan Sumatriptan-Naproxen Other reaction(s): itchy Tessalon [Benzonatate] Thorazine [Chlorpromazine] Tiotropium [place] Other Reaction(s): Not available Topiramate Tramadol Unknown Trazodone Tricyclic Antidepressants And Tricyclic Compounds Other reaction(s): RASH Other reaction(s): Hives, RASH Other Reaction(s): RASH Trileptal [Oxcarbazepine] Venlafaxine Other Reaction(s): Not available Wellbutrin [Bupropion Hcl] Wound Dressings Rash Social and Family History Social History Tobacco Use Smoking status: Never Smokeless tobacco: Never Substance Use Topics Alcohol use: No Comment: alcohol abuse for one year following of father 2001 Social History Substance and Sexual Activity Drug Use No Comment: no reported drug use Family History Problem Relation Age of Onset Heart disease Mother Psychiatric disorder Mother Cancer Father Arthritis Sister Physical Exam Vital Signs: ED Triage Vitals [07/24/25 7509] Encounter Vitals Group BP (!) 149/77 Heart Rate 71 Respiratory Rate 17 Temperature 36.7 ??C (98 ??F) Temp src SpO2 100 % Physical Exam Constitutional: General: She is not in acute distress. Appearance: She is well-developed. HENT: Head: Normocephalic. Neck: Trachea: No tracheal deviation. Cardiovascular: Rate and Rhythm: Normal rate. Pulmonary: Effort: Pulmonary effort is normal. No respiratory distress. Musculoskeletal: General: No deformity. Normal range of motion. Cervical back: Normal range of motion. Skin: General: Skin is warm and dry. Findings: No rash. Neurological: Mental Status: She is alert and oriented to person, place, and time. Laboratory Testing No results found for this visit on 07/24/25. Radiology Testing No orders to display MDM Assessment and Plan: Patient evaluated for subjective symptoms that she believes are an allergic reaction to a beverage that had sucralose in it. She is afebrile and hemodynamically stable, does not appear in acute distress. She had already taken Benadryl and her EpiPen at home, declined any further interventions. Monitor patient for couple of hours at which point she felt better and requested discharge. Attestation: ITd PAEugeneC, have seen this patient independently. This is a PA only visit Clinical Impressions as of 07/28/251818 Allergic reaction, initial encounter Clinical Impression Diagnosis Description Comment Final diagnosis Allergic reaction, initial encounter Allergic reaction, initial encounter -- Disposition: Discharge Td Hennessy PA-C 07/28/251827 documented in this encounter Plan of Treatment Not on file documented as of this encounter Goals Goal Patient Goal Type Associated Problems Recent Progress Patient-Stated? Author Acute Care Plan Acute Care Plan Ana Barnes RN Note: Has [employer] Insurance: gets MOM's meals and Laundry service Sales And Service Engineer: Bry Del Castillo RN [phone] (ask for her by name) Yvonne has access to 27/03 honing machine operator tool through her insurance, has access to [facility] for medical concerns, reinforce this with her when she presents to the ED. documented as of this encounter Visit Diagnoses Diagnosis Allergic reaction, initial encounter- Primary documented in this encounter Additional Health Concerns Infection Onset Date Last Indicated Resolved Time MDR-GN 03/14/2025 03/14/2025 documented as of this encounter Care Teams Housing Quality Standard Inspector Relationship Specialty Start Date End Date Kylie Crook MD [address] [place] [phone] [email or web address] PCP - General Family Medicine 09/06/23 Saloni Smith PA Historical LMR Provider 06/20/17 Daylin Nino MD [address] [place] [address] Historical LMR Provider 06/20/17 Rayshawn Love MD [address] [place] [phone] Interventional Pain Management 05/04/22 documented as of this encounter Additional Source Comments The information contained in this document represents components of the legal health record. It is not the complete legal health record.[facility]
--- NOTE | 2025-07-30 14:43 | EEG_ITS ---
History: Syncope and collapse Medication: Acetaminophen Albuterol Sulfate Calcium Carbonate/Cholecalciferol Clotrimazole Dextrose Famotidine Furosemide Gabapentin Glucose Guaifenesin/Dextromethorphan Guaifenesin/Dextromethorphan Haloperidol Hydromorphone HCl Insulin Glargine Insulin Human Lispro Lamotrigine Lidocaine Loratadine Lorazepam Magnesium Hydroxide Melatonin Methocarbamol, Nitroglycerin Nystatin Ondansetron HCl Pioglitazone HCl Pravastatin Sodium Prazosin HCl Propranolol HCl Ropinirole HCl Tizanidine Technical Description Photic Stimulation: Yes Hyperventilation: Yes Behavioral State: Cooperative State of Consciousness: Awake Skull Defect: None Sedation: None Handedness: Right Duration: 30:13 Nurse Informaticist Comments: Last Meal: Time / date of last symptom: 12/2024 Description: This is a 16 channel EEG with an EKG lead. Patient is reported awake during the tracing. Background EEG rhythm is 5-7 hertz somewhat asymmetrical with frequent sharply controlled discharges in left hemispheric leads. This seem to be in parietal area. Photic stimulation did not produce any significant driving. Hyperventilation did not result in any different finding. Cardiac lead did not reveal any significant abnormality. Impression: Abnormal EEG with generalized slowing and left parietal discharges suggestive of seizure tendency MTDD
--- OUTSIDE RECORDS SUMMARY | 2025-07-30 15:40 | XMS_ITS | Encounter Summary ---
Author Organization [facility] Address [address] [place] [phone] Phone Care Team Providers Care Straight Pin Making Machine Operator Name Role Phone Saloni Smith Unavailable [email or web address] Daylin Nino MD Unavailable Kylie Crook MD Primary Care Provider [phone]- [phone] Rayshawn Love MD Unavailable [phone]- [phone] Kylie Crook MD Primary Care Provider [phone]- [phone] Encounter Details Date Type Department Care Team (Late st Contact Info) Description 01/14/2022 Procedure [facility], Ct Scan - [address] [address] Social History Tobacco Use Types Packs/Day Years Used Date Smoking Tobacco: Never Smokeless Tobacco: Never Alcohol Use Standard Drinks/Week Comments No 0 (1 standard drink = 0.6 oz pure alcohol) alcohol abuse for one year following of father 2001 Comments No Sex and Gender Information Value Date Recorded Sex Assigned at Female 10/01/2017 1:35 PM EST Legal Sex Female 3:16 PM EDT Gender Identity Female 10/02/2017 5:09 PM EST Sexual Orientation Straight 10/02/2017 5: 09 PM EST documented as of this encounter Functional Status * Calculated C-SSRS Risk Score (Lifetime/Recent) Answer Date of Assessment Author No Risk Indicated 01/14/2022 3:07 PM EDT Erlinda Good RN * [place] Suicide Severity Rating Scale (Screener/Recent Self-Report) Question Answer Date of Assessment Author 1. Wish to be (Past 1 Month) No 022 3:07 PM EDT Germania Good RN 2. Non-Specific Active Suici micha Thoughts (Past 1 Month) No 01/14/2022 3:07 PM EDT Germania Good RN 6. Suicidal Behavior (Lifetime) No 3:07 PM EDT Germania Good RN documented as of this encounter Plan of Treatment Not on file documented as of this encounter Goals Goal Patient Goal Type Associated Problems Recent Progress Patient-Stated? Author Acute Care Plan Acute Care Plan No Ana Gregorio RN Note: Has [employer] Insurance: gets MOM's meals and Laundry service Social Staff Worker: Bry Del Castillo RN [phone] (ask for her by name) Yvonne has access to 24/7 orthotist prosthetist through her insurance, has access to [facility] for medical concerns, reinforce this with her when she presents to the ED. documented as of this encounter Visit Diagnoses Not on filedocumented in this encounter Additional Health Concerns Infection Onset Date Last Indicated Resolved Time CoV-Risk 01/04/2022 01/04/2022 01/15/2022 1:22 AM EDT CoV-Risk 09/04/2022 09/04/2022 09/04/2022 9:26 PM EST COVID-19 09/04/2022 09/04/2022 09/25/2022 1:21 AM EST CoV-Risk 10/14/2023 10/14/2023 10/25/2023 1:22 AM EST Influenza A 10/14/2023 10/14/2023 10/21/2023 1:22 AM EST CoV-Risk 10/04/2024 10/04/2024 10/15/2024 1:23 AM EST MDR-GN 03/14/2025 03/14/2025 documented as of this encounter Care Teams Straight Pin Making Machine Operator Relationship Specialty Start Date End Date Kylie Crook MD [address] [place] [phone] PCP - General Family Medicine 09/01/20 09/05/23 Kylie Crook MD [address] [place] [phone] [email or web address] PCP - General Family Medicine 09/06/23 Saloni Smith PA Historical LMR Provider 06/20/17 Daylin Nino MD [address] [place] [address] Historical LMR Provider 06/20/17 Rayshawn Love MD [address] [place] [phone] Interventional Pain Management 05/04/22 documented as of this encounter Additional Source Comments The information contained in this document represents components of the legal health record. It is not the complete legal health record.[facility]
--- OUTSIDE RECORDS SUMMARY | 2025-07-30 15:40 | XMS_ITS | Encounter Summary ---
Author Organization [facility] Address [address] [place] [address] Phone Care Team Providers Care Respiratory Manager Name Role Phone Radha Miner NP Unavailable [phone] Saloni Smith Unavailable [email or web address] Britt Beavers DO Unavailable [phone] Daylin Nino MD Unavailable Penny Owens MD Unavailable Rubio Holloway MD Unavailable [phone] Rubio Malin MD Unavailable Chandler Carrera MD Unavailable [phone] Penny Owens MD Primary Care Provider [phone] Kylie Crook MD Primary Care Provider [phone] León Avalos MD Primary Care Provider Kylie Crook MD Primary Care Provider [phone] Rayshawn Love MD Unavailable Kylie Crook MD Primary Care Provider [phone] Reason for Referral * Occupational Therapy (Routine) - Denied Specialty Diagnoses / Procedures Referred By Manuel campbell Referred To Contact Occupational Therapy Diagnoses Encounter for rehabilitation Penny Owens MD [address] [place] [address] Phone: tel: fax: [email or web address]:[email or web address] [address] [place] [address] Phone: tel: Referral ID Status Reason Start Date Expiration Date Visits Re quested Visits Authorized [id number] Denied 05/14/2018 05/14/2019 1 0 Encounter Details Date Type Department Care Team (Latest Contact Info) Description 05/14/2018 Transcribe Orders [facility] [address] [place] [address] Penny Owens MD [address] [place] [address] [email or web address] Encounter for rehabilitation (Primary Dx) Social History Tobacco Use Types Packs/Day Years Used Date Smoking Tobacco: Never Smokeless Tobacco: Never Alcohol Use Standard Drinks/Week Comments No 0 (1 standard drink = 0.6 oz pure alcohol) alcohol abuse for one year following of father 2002 Comments Unknown Sex and Gender Information Value Date Recorded Sex Assigned at Female 10/01/2017 1:35 PM EST Legal Sex Female 3:16 PM EDT Gender Identity Female 10/02/2017 5:09 PM EST Sexual Orientation Straight 10/02/2017 5: 09 PM EST documented as of this encounter Plan of Treatment Scheduled Referrals Name Type Priority Associated Diagnoses Orde r Schedule Ambulatory referral to [facility] Occupational Therapy Outpatient Referral Routine Encounter for rehabilitation Ordered: 05/14/2018 documented as of this encounter Visit Diagnoses Diagnosis Encounter for rehabilitation- Primary documented in this encounter Additional Health [...] documented as of this encounter Care Teams Respiratory Manager Relationship Specialty Start Date End Date Penny Owens MD [address] [place] [address] [email or web address] PCP - General Family Medicine 10/18/17 01/14/19 Kylie Crook MD [address] [address] [email or web address] PCP - General Family Medicine 01/15/19 09/12/19 León Avalos MD [address] [place] [address] [email or web address] PCP - General 09/13/19 08/31/20 Kylie Crook MD [address] [place] [address] [email or web address] PCP - General Family Medicine 09/01/20 09/05/23 Kylie Crook MD [address] [place] [phone] [email or web address] PCP - General Family Medicine 09/06/23 Radha Miner NP [address] [address] Historical LMR Provider 06/20/17 09/11/21 Saloni Smith PA [email or web address] Historical LMR Provider 06/20/17 Britt Beavers DO [address] [place] [id number] Historical LMR Provider 06/20/17 09/11/21 Daylin Nino MD [address] [place] [address] [email or web address] Historical LMR Provider 06/20/17 Penny Owens MD [address] [place] [address] [email or web address] Historical LMR Provider 06/20/17 09/11/21 Rubio Holloway MD [address] [place] [address] Historical LMR Provider 06/20/17 09/11/21 Rubio Malin MD [address] [place] [address] Historical LMR Provider 06/20/17 09/11/21 Chandler Carrera MD [address] [place] [address] Historical LMR Provider 06/20/17 09/11/21 Rayshawn Love MD [address] [place] [address] Interventional Pain Management 05/04/22 documented as of this encounter Additional Source Comments The information contained in this document represents components of the legal health record. It is not the complete legal health record.[facility]
--- OUTSIDE RECORDS SUMMARY | 2025-07-30 15:40 | XMS_ITS | Encounter Summary ---
Author Organization [facility] Address [address] [place] [address] Phone Care Team Providers Care Rivet Maker Name Role Phone Saloni Smith Unavailable [email or web address] Daylin Nino MD Unavailable Kylie Crook MD Primary Care Provider [phone] Rayshawn Love MD Unavailable [phone] Kylie Crook MD Primary Care Provider [phone] Encounter Details Date Type Department Care Team (Late st Contact Info) Description 01/14/2022 Procedure [facility], Ct Scan - [address] [address] Social History Tobacco Use Types Packs/Day Years [...] 3:07 PM EDT Erlinda Good RN * [facility] Suicide Severity Rating Scale (Screener/Recent Self-Report) Question [...] Insurance: gets MOM's meals and Laundry service Lead Neurodiagnostic Technologist: Bry Del Castillo RN [phone] (ask for her by name) Yvonne has access to 24/7 staffing and scheduling coordinator through her insurance, has access to Instead [...] documented as of this encounter Care Teams Rivet Maker Relationship Specialty Start Date End Date Kylie Crook MD [address] [place] [phone] PCP - General Family Medicine 09/01/20 09/05/23 Kylie Crook MD [address] [place] [phone] [email or web address] PCP - General Family Medicine 09/06/23 Saloni Smith PA Historical LMR Provider 06/20/17 Daylin Nino MD [address] [place] [address] Historical LMR Provider 06/20/17 Rayshawn Love MD [address] [place] [phone] Interventional Pain Management 05/04/22 documented as of this encounter Additional Source Comments The information contained in this document represents components of the legal health record. It is not the complete legal health record.[facility]
--- OUTSIDE RECORDS SUMMARY | 2025-07-30 15:40 | XMS_ITS ---
Disposition: Home or Self Care 05/24/2025 2:52 AM EDT - 05/24/2025 2:34 PM EDT Emergency [facility] [address] [place] [address] Rena Adams MD Brewer, Allison V, MD Discharge Disposition: Home or Self Care 05/12/2025 8:04 PM EDT - 05/12/2025 11:37 PM EDT Emergency [facility] [address] [place] [address] Discharge Disposition: Home or Self Care 05/12/2025 Procedure [facility], Ct Scan - [facility] [address] [place] [address] 05/09/2025 7:28 PM EDT - 05/09/2025 7:29 PM EDT Emergency [facility] [address] [place] [address] Discharge Disposition: Left Without Being Seen from Last 3 Months Immunizations Immunization Administration Dates Next Due COVID-19 (Pre-06/26) Moderna Vaccine, mRNA, PF 07/12/2021,12/28/2020,11/30/2020 DT 01/31/2017 Influenza Quadrivalent w/ Preservative IM 2019 Family History Medical History Relation Comments Cancer Father Heart disease Mother Psychiatric disorder Mother Arthritis Sister Relation Status Comments Father Mother Sister Social History Tobacco Use Types Packs/Day Years [...] Orientation Straight 10/02/2017 5: 09 PM EST Last Filed Vital Signs Vital Sign Reading Time Taken Comments Blood Pressure 145/85 07/24/2025 9:00 PM EST Pulse 70 07/24/2025 9:00 PM EST Temperature 36.5 C (97.7 F) 07/24/2025 9:00 PM EST Respiratory Rate 18 07/24/2025 9:00 PM EST Oxygen Saturation 100% 07/24/2025 9:00 PM EST Inhaled Oxygen Concentration - - Weight 140.7 kg (310 lb 3.2 oz) 06/19/2025 7:01 PM EDT Height 165.1 cm (5' 5 ) 06/19/2025 7:01 PM EDT 3 10.4 Body Mass Index 51.62 06/19/2025 7:01 PM EDT Plan of Treatment Health Maintenance Due Date Last Done Comments BLOOD PRESSURE 1965 DEPRESSION SCREENING 1977 HEPATITIS C SCREENING 1983 HIV ONE-TIME SCREENING (18-65 YEARS) 1983 PAP SMEAR 1986 MAMMOGRAM 2005 COLOGUARD 2010 COLONOSCOPY 2010 COLORECTAL CANCER SCREENING 2010 FIT TEST 2010 FOBT 2010 SIGMOIDOSCOPY 2010 VIRTUAL COLONOSCOPY 2010 RSV VACCINE (1 - Risk 50-74 years 1-dose series) 2015 PNEUMOCOCCAL VACCINES (50+ years) (2 of 2 - PCV) 02/20/2016 02/19/2015, 11/21/2010 DIABETIC EYE EXAM 09/25/2017 URINE MICROALBUMIN/CREATININE RATIO 09/25/2017 INFLUENZA VACCINE (#1) 2025 , 06/01/2022, 06/04/2020, Additional history exists COVID-19 VACCINE ( season) 2025 08/01/2023, 08/01/2023, 06/28/2022, Additional history exists HEMOGLOBIN A1C 12/19/2025 06/20/2025, 010 03/2025, 01/07/2021, Additional history exists LIPID PANEL 06/20/2026 06/20/2025, 01/0 03/2025, 06/02/2020, Additional history exists Adult Td,Tdap Booster 01/31/2027 01/31/2017 ZOSTER VACCINES Completed 06/22/2021, 04/22/2021 SMOKING STATUS SCREENING (Once After 26 Yrs) Completed 06/19/2025 HEPATITIS A VACCINES Aged Out No long er eligible based on patient's age to complete this topic HIB VACCINES Aged Out No longer eligi ble based on patient's age to complete this topic MENINGOCOCCAL VACCINES (ACWY) Aged Out No longer eligible based on patient's age to complete this topic MENINGOCOCCAL VACCINES (B) Aged Out N o longer eligible based on patient's age to complete this topic Goals Goal Patient Goal Type Associated Problems Recent Progress Patient-Stated? 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 Medical Devices Implanted Type Area Dedicated Truck Driver Device Identifier Shelf Expiration Date Model / Serial / Lot Stimulator Stimulator Spine Lumbar Lumbar Spine Rods/Screws. C Spine,Also With Metal Stent Ureteral [id number] To 30cm Double Pigtail Suture Stretch Vl Positioner - [id number] Implanted:Qty : 1 on 05/07/2024 by David Rossi MD at [facility] Right: Ureter [employer] [id number] 03/30/2026 [id number] / / [id number] Procedures Procedure Name Priority Date/Time Associated Diagnosis Comments POCT GLUCOSE Routine 06/24/2025 7:31 AM EDT POCT GLUCOSE Routine 06/23/2025 9:25 PM EDT POCT GLUCOSE Routine 06/23/2025 7:49 AM EDT POCT GLUCOSE Routine 06/22/2025 8:48 PM EDT POCT GLUCOSE Routine 06/21/2025 8:31 PM EDT LAMOTRIGINE LEVEL Routine 06/21/2025 6:4 6 AM EDT 25-OH VITAMIN D Routine 06/20/2025 6:30 AM EDT HEMOGLOBIN A1C Routine 06/20/2025 6:30 AM EDT LIPID PANEL Routine 06/20/2025 6:30 AM EDT FOLATE Routine 06/20/2025 6:30 AM EDT TSH WITH REFLEX Routine 06/20/2025 6:30 AM EDT VITAMIN B12 Routine 06/20/2025 6:30 AM EDT TOXICOLOGY SCREEN, URINE STAT 06/19/2025 1:36 PM EDT ACETAMINOPHEN LEVEL STAT 06/19/2025 1 2:27 PM EDT SALICYLATES STAT 06/19/2025 12:27 PM EDT ETHANOL, BLOOD STAT 06/19/2025 12:27 PM EDT LFTS (HEPATIC PANEL) STAT 06/19/2025 12:27 PM EDT BASIC METABOLIC PANEL (BMP) STAT 06/19/2025 12:27 PM EDT CBC AND DIFFERENTIAL STAT 06/19/2025 12:27 PM EDT D-DIMER STAT 06/16/2025 11:10 AM EDT LAB ADD ON STAT 06/16/2025 11:10 AM EDT TROPONIN STAT 06/16/2025 11:10 AM EDT XR CHEST PA AND LATERAL 2 VIEWS STAT 06/16/2025 10:20 AM EDT NT-PROBNP Routine 06/16/2025 9:56 AM EDT TROPONIN STAT 06/16/2025 9:56 AM EDT BASIC METABOLIC PANEL (BMP) STAT 06/16/2025 9:56 AM EDT CBC AND DIFFERENTIAL STAT 06/16/2025 9:56 AM EDT ECG 12-LEAD STAT 06/16/2025 9:30 AM EDT XR FEMUR (LEFT) 2 VIEWS Routine 05/26/2025 11:38 AM EDT POCT GLUCOSE Routine 05/24/2025 4:51 AM EDT URINE SEDIMENT STAT 05/12/2025 9:39 PM EDT URINALYSIS WITH REFLEX TO URINE CULTURE STAT 05/12/2025 9:[address] LUMBAR SPINE (NEURO) WITHOUT CONTRAST Routine 05/12/2025 9:35 PM EDT from Last 3 Months Results * (ABNORMAL) POCT Glucose (06/24/2025 7:31 AM EDT) Only the most recent of6 resultswithin the time period is included. Glucose, POCT 103(H) 70 - 100 mg/dL [facility] 06/24/2025 7:31 AM EDT 06/24/2025 7:36 AM EDT Ana Hernandez MD POINT OF CARE TEST ORDERABLES Final Result [address] [address] * (ABNORMAL) Lamotrigine level (06/21/2025 6:46 AM EDT) LAMOTRIGINE 3.2(L) 4.0 - 18.0 mcg/mL [facility] Comment:This test was develo ped and its performance characteristics determined by the [facility]. It has not been cleared or approved by the US Food and Drug Administration. This laboratory is certified under CLIA as qualified to perform high complexity clinical laboratory testing. Blood 06/21/2025 6:46 AM EDT 06/21/2025 6:51 AM EDT us Shane Iglesias PMHNP-BC LAB BLOOD BKR ORDERABLES Final Result [address] [address] * TSH with reflex (06/20/2025 6:30 AM EDT) TSH 1.37 0.27 - 4.20 uIU/mL [facility] Blood 06/20/2025 6:30 AM EDT 06/20/2025 6:56 AM EDT Shaneclair Iglesias PMHNP-BC LAB BLOOD BKR ORDERABLES Final Result Performing Organization Address [facility]/ZIP Co de Phone Number [address] [address] * 25-OH vitamin D (06/20/2025 6:30 AM EDT) 25 OH VIT D (TOTAL) 39 30 - 60 ng/mL [facility] Blood 06/20/2025 6:30 AM EDT 06/20/2025 6:56 AM EDT Shaneclair Iglesias PMHNP-BC LAB BLOOD BKR ORDERABLES Final Result Performing Organization Address [facility]/ZIP Co de Phone Number [address] [address] * (ABNORMAL) Hemoglobin A1c (06/20/2025 6:30 AM EDT) HEMOGLOBIN A1C 6.5(H) 4.3 - 5.8 % [facility] Blood 06/20/2025 6:30 AM EDT 06/20/2025 6:56 AM EDT Shane Iglesias PMHNP-BC LAB BLOOD BKR ORDERABLES Final Result Performing Organization Address City/[facility]/ZIP Co de Phone Number [address] [address] * (ABNORMAL) Folate (06/20/2025 6:30 AM EDT) FOLIC ACID >20.0(H) 4.2 - 19.9 ng/mL [facility] Blood 06/20/2025 6:30 AM EDT 06/20/2025 6:56 AM EDT Shane Iglesias PMHNP-BC LAB BLOOD BKR ORDERABLES Final Result Performing Organization Address [facility] Co de Phone Number [address] [address] * (ABNORMAL) Vitamin B12 (06/20/2025 6:30 AM EDT) VITAMIN B12 1,949(H) 232 - 1,245 pg/mL [facility] Blood 06/20/2025 6:30 AM EDT 06/20/2025 6:56 AM EDT Shane Iglesias PMHNP-BC LAB BLOOD BKR ORDERABLES Final Result Performing Organization Address [facility] de Phone Number [address] [address] * (ABNORMAL) Lipid panel (06/20/2025 6:30 AM EDT) HDL 49 mg/dL [facility] Comment: Interpretation <40 mg/dL: Low HDL cholesterol (major risk factor for CHD) Greater than or equal to 60 mg/dL: High HDL cholesterol ( negative risk factor for CHD) HDL - cholesterol is affected by a number of factors, e.g. smoking, excerise, hormones, sex and age. CHOLESTEROL 98 0 - 240 mg/dL [facility] TRIGLYCERIDES 106 30 - 160 mg/dL [facility] LDL 28(L) 50 - 129 mg/dL [facility] Comment: LDL levels in terms of risk for coronary heart disease: <100 mg/dL: Optimal 100-129 mg/dL: Near or above optimal 130-159 mg/dL: Borderline high 160-189 mg/dL: High >190 mg/dL: Very High CARDIAC RISK RATIO 2.0(L) 3.3 - 4.4 [facility] Blood 06/20/2025 6:30 AM EDT 06/20/2025 6:56 AM EDT us Shane Diaz Harris PMHNP-BC LAB BLOOD BKR ORDERABLES Final Result Performing Organization Address [facility] Co de Phone Number [address] [address] * Toxicology screen, urine (06/19/2025 1:36 PM EDT) URINE CANNABINOIDS NONE DETECTED NONE DETECTED [facility] Comment:Cutoff: 50 ng/mL URINE COCAINE METAB NONE DETECTED NONE DETECTED [facility] Comment:Cutoff: 300 ng/mL URINE AMPHETAMINES NONE DETECTED NONE DETECTED [facility] Comment:Cutoff: 1000 ng/mL URINE METHADONE NONE DETECTED NONE DETECTED [facility] Comment:Cutoff: 300 ng/mL URINE OPIATES NONE DETECTED NONE DETECTED [facility] Comment:Cutoff: 300 ng/mL URINE PHENCYCLIDINE NONE DETECTED NONE DETECTED [facility] Comment:Cutoff: 25 ng/mL URINE OXYCODONE NONE DETECTED NONE DETECTED [facility] Comment:Cutoff: 300 ng/mL URINE BARBITURATES NONE DETECTED NONE DETECTED [facility] Comment:Cutoff: 200 ng/mL URINE BENZODIAZEPINE NONE DETECTED NONE DETECTED [facility] Comment:Cutoff: 200 ng/mL URINE BUPRENORPHINE NONE DETECTED NONE DETECTED [facility] Comment:Cutoff: 5 ng/mL Fentanyl, urine NONE DETECTED NONE DETECTED [facility] Comment: Cutoff: 5 ng/mL INTERPRETATION FOR TOXICOLOGY PANEL: These results are unconfirmed and should be used for Medical Treatment purposes only. Urine (Urine) 06/19/2025 1:3 6 PM EDT 06/19/2025 1:47 PM EDT us Philly Preston MD, PhD LAB URINE ORDERABLE S Final Result Performing Organization Address [facility]/ZIP Co de Phone Number [address] [address] * Ethanol, blood (06/19/2025 12:27 PM EDT) ETHANOL <10 <10 mg/dL [facility] Blood 06/19/2025 12:2 7 PM EDT 06/19/2025 12:33 PM EDT us Philly Preston MD, PhD LAB BLOOD BKR ORDER EUGENIO Final Result [address] [address] * LFTs (hepatic panel) (06/19/2025 12:27 PM EDT) ALKALINE PHOSPHATASE 90 39 - 117 U/L [facility] TOTAL BILIRUBIN 0.4 0.0 - 1.2 mg/dL [facility] DIRECT BILIRUBIN 0.2 0.0 - 0.2 mg/dL [facility] Bilirubin (Indirect) 0.2 0 - 1.5 mg/dL [facility] AST 33 0 - 37 U/L [facility] ALT 34 0 - 40 U/L [facility] TOTAL PROTEIN 7.3 6.5 - 8.0 g/dL [facility] ALBUMIN 4.3 3.9 - 4.8 g/dL [facility] GLOBULIN 3.0 1 - 4.8 g/dL [facility] A/G Ratio 1.43 1.00 - 4.80 RATIO [facility] Blood 06/19/2025 12:2 7 PM EDT 06/19/2025 12:33 PM EDT us Philly Preston MD, PhD LAB BLOOD BKR ORDER EUGENIO Final Result Performing Organization Address City/[facility]/ZIP Co de Phone Number [address] [address] * CBC and differential (06/19/2025 12:27 PM EDT) Only the most recent of2 resultswithin the time period is included. WBC 4.92 4.00 - 11.00 K/uL [facility] RBC 4.59 4.00 - 5.20 M/uL [facility] HGB 13.2 12.0 - 16.0 g/dL [facility] HCT 40.5 36.0 - 46.0 % [facility] PLT 216 150 - 450 K/uL [facility] MCV 88.2 80.0 - 100.0 fL [facility] MCH 28.8 27.0 - 31.0 pg [facility] MCHC 32.6 32.0 - 36.0 g/dL [facility] RDW 14.1 11.5 - 14.5 % [facility] MPV 10.0 8.4 - 12.0 fL [facility] NRBC 0.00 0.00 /100 WBCs [facility] ABSOLUTE NRBC 0.00 0.00 K/uL [facility] DIFF METHOD Auto [facility] NEUTS 54.6 48.0 - 76.0 % [facility] LYMPHS 33.5 18.0 - 41.0 % [facility] MONOS 8.1 4.0 - 11.0 % [facility] EOS 3.0 0.0 - 5.0 % [facility] BASOS 0.4 0.0 - 1.5 % [facility] Granulocytes, immature (%) 0.4 0.0 - 0.9 % [facility] ABSOLUTE NEUTS 2.68 1.92 - 7.60 K/uL [facility] ABSOLUTE LYMPHS 1.65 0.72 - 4.10 K/uL [facility] ABSOLUTE MONOS 0.40 0.16 - 1.10 K/uL [facility] ABSOLUTE EOS 0.15 0.00 - 0.50 K/uL [facility] ABSOLUTE BASOS 0.02 0.00 - 0.15 K/uL [facility] Granulocytes, immature 0.02 0.00 - 0.09 K/uL [facility] Blood 06/19/2025 12:2 7 PM EDT 06/19/2025 12:33 PM EDT us Philly Preston MD, PhD LAB BLOOD BKR ORDER EUGENIO Final Result [address] [address] * (ABNORMAL) Acetaminophen level (06/19/2025 12:27 PM EDT) ACETAMINOPHEN <5.0(L) 15.0 - 30.0 ug/mL [facility] Blood 06/19/2025 12:2 7 PM EDT 06/19/2025 12:33 PM EDT us Philly Preston MD, PhD LAB BLOOD BKR ORDER EUGENIO Final Result [address] [address] * (ABNORMAL) Salicylates (06/19/2025 12:27 PM EDT) Pathologist [facility] SALICYLATES <0.3(L) 2.8 - 19.9 mg/dL [facility] Blood 06/19/2025 12:2 7 PM EDT 06/19/2025 12:33 PM EDT us Philly Preston MD, PhD LAB BLOOD BKR ORDER EUGENIO Final Result [address] [address] * (ABNORMAL) Basic metabolic panel (06/19/2025 12:27 PM EDT) Only the most recent of2 resultswithin the time period is included. SODIUM 143 133 - 146 mmol/L [facility] CHLORIDE 103 96 - 108 mmol/L [facility] POTASSIUM 3.9 3.3 - 5.1 mmol/L [facility] CO2 27 21 - 35 mmol/L [facility] BUN 19 6 - 19 mg/dL [facility] CREATININE 1.40 0.5 - 1.5 mg/dL [facility] GLUCOSE 147(H) 70 - 99 mg/dL [facility] CALCIUM 9.3 8.4 - 10.3 mg/dL [facility] EGFR 43(L) >59 mL/min/1.7 3m2 [facility] Comment:Estimated glomerular filtration rate calculated using the CKD-EPI refit equation. ANION GAP 17 10 - 20 mmol/L [facility] Blood 06/19/2025 12:2 7 PM EDT 06/19/2025 12:33 PM EDT us Philly Preston MD, PhD LAB BLOOD BKR ORDER EUGENIO Final Result Performing Organization Address [facility] Co de Phone Number [address] [address] * (ABNORMAL) D-dimer (06/16/2025 11:10 AM EDT) D-DIMER 576(H) <500 ng/mL FEU [facility] Comment:In patients with low to moderate pre-test probability scores for VTE (PE or DVT), a D-Dimer cut-off less than 500 ng/mL (FEU) has a negative predictive value (NPV) of 97 to 100%. Blood 06/16/2025 11:1 0 AM EDT 06/16/2025 11:20 AM EDT us Kelle Childers PA-C LAB BLOOD BKR ORDERABLE S Final Result Performing Organization Address [facility] de Phone Number [address] [address] * Lab Add On: pro-BNP (06/16/2025 11:10 AM EDT) TEST REQUESTED PRO BNP [facility] Comments (Chemistry) Add on order being processed. Floor or provider will be notified if testing cannot be performed [facility] 06/16/2025 11:1 0 AM EDT 06/16/2025 11:20 AM EDT us Kelle Childers PA-C LAB BLOOD ORDERABLES Fi nal Result [address] [address] * Troponin (06/16/2025 11:10 AM EDT) Only the most recent of2 resultswithin the time period is included. Troponin-T, HS Gen5 7 0 - 9 ng/L [facility] Blood 06/16/2025 11:1 0 AM EDT 06/16/2025 11:20 AM EDT us Jose Cruz MD LAB BLOOD BKR ORDERABLES Fi nal Result [address] [address] * XR CHEST PA AND LATERAL 2 VIEWS (06/16/2025 10:20 AM EDT) Anatomical Region Laterality Modality Chest Computed Radiogr aphy 06/16/2025 11:0 3 AM EDT Impressions 06/16/2025 11:04 AM EDT No acute abnormality. Narrative 06/16/2025 11:04 AM EDT XR CHEST PA AND LATERAL 2 VIEWS Referring clinician's provided indication for this examination in [facility]: Dyspnea (Shortness of Breath) COMPARISON: XR CHEST PA AND LATERAL 2 VIEWS FINDINGS: Devices/Tubes/Lines: No stimulators overlie the midthoracic spine. Lungs: No focal consolidation or pulmonary edema. Pleura: No pleural effusion or pneumothorax. Heart/Mediastinum: Normal heart and mediastinum. Bones/Soft Tissues: ACDF. Procedure Note Fabian Pollard MD, MPH - 06/16/2025 XR CHEST PA AND LATERAL 2 VIEWS Referring clinician's provided indication for this examination in [facility]:Dyspnea (Shortness of Breath) COMPARISON: XR CHEST PA AND LATERAL 2 VIEWS FINDINGS: Devices/Tubes/Lines: No stimulators overlie the midthoracic spine. Lungs: No focal consolidation or pulmonary edema. Pleura: No pleural effusion or pneumothorax. Heart/Mediastinum: Normal heart and mediastinum. Bones/Soft Tissues: ACDF. IMPRESSION: No acute abnormality. us Jose Cruz MD IMG XR CHEST Final Resul t * (ABNORMAL) NT-proBNP (06/16/2025 9:56 AM EDT) NT-PROBNP 190(H) 0 - 125 pg/mL [facility] 06/16/2025 9:56 AM EDT 06/16/2025 10:07 AM EDT us Jose Cruz MD LAB BLOOD BKR ORDERABLES Fi nal Result Performing Organization Address [facility] Co de Phone Number [address] [address] * ECG 12-LEAD (06/16/2025 9:30 AM EDT) Ventricular Rate EKG/MIN 65 BPM [facility] Atrial Rate 65 BPM [facility] OR Interval 146 ms [facility] QRS Duration 80 ms [facility] QT Interval 402 ms [facility] QTC Interval 418 ms [facility] P Ida 31 degrees [facility] R Wave Ida -18 degrees [facility] T Wave Ida 31 degrees [facility] 06/16/2025 9:30 AM EDT 06/17/2025 7:49 AM EDT Narrative [facility] - 06/17/2025 7:49 AM EDT Normal sinus rhythm Normal ECG When compared with ECG of 17-Feb-2025 22:27, No significant change was found Confirmed by Marbin Garcia ([id number]) on 06/17/2025 7:49:37 AM us Jose Cruz MD ECG ORDERABLES Final Resul t Performing Organization Address [facility] Co de Phone Number [email or web address] * XR FEMUR (LEFT) 2 VIEWS (05/26/2025 11:38 AM EDT) Anatomical Region Laterality Modality Thigh Left Computed Radiogr aphy 05/26/2025 12:3 2 PM EDT Impressions 05/26/2025 12:36 PM EDT No fracture or dislocation. No radiopaque foreign body. Narrative 05/26/2025 12:36 PM EDT XR FEMUR 2 OR MORE VIEWS (LEFT) Referring clinician's provided indication for this examination in [facility]: Foreign Body COMPARISON: None FINDINGS: No fracture. Normal alignment. No lytic or blastic lesion. Visualized portion of the hip and knee appear normal. No radiopaque foreign body. Procedure Note Nakita Bautista MBBS - 05/26/2025 XR FEMUR 2 OR MORE VIEWS (LEFT) Referring clinician's provided indication for this examination in [facility]:Foreign Body COMPARISON: None FINDINGS: No fracture. Normal alignment. No lytic or blastic lesion. Visualizedportion of the hip and knee appear normal. No radiopaque foreign body. IMPRESSION: No fracture or dislocation. No radiopaque foreign body. Leora Zarco PA-C IMG XR LOWER EXTREMIT Y Final Result * (ABNORMAL) Urinalysis w/reflex Urine Culture (05/12/2025 9:39 PM EDT) COLOR STRAW(A) Yellow [facility] CLARITY Clear [facility] GLUCOSE Negative Negative [facility] BILI Negative Negative [facility] KETONES Negative Negative [facility] SPECIFIC GRAVITY 1.010 1.005 - 1.030 [facility] BLOOD Negative Negative [facility] PH 6.0 5.0 - 8.0 [facility] Protein-UA Negative Negative [facility] NITRITE Negative Negative [facility] Leukocyte esterase, ur 1+(A) Negative [facility] [place] Urine (Urine) 05/12/2025 9:3 9 PM EDT 05/12/2025 9:54 PM EDT us [email or web address] ([employer]emory PA-C LAB URINE ORDERABLES Final Result Performing Organization Address [facility]/ZIP Co de Phone Number [address] [address] * (ABNORMAL) Urine sediment (05/12/2025 9:39 PM EDT) WBC 5-10(A) NONE SEEN /hpf [facility] [place] RBC 0-2(A) NONE SEEN /hpf [facility] [place] URINE EPITHELIAL 5-10(A) NONE SEEN [facility] [place] MUCUS Trace(A) NONE SEEN /hpf [facility] [place] BACTERIA NONE SEEN NONE SEEN /hpf [facility] [place] 05/12/2025 9:39 PM EDT 05/12/2025 9:54 PM EDT Monica AleidadarianaSmartsheet PA-C LAB URINE ORDERABLES Final Result Performing Organization Address [facility] Co de Phone Number [address] [address] * [place] LUMBAR SPINE (NEURO) WITHOUT CONTRAST (05/12/2025 9:35 PM EDT) Anatomical Region Laterality Modality L-spine Computed Tomogra phy 05/12/2025 11:0 3 PM EDT Impressions 05/12/2025 11:12 PM EDT 1. Advanced degenerative changes of the lumbar spine with surgical changes. No acute osseous abnormality. 2. There is mild soft tissue swelling surrounding the spinal stimulator leads. May be due to prior surgical intervention. Narrative 05/12/2025 11:[address] LUMBAR SPINE (NEURO) WITHOUT CONTRAST Referring clinician's provided indication for this examination in Epic: * Low back pain, cauda equina syndrome suspected TECHNIQUE: Multidetector-row CT of the lumbar spine was performed without intravenous contrast using tailored dose modulation techniques. Images were reconstructed in the axial, coronal, and sagittal planes. COMPARISON: XR LUMBOSACRAL SPINE 2-3 VIEWS FINDINGS: LUMBAR SPINE: Spinal stimulator leads enter the central canal at L1 and extending superiorly. Alignment and Vertebrae: There is stable grade 1 anterolisthesis of L4 in relation L5. No other malalignment of the lumbar spine. No loss of vertebral body height. No subluxation of the vertebral bodies. Surgical changes of previous posterior laminectomy posterior to L3 and L4. Moderate bilateral facet arthropathy and heterotopic ossification surrounding the facets due to previous surgical intervention. Discs and Endplates: Advanced degenerative disease is present throughout the cervical spine with osteophyte formation. Fusion at L4-L5. Prominent facet arthropathy at multiple levels. Soft Tissue: There is soft tissue swelling in the soft tissues posterior to the surgical changes and surrounding the stimulator leads. No other surrounding edema. Aorta is normal in size. Other Findings: None. Procedure Note Naheed Schulz MD, PhD - 05/12/2025 CT LUMBAR SPINE (NEURO) WITHOUT CONTRAST Referring clinician's provided indication for this examination in Epic: *Low back pain, cauda equina syndrome suspected TECHNIQUE: Multidetector-row CT of the lumbar spine was performed withoutintravenous contrast using tailored dose modulation techniques. Imageswere reconstructed in the axial, coronal, and sagittal planes. COMPARISON: XR LUMBOSACRAL SPINE 2-3 VIEWS 2024- FINDINGS: LUMBAR SPINE: Spinal stimulator leads enter the central canal at L1 andextending superiorly. Alignment and Vertebrae: There is stable grade 1 anterolisthesis of L4 inrelation L5. No other malalignment of the lumbar spine. No loss ofvertebral body height. No subluxation of the vertebral bodies. Surgicalchanges of previous posterior laminectomy posterior to L3 and L4. Moderatebilateral facet arthropathy and heterotopic ossification surrounding thefacets due to previous surgical intervention. Discs and Endplates: Advanced degenerative disease is present throughoutthe cervical spine with osteophyte formation. Fusion at L4-L5. Prominentfacet arthropathy at multiple levels. Soft Tissue: There is soft tissue swelling in the soft tissues posteriorto the surgical changes and surrounding the stimulator leads. No othersurrounding edema. Aorta is normal in size. Other Findings: None. IMPRESSION: 1. Advanced degenerative changes of the lumbar spine with surgicalchanges. No acute osseous abnormality. 2. There is mild soft tissue swelling surrounding the spinal stimulatorleads. May be due to prior surgical intervention. Monica Mojica PA-C IMG CT XSPECIALTY ORDERABLE S Final Result from Last 3 Months Additional Health Concerns Infection Onset Date Last Indicated MDR-GN 03/14/2025 03/14/2025 Insurance MEDICARE PART A & B Member Subscriber Plan / Payer (Ef fective 2010-Present) Name:Yvonne Meyer Member ID:[id number] Relation to Subscriber:Self Name:Yvonne Meyer Subscriber ID:[id number] Payer ID:[id number] Group ID:Not on file Type:Medicare Address: [employer] [facility] [address] [address] [facility] ONE CARE MEDICARE REPLACEMENT JAY STR[place]TON [id number] MEDICARE PART A & B [facility] [place] [id number] MEDICARE PART A & B [facility] [place] [place] [id number] MEDICARE PART A & B [facility] ONE CARE MEDICARE REPLACEMENT Member Subscriber Plan / Payer ( fective 2024-Present) Name:Yvonne Meyer Relation to Subscriber:Self Name:Yvonne Meyer Payer ID:[id number] (NAIC) Group ID:[id number] Type:Medicare [address] [facility] MED[facility] PART A & B [facility] CARE MEDICARE REPLACEMENT JAY STRATTON [facility] MEDICARE PART A & B ONE CARE MEDICARE REPLACEMENT MEDICARE PART A & B CARE MEDICARE REPLACEMENT Member Subscriber Plan / Payer (Ef fective 2024-) Name:Yvonne Meyer Relation to Subscriber:Self Name:Yvonne Meyer Payer ID:[id number] (NAIC) Group ID:[id number] Type:Medicare Address: [address] [facility] MEDICARE PART A & B [facility] ONE CARE MEDICARE REPLAC[place] [address] MEDICARE PART A & B [facility] ONE CARE MEDICARE REPLACEMENT [employer] Advance Directives For more information, please contact: [phone] (9AM - 5PM Priscilla/[facility], Monday-Monday) Documents on File Type Date Recorded Patient Development Manager Expl anation Healthcare Proxy 12/22/2017 2:46 PM proxy MOLST 12/22/2017 2:46 PM MOLST Healthcare Proxy 12/25/2021 HCP * Full Code (Latest Code Status on File) Date Activated Date Inactivated Comments 06/19/2025 6:09 PM Question Answer Comments Code Status Confirmed With: Patient * Full Code Date Activated Date Inactivated Comments 09/09/2024 3:03 PM 06/19/2025 6:09 PM Question Answer Comments Code Status Confirmed With: Patient * Full Code Date Activated Date Inactivated Comments 12/31/2022 6:22 PM 09/09/2024 3:03 PM Question Answer Comments Code Status Confirmed With: Other (specify below ) Code Discussion Comments: chart review * Full Code (Presumed) Date Activated Date Inactivated Comments 01/21/2020 3:36 PM 12/31/2022 6:22 PM * DNR/DNI (No CPR/No Intubation) Date Activated Date Inactivated Comments 09/24/2019 12:06 AM 09/27/2019 5:05 PM Question Answer Comments Code Status Confirmed With: Patient Healthcare Agents on File Name Relationship Healthcare Agent [facility] Rajendra Brito Friend .Primary Health Care Agent (Proxy form on file) Care Teams Software Development Coordinator Relationship Specialty Start Date End Date Kylie Crook MD [address] [place] [phone] [email or web address] PCP - General Family Medicine 09/06/23 Saloni Smith PA Historical LMR Provider 06/20/17 Daylin Nino MD [address] [place] [phone] [email or web address] Historical LMR Provider 06/20/17 Rayshawn Love MD [address] [place] [phone] Interventional Pain Management 05/04/22 Additional Source Comments The information contained in this document represents components of the legal health record. It is not the complete legal health record.[facility]
--- OUTSIDE RECORDS SUMMARY | 2025-07-30 15:40 | XMS_ITS | Encounter Summary ---
Author Organization Located Within [facility] Address [address] [place] [phone] Phone Care Team Providers Care Garage Supervisor Name Role Phone Saloni Smith Unavailable [email or web address] Daylin Nino MD Unavailable Kylie Crook MD Primary Care Provider [phone] Rayshawn Love MD Unavailable [phone]- [phone] Kylie Crook MD Primary Care Provider [phone] Encounter Details Date Type Department Care Team (Late st Contact Info) Description 03/23/2022 Procedure Pass [facility], Ct Scan - [address] [id number] Social History Tobacco Use Types Packs/Day Years [...] Date of Assessment Author No Risk Indicated 03/23/2022 7:07 PM EDT Bia King RN * [place] Suicide Severity Rating Scale (Screener/Recent Self-Report) Question Answer Date of Assessment Author 1. Wish to be (Past 1 Month) No 03/23/2022 7:07 PM EDT Bia Ventura RN 2. Non-Specific Active Suicidal Thoughts (Past 1 Month) No 03/23/2022 7:07 PM EDT Bia Ventura RN 6. Suicidal Behavior (Lifetime) No 03/23/2022 7:07 PM EDT Bia Ventura RN documented as of this encounter Plan of Treatment Not on file documented as of this encounter Goals Goal Patient Goal Type Associated Problems Recent Progress Patient-Stated? Author Acute Care Plan Acute Care Plan No Ana Gregorio RN Note: Has [employer] Insurance: gets MOM's meals and Laundry service Health Aide: Bry Del Castillo RN [phone] (ask for her by name) Yvonne has access to /7 placement director through her insurance, has access to [facility] for medical concerns, reinforce this with her when she presents to the ED. documented as of this encounter Visit Diagnoses Not on filedocumented in this encounter Additional Health Concerns Infection Onset Date Last Indicated Resolved Time CoV-Risk 09/04/2022 09/04/2022 09/04/2022 9:26 PM EST COVID-19 09/04/2022 09/04/2022 09/25/2022 1:21 AM EST CoV-Risk 10/14/2023 10/14/2023 10/25/2023 1:22 AM EST Influenza A 10/14/2023 10/14/2023 10/21/2023 1:22 AM EST CoV-Risk 10/04/2024 10/04/2024 10/15/2024 1:23 AM EST MDR-GN 03/14/2025 03/14/2025 documented as of this encounter Care Teams Garage Supervisor Relationship Specialty Start Date End Date Kylie Crook MD [address] [place] [id number] [email or web address] PCP - General Family Medicine 09/01/20 09/05/23 Kylie Crook MD [address] [place] [phone] [email or web address] PCP - General Family Medicine 09/06/23 Saloni Smith PA Historical LMR Provider 06/20/17 Daylin Nino MD [address] [place] [phone] [email or web address] Historical LMR Provider 06/20/17 Rayshawn Love MD [address] [place] [phone] Interventional Pain Management 05/04/22 documented as of this encounter Additional Source Comments The information contained in this document represents components of the legal health record. It is not the complete legal health record.[facility]
--- OUTSIDE RECORDS SUMMARY | 2025-07-30 15:40 | XMS_ITS | Continuity of Care Document ---
Author Organization [facility] Address [address] [place] [id number] Care Team Providers Care Contract Associate Name Role Phone HIM CCA OTHER Assessment No assessment recorded. Plan of Treatment Reminders Order Date Submit Date Provider Last Modified By Organization Details Last Modified Time Details Appointments None recorded. Lab BMP, serum or plasma 2024 025 [facility], [address] [place] [address], [id number] 07:54:40 Referral None recorded. Procedures None recorded. Surgeries None recorded. Imaging None recorded. Medication Orders ketorolac 15 mg/mL injection solution 2024 025 [facility], [address] [place] [address], [id number], 21:02:05 Patient TargetsNo targets recorded. Patient InstructionsNo [...] Not available Not available Not available 08/05/2024 35984 RxNorm Not Available [facility] - production 4 12:44:08 albuterol medicatio n Not available Not available Not available 08/05/2024 435 RxNorm Not Available [facility] - production 4 12:44:08 buspirone medicatio n Not available Not available Not available 08/05/2024 1827 RxNorm Not Available [facility] - production 4 12:44:08 84330 Celebrex medicatio n Not available Not available Not available 08/05/2024 53674 7 [facility] 12:44:08 59678 codeine medicatio n Not available Not available Not available 08/05/2024 2670 [facility] 12:44:08 09165 Cymbalta medicatio n Not available Not available Not available 08/05/2024 14395 4 [facility] 12:44:08 27047 Depakote medicatio n Not available Not available Not available 08/05/2024 62400 9 [facility] 12:44:08 37135 fentanyl medicatio n Not available Not available Not available 08/05/2024 4337 RxNorm Not Available [facility] - production 4 12:44:08 78649 fluticaso ne Not available Not available Not available Not available 08/05/2024 36736 [facility] 12:44:08 91759 morphine medicatio n Not available Not available Not available 08/05/2024 7052 [facility] 12:44:08 08759 acetamino phen / oxycodone medicatio n Not available Not available Not available 08/05/2024 81091 3 [facility] 12:44:08 60346 prednison e medicatio n Not available Not available Not available 08/05/2024 8640 [facility] 12:[facility]08 48179 tramadol medicatio n Not available Not available Not available 08/05/2024 96288 [facility] 12:44:08 70274 erythromy bridget medicatio n Not available Not available Not available 08/05/2024 4053 [facility] 12:44:08 65009 sulfameth oxazole medicatio n Not available Not available Not available 08/05/2024 39840 [facility] 4 12:44:08 28355 adhesive tape environme nt,medica tion Not available Not available Not available 02/17/2025 Not Available [facility] 14:38:26 12419 guaifenes in medicatio n Not available Not available Not available 02/17/2025 5032 Rx[facility] 5 14:38:26 14283 hydrochlo rothiazid e medicatio n Not available Not available Not available 02/17/2025 5487 Rx[facility] 5 14:38:26 88999 Imitrex medicatio n Not available Not available Not available 02/17/2025 38974 3 Rx[facility] 5 14:38:26 86620 iodine medicatio n Not available Not available Not available 02/17/2025 5933 Rx[facility] 5 14:38:26 86055 Levaquin medicatio n Not available Not available Not available 02/17/2025 71896 2 [facility] 5 14:38:26 85958 lidocaine medicatio n Not available Not available Not available 02/17/2025 6387 Rx[facility] 5 14:38:26 19307 Macrobid medicatio n Not available Not available Not available 02/17/2025 92672 1 [facility] 5 14:38:26 93499 thioridaz ine hydrochlo ride medicatio n Not available Not available Not available 02/17/2025 78805 5 [facility] 5 14:38:26 60880 methylphe nidate medicatio n Not available Not available Not available 02/17/2025 6901 RxNorm Not Available [facility] - production 5 14:38:[address] medicatio n Not available Not available Not available 02/17/2025 46838 RxNorm Not Available [facility] - production 5 14:38:26 88153 nortripty line medicatio n Not available Not available Not available 02/17/2025 7531 RxNorm Not Available [facility] - production 5 14:38:26 44484 procaine hydrochlo ride medicatio n Not available Not available Not available 02/17/2025 15190 8 RxNorm Not Available [facility] - 14:38:26 50575 Product containin g penicilli n (product) medicatio n Not available Not available Not available 02/17/2025 60308 8001 SNOMED Not Available [facility] 5 14:38:26 95780 phentermi ne medicatio n Not available Not available Not available 02/17/2025 8152 [facility] 14:38:26 34795 prochlorp erazine medicatio n Not available Not available Not available 02/17/2025 8704 RxNorm Not Available [facility] - 5 14:38:26 76987 Prozac medicatio n Not available Not available Not available 02/17/2025 79730 [facility] 5 14:38:26 51990 quetiapin e medicatio n Not available Not available Not available 02/17/2025 01291 RxNorm [facility] 5 14:38:26 58153 Remeron medicatio n Not available Not available Not available 02/17/2025 48007 4 [facility] 5 14:38:26 06066 Spiriva medicatio n Not available Not available Not available 02/17/2025 08672 5 RxNorm [facility] 5 14:38:26 49167 Tessalon Perles medicatio n Not available Not available Not available 02/17/2025 79325 4 RxNorm Not Available [facility] production 5 14:38:26 65195 topiramat e medicatio n Not available Not available Not available 02/17/2025 20278 RxNorm Not Available [facility] production 5 14:38:26 56155 trazodone medicatio n Not available Not available Not available 02/17/2025 86870 RxNorm Not Available [facility] - production 5 14:38:26 64693 Tricyclic antidepre ssant (substanc e) medicatio n Not available Not available Not available 02/17/2025 97009 3007 SNOMED Not Available [facility] 5 14:38:26 24267 Trileptal medicatio n Not available Not available Not available 02/17/2025 32650 0 RxNorm Not Available [facility] 5 14:38:26 21068 venlafaxi ne medicatio n Not available Not available Not available 02/17/2025 28473 RxNorm Not Available [facility] 5 14:38:26 99575 Wellbutri n medicatio n Not available Not available Not available 02/17/2025 34954 RxNorm Not Available [facility] production 5 14:38:26 56230 Ultram medicatio n Not available Not available Not available 02/17/2025 17672 6 RxNorm Not Available [facility] 5 14:38:26 40842 Substance with sulfonami de structure and antibacte rial mechanism of action (substanc e) medicatio n Not available Not available Not available 02/17/2025 68826 8003 SNOMED Not Available [facility] production 5 14:38:26 53803 oxycodone medicatio n Not available Not available Not available 02/17/2025 7804 RxNorm Not Available [facility] production 5 14:38:26 61313 prednisol one medicatio n Not available Not available Not available 02/17/2025 8638 RxNorm [facility] 5 14:38:26 15238 Reglan medicatio n Not available Not available Not available 02/17/2025 9230 RxNorm Not Available [facility] 5 14:38:26 7169 Bactrim medicatio n Not available Not available Not available 07/02/2024 50385 9 RxNorm Not Available [facility] 4 03:35:31 Medications Name Sig Start Date [...] t Available Vitals Date Recorded Respiratory rate Heart rate Body temperature Oxygen saturation Body weight Body height Systolic And Diastolic Provider Name and Address Organization Details Last Updated DateTime 5 20 /min 83 /min 98.5 [degF] 96 % 839486. 072 g 165.1 cm 182/81 mm[Hg] Not Available [facility] - production 5 20:23:27 Social History None recorded. Functional Status None recorded. Mental Status None recorded. Family History Nothing Reported. Medical History No medical history recorded. Gynecological HistoryNo gynecological history recorded. Obstetrics History GPAL:G 0 P 0 0 0 0 Past Encounters Encounter ID Performer Location Encounter Start Date Encounter Closed Date Diagnosis/Indication Diagnosis SNOMED-CT Code Diagnosis ICD10 Code Diagnosis IMO Codes Diagnosis Note [id number] HAYLIE PAYNE MD [email or web address] ED Medical [facility] [address] [place] [address] 05/09/2025 20:20:36 05/11/2025 15:32:51 Chronic low back pain 127941379 M54.50 G89.29 [id number] Evaluation in the field was performed by my brick baker colleague, as noted above, I provided real-time [...] by Organization Details LastModified Time None Recorded Payers Encounter Date Sequence Insurance Name Policy Number Policy Jc Covered Member ID Jc Member ID Guarantor Name 05/09/2025 1 [facility] - DOS ON OR AFTER 2022 - DUAL ELIGIBLE - [employer] AND ONE C[employer] (MEDICARE REPLACEMENT/AD VANTAGE - HMO) Michell Meyer [id number] Michell Meyer Notes Date Note Type Note Provider Name and Address Organization Details Recorded Time 05/09/2025 text/html ROS as noted in the HPI HPI: mbr with complaints of lower back pain states chronic with flare ups, denies any urinary complaints. requesting [facility] visit for evaluationProtocol Used: Back PainProtocol-Based Disposition: Consider instED, CCA Community clinician, MD/HEALTH CARE COORDINATOR triage, PCP, or Urgent Care Visit within [...] ....................... ....................... ....................... ....................... ....................... ....................... ... [facility] Nurse Triage Notes (Shannan Snow): Chief Complaints: Back Pain PMH: Severe Persistent Mental Illness (SPMI), Hypertension, Anxiety Disorder, Diabetes Mellitus Type 2, Depression, Chronic Kidney Disease, Hyperlipidemia, Kidney Stones, Asthma, Chronic Pain, Post-Traumatic Stress Disorder (PTSD) PMH Reviewed at 05/09/2025:34 Allergies Reviewed at 05/09/2025:34 Comments: Reviewed HPI. 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 ....................... ....................... ....................... ....................... ....................... ....................... ... 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 Upon arrival on scene, pt comes up the elevator behind [facility] and opens the door to her apartment. She is carrying a laundry basket full of clothes and laundry detergent containers and is walking bent over w/ a slight limp. She is c/o the basket being heavy and [facility] carries it inside for her as [...] she is not bleeding anywhere. Pt tells [facility] she is having a flare up [...] osteoarthritis flare up, UTI, kidney stone/infection, neuropathy. [facility] obtains vital signs and pt is [...] answer all questions and follows all commands. [facility] contacts [facility] and discusses the above. [facility] orders IV access for BMP. IV access is attempted in the L AC using aseptic technique and is not successful. IV access is obtained in the R AC using aseptic technique and a 23ga butterfly. Blood is obtained for bmp and butterfly is removed and pressure bandage applied w/ 2x2 and coban. [facility] orders 15mg toradol IM and encourages pt to contact her PCP regarding her kidney function. [facility] administers 15mg toradol IM in the R deltoid using aseptic technique. [facility] informs and discusses red flags w/ pt and she says she will contact her urologist next week. [facility] is clear. Report completed by CHINO Lim [id number]. [facility] Lab Orders: BMP, serum or plasma: Performed [facility] Medication Orders: ketorolac 15 mg/mL injection solution: Performed ....................... ....................... ....................... ....................... ....................... ....................... ... [facility] Consulted: Haylie Payne ....................... ....................... ....................... ....................... ....................... ....................... ... Disposition: Fulfilled HAYLIE PAYNE MD [address] [facility],[address], [place], [address], JUANA WYATT ARELLANO 05/09/2025 23:18:53 OBGyn Episode No OBEpisode recorded.
--- OUTSIDE RECORDS SUMMARY | 2025-07-30 15:40 | XMS_ITS | Data Portability ---
Author Organization [facility] Address [address] [place] [address] Care Team Providers Care Net C Developer Name Role Phone HIM CCA OTHER Assessment Encounter Date Assessment Date Assessment LastModified by Organization Details LastModified Time 01/27/2023 01/27/2023 Ms. Kaur Meyer is a 57yoF who is s/p spinal cord stimulator implantation on 01/20 who is seen today for a wound check/dressing change. Ms. Meyer reports that her dressing and lauro are supposed to be removed this upcoming Monday, but her dressing came off today and [facility] was called to re-dress it. She has no complaints and feels well otherwise. VSS. Marine Fisheries Technician on site reports wound appears to be [...] and should FUP PCP should sxs continue. [email or web address] Not available 08/05/2024 20:26:43 Plan of Treatment Reminders Order Date Submit Date Provider Last Modified By Organization Details Last Modified Time Details Appointments None recorded. Lab BMP, serum or plasma 2024 025 BENJY [facility], [address], [place], [address] 07:54:40 Referral None recorded. Procedures None recorded. Surgeries None recorded. Imaging None recorded. Medication Orders ketorolac 15 mg/mL injection solution 2024 025 gbaci [facility], [address] [place], [address], 5 21:02:05 Patient TargetsNo targets recorded. Patient [...] Not available Not available Not available 08/05/2024 76130 RxNorm Not Available [facility] - production 4 12:44:08 28768 albuterol medicatio n Not available Not available Not available 08/05/2024 435 RxNorm Not Available [facility] - production 4 12:44:08 buspirone medicatio n Not available Not available Not available 08/05/2024 1827 RxNorm Not Available [facility] - production 4 12:44:08 53849 Celebrex medicatio n Not available Not available Not available 08/05/2024 97766 7 RxNorm Not Available [facility] - production 4 12:44:08 01259 codeine medicatio n Not available Not available Not available 08/05/2024 2670 RxNorm Not Available [facility] - production 4 12:44:08 35405 Cymbalta medicatio n Not available Not available Not available 08/05/2024 91791 4 RxNorm Not Available [facility] - production 4 12:44:08 79194 Depakote medicatio n Not available Not available Not available 08/05/2024 46926 9 RxNorm Not Available [facility] - production 4 12:44:08 93445 fentanyl medicatio n Not available Not available Not available 08/05/2024 4337 RxNorm Not Available [facility] - production 4 12:44:08 94330 fluticaso ne Not available Not available Not available Not available 08/05/2024 51576 RxNorm Not Available [facility] - production 4 12:44:08 58344 morphine medicatio n Not available Not available Not available 08/05/2024 7052 RxNorm Not Available [facility] - production 4 12:44:08 41927 acetamino phen / oxycodone medicatio n Not available Not available Not available 08/05/2024 51751 3 RxNorm Not Available [facility] - production 4 12:44:08 54842 prednison e medicatio n Not available Not available Not available 08/05/2024 8640 RxNorm Not Available [facility] - production 4 12:44:08 83593 tramadol medicatio n Not available Not available Not available 08/05/2024 84909 RxNorm Not Available [facility] - production 4 12:44:08 92416 erythromy bridget medicatio n Not available Not available Not available 08/05/2024 4053 RxNorm Not Available [facility] - production 4 12:44:08 34242 sulfameth oxazole medicatio n Not available Not available Not available 08/05/2024 76814 RxNorm Not Available [facility] - production 4 12:44:08 81678 adhesive tape environme nt,medica tion Not available Not available Not available 02/17/2025 Not Available [facility] - production 5 14:38:26 65420 guaifenes in medicatio n Not available Not available Not available 02/17/2025 5032 RxNorm Not Available [facility] - production 5 14:38:26 55762 hydrochlo rothiazid e medicatio n Not available Not available Not available 02/17/2025 5487 RxNorm Not Available [facility] - production 5 14:38:26 67452 Imitrex medicatio n Not available Not available Not available 02/17/2025 44455 3 RxNorm Not Available [facility] - production 5 14:38:26 28711 iodine medicatio n Not available Not available Not available 02/17/2025 5933 RxNorm Not Available [facility] - production 14:38:26 35560 Levaquin medicatio n Not available Not available Not available 02/17/2025 64577 2 RxNorm Not Available [facility] - production 5 14:38:26 53441 lidocaine medicatio n Not available Not available Not available 02/17/2025 6387 RxNorm Not Available [facility] - production 5 14:38:26 69665 Macrobid medicatio n Not available Not available Not available 02/17/2025 53631 1 RxNorm Not Available [facility] - 14:38:26 88589 thioridaz ine hydrochlo ride medicatio n Not available Not available Not available 02/17/2025 58979 5 RxNorm Not Available [facility] - production 5 14:38:26 82241 methylphe nidate medicatio n Not available Not available Not available 02/17/2025 6901 RxNorm Not Available [facility] - production 5 14:38:[address] medicatio n Not available Not available Not available 02/17/2025 16727 RxNorm Not Available [facility] - production 14:38:26 83929 nortripty line medicatio n Not available Not available Not available 02/17/2025 7531 RxNorm Not Available [facility] - production 5 14:38:26 31069 procaine hydrochlo ride medicatio n Not available Not available Not available 02/17/2025 96178 8 RxNorm Not Available [facility] - production 5 14:38:26 07918 Product containin g penicilli n (product) medicatio n Not available Not available Not available 02/17/2025 88758 8001 SNOMED Not Available [facility] - production 5 14:38:26 58097 phentermi ne medicatio n Not available Not available Not available 02/17/2025 8152 RxNorm Not Available [facility] - 5 14:38:26 76036 prochlorp erazine medicatio n Not available Not available Not available 02/17/2025 8704 RxNorm Not Available [facility] 5 14:38:26 94769 Prozac medicatio n Not available Not available Not available 02/17/2025 73850 RxNorm Not Available [facility] 5 14:38:26 32103 quetiapin e medicatio n Not available Not available Not available 02/17/2025 57258 RxNorm Not Available [facility] 5 14:38:26 89521 Remeron medicatio n Not available Not available Not available 02/17/2025 12088 4 RxNorm Not Available [facility] 5 14:38:26 92361 Spiriva medicatio n Not available Not available Not available 02/17/2025 51772 5 RxNorm Not Available [facility] 5 14:38:26 90425 Tessalon Perles medicatio n Not available Not available Not available 02/17/2025 55758 4 RxNorm Not Available [facility] 5 14:38:26 74315 topiramat e medicatio n Not available Not available Not available 02/17/2025 13899 RxNorm Not Available [facility] 5 14:38:26 41347 trazodone medicatio n Not available Not available Not available 02/17/2025 82653 RxNorm Not Available [facility] - 5 14:38:26 07993 Tricyclic antidepre ssant (substanc e) medicatio n Not available Not available Not available 02/17/2025 77545 3007 SNOMED Not Available [facility] - 5 14:38:26 31645 Trileptal medicatio n Not available Not available Not available 02/17/2025 50382 0 RxNorm Not Available [facility] - 5 14:38:26 36662 venlafaxi ne medicatio n Not available Not available Not available 02/17/2025 65509 RxNorm Not Available [facility] 5 14:38:26 53553 Wellbutri n medicatio n Not available Not available Not available 02/17/2025 87726 RxNorm Not Available [facility] 5 14:38:26 67169 Ultram medicatio n Not available Not available Not available 02/17/2025 93913 6 RxNorm Not Available [facility] 5 14:38:26 00124 Substance with sulfonami de structure and antibacte rial mechanism of action (substanc e) medicatio n Not available Not available Not available 02/17/2025 77968 8003 SNOMED Not Available [facility] 5 14:38:26 74082 oxycodone medicatio n Not available Not available Not available 02/17/2025 7804 RxNorm Not Available [facility] 5 14:38:26 32228 prednisol one medicatio n Not available Not available Not available 02/17/2025 8638 RxNorm Not Available [facility] 5 14:38:26 35986 Reglan medicatio n Not available Not available Not available 02/17/2025 9230 RxNorm Not Available [facility] 5 14:38:26 7169 Bactrim medicatio n Not available Not available Not available 07/02/2024 61098 9 RxNorm Not Available [facility] 4 03:35:31 Medications Name Sig Start Date [...] Vitals Date Recorded Respiratory rate Oxygen saturation Body temperature Heart rate Systolic And Diastolic Provider Name and Address Organization Details Last Updated DateTime 3 18 /min 95 % 98.4 [degF] 60 /min 145/90 mm[Hg] Not Available [facility] 3 19:35:15 Date Recorded Respiratory rate Heart rate Body temperature Oxygen saturation Body weight Body height Systolic And Diastolic Provider Name and Address Organization Details Last Updated DateTime 5 20 /min 83 /min 98.5 [degF] 96 % 451131. 072 g 165.1 cm 182/81 mm[Hg] Not Available [facility] 5 20:23:27 Date Recorded Heart rate Body temperature Respiratory rate Oxygen saturation Respiratory rate Oxygen saturation Body temperature Heart rate Systolic And Diastolic Systolic And Diastolic Provider Name and Address Organization Details Last Updated DateTime 2 76 /min 99.1 [degF] 20 /min 96 % 20 /min 96 % 99.1 [degF] 76 /min 113/76 mm[Hg] 113/76 mm[Hg] Not Available [facility] 2 18:37:02 Date Recorded Body temperature Body height Heart rate Body weight Respiratory rate Oxygen saturation Systolic And Diastolic Provider Name and Address Organization Details Last Updated DateTime 4 97.1 [degF] 165.1 cm 70 /min 251663. 6 g 16 /min 96 % 132/94 mm[Hg] Not Available [facility] 4 20:08:51 Social History None recorded. Functional [...] Codes Diagnosis Note 5600 Rubio Goldberg MD [facility] [place] [address] 0 07/29/2022 17:29:40 08/01/2022 10:50:25 Neuropathy 225166256 G62.9 New onset neuropathy in lower extremitie s with weakness; recommende d ED for evaluation but patient declined, as states has follow-up with surgeon soon Dizziness [id number] R42 Unclear etiology. Negative orthostati cs and [...] would contact and inform her surgeon FRED. [id number] Carrie Lopez MD Main - [facility] [address] [place] [address] 0 01/27/2023 19:35:14 01/30/2023 18:31:47 Post-surgical wound care [id number] Z48.01 [id number] [facility] [address] [place] [address] 0 08/05/2024 20:08:47 08/05/2024 21:24:15 Ankle pain 237895008 M25.579 84590 HAYLIE PAYNE MD [facility] ED Medical [address] [phone] 05/09/2025 20:20:36 05/11/2025 15:32:51 Chronic low back pain [id number] M54.50 G89.29 [id number] Evaluation in the field was performed by my household manager colleague, as noted above, I provided real-time [...] Jc Member ID Guarantor Name 01/27/2023 1 [facility] - DOS PRIOR TO 2022 - DUAL ELIGIBLE (MEDICARE REPLACEMENT/AD VANTAGE - HMO) Kaur Meyer [id number] Chelseasabrina Doug Meyer 08/05/2024 1 [facility] - DOS ON OR AFTER 2022 - DUAL ELIGIBLE - FDC OPTIONS AND ONE CARE (MEDICARE REPLACEMENT/AD VANTAGE - HMO) Kaur eMyer [id number] Chelseahandstefanie Meyer 08/06/2024 1 [facility] - DOS ON OR AFTER 2022 - MEDICARE ADVANTAGE [place] (MEDICARE REPLACEMENT/AD VANTAGE - PPO) Michell Meyer [id number] Michell Meyer 05/09/2025 1 [facility] - DOS ON OR AFTER 2022 - DUAL ELIGIBLE - FDC OPTIONS AND ONE CARE (MEDICARE REPLACEMENT/AD VANTAGE - HMO) Michell Meyer [id number] Michell Meyer Notes Date Note Type Note Provider Name and Address Organization Details Recorded Time 07/29/2022 text/html ROS as noted in the HPI HPI: Todd is a 57 y/o with c/o lightheadedness and back pain. States that she hurt her back while lifting a 15lb turkey on 07/28. This morning she woke up feeling lightheaded with new onset tingling to bilateral feet. Mbr also c/o weakness to both legs. Todd is a diabetic. Last BG 125. States that she walked to [employer] this morning using her walker and she felt like she was [place] [employer] [place]. Reports that her eyes feel weird from the dizziness she is experiencing. States that she is concerned her BP is bottoming out. Asked mbjoellen if she had a machine to check [...] of when last dose was taken. Offered [facility] EST[facility]. Todd agreeable. Best contact num [phone] CODE: Full Code ALLERGIES: PCN, Iodine, Trileptal, [...] ....................... ....................... ....................... ....................... ....................... ....................... ... Marine Fisheries Technician Note: Community Marine Fisheries Technician Jer [id number] dispatched to a [facility] for a 57 yof C/O dizziness. [...] Pt was opposed to transport to ED. C consulted; Physician recommended CMP and EKG, and [...] ....................... ....................... ....................... ....................... ... Disposition: Fulfilled Rubio Goldberg MD [address], [place], [address], [employer] 07/30/2022 08:20:38 01/27/2023 text/html CRC Nursing Assessment: Reason For Request: wound Chief Complaints: Wound Care PMH: Diabetes, Severe Persistent Mental Illness (SPMI), Hypertension Allergies: Bactrim Comments: Verified identity by Member had a spinal cord stimulator implant , per member she was told that the dressing she stay on . Lauro to be removed Monday . They changed the dressing on Monday. The dressing is tegaderm and gauze pad. The member does not have tegaderm . ....................... ....................... ....................... ....................... ....................... ....................... ... Marine Fisheries Technician Note From Sharifa Hobson: Sent to evaluate [...] of site reveals clean and dry area, lauro are intact with no drainage. No erythema or signs of infection. Placed strip of 5X9 and covered with two large tegaderms to secure in place. Consulted [facility] who had no further recommendations or orders at this time. Left pt with additional dressing supplies and pt voiced understanding on how to instruct friend to do it if needed. Pt has f/u with surgeon office on 01/31. No further questions or concerns at this time. ....................... ....................... ....................... ....................... ....................... ....................... ... Disposition: Fulfilled Carrie Lopez MD [address], [place], [address], JUANA - ADAN [facility] 01/27/2023 21:13:47 08/05/2024 text/html HPI: Pt is [...] ....................... ....................... ....................... ....................... ....................... ....................... ... Marine Fisheries Technician Note From Marcell Steele: This 59-year-old female [...] ....................... ....................... ....................... ....................... ....................... ....................... ... [facility] Consulted: Jose Cordova ....................... ....................... ....................... ....................... ....................... ....................... ... Disposition: Fulfilled JOSE CORDOVA MD [address], [place], [address], JUANA - [employer] MAY[employer] 08/05/2024 21:12:16 05/09/2025 text/html ROS as noted in the HPI HPI: mbr with complaints of lower back pain states chronic with flare ups, denies any urinary complaints. requesting [facility] visit for evaluationProtocol Used: Back PainProtocol-Based Disposition: Consider Adan, [facility] Community clinician, MD/PHYSICAL FITNESS TRAINER triage, PCP, or Urgent Care Visit within [...] ....................... ....................... ... CRC Nurse Triage Notes (Shannan Snow): Chief Complaints: Back Pain PMH: Severe Persistent Mental Illness (SPMI), Hypertension, Anxiety Disorder, Diabetes Mellitus Type 2, Depression, Chronic Kidney Disease, Hyperlipidemia, Kidney Stones, Asthma, Chronic Pain, Post-Traumatic Stress Disorder (PTSD) PMH Reviewed at 05/09/2025:34 Allergies Reviewed at 05/09/2025:34 Comments: Reviewed HPI. Marine Fisheries Technician Organization Information for Jese Lim Business Legal Name: [employer]. Address: [address] [place] [address], Batch Room Technician: Michele Sierra MD CLIA No.: [id number] Marine Fisheries Technician POC Test Results from Jese Lim iSTAT Chem8+ (20:54:49) Na: 142mEq/L K: 4.7mEq/L Cl: 100mEq/L iCa: 1.08mmol/L TCO2: 30mmol/L Glu: 140mg/dL BUN: 23mg/dL Crea: 1.9mg/dL Hct: 41% Hb: 13.9g/dL Ammol/L Cartridge Number: [id number] Attachments uploaded as part of this test result can be found under Documents section. ....................... ....................... ....................... ....................... ....................... ....................... ... Marine Fisheries Technician Note From Jese Lim: SC6 and SC12 respond to the listed address for a 60 yof w/ a c/c of back pain. Upon arrival on scene, pt comes up the elevator behind [facility] and opens the door to her apartment. She is carrying a laundry basket full of clothes and laundry detergent containers and is walking bent over w/ a slight limp. She is c/o the basket being heavy and MIH carries it inside for her as she [...] she is not bleeding anywhere. Pt tells MIH she is having a flare up of [...] osteoarthritis flare up, UTI, kidney stone/infection, neuropathy. [facility] obtains vital signs and pt is assessed. [...] answer all questions and follows all commands. [facility] contacts [facility] and discusses the above. [facility] orders IV access for BMP. IV access is attempted in the L AC using aseptic technique and is not successful. IV access is obtained in the R AC using aseptic technique and a 23ga butterfly. Blood is obtained for bmp and butterfly is removed and pressure bandage applied w/ 2x2 and coban. [facility] orders 15mg toradol IM and encourages pt to contact her PCP regarding her kidney function. [facility] administers 15mg toradol IM in the R deltoid using aseptic technique. [facility] informs and discusses red flags w/ pt and she says she will contact her urologist next week. [facility] is clear. Report completed by CHINO Lim [id number]. [facility] Lab Orders: BMP, serum or plasma: Performed [facility] Medication Orders: ketorolac 15 mg/mL injection solution: Performed ....................... ....................... ....................... ....................... ....................... ....................... ... [facility] Consulted: Haylie Payne ....................... ....................... ....................... ....................... ....................... ....................... ... Disposition: Ankur PAYNE MD [address], [place], [address], WYATT SALGUERO 05/09/2025 23:18:53 OBGyn Episode No OBEpisode recorded.
--- OUTSIDE RECORDS SUMMARY | 2025-07-30 15:40 | XMS_ITS | Encounter Summary ---
Author Organization [facility] Address [address] [place] [address] Phone Care Team Providers Care Dam Worker Name Role Phone Radha Miner NP Unavailable Saloni Smith Unavailable [email or web address] Britt Beavers DO Unavailable [phone] Daylin Nino MD Unavailable [phone] Misty Owens MD Unavailable [phone] Rubio Holloway MD Unavailable [phone] Rubio Malin MD Unavailable Chandler Carrera MD Unavailable [phone] Misty Owens MD Primary Care Provider [phone] Kylie Crook MD Primary Care Provider [phone] León Avalos MD Primary Care Provider Kylie Crook MD Primary Care Provider [phone] Rayshawn Love MD Unavailable Kylei Crook MD Primary Care Provider [phone] Encounter Details Date Type Department Care Team (Late st Contact Info) Description 05/01/2018 Procedure Pass [facility], Ct Scan - [facility] [address] [place] [address] Social History Tobacco Use Types Packs/Day Years Used Date Smoking Tobacco: Never Smokeless Tobacco: Never Alcohol Use Standard Drinks/Week Comments No 0 (1 standard drink = 0.6 oz pure alcohol) alcohol abuse for one year following of father 2001 Comments Unknown Sex and Gender Information Value Date Recorded Sex Assigned at Female 10/01/2017 1:35 PM EST Legal Sex Female 3:16 PM EDT Gender Identity Female 10/02/2017 5:09 PM EST Sexual Orientation Straight 10/02/2017 5: 09 PM EST documented as of this encounter Plan of Treatment Not on file documented as of this encounter Visit Diagnoses Not on filedocumented in this encounter Additional Health Concerns Infection Onset Date Last Indicated Resolved Time CoV-Risk 01/04/2022 01/04/2022 01/15/2022 1:22 AM EDT CoV-Risk 09/04/2022 09/04/2022 09/04/2022 9:26 PM EST COVID-19 09/04/2022 09/04/2022 09/25/2022 1:21 AM EST CoV-Risk 10/14/2023 10/14/2023 10/25/2023 1:22 AM EST Influenza A 10/14/2023 10/14/2023 10/21/2023 1:22 AM EST CoV-Risk 10/04/2024 10/04/2024 10/15/2024 1:2 3 AM EST MDR-GN 03/14/2025 03/14/2025 documented as of this encounter Care Teams Dam Worker Relationship Specialty Start Date End Date Misty Owens MD [address] [place] [address] [email or web address] PCP - General Family Medicine 10/18/17 01/14/19 Kylie Crook MD [address] [place] [address] PCP - General Family Medicine 01/15/19 09/12/19 León Avalos MD 110 [facility] [address] [place] [address] [email or web address] PCP - General 09/13/19 08/31/20 Kylie Crook MD [address], [place] [address] PCP - General Family Medicine 09/01/20 09/05/23 Kylie Crook MD [address] [place] [phone] [email or web address] PCP - General Family Medicine 09/06/23 Radha Miner NP [address] [place] [address] Historical LMR Provider 06/20/17 09/11/21 Saloni Smith PA Historical LMR Provider 06/20/17 Britt Beavers DO [address] [place] [address] Historical LMR Provider 06/20/17 09/11/21 Daylin Nino MD [address] [place] [address] Historical LMR Provider 06/20/17 Misty Owens MD [address], [place] [address] [email or web address] Historical LMR Provider 06/20/17 09/11/21 Rubio Holloway MD [address] [place] [address] Historical LMR Provider 06/20/17 09/11/21 Rubio Malin MD [address] [place] [address] Historical LMR Provider 06/20/17 09/11/21 Chandler Carrera MD [address] [place] [address] Historical LMR Provider 06/20/17 09/11/21 Rayshawn Loev MD [address] [place] [address] Interventional Pain Management 05/04/22 documented as of this encounter Additional Source Comments The information contained in this document represents components of the legal health record. It is not the complete legal health record.[facility]
--- OUTSIDE RECORDS SUMMARY | 2025-07-30 15:40 | XMS_ITS | Encounter Summary ---
Author Organization [facility] Address [address] [place] [address] Phone Care Team Providers Care Policy Writer Typist Name Role Phone Radha Miner NP Unavailable Saloni Smith Unavailable [email or web address] Britt Beavers DO Unavailable [phone] Daylin Nino MD Unavailable Penny Owens MD Unavailable [phone] Rubio Holloway MD Unavailable [phone] Rubio Malin MD Unavailable Chandler Carrera MD Unavailable [phone] Kylie Crook MD Primary Care Provider [phone] Rayshawn Love MD Unavailable Kylie Crook MD Primary Care Provider [phone] Encounter Details Date Type Department Care Team (Late st Contact Info) Description 06/15/2021 Procedure Pass [facility], Ct Scan - [address] [address] Social History Tobacco Use Types Packs/Day Years [...] Date of Assessment Author No Risk Indicated 06/15/2021 6:51 PM EDT Paula Rodriguez RN * [place] Suicide Severity Rating Scale (Screener/Recent Self-Report) Question Answer Date of Assessment Author 1. Wish to be (Past 1 Month) No 021 6:51 PM EDT Paula Rodriguez RN 2. Non-Specific Active Suici micha Thoughts (Past 1 Month) No 06/15/2021 6:51 PM EDT Paula Rodriguez RN 6. Suicidal Behavior (Lifetime) No 6:51 PM EDT Paula Rodriguez RN documented as of this encounter Plan [...] documented as of this encounter Care Teams Policy Writer Typist Relationship Specialty Start Date End Date Kylie Crook MD 61 [place] [address] [email or web address] PCP - General Family Medicine 09/01/20 09/05/23 Kylie Crook MD [address] [place] [address] [email or web address] PCP - General Family Medicine 09/06/23 Radha Miner NP [address] [address] Historical LMR Provider 06/20/17 09/11/21 Saloni Smith PA [email or web address] Historical LMR Provider 06/20/17 Britt Beavers DO [address] [place] [address] Historical LMR Provider 06/20/17 09/11/21 Daylin Nino MD [address] [place] [address] [email or web address] Historical LMR Provider 06/20/17 Penny Owens MD [address], [place] [address] [email or web address] Historical LMR Provider 06/20/17 09/11/21 Rubio Holloway MD [address] [place] [address] Historical LMR Provider 06/20/17 09/11/21 Rubio Malin MD [address] [place] [address] [place] [address] Historical LMR Provider 06/20/17 09/11/21 Chandler Carrera MD [address] [place] [address] Historical LMR Provider 06/20/17 09/11/21 Rayshawn Love MD [address] [place] [address] Interventional Pain Management 05/04/22 documented as of this encounter Additional Source Comments The information contained in this document represents components of the legal health record. It is not the complete legal health record.[facility]
--- OUTSIDE RECORDS SUMMARY | 2025-07-30 15:40 | XMS_ITS | Encounter Summary ---
Author Organization [facility] Address [address] [place] [address] Phone Care Team Providers Care Pilot Teacher Name Role Phone Radha Miner NP Unavailable Saloni Smith Unavailable [email or web address] Britt Beavers DO Unavailable [phone] Daylin Nino MD Unavailable Penny Owens MD Unavailable Rubio Holloway MD Unavailable [phone] Rubio Malin MD Unavailable [phone] Chandler Carrera MD Unavailable [phone] Kylie Crook MD Primary Care Provider [phone] Rayshawn Love MD Unavailable Kylie Crook MD Primary Care Provider [phone] Encounter Details Date Type Department Care Team (Late st Contact Info) Description 07/06/2021 Procedure Pass [facility], Ct Scan - [address] [address] Social History Tobacco Use Types Packs/Day Years [...] documented as of this encounter Care Teams Pilot Teacher Relationship Specialty Start Date End Date Kylie Crook MD [address] [place] [address] [email or web address] PCP - General Family Medicine 09/01/20 09/05/23 Kylie Crook MD [address] [place] [address] [email or web address] PCP - General Family Medicine 09/06/23 Radha Miner NP [address] [place] [address] Historical LMR Provider 06/20/17 09/11/21 Saloni Smith PA [email or web address] Historical LMR Provider 06/20/17 Britt Beavers DO [address] [place] [address] Historical LMR Provider 06/20/17 09/11/21 Daylin Nino MD [address] [place] [address] [email or web address] Historical LMR Provider 06/20/17 Penny Owens MD [address] [address] [email or web address] Historical LMR Provider 06/20/17 09/11/21 Rubio Holloway MD [address] [place] [address] Historical LMR Provider 06/20/17 09/11/21 Rubio Malin MD [address] [place] [address] Historical LMR Provider 06/20/17 09/11/21 Chandler Carrera MD [address] [place] [address] Historical LMR Provider 06/20/17 09/11/21 Rayshawn Love MD [address] [place] [address] Interventional Pain Management 05/04/22 documented as of this encounter Additional Source Comments The information contained in this document represents components of the legal health record. It is not the complete legal health record.[facility]
--- OUTSIDE RECORDS SUMMARY | 2025-07-30 15:41 | XMS_ITS | Encounter Summary ---
Author Organization [facility] Address [address] [place] [address] Phone Care Team Providers Care Maintenance Groundskeeper Name Role Phone Radha Miner NP Unavailable Saloni Smith Unavailable [email or web address] Britt Beavers DO Unavailable [phone] Daylin Nino MD Unavailable Penny Owens MD Unavailable [phone] Rubio Holloway MD Unavailable [phone] Rubio Malin MD Unavailable Chandler Carrera MD Unavailable [phone] León Avalos MD Primary Care Provider [phone] Kylie Crook MD Primary Care Provider [phone] Rayshawn Love MD Unavailable Kylie Crook MD Primary Care Provider [phone] Encounter Details Date Type Department Care Team (Late st Contact Info) Description 02/07/2020 Procedure Pass [facility], Ct Scan - [address] [address] Social History Tobacco Use Types Packs/Day Years [...] documented as of this encounter Care Teams Maintenance Groundskeeper Relationship Specialty Start Date End Date León Avalos MD [address] [address] [email or web address] PCP - General 09/13/19 08/31/20 Kylie Crook MD [address] [facility] [address] [place] [address] PCP - General Family Medicine 09/01/20 09/05/23 Kylie Crook MD [address] [place] [phone] [email or web address] PCP - General Family Medicine 09/06/23 Radha Miner NP [address] [address] Historical LMR Provider 06/20/17 09/11/21 Saloni Smith PA Historical LMR Provider 06/20/17 Britt Beavers DO [address] [place] [address] Historical LMR Provider 06/20/17 09/11/21 Daylin Nino MD [address] [place] [address] [email or web address] Historical LMR Provider 06/20/17 Penny Owens MD [address] [address] [email or web address] Historical LMR Provider 06/20/17 09/11/21 Rubio Holloway MD [address] [place] [address] Historical LMR Provider 06/20/17 09/11/21 Rubio Malin MD [address] [place] [address] Historical LMR Provider 06/20/17 09/11/21 Chandler Carrera MD 61 [place] [address] Historical LMR Provider 06/20/17 09/11/21 Rayshawn Love MD 5 [place] [address] Interventional Pain Management 05/04/22 documented as of this encounter Additional Source Comments The information contained in this document represents components of the legal health record. It is not the complete legal health record.[facility]
--- OUTSIDE RECORDS SUMMARY | 2025-07-30 15:41 | XMS_ITS | Encounter Summary ---
Author Organization [facility] Address [address] [place] [address] Phone Care Team Providers Care Account Analyst Name Role Phone Saloni Smith Unavailable [email or web address] Daylin Nino MD Unavailable Kylie Crook MD Primary Care Provider [phone] Rayshawn Love MD Unavailable [phone] Kylie Crook MD Primary Care Provider [phone] Encounter Details Date Type Department Care Team (Late st Contact Info) Description 02/08/2023 Procedure Pass [facility], Ct Scan - [address] [address] Social History Tobacco Use Types Packs/Day Years [...] on file 12/29/2022 No 12/29/2022 No 12/29/2022 Digital Access Answer Date Recorded No 01/24/2023 No 01/24/2023 Reliable internet access at home? Not on file 01/24/2023 Device with a working camera? Not on file Comments No Sex and Gender Information Value Date Recorded Sex Assigned at Female 10/01/2017 1:35 PM EST Legal Sex Female 3:16 PM EDT Gender Identity Female 10/02/2017 5:09 PM EST Sexual Orientation Straight 10/02/2017 5: 09 PM EST documented as of this encounter Functional Status * Calculated C-SSRS Risk Score (Lifetime/Recent) Answer Date of Assessment Author No Risk Indicated 02/08/2023 8:47 PM EDT Crystal Wilkinson RN * [place] Suicide Severity Rating Scale (Screener/Recent Self-Report) Question Answer Date of Assessment Author 1. Wish to be (Past 1 Month) No 02/08/2023 8:47 PM EDT Crystal Dubose RN 2. Non-Specific Active Suicidal Thoughts (Past 1 Month) No 02/08/2023 8:47 PM EDT Crystal Dubose RN 6. Suicidal Behavior (Lifetime) No 02/08/2023 8:47 PM EDT Crystal Dubose RN documented as of this encounter Plan of Treatment Not on file documented as of this encounter Goals Goal Patient Goal Type Associated Problems Recent Progress Patient-Stated? Author Acute Care Plan Acute Care Plan No Ana Gregorio RN Note: Has [employer] Insurance: gets MOM's meals and Laundry service Mortgage Field Inspector: Bry Del Castillo RN [phone] (ask for her by name) Yvonne has access to /[facility] supervisor mails through her insurance, has access to [facility] for medical concerns, reinforce this with her when she presents to the ED. documented as of this encounter Visit Diagnoses Not on filedocumented in this encounter Additional Health Concerns Infection Onset Date Last Indicated Resolved Time CoV-Risk 10/14/2023 10/14/2023 10/25/2023 1:22 AM EST Influenza A 10/14/2023 10/14/2023 10/21/2023 1:22 AM EST CoV-Risk 10/04/2024 10/04/2024 10/15/2024 1:23 AM EST MDR-GN 03/14/2025 03/14/2025 documented as of this encounter Care Teams Account Analyst Relationship Specialty Start Date End Date Kylie Crook MD [address] [place] [address] PCP - General Family Medicine 09/01/20 09/05/23 Kylie Crook MD [address] [place] [phone] [email or web address] PCP - General Family Medicine 09/06/23 Saloni Smith PA Historical LMR Provider 06/20/17 Daylin Nino MD [address] [place] [address] Historical LMR Provider 06/20/17 Rayshawn Love MD [address] [place] [address] Interventional Pain Management 05/04/22 documented as of this encounter Additional Source Comments The information contained in this document represents components of the legal health record. It is not the complete legal health record.[facility]
--- OUTSIDE RECORDS SUMMARY | 2025-07-30 15:41 | XMS_ITS | Encounter Summary ---
Author Organization [facility] Address [address] [place] [address] Phone Care Team Providers Care Pilot Boat Captain Name Role Phone Radha Miner NP Unavailable Saloni Smith Unavailable [email or web address] Britt Beavers DO Unavailable [phone] Daylin Nino MD Unavailable Penny Owens MD Unavailable [phone] Rubio Holloway MD Unavailable [phone] Rubio Malin MD Unavailable Chandler Carrera MD Unavailable [phone] Kylie Crook MD Primary Care Provider [phone] León Avalos MD Primary Care Provider [phone] Kylie Crook MD Primary Care Provider [phone] Rayshawn Love MD Unavailable Kylie Crook MD Primary Care Provider [phone] Encounter Details Date Type Department Care Team (Latest Contact Info) Description 03/05/2019 [facility] [address] [place] [address] [address] Floor, [address] [place] [address] Gianluca Zarco MD [address] [place] [address] [email or web address] Chest pain, unspecified type (Primary Dx) Social History Tobacco Use Types [...] as of this encounter Visit Diagnoses Diagnosis Chest pain, unspecified type- Primary documented in this encounter Additional Health [...] as of this encounter Care Teams Pilot Boat Captain Relationship Specialty Start Date End Date Kylie Crook MD [address] [place] [address] PCP - General Family Medicine 01/15/19 09/12/19 León Avalos MD [address] [facility] [address] [place] [address] [email or web address] PCP - General 09/13/19 08/31/20 Kylie Crook MD 61 [place] [address] PCP - General Family Medicine 09/01/20 09/05/23 Kylie Crook MD [address] [place] [phone] [email or web address] PCP - General Family Medicine 09/06/23 Radha Miner NP [address] [place] [address] Historical LMR Provider 06/20/17 09/11/21 Saloni Smith PA Historical LMR Provider 06/20/17 Britt Beavers DO [address] [place] [address] Historical LMR Provider 06/20/17 09/11/21 Daylin Nino MD [address] [place] [address] Historical LMR Provider 06/20/17 Penny Owens MD [address], [place] [address] Historical LMR Provider 06/20/17 09/11/21 Rubio Holloway MD 22 [place] [address] Historical LMR Provider 06/20/17 09/11/21 Rubio Malin MD [address] [place] [address] Historical LMR Provider 06/20/17 09/11/21 Chandler Carrera MD [address] [place] [address] Historical LMR Provider 06/20/17 09/11/21 Rayshawn Love MD [address] [place] [address] Interventional Pain Management 05/04/22 documented as of this encounter Additional Source Comments The information contained in this document represents components of the legal health record. It is not the complete legal health record.[facility]
--- OUTSIDE RECORDS SUMMARY | 2025-07-30 15:41 | XMS_ITS | Encounter Summary ---
Author Organization [facility] Address [address] [place] [address] Phone Care Team Providers Care Log Chipper Name Role Phone Radha Miner NP Unavailable Saloni Smith Unavailable [email or web address] Britt Beavers DO Unavailable [phone] Daylin Nino MD Unavailable Penny Owens MD Unavailable Rubio Holloway MD Unavailable [phone] Rubio Malin MD Unavailable Chandler Carrera MD Unavailable [phone] Kylie Crook MD Primary Care Provider [phone] León Avalos MD Primary Care Provider [phone] Kylie Crook MD Primary Care Provider [phone] Rayshawn Love MD Unavailable Kylie Crook MD Primary Care Provider [phone] Reason for Referral * MRI/CAT Scan - Closed Specialty Diagnoses / Procedures Referred By Contac t Referred To Contact Procedures MRI Spine (Bone) Outside (No Interpretation) System, Provider Not In, [facility] [address] [address] Referral ID Status Reason Start Date Expiration Date Visits Re quested Visits Authorized [id number] Closed 01/15/2019 01/15/2020 1 1 Encounter Details Date Type Department Care Team (Late st Contact Info) Description 01/15/2019 Ancillary Orders [facility],Outside Imaging [address] [place] [address] System, Provider Not In, [facility] [address] [address] Social History Tobacco Use Types Packs/Day Years Used Date Smoking Tobacco: Never Smokeless Tobacco: Never Alcohol Use Standard Drinks/Week Comments No 0 (1 standard drink = 0.6 oz pure alcohol) alcohol abuse for one year following of father 2002 Comments No Sex and Gender Information Value Date Recorded Sex Assigned at Female 10/01/2017 1:35 PM EST Legal Sex Female 3:16 PM EDT Gender Identity Female 10/02/2017 5:09 PM EST Sexual Orientation Straight 10/02/2017 5: 09 PM EST documented as of this encounter Plan of Treatment Not on file documented as of this encounter Results * MRI Spine (Bone) Outside (No Interpretation) (03/31/2017 12:00 AM EDT) Narrative SYSTEMGENERATED, DOCUMENTATION - 01/15/2019 11:00 AM EDT This study is for PACS storage only and not for interpretation. us Provider Not In System PhD [facility] OUTSIDE IMAGING W /OUT INTERPRETATION Final Result documented in this encounter Visit Diagnoses Not on filedocumented in this encounter Additional Health Concerns Infection Onset Date Last Indicated Resolved Time CoV-Risk 01/04/2022 01/04/2022 01/15/2022 1:22 AM EDT CoV-Risk 09/04/2022 09/04/2022 09/04/2022 9:26 PM EST COVID-19 09/04/2022 09/04/2022 09/25/2022 1:21 AM EST CoV-Risk 10/14/2023 10/14/2023 10/25/2023 1:22 AM EST Influenza A 10/14/2023 10/14/2023 10/21/2023 1:2 2 AM EST CoV-Risk 10/04/2024 10/04/2024 10/15/2024 1:23 AM EST MDR-GN 03/14/2025 03/14/2025 documented as of this encounter Care Teams Log Chipper Relationship Specialty Start Date End Date Kylie Crook MD [address] [place] [address] PCP - General Family Medicine 01/15/19 09/12/19 León Avalos MD [address] [place] [address] [email or web address] PCP - General 09/13/19 08/31/20 Kylie Crook MD [address] [place] [address] [email or web address] PCP - General Family Medicine 09/01/20 09/05/23 Kylie Crook MD [address] [place] [phone] [email or web address] PCP - General Family Medicine 09/06/23 Radha Miner NP [address] [place] [address] Historical LMR Provider 06/20/17 09/11/21 Saloni Smith PA Historical LMR Provider 06/20/17 Britt Beavers DO [address] [place] [address] Historical LMR Provider 06/20/17 09/11/21 Daylin Nino MD [address] [place] [address] [email or web address] Historical LMR Provider 06/20/17 Penny Owens MD [address] [address] [email or web address] Historical LMR Provider 06/20/17 09/11/21 Rubio Holloway MD [address] [place] [address] Historical LMR Provider 06/20/17 09/11/21 Rubio Malin MD [address] [place] [address] Historical LMR Provider 06/20/17 09/11/21 Chandler Carrera MD [address] [place] [address] Historical LMR Provider 06/20/17 09/11/21 Rayshawn Love MD [address] [place] [address] Interventional Pain Management 05/04/22 documented as of this encounter Additional Source Comments The information contained in this document represents components of the legal health record. It is not the complete legal health record.[facility]
--- OUTSIDE RECORDS SUMMARY | 2025-07-30 15:41 | XMS_ITS | Encounter Summary ---
Author Organization [facility] Address [address] [place] [address] Phone Care Team Providers Care Information Systems Professor Name Role Phone Saloni Smith Unavailable [email or web address] Daylin Nino MD Unavailable [phone] Kylie Crook MD Primary Care Provider [phone] Rayshawn Love MD Unavailable +- [phone] Kylie Crook MD Primary Care Provider [phone]- [phone] Reason for Referral * Outpatient Procedure - Closed Specialty Diagnoses / Procedures Referred By Contac t Referred To Contact Radiology Diagnoses Left knee pain, unspecified chronicity Procedures US Lower Extremity Veins Duplex (Right) Monica Mojica PA-C Phone: tel: fax: [email or web address] Referral ID Status Reason Start Date Expiration Date Visits Re quested Visits Authorized [id number] Closed 01/19/2022 1 1 Encounter Details Date Type Department Care Team ([facility] st Contact Info) Description 01/19/2022 Ancillary Orders [facility] [address] [place] [address] Monica Mojica PA-C [address] [place] [address] [email or web address] Left knee pain, unspecified chronicity Social History Tobacco Use Types Packs/Day Years [...] Insurance: gets MOM's meals and Laundry service Early Childhood Worker: Bry Del Castillo RN [phone] (ask for her by name) Yvonne has access to 24/7 hogshead inspector through her insurance, has access to [facility] for medical concerns, reinforce this with her when she presents to the ED. documented as of this encounter Results * US Lower Extremity Veins Duplex (Right) (01/19/2022 5:00 PM EDT) Anatomical Region Laterality Modality Hip Right, Thigh Right, Knee Right, Leg Right, Ankle Right, Foot Right Ultrasound 01/19/2022 5:26 PM EDT Impressions 01/19/2022 5:26 PM EDT *No evidence of right lower extremity deep or superficial venous thrombosis. Focused ultrasound in the right anterior calf was unremarkable. Narrative 01/19/2022 5:26 PM EDT US LOWER EXTREMITY VEINS DUPLEX (RIGHT) TECHNIQUE: VENOUS ULTRASOUND RIGHT LOWER EXTREMITY Duplex US of the right common femoral, femoral, proximal deep femoral, proximal great saphenous and popliteal veins were examined using muñoz scale compression ultrasound with the aid of color flow and pulsed wave Doppler. INDICATIONS: Swelling and Pain in Limb COMPARISON: FINDINGS: Technically adequate exam demonstrates: The right common femoral, femoral, proximal deep femoral, proximal great saphenous and popliteal veins are normally compressible. There are normal pulsed wave Doppler responses in the common femoral vein with calf augmentation. The visualized calf veins are patent. The contralateral common femoral vein and proximal great saphenous vein are normally compressible. There are normal Doppler responses in the common femoral vein with calf augmentation. Procedure Note Aly Villegas MD, CANDE - 01/19/2022 US LOWER EXTREMITY VEINS DUPLEX (RIGHT) TECHNIQUE: VENOUS ULTRASOUND RIGHT LOWER EXTREMITY Duplex US of the right common femoral, femoral, proximal deep femoral,proximal great saphenous and popliteal veins were examined using greyscale compression ultrasound with the aid of color flow and pulsed waveDoppler. INDICATIONS: Swelling and Pain in Limb COMPARISON: FINDINGS: Technically adequate exam demonstrates: The right common femoral, femoral, proximal deep femoral, proximal greatsaphenous and popliteal veins are normally compressible. There are normal pulsed wave Doppler responses in the common femoral veinwith calf augmentation. The visualized calf veins are patent. The contralateral common femoral vein and proximal great saphenous veinare normally compressible. There are normal Doppler responses in thecommon femoral vein with calf augmentation. IMPRESSION: *No evidence of right lower extremity deep or superficial venousthrombosis. Focused ultrasound in the right anterior calf was unremarkable. us Monica Mojica PA-C CV US VASCULAR Final Resul t documented in this encounter Visit Diagnoses Diagnosis Left knee pain, unspecified chronicity Left knee pain, unspecified chronicity documented in this encounter Additional Health Concerns Infection Onset Date Last Indicated Resolved Time CoV-Risk 09/04/2022 09/04/2022 09/04/2022 9:26 PM EST COVID-19 09/04/2022 09/04/2022 09/25/2022 1:21 AM EST CoV-Risk 10/14/2023 10/14/2023 10/25/2023 1:22 AM EST Influenza A 10/14/2023 10/14/2023 10/21/2023 1:22 AM EST CoV-Risk 10/04/2024 10/04/2024 10/15/2024 1:23 AM EST MDR-GN 03/14/2025 03/14/2025 documented as of this encounter Care Teams Information Systems Professor Relationship Specialty Start Date End Date Kylie Crook MD [address] [place] [address] PCP - General Family Medicine 09/01/20 09/05/23 Kylie Crook MD [address] [place] [phone] PCP - General Family Medicine 09/06/23 Saloni Smith PA Historical LMR Provider 06/20/17 Daylin Nino MD [address] [place] [address] Historical LMR Provider 06/20/17 Rayshawn Love MD [address] [place] [address] Interventional Pain Management 05/04/22 documented as of this encounter Additional Source Comments The information contained in this document represents components of the legal health record. It is not the complete legal health record.[facility]
--- OUTSIDE RECORDS SUMMARY | 2025-07-30 15:41 | XMS_ITS | Encounter Summary ---
Author Organization [facility] Address [address] [place] [address] Phone Care Team Providers Care Software Development Intern Name Role Phone Radha Miner NP Unavailable Saloni Smith Unavailable [email or web address] Britt Beavers DO Unavailable [phone] Daylin Nino MD Unavailable Penny Owens MD Unavailable Rubio Holloway MD Unavailable [phone] Rubio Malin MD Unavailable Chandler Carrera MD Unavailable [phone] León Avalos MD Primary Care Provider [phone] Kylie Crook MD Primary Care Provider [phone] Rayshawn Love MD Unavailable Kylie Crook MD Primary Care Provider [phone] Encounter Details Date Type Department Care Team (Late st Contact Info) Description 09/26/2019 Procedure Pass [facility] Endoscopy Admitting Dept Virtual Department [address] [place] [address] Social History Tobacco Use Types Packs/Day Years [...] documented as of this encounter Care Teams Software Development Intern Relationship Specialty Start Date End Date León Avalos MD [address] [address] [email or web address] PCP - General 09/13/19 08/31/20 Kylie Crook MD [address] [address] [email or web address] PCP - General Family Medicine 09/01/20 09/05/23 Kylie Crook MD [address] [place] [phone] [email or web address] PCP - General Family Medicine 09/06/23 Radha Miner NP [address] [place] [address] Historical LMR Provider 06/20/17 09/11/21 Saloni Smith PA [email or web address] Historical LMR Provider 06/20/17 Britt Beavers DO [address] [place] [address] Historical LMR Provider 06/20/17 09/11/21 Daylin Nino MD [address] [place] [address] [email or web address] Historical LMR Provider 06/20/17 Penny Owens MD [address] [address] [email or web address] Historical LMR Provider 06/20/17 09/11/21 Rubio Holloway MD [address] [place] [address] Historical LMR Provider 06/20/17 09/11/21 Rubio Malin MD [address] [place] [address] Historical LMR Provider 06/20/17 09/11/21 Chandler Carrera MD [address] [place] [address] Historical LMR Provider 06/20/17 09/11/21 Rayshawn Love MD [address] [place] [address] Interventional Pain Management 05/04/22 documented as of this encounter Additional Source Comments The information contained in this document represents components of the legal health record. It is not the complete legal health record.[facility]
--- OUTSIDE RECORDS SUMMARY | 2025-07-30 15:41 | XMS_ITS | Encounter Summary ---
Author Organization [facility] Address [address] [place] [address] Phone Care Team Providers Care Instructional Technologist Name Role Phone Saloni Smith Unavailable [email or web address] Daylin Nino MD Unavailable Kylie Crook MD Primary Care Provider [phone] Rayshawn Love MD Unavailable [phone] Kylie Crook MD Primary Care Provider [phone] Encounter Details Date Type Department Care Team (Late st Contact Info) Description 03/16/2023 Procedure Pass [facility], Ct Scan - [address] [address] Social History Tobacco Use Types Packs/Day Years [...] Date of Assessment Author No Risk Indicated 03/16/2023 7:26 PM EDT Lotus Riojas RN * [place] Suicide Severity Rating Scale (Screener/Recent Self-Report) Question Answer Date of Assessment Author 1. Wish to be (Past 1 Month) No 023 7:26 PM EDT Lotus Riojas RN 2. Non-Specific Active Suici micha Thoughts (Past 1 Month) No 03/16/2023 7:26 PM EDT Lashay Riojas RN 6. Suicidal Behavior (Lifetime) No 7:26 PM EDT Lotus Riojas RN documented as of this encounter Plan of Treatment Not on file documented as of this encounter Goals Goal Patient Goal Type Associated Problems Recent Progress Patient-Stated? Author Acute Care Plan Acute Care Plan No Ana Gregorio RN Note: Has [employer] Insurance: gets MOM's meals and Laundry service Floatlight Powder Mixer: Byr Del Castillo RN [phone] (ask for her by name) Yvonne has access to /7 excelsior machine feeder through her insurance, has access to [facility] [...] documented as of this encounter Care Teams Instructional Technologist Relationship Specialty Start Date End Date Kylie Crook MD [address] [place] [address] PCP - General Family Medicine 09/01/20 09/05/23 Kylie Crook MD [address] [place] [phone] [email or web address] PCP - General Family Medicine 09/06/23 Saloni Smith PA Historical LMR Provider 06/20/17 Daylin Nino MD [address] [place] [address] Historical LMR Provider 06/20/17 Rayshawn Love MD [address] [place] [address] Interventional Pain Management 05/04/22 documented as of this encounter Additional Source Comments The information contained in this document represents components of the legal health record. It is not the complete legal health record.[facility]
--- OUTSIDE RECORDS SUMMARY | 2025-07-30 15:41 | XMS_ITS | Encounter Summary ---
Author Organization [facility] Address [address] [place] [address] Phone Care Team Providers Care Salvage Machine Operator Name Role Phone Radha Miner NP Unavailable [phone] Saloni Smith Unavailable [email or web address] Britt Beavers DO Unavailable [phone] Daylin Nino MD Unavailable Penny Owens MD Unavailable Rubio Holloway MD Unavailable [phone] Rubio Malin MD Unavailable Chandler Carrera MD Unavailable [phone] Kylie Crook MD Primary Care Provider [phone] León Avalos MD Primary Care Provider [phone] Kylie Crook MD Primary Care Provider [phone] Rayshawn Love MD Unavailable Kylie Crook MD Primary Care Provider Encounter Details Date Type Department Care Team (Late st Contact Info) Description 01/15/2019 Procedure Pass [facility],Outside Imaging [address] [place] [address] Social History Tobacco Use Types Packs/Day Years Used Date Smoking Tobacco: Never Assessed Comments No Sex and Gender Information Value [...] documented as of this encounter Care Teams Salvage Machine Operator Relationship Specialty Start Date End Date Kylie Crook MD [address] [place] [address] [email or web address] PCP - General Family Medicine 01/15/19 09/12/19 León Avalos MD [address] [facility] [address] [place] [address] [email or web address] PCP - General 09/13/19 08/31/20 Kylie Crook MD [address] [place] [address] [email or web address] PCP - General Family Medicine 09/01/20 09/05/23 Kylie Crook MD [address] [place] [phone] [email or web address] PCP - General Family Medicine 09/06/23 Radha Miner NP [address] [place] [address] Historical LMR Provider 06/20/17 09/11/21 Saloni Smith PA [email or web address] Historical LMR Provider 06/20/17 Britt Beavers DO [address] [place] [address] Historical LMR Provider 06/20/17 09/11/21 Daylin Nino MD [address] [place] [address] [email or web address] Historical LMR Provider 06/20/17 Penny Owens MD [address] [place] [address] [email or web address] Historical LMR Provider 06/20/17 09/11/21 Rubio Holloway MD [address] [place] [address] Historical LMR Provider 06/20/17 09/11/21 Rubio Malin MD [address] [place] [address] Historical LMR Provider 06/20/17 09/11/21 Chandler Carrera MD [address] [place] [address] Historical LMR Provider 06/20/17 09/11/21 Rayshawn Love MD [address] [place] [address] Interventional Pain Management 05/04/22 documented as of this encounter Additional Source Comments The information contained in this document represents components of the legal health record. It is not the complete legal health record.[facility]
--- OUTSIDE RECORDS SUMMARY | 2025-07-30 15:41 | XMS_ITS | Encounter Summary ---
Author Organization [facility] Address [address] [place] [address] Phone Care Team Providers Care Custodial Aide Name Role Phone Saloni Smith Unavailable [email or web address] Daylin Nino MD Unavailable [phone] Kylie Crook MD Primary Care Provider [phone] Rayshawn Love MD Unavailable [phone]- [phone] Kylie Crook MD Primary Care Provider [phone] Reason for Referral * Outpatient Procedure - Closed Specialty Diagnoses / Procedures Referred By Contac t Referred To Contact Radiology Diagnoses Abdominal pain, unspecified abdominal location Procedures NM Gastric Emptying Eun Hercules PA [address] [place] [phone] Phone: tel: fax: Referral ID Status Reason Start Date Expiration Date Visits Re quested Visits Authorized [id number] Closed 02/09/2023 1 1 Encounter Details Date Type Department Care Team (Late st Contact Info) Description 02/09/2023 Transcribe Orders [facility] Department [address] [place], [place] [phone] Eun Hercules PA [address] [place] [phone] Abdominal pain, unspecified abdominal location (Primary Dx) Social History Tobacco Use Types [...] Date of Assessment Author No Risk Indicated 02/12/2023 8:43 PM EDT Sera Lucia RN * [place] Suicide Severity Rating Scale (Screener/Recent Self-Report) Question Answer Date of Assessment Author 1. Wish to be (Past 1 Month) No 02/12/2023 8:43 PM EDT Dillon Pantoja RN 2. Non-Specific Active Suicidal Thoughts (Past 1 Month) No 02/12/2023 8:43 PM EDT Dillon Pantoja RN 6. Suicidal Behavior (Lifetime) No 02/12/2023 8:43 PM EDT Dillon Pantoja RN documented as of this encounter Plan of Treatment Not on file documented as of this encounter Goals Goal Patient Goal Type Associated Problems Recent Progress Patient-Stated? Author Acute Care Plan Acute Care Plan No Ana Gregorio RN Note: Has [employer] Insurance: gets MOM's meals and Laundry service Clinic Lead: Bry Del Castillo RN [phone] (ask for her by name) Yvonne has access to 24/7 BH dinkey engine operator through her insurance, has access to [facility] for medical concerns, reinforce this with her when she presents to the ED. documented as of this encounter Results * NM GASTRIC EMPTYING SOLID PHASE (02/21/2023 2:56 PM EDT) Anatomical Region Laterality Modality Abdomen, Pelvis Nuclear Medicine 02/21/2023 11:4 7 PM EDT Impressions 02/21/2023 11:49 PM EDT Gastric emptying study within normal limits. Narrative 02/21/2023 11:49 PM EDT NM GASTRIC EMPTYING SOLID PHASE Radionuclide gastric emptying scan: COMPARISON: CT abdomen pelvis 02/08/2023 TECHNIQUE: 0.969 mCi technetium 99m sulphur colloid was given orally as a standard solid phase meal. Intermittent upright imaging of the abdomen was performed immediately, and at 1, 2, and 4 hours. 100% of the standardized meal was consumed. FINDINGS: Gastric emptying at 1 hr is 36 percent. Gastric emptying at 2 hrs is 69.9 percent. Gastric emptying at 4 hrs is 95.4 percent. According to accepted international standards using this technique, median normal values for emptying are: 31% at 1hr, 76% at 2hrs, and 99% at 4 hours. 5th percentile values for emptying are: 10% at 1 hr, 40% at 2hrs, and 90% at 4 hours. Procedure Note Shannan Alberto MD - 02/21/2023 NM GASTRIC EMPTYING SOLID PHASE Radionuclide gastric emptying scan: COMPARISON: CT abdomen pelvis 02/08/2023 TECHNIQUE: 0.969 mCi technetium 99m sulphur colloid was given orally as a standardsolid phase meal. Intermittent upright imaging of the abdomen wasperformed immediately, and at 1, 2, and 4 hours. 100% of the standardizedmeal was consumed. FINDINGS: Gastric emptying at 1 hr is 36 percent. Gastric emptying at 2 hrs is 69.9percent. Gastric emptying at 4 hrs is 95.4 percent. According to accepted international standards using this technique, mediannormal values for emptying are: 31% at 1hr, 76% at 2hrs, and 99% at 4 hours. 5th percentile values for emptying are: 10% at 1 hr, 40% at 2hrs, and 90% at 4 hours. IMPRESSION: Gastric emptying study within normal limits. Eun THOMPSON IMG NM ABDOMEN Final Res ult documented in this encounter Visit Diagnoses Diagnosis Abdominal pain, unspecified abdominal location- Primary Abdominal pain, unspecified abdominal location documented in this encounter Additional Health Concerns Infection Onset Date Last Indicated Resolved Time CoV-Risk 10/14/2023 10/14/2023 10/25/2023 1:22 AM EST Influenza A 10/14/2023 10/14/2023 10/21/2023 1:22 AM EST CoV-Risk 10/04/2024 10/04/2024 10/15/2024 1:23 AM EST MDR-GN 03/14/2025 03/14/2025 documented as of this encounter Care Teams Custodial Aide Relationship Specialty Start Date End Date Kylie Crook MD [address] [place] [address] PCP - General Family Medicine 09/01/20 09/05/23 Kylie Crook MD [address] [place] [phone] [email or web address] PCP - General Family Medicine 09/06/23 Saloni Smith PA Historical LMR Provider 06/20/17 Daylin Nino MD [address] [place] [address] [email or web address] Historical LMR Provider 06/20/17 Rayshawn Love MD [address] [place] [address] Interventional Pain Management 05/04/22 documented as of this encounter Additional Source Comments The information contained in this document represents components of the legal health record. It is not the complete legal health record.[facility]
--- OUTSIDE RECORDS SUMMARY | 2025-07-30 15:41 | XMS_ITS | Encounter Summary ---
Author Organization [facility] Address [address] [place] [address] Phone Care Team Providers Care Manager Heart Failure Name Role Phone Saloni Smith Unavailable [email or web address] Daylin Nino MD Unavailable [phone] Rayshawn Love MD Unavailable +- [phone] Kylie Crook MD Primary Care Provider [phone] Encounter Details Date Type Department Care Team (Late st Contact Info) Description 05/12/2025 Procedure Pass [facility], Ct Scan - [address] [id number] Social History Tobacco Use Types Packs/Day Years [...] before we got money to buy more. Unable to assess 025 Within the past 6 months the food we bought just didn't last and we didn't have enough money to get more. Unable to assess 05/12/2025 Residential Stability Answer Date Recor ded What is your housing situation today? Unable to assess 05/12/2025 How many times have you moved in the past 12 mon ths? Unable to assess 05/12/2025 Paying for Meds Answer Date Recorded Do you have trouble paying for medicines? Unable to assess 05/12/2025 Paying Utility Bills Answer Date Record ed Do you have trouble paying y our heating or electricity bill? Unable to assess 05/12/2025 Transportation Answer Date Recorded Has the lack of transportati on kept you from medical appointments or from getting medications? Unable to assess 05/12/2025 Digital Access Answer Date Recorded No 05/12/2025 No 05/12/2025 Do you have reliable internet access at home? Un able to assess 05/12/2025 Do you have a device (e.g., phone, tablet, computer) with a working camera? Unable to assess 05/12/2025 Intimate Partner Violence Answer Date R ecorded Are you denied basic needs s uch as food, clothing, or medical care? No 05/12/2025 In the past 12 months have y ou been in a relationship with a person who hurts, threatens, or tries to control you? No 05/12/2025 Are you denied basic needs s uch as food, clothing, or medical care? No 05/12/2025 In the past 12 months have y ou been in a relationship with a person who hurts, threatens, or tries to control you? No 05/12/2025 Comments No Sex and Gender Information Value Date Recorded Sex Assigned at Female 10/01/2017 1:35 PM EST Legal Sex Female 3:16 PM EDT Gender Identity Female 10/02/2017 5:09 PM EST Sexual Orientation Straight 10/02/2017 5: 09 PM EST documented as of this encounter Functional Status * Calculated C-SSRS Risk Score (Lifetime/Recent) Answer Date of Assessment Author No Risk Indicated 05/12/2025 4:43 PM EDT Luisa Alvarado, RN * [place] Suicide Severity Rating Scale (Screener/Recent Self-Report) Question Answer Date of Assessment Author 1. Wish to be (Past 1 Month) No 025 4:43 PM EDT Luisa Willis, RN 2. Non-Specific Active Suici micha Thoughts (Past 1 Month) No 05/12/2025 4:43 PM EDT Luisa Willis, RN 6. Suicidal Behavior (Lifetime) No 5 4:43 PM EDT Luisa Willis, RN documented as of this encounter Plan of Treatment Not on file documented as of this encounter Goals Goal Patient Goal Type Associated Problems Recent Progress Patient-Stated? Author Acute Care Plan Acute Care Plan No Ana Gregorio RN Note: Has [employer] Insurance: gets MOM's meals and Laundry service Die Cast Technician: Bry Del Castillo RN [phone] (ask for her by name) Yvonne has access to /7 mcat instructor through her insurance, has access to [facility] for medical concerns, reinforce this with her when she presents to the ED. documented as of this encounter Visit Diagnoses Not on filedocumented in this encounter Additional Health Concerns Infection Onset Date Last Indicated Resolved Time MDR-GN 03/14/2025 03/14/2025 documented as of this encounter Care Teams Manager Heart Failure Relationship Specialty Start Date End Date Kylie Crook MD [address] [place] [phone] [email or web address] PCP - General Family Medicine 09/06/23 Saloni Smith PA Historical LMR Provider 06/20/17 Daylin Nino MD [address] [place] [address] Historical LMR Provider 06/20/17 Rayshawn Love MD [address] [place] [address] Interventional Pain Management 05/04/22 documented as of this encounter Additional Source Comments The information contained in this document represents components of the legal health record. It is not the complete legal health record.[facility]
--- OUTSIDE RECORDS SUMMARY | 2025-07-30 15:41 | XMS_ITS | Encounter Summary ---
Author Organization [facility] Address [address] [place] [address] Phone Care Team Providers Care Location Director Name Role Phone Saloni Smith Unavailable [email or web address] Daylin Nino MD Unavailable Kylie Crook MD Primary Care Provider Rayshawn Love MD Unavailable [phone] Kylie Crook MD Primary Care Provider Encounter Details Date Type Department Care Team (Late st Contact Info) Description 08/19/2022 Transcribe Orders Virtual Department [address] [place] [address] Kylie Crook MD [address] [place], [place] [phone] [email or web address] Breast screening (Primary Dx) Social History Tobacco Use Types [...] Insurance: gets MOM's meals and Laundry service Plant Supervisor: Bry Del Castillo RN [phone] (ask for her by name) Yvonne has access to /7 brand coordinator through her insurance, has access to [facility] for medical concerns, reinforce this with her when she presents to the ED. documented as of this encounter Visit Diagnoses Diagnosis Breast screening- Primary Breast screening, unspecified documented in this encounter Additional Health Concerns Infection Onset Date Last Indicated Resolved Time CoV-Risk 09/04/2022 09/04/2022 09/04/2022 9:26 PM EST COVID-19 09/04/2022 09/04/2022 09/25/2022 1:21 AM EST CoV-Risk 10/14/2023 10/14/2023 10/25/2023 1:22 AM EST Influenza A 10/14/2023 10/14/2023 10/21/2023 1:22 AM EST CoV-Risk 10/04/2024 10/04/2024 10/15/2024 1:23 AM EST MDR-GN 03/14/2025 03/14/2025 documented as of this encounter Care Teams Location Director Relationship Specialty Start Date End Date Kylie Crook MD [address] [place] [address] PCP - General Family Medicine 09/01/20 09/05/23 Kylie Crook MD [address] [place] [phone] [email or web address] PCP - General Family Medicine 09/06/23 Saloni Smith PA Historical LMR Provider 06/20/17 Daylin Nino MD [address] [place] [address] [email or web address] Historical LMR Provider 06/20/17 Rayshawn Love MD [address] [place] [address] Interventional Pain Management 05/04/22 documented as of this encounter Additional Source Comments The information contained in this document represents components of the legal health record. It is not the complete legal health record.[facility]
--- OUTSIDE RECORDS SUMMARY | 2025-07-30 15:42 | XMS_ITS | Encounter Summary ---
Author Organization [facility] Address [address] [place] [address] Phone Care Team Providers Care Boarding House Manager Name Role Phone Saloni Smith Unavailable [email or web address] Daylin Nino MD Unavailable Rayshawn Love MD Unavailable [phone] Kylie Crook MD Primary Care Provider [phone] Encounter Details Date Type Department Care Team (Late st Contact Info) Description 09/27/2023 Procedure Pass [facility], Ct Scan - [address] [id number] Social History Tobacco Use Types Packs/Day Years [...] Date of Assessment Author No Risk Indicated 09/27/2023 1:35 PM Maryann Villareal RN * [place] Suicide Severity Rating Scale (Screener/Recent Self-Report) Question Answer Date of Assessment Author 1. Wish to be (Past 1 Month) No 024 1:35 PM Maryann Villareal RN 2. Non-Specific Active Suici micha Thoughts (Past 1 Month) No 09/27/2023 1:35 PM Maryann Villareal RN 6. Suicidal Behavior (Lifetime) No 1:35 PM Maryann Villareal RN documented as of this encounter Plan of Treatment Not on file documented as of this encounter Goals Goal Patient Goal Type Associated Problems Recent Progress Patient-Stated? Author Acute Care Plan Acute Care Plan No Aan Gregorio RN Note: Has [employer] Insurance: gets MOM's meals and Laundry service Client Coordinator: Bry Del Castillo RN [phone] (ask for her by name) Yvonne has access to [address] [place] [address] retail chain store area supervisor through her insurance, has access to [facility] [...] documented as of this encounter Care Teams Boarding House Manager Relationship Specialty Start Date End Date Kylie Crook MD [address] [place] [phone] [email or web address] PCP - General Family Medicine 09/06/23 Saloni Smith PA Historical LMR Provider 06/20/17 Daylin Nino MD [address] [place] [address] [email or web address] Historical LMR Provider 06/20/17 Rayshawn Love MD [address] [place] [address] Interventional Pain Management 05/04/22 documented as of this encounter Additional Source Comments The information contained in this document represents components of the legal health record. It is not the complete legal health record.[facility]
--- OUTSIDE RECORDS SUMMARY | 2025-07-30 15:42 | XMS_ITS | Encounter Summary ---
Author Organization [facility] Address [address] [place] [address] Phone Care Team Providers Care Head Of It Name Role Phone Saloni Smith Unavailable [email or web address] Daylin Nino MD Unavailable [phone] Rayshawn Love MD Unavailable [phone] Kylie Crook MD Primary Care Provider [phone] Encounter Details Date Type Department Care Team (Late st Contact Info) Description 04/28/2024 Procedure Pass [facility], Ct Scan - [address] [phone] Social History Tobacco Use Types Packs/Day Years [...] Insurance: gets MOM's meals and Laundry service Honey Liquefier: Bry Del Castillo RN [phone] (ask for her by name) Yvonne has access to my[employer]/7 victorian literature professor through her insurance, has access to [facility] for medical concerns, reinforce this with her when she presents to the ED. documented as of this encounter Visit Diagnoses Not on filedocumented in this encounter Additional Health Concerns Infection Onset Date Last Indicated Resolved Time CoV-Risk 10/04/2024 10/04/2024 10/15/2024 1:23 AM EST MDR-GN 03/14/2025 03/14/2025 documented as of this encounter Care Teams Head Of It Relationship Specialty Start Date End Date Kylie Crook MD [address] [place] [phone] [email or web address] PCP - General Family Medicine 09/06/23 Saloni Smith PA Historical LMR Provider 06/20/17 Daylin Nino MD [address] [place] [address] Historical LMR Provider 06/20/17 Rayshawn Love MD [address] [place] [address] Interventional Pain Management 05/04/22 documented as of this encounter Additional Source Comments The information contained in this document represents components of the legal health record. It is not the complete legal health record.[facility]
--- OUTSIDE RECORDS SUMMARY | 2025-07-30 15:42 | XMS_ITS | Encounter Summary ---
Author Organization [facility] Address [address] [place] [address] Phone Care Team Providers Care Fruit Washer Name Role Phone Radha Miner NP Unavailable Saloni Smith Unavailable [email or web address] Britt Beavers DO Unavailable [phone] Daylin Nino MD Unavailable [phone] Penny Owens MD Unavailable [phone] Rubio Holloway MD Unavailable [phone] Rubio Malin MD Unavailable Chandler Carrera MD Unavailable [phone] Kylie Crook MD Primary Care Provider [phone] Rayshawn Love MD Unavailable Kylie Crook MD Primary Care Provider [phone] Encounter Details Date Type Department Care Team (Late st Contact Info) Description 09/08/2020 Procedure Pass [facility], Ct Scan - [address] [address] Social History Tobacco Use Types Packs/Day Years [...] Date of Assessment Author No Risk Indicated 09/08/2020 5:41 PM EST Deborah Zapata, RN * [place] Suicide Severity Rating Scale (Screener/Recent Self-Report) Question Answer Date of Assessment Author 1. Wish to be (Past 1 Month) No 021 5:41 PM Deborah Barroso, PIETER 2. Non-Specific Active Suici micha Thoughts (Past 1 Month) No 09/08/2020 5:41 PM Deborah Barroso, PIETER 6. Suicidal Behavior (Lifetime) No 5:41 PM EST Deborah Zapata, RN documented as of this encounter Plan [...] documented as of this encounter Care Teams Fruit Washer Relationship Specialty Start Date End Date Kylie Crook MD [address] [place] [address] PCP - General Family Medicine 09/01/20 09/05/23 Kylie Crook MD [address] [place] [phone] [email or web address] PCP - General Family Medicine 09/06/23 Radha Miner NP [address] [place] [address] Historical LMR Provider 06/20/17 09/11/21 Saloni Smith PA [email or web address] Historical LMR Provider 06/20/17 Britt Beavers DO [address] [place] [address] Historical LMR Provider 06/20/17 09/11/21 Daylin Nino MD [address] [place] [address] [email or web address] Historical LMR Provider 06/20/17 Penny Owens MD [address], [place] [address] [email or web address] Historical LMR Provider 06/20/17 09/11/21 Rubio Holloway MD [address] [place] [address] Historical LMR Provider 06/20/17 09/11/21 Rubio Malin MD [address] [place] [address] Historical LMR Provider 06/20/17 09/11/21 Chandler Carrera MD [address] [place] [address] Historical LMR Provider 06/20/17 09/11/21 Rayshawn Love MD [address] [place] [address] Interventional Pain Management 05/04/22 documented as of this encounter Additional Source Comments The information contained in this document represents components of the legal health record. It is not the complete legal health record.[facility]
--- OUTSIDE RECORDS SUMMARY | 2025-07-30 15:42 | XMS_ITS | Encounter Summary ---
Author Organization [facility] Address [address] [place] [address] Phone Care Team Providers Care Grassland Conservationist Name Role Phone Radha Miner NP Unavailable [phone] Saloni Smith Unavailable [email or web address] Britt Beavers DO Unavailable [phone] Daylin Nino MD Unavailable Penny Owens MD Unavailable Rubio Holloway MD Unavailable [phone] Rubio Malin MD Unavailable Chandler Carrera MD Unavailable [phone] León Avalos MD Primary Care Provider [phone] Kylie Crook MD Primary Care Provider [phone] Rayshawn Love MD Unavailable Kylie Crook MD Primary Care Provider [phone] Encounter Details Date Type Department Care Team (Late st Contact Info) Description 05/17/2020 Procedure Pass [facility], Ct Scan - [address] [address] Social History Tobacco Use Types Packs/Day Years [...] documented as of this encounter Care Teams Grassland Conservationist Relationship Specialty Start Date End Date León Avalos MD [address] [address] [email or web address] PCP - General 09/13/19 08/31/20 Kylie Crook MD [address] [facility] [address] [place] [address] PCP - General Family Medicine 09/01/20 09/05/23 Kylie Crook MD [address] [place] [phone] [email or web address] PCP - General Family Medicine 09/06/23 Radha Miner NP [address] [address] Historical LMR Provider 06/20/17 09/11/21 Saloni Smith PA Historical LMR Provider 06/20/17 Britt Beavers DO [address] [place] [address] Historical LMR Provider 06/20/17 09/11/21 Daylin Nino MD [address] [place] [address] [email or web address] Historical LMR Provider 06/20/17 Penny Owens MD [address], [place] [address] [email or web address] Historical LMR Provider 06/20/17 09/11/21 Rubio Holloway MD [address] [place] [address] Historical LMR Provider 06/20/17 09/11/21 Rubio Malin MD [address] [place] [address] Historical LMR Provider 06/20/17 09/11/21 Chandler Carrera MD [address] [place] [address] Historical LMR Provider 06/20/17 09/11/21 Rayshawn Love MD [address] [place] [address] Interventional Pain Management 05/04/22 documented as of this encounter Additional Source Comments The information contained in this document represents components of the legal health record. It is not the complete legal health record.[facility]
--- OUTSIDE RECORDS SUMMARY | 2025-07-30 15:42 | XMS_ITS | Encounter Summary ---
Author Organization [facility] Address [address] [place] [address] Phone Care Team Providers Care Plasterer Tender Name Role Phone Saloni Smith Unavailable [email or web address] Daylin Nino MD Unavailable [phone] Rayshawn Love MD Unavailable [phone] Kylie Crook MD Primary Care Provider [phone] Encounter Details Date Type Department Care Team (Late st Contact Info) Description 03/14/2024 Procedure Pass [facility], Ct Scan - [address] [phone] Social History Tobacco Use Types Packs/Day Years [...] Date of Assessment Author No Risk Indicated 03/15/2024 3:59 AM EDT Germania Eaton RN * [place] Suicide Severity Rating Scale (Screener/Recent Self-Report) Question Answer Date of Assessment Author 1. Wish to be (Past 1 Month) No 024 3:59 AM EDT Germania Eaton RN 2. Non-Specific Active Suici micha Thoughts (Past 1 Month) No 03/15/2024 3:59 AM EDT Dixie Eaton RN 6. Suicidal Behavior (Lifetime) No 3:59 AM EDT Germania Eaton RN documented as of this encounter Plan of Treatment Not on file documented as of this encounter Goals Goal Patient Goal Type Associated Problems Recent Progress Patient-Stated? Author Acute Care Plan Acute Care Plan No Ana Gregorio RN Note: Has [employer] Insurance: gets MOM's meals and Laundry service Zigzag Stitcher: Bry Del Castillo RN [phone] (ask for her by name) Yvonne has access to 24/7 cap inspector through her insurance, has access to [facility] for medical concerns, reinforce this with her when she presents to the ED. documented as of this encounter Visit Diagnoses Not on filedocumented in this encounter Additional Health Concerns Infection Onset Date Last Indicated Resolved Time CoV-Risk 10/04/2024 10/04/2024 10/15/2024 1:23 AM EST MDR-GN 03/14/2025 03/14/2025 documented as of this encounter Care Teams Plasterer Tender Relationship Specialty Start Date End Date Kylie Crook MD [address] [place] [phone] [email or web address] PCP - General Family Medicine 09/06/23 Saloni Smith PA Historical LMR Provider 06/20/17 Daylin Nion MD [address] [place] [address] [email or web address] Historical LMR Provider 06/20/17 Rayshawn Love MD [address] [place] [address] Interventional Pain Management 05/04/22 documented as of this encounter Additional Source Comments The information contained in this document represents components of the legal health record. It is not the complete legal health record.[facility]
--- OUTSIDE RECORDS SUMMARY | 2025-07-30 15:42 | XMS_ITS | Encounter Summary ---
Author Organization [facility] Address [address] [place] [address] Phone Care Team Providers Care Oil Program Compliance Specialist Name Role Phone Saloni Smith Unavailable [email or web address] Daylin Nino MD Unavailable Rayshawn Love MD Unavailable [phone] Kylie Crook MD Primary Care Provider [phone] Encounter Details Date Type Department Care Team (Late st Contact Info) Description 03/13/2024 Procedure Pass [facility], Ct Scan - [address] [phone] Social History Tobacco Use Types Packs/Day Years [...] 3:59 AM EDT Germania Eaton RN * [place] Suicide Severity Rating Scale (Screener/Recent Self-Report) Question [...] Insurance: gets MOM's meals and Laundry service Business Teacher: Bry Del Castillo RN [phone] (ask for her by name) Yvonne has access to 24/7 ambulatory service representative through her insurance, has access to [facility] for medical concerns, reinforce this with her when she presents to the ED. documented as of this encounter Visit Diagnoses Not on filedocumented in this encounter Additional Health Concerns Infection Onset Date Last Indicated Resolved Time CoV-Risk 10/04/2024 10/04/2024 10/15/2024 1:23 AM EST MDR-GN 03/14/2025 03/14/2025 documented as of this encounter Care Teams Oil Program Compliance Specialist Relationship Specialty Start Date End Date Kylie Crook MD [address] [place] [phone] [email or web address] PCP - General Family Medicine 09/06/23 Saloni Smith PA Historical LMR Provider 06/20/17 Daylin Nino MD [address] [place] [address] [email or web address] Historical LMR Provider 06/20/17 Rayshawn Love MD [address] [place] [address] Interventional Pain Management 05/04/22 documented as of this encounter Additional Source Comments The information contained in this document represents components of the legal health record. It is not the complete legal health record.[facility]
--- OUTSIDE RECORDS SUMMARY | 2025-07-30 15:42 | XMS_ITS | Encounter Summary ---
Author Organization [facility] Address [address] [place] [address] Phone Care Team Providers Care Slicing Machine Operator/Tender Name Role Phone Radha Miner NP Unavailable [phone] Saloni Smith Unavailable [email or web address] Britt Beavers DO Unavailable [phone] Daylin Nino MD Unavailable Penny Owens MD Unavailable [phone] Rubio Holloway MD Unavailable [phone] Rubio Malin MD Unavailable [phone] Chandler Carrera MD Unavailable [phone] Kylie Crook MD Primary Care Provider [phone] Rayshawn Love MD Unavailable Kylie Crook MD Primary Care Provider [phone] Encounter Details Date Type Department Care Team (Late st Contact Info) Description 02/17/2021 Procedure Pass [facility], Ct Scan - [address] [address] Social History Tobacco Use Types Packs/Day Years [...] Date of Assessment Author No Risk Indicated 02/20/2021 5:11 PM EDT Raz Lambert RN * [place] Suicide Severity Rating Scale (Screener/Recent Self-Report) Question Answer Date of Assessment Author 1. Wish to be (Past 1 Month) No 021 5:11 PM EDT Raz Lambert RN 2. Non-Specific Active Suici micha Thoughts (Past 1 Month) No 02/20/2021 5:11 PM EDT Francis Lambert RN 6. Suicidal Behavior (Lifetime) No 5:11 PM EDT Raz Lambert RN documented as of this encounter Plan [...] documented as of this encounter Care Teams Slicing Machine Operator/Tender Relationship Specialty Start Date End Date Kylie Crook MD [address] [place] [address] [email or web address] PCP - General Family Medicine 09/01/20 09/05/23 Kylie Crook MD [address] [place] [phone] [email or web address] PCP - General Family Medicine 09/06/23 Radha Miner NP [address] [place] [address] Historical LMR Provider 06/20/17 09/11/21 Saloni Smith PA [email or web address] Historical LMR Provider 06/20/17 Britt Beavers DO [address] [place] [address] Historical LMR Provider 06/20/17 09/11/21 Daylin Nino MD [address] [place] [address] [email or web address] Historical LMR Provider 06/20/17 Penny Owens MD [address], [place] [address] [email or web address] Historical LMR Provider 06/20/17 09/11/21 Rubio Holloway MD [address] [place] [address] Historical LMR Provider 06/20/17 09/11/21 Rubio Malin MD [address] [place] [address] Historical LMR Provider 06/20/17 09/11/21 Chandler Carrera MD [address] [place] [address] Historical LMR Provider 06/20/17 09/11/21 Rayshawn Love MD [address] [place] [address] Interventional Pain Management 05/04/22 documented as of this encounter Additional Source Comments The information contained in this document represents components of the legal health record. It is not the complete legal health record.[facility]
--- OUTSIDE RECORDS SUMMARY | 2025-07-30 15:42 | XMS_ITS | Encounter Summary ---
Author Organization [facility] Address [address] [place] [address] Phone Care Team Providers Care Supervisor Show Operations Name Role Phone Saloni Smith Unavailable [email or web address] Daylin Nino MD Unavailable Rayshawn Love MD Unavailable [phone] Kylie Crook MD Primary Care Provider [phone] Encounter Details Date Type Department Care Team (Late st Contact Info) Description 03/17/2025 Procedure Pass [facility], Ct Scan - [address] [phone] Social History Tobacco Use Types Packs/Day Years [...] got money to buy more. Never True 03/11/2025 Within the past 6 months the food we bought just didn't last and we didn't have enough money to get more. Never True Residential Stability Answer Date Recor ded What is your housing situation today? I have cedrick alaniz 03/11/2025 How many times have you move d in the past 12 months? Zero (I did not move) 03/11/2025 Paying for Meds Answer Date Recorded Do you have trouble paying for medicines? No 03/11/2025 Paying Utility Bills Answer Date Record ed Do you have trouble paying your heating or elect ricity bill? No 03/11/2025 Transportation Answer Date Recorded Has the lack of transportati on kept you from medical appointments or from getting medications? No 03/11/2025 Digital Access Answer Date Recorded No 03/11/2025 Yes 03/11/2025 Do you have reliable internet access at home? Ye s 03/11/2025 Do you have a device (e.g., phone, tablet, computer) with a working camera? Yes 03/11/2025 Intimate Partner Violence Answer Date R ecorded Are you denied basic needs s uch as food, clothing, or medical care? No 03/16/2025 In the past 12 months have y ou been in a relationship with a person who hurts, threatens, or tries to control you? No 03/16/2025 Are you denied basic needs s uch as food, clothing, or medical care? No 03/16/2025 In the past 12 months have y ou been in a relationship with a person who hurts, threatens, or tries to control you? No 03/16/2025 Comments No Sex and Gender Information Value [...] Insurance: gets MOM's meals and Laundry service [employer] Learning Support Teacher: Bry Del Castillo RN [phone] (ask for her by name) Yvonne has access to 27/03 BH network security administrator through her insurance, has access to [facility] for medical concerns, reinforce this with her when she presents to the ED. documented as of this encounter Visit Diagnoses Not on filedocumented in this encounter Additional Health Concerns Infection Onset Date Last Indicated Resolved Time MDR-GN 03/14/2025 03/14/2025 documented as of this encounter Care Teams Supervisor Show Operations Relationship Specialty Start Date End Date Kylie Crook MD [address] [place] [phone] [email or web address] PCP - General Family Medicine 09/06/23 Saloni Smith PA Historical LMR Provider 06/20/17 Daylin Nino MD [address] [place] [address] Historical LMR Provider 06/20/17 Rayshawn Love MD [address] [place] [address] Interventional Pain Management 05/04/22 documented as of this encounter Additional Source Comments The information contained in this document represents components of the legal health record. It is not the complete legal health record.[facility]
--- OUTSIDE RECORDS SUMMARY | 2025-07-30 15:42 | XMS_ITS | Encounter Summary ---
Author Organization [facility] Address [address] [place] [address] Phone Care Team Providers Care School Adjustment Counselor Name Role Phone Radha Miner NP Unavailable [phone] Saloni Smith Unavailable [email or web address] Britt Beavers DO Unavailable [phone] Daylin Nino MD Unavailable Penny Owens MD Unavailable [phone] Rubio Holloway MD Unavailable [phone] Rubio Malin MD Unavailable [phone] Chandler Carrera MD Unavailable [phone] Kylie Crook MD Primary Care Provider [phone] Rayshawn Love MD Unavailable Kylie Crook MD Primary Care Provider [phone] Encounter Details Date Type Department Care Team (Late st Contact Info) Description 09/08/2020 Procedure Pass [facility], Ct Scan - [address] [address] Social History Tobacco Use Types Packs/Day Years [...] 5:41 PM EST Deborah Zapata, RN * [place] Suicide Severity Rating Scale (Screener/Recent Self-Report) Question [...] documented as of this encounter Care Teams School Adjustment Counselor Relationship Specialty Start Date End Date Kylie Crook MD [address] [place] [address] PCP - General Family Medicine 09/01/20 09/05/23 Kylie Crook MD [address] [place] [phone] [email or web address] PCP - General Family Medicine 09/06/23 Radha Miner NP [address] [place] [address] Historical LMR Provider 06/20/17 09/11/21 Saloni Smith PA [email or web address] Historical LMR Provider 06/20/17 Britt Beavers DO [address] [place] [address] Historical LMR Provider 06/20/17 09/11/21 Daylin Nino MD [address] [place] [address] [email or web address] Historical LMR Provider 06/20/17 Penny Owens MD [address] [address] [email or web address] Historical LMR Provider 06/20/17 09/11/21 Rubio Holloway MD [address] [place] [address] Historical LMR Provider 06/20/17 09/11/21 Rubio Malin MD [address] [place] [address] Historical LMR Provider 06/20/17 09/11/21 Chandler Carrera MD [address] [place] [address] Historical LMR Provider 06/20/17 09/11/21 Rayshawn Love MD [address] [place] [address] Interventional Pain Management 05/04/22 documented as of this encounter Additional Source Comments The information contained in this document represents components of the legal health record. It is not the complete legal health record.[facility]
--- OUTSIDE RECORDS SUMMARY | 2025-07-30 15:42 | XMS_ITS | Encounter Summary ---
Author Organization [facility] Address [address] [place] [address] Phone Care Team Providers Care Field Hand Name Role Phone Radha Miner NP Unavailable [phone] Saloni Smith Unavailable [email or web address] Britt Beavers DO Unavailable [phone] Daylin Nino MD Unavailable Penny Oewns MD Unavailable Rubio Holloway MD Unavailable [phone] Rubio Malin MD Unavailable Chandler Carrera MD Unavailable [phone] Kylie Crook MD Primary Care Provider León Avalos MD Primary Care Provider [phone] Kylie Crook MD Primary Care Provider [phone] Rayshawn Love MD Unavailable Kylie Crook MD Primary Care Provider [phone] Encounter Details Date Type Department Care Team (Late st Contact Info) Description 06/14/2019 Procedure Pass [facility], Mri - [address] [address] Social History Tobacco Use Types Packs/Day Years [...] documented as of this encounter Care Teams Field Hand Relationship Specialty Start Date End Date Kylie Crook MD [address] [place] [address] PCP - General Family Medicine 01/15/19 09/12/19 León Avalos MD [address] [address] [email or web address] PCP - General 09/13/19 08/31/20 Kylie Crook MD [address] [place] [address] [email or web address] PCP - General Family Medicine 09/01/20 09/05/23 Kylie Crook MD [address] [place] [phone] [email or web address] PCP - General Family Medicine 09/06/23 Radha Miner NP [address] [place] [address] Historical LMR Provider 06/20/17 09/11/21 Saloni Smith PA [email or web address] Historical LMR Provider 06/20/17 Britt Beavers DO [address] [place] [address] Historical LMR Provider 06/20/17 09/11/21 Daylin Nino MD [address] [place] [address] [email or web address] Historical LMR Provider 06/20/17 Penny Owens MD [address] [place] [address] [email or web address] Historical LMR Provider 06/20/17 09/11/21 Rubio Holloway MD [address] [place] [address] Historical LMR Provider 06/20/17 09/11/21 Rubio Malin MD [address] [place] [address] Historical LMR Provider 06/20/17 09/11/21 Chandler Carrera MD [address] [place] [address] Historical LMR Provider 06/20/17 09/11/21 Rayshawn Love MD [address] [place] [address] Interventional Pain Management 05/04/22 documented as of this encounter Additional Source Comments The information contained in this document represents components of the legal health record. It is not the complete legal health record.[facility]
--- OUTSIDE RECORDS SUMMARY | 2025-07-30 15:42 | XMS_ITS | Encounter Summary ---
Author Organization [facility] Address [address] [place] [address] Phone Care Team Providers Care S Iron Worker Name Role Phone Radha Miner NP Unavailable Saloni Smith Unavailable [email or web address] Britt Beavers DO Unavailable [phone] Daylin Nino MD Unavailable Penny Owens MD Unavailable Rubio Holloway MD Unavailable [phone] Rubio Malin MD Unavailable Chandler Carrera MD Unavailable [phone] León Avalos MD Primary Care Provider [phone] Kylie Crook MD Primary Care Provider [phone] Rayshawn Love MD Unavailable Kylie Crook MD Primary Care Provider [phone] Encounter Details Date Type Department Care Team (Late st Contact Info) Description 03/03/2020 Procedure Pass [facility], Ct Scan - [address] [address] Social History Tobacco Use Types Packs/Day Years [...] documented as of this encounter Care Teams S Iron Worker Relationship Specialty Start Date End Date León Avalos MD [address] [address] [email or web address] PCP - General 09/13/19 08/31/20 Kylie Crook MD [address] [facility] [address] [place] [address] PCP - General Family Medicine 09/01/20 09/05/23 Kylie Crook MD [address] [place] [phone] [email or web address] PCP - General Family Medicine 09/06/23 Radha Miner NP [address] [address] Historical LMR Provider 06/20/17 09/11/21 Saloni Smith PA Historical LMR Provider 06/20/17 Britt Beavers DO [address] [place] [address] Historical LMR Provider 06/20/17 09/11/21 Daylin Nino MD [address] [place] [address] [email or web address] Historical LMR Provider 06/20/17 Penny Owens MD [address], [place] [address] [email or web address] Historical LMR Provider 06/20/17 09/11/21 Rubio Holloway MD [address] [place] [address] Historical LMR Provider 06/20/17 09/11/21 Rubio Malin MD [address] [place] [address] Historical LMR Provider 06/20/17 09/11/21 Chandler Carrera MD [address] [place] [address] Historical LMR Provider 06/20/17 09/11/21 Rayshawn Love MD [address] [place] [address] Interventional Pain Management 05/04/22 documented as of this encounter Additional Source Comments The information contained in this document represents components of the legal health record. It is not the complete legal health record.[facility]
--- OUTSIDE RECORDS SUMMARY | 2025-07-30 15:42 | XMS_ITS | Encounter Summary ---
Author Organization [facility] Address [address] [place] [address] Phone Care Team Providers Care Choir Director Name Role Phone Saloni Smith Unavailable [email or web address] Daylin Nino MD Unavailable Rayshawn Love MD Unavailable [phone] Kylie Crook MD Primary Care Provider [phone] Encounter Details Date Type Department Care Team (Late st Contact Info) Description 05/07/2024 Procedure Pass [place] Admitting Dept - Virtual Department [address] [place], [place] [phone] Social History Tobacco Use Types Packs/Day Years [...] Insurance: gets MOM's meals and Laundry service County Surveyor: Bry Del Castillo RN [phone] (ask for her by name) Yvonne has access to 27/03 orthopedic physician assistant through her insurance, has access to [facility] for medical concerns, reinforce this with her when she presents to the ED. documented as of this encounter Visit Diagnoses Not on filedocumented in this encounter Additional Health Concerns Infection Onset Date Last Indicated Resolved Time CoV-Risk 10/04/2024 10/04/2024 10/15/2024 1:23 AM EST MDR-GN 03/14/2025 03/14/2025 documented as of this encounter Care Teams Choir Director Relationship Specialty Start Date End Date Kylie Crook MD [address] [place] [phone] [email or web address] PCP - General Family Medicine 09/06/23 Saloni Smith PA Historical LMR Provider 06/20/17 Daylin Nino MD [address] [place] [address] Historical LMR Provider 06/20/17 Rayshawn Love MD [address] [place] [address] Interventional Pain Management 05/04/22 documented as of this encounter Additional Source Comments The information contained in this document represents components of the legal health record. It is not the complete legal health record.[facility]
--- OUTSIDE RECORDS SUMMARY | 2025-07-30 15:42 | XMS_ITS | Encounter Summary ---
Author Organization [facility] Address [address] [place] [address] Phone Care Team Providers Care Door Slinger Name Role Phone Saloni Smith Unavailable [email or web address] Daylin Nino MD Unavailable Rayshawn Love MD Unavailable [phone] Kylie Crook MD Primary Care Provider [phone] Encounter Details Date Type Department Care Team (Late st Contact Info) Description 03/19/2024 Transcribe Orders Virtual Department [address] [place] [address] Kylie Crook MD [address] [place] [address] [email or web address] Breast screening (Primary Dx) Social History Tobacco [...] Insurance: gets MOM's meals and Laundry service Shank Carrier: Bry Del Castillo RN [phone] (ask for her by name) 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, has access to [facility] [...] documented as of this encounter Care Teams Door Slinger Relationship Specialty Start Date End Date Kylie Crook MD [address] [place] [phone] [email or web address] PCP - General Family Medicine 09/06/23 Saloni Smith PA Historical LMR Provider 06/20/17 Daylin Nino MD [address] [place] [address] Historical LMR Provider 06/20/17 Rayshawn Love MD [address] [place] [address] Interventional Pain Management 05/04/22 documented as of this encounter Additional Source Comments The information contained in this document represents components of the legal health record. It is not the complete legal health record.[facility]
== END 2025-07-30 12:40 | disposition home or self-care (01) ==
LOC: HO.NEURO 12:39
PROVIDERS: PCP Family Medicine; Visit Provider Psychiatry & Neurology Neurology
DX: R55 Syncope and collapse (principal)
CPT/HCPCS: 95816

== ENCOUNTER → 2025-07-30 14:43 | Outpatient (BNV) | payer OTHER, SELFPAY | PROVIDERS: PCP Family Medicine; Visit Provider Psychiatry & Neurology Neurology | DX: R94.01 Abnormal electroencephalogram [EEG] (principal); R55 Syncope and collapse | CPT/HCPCS: 95816 ==

== ENCOUNTER 2025-08-15 11:26 | Outpatient (REF) | payer OTHER, SELFPAY ==
--- NOTE | ~2025-08-15 | XR_ITS ---
EXAMINATION: XR LUMBOSACRAL SPINE BENDING FILMS ONLY CLINICAL INFORMATION: M96.1 - Postlaminectomy syndrome, not elsewhere classified COMPARISON: None available. TECHNIQUE: 3 lateral views. FINDINGS: 3 lateral views. No frontal views available. On the provided views, the lower most lumbar vertebrae with the obvious ribs is designated as T12 for the purpose of this study. This could be transitional anatomy present. Based on this designation, the lower L4 vertebral body and the L5 vertebral body and L5-S1 disc space is obscured by overlapping structures. Mild increased lordotic curvature. There is mild retrolisthesis of L1 on L2, minimal anterolisthesis of L2 on L3. No evidence of acute fracture. Moderate-severe disc degeneration the visualized lower thoracic spine. Mild lumbar spine disc degeneration. There is extensive ankylosis in the posterior elements of the lumbar spine. No gross subluxation is identified on the flexion-extension views. Spinal stimulator device with leads extending superiorly beyond the [id number]. XR/XR lumbar spine bending only IMPRESSION: No frontal view. Limited visualization of the lower lumbar spine . There could be transitional anatomy present. No lumbar vertebral body are obscured/not evaluated. For the purposes study, the lowermost vertebral body with the obvious ribs is designated as T12. Recommend correlation with prior imaging. Recommend close clinical and radiographic correlation before any procedure. Further evaluation/characterization with CT as clinically indicated. The findings are based on the above designation. The lower lumbar spine is obscured No evidence of acute findings. Multilevel moderate-severe spondylosis in the visualized lower thoracic spine. Mild lumbar spondylosis. Grade 1 L1-2 retrolisthesis, mild L2-3 anterolisthesis. Electronically signed by: Billy Cortes MD 08/15/2025 01:20 PM [facility] [place] [place]
== END 2025-08-15 11:27 | disposition home or self-care (01) ==
LOC: HO.XRAY 11:26
PROVIDERS: PCP Family Medicine; Visit Provider Internal Medicine
DX: M96.1 Postlaminectomy syndrome, not elsewhere classified (principal); G89.29 Other chronic pain; M79.18 Myalgia, other site
CPT/HCPCS: 20552; 72120; 99212

== ENCOUNTER 2025-08-15 11:26 | Outpatient (AMB) | payer OTHER, SELFPAY ==
[2025-08-15 11:55] VITALS: BP 155/72; PULSE 87; RESP 16; O2SAT 94; BMI 50.4
--- NOTE | 2025-08-15 11:55 | A.OFFVIS_ITS ---
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: No Allergies codeine Allergy (Severe, Verified 08/15/25 11:57) Itching divalproex sodium (Depakote) Allergy (Severe, Verified 08/15/25 11:57) rapid toxicity fluoxetine (Prozac) Allergy (Severe, Verified 08/15/25 11:57) suicidal ideation/HTN hydrochlorothiazide Allergy (Severe, Verified 08/15/25 11:57) vertigo benzonatate (Tessalon Perles) Allergy (Intermediate, Verified 08/15/25 11:57) Rash epinephrine Allergy (Intermediate, Verified 08/15/25 11:57) tachycardia erythromycin base Allergy (Intermediate, Verified 08/15/25 11:57) Hives Fish Containing Products Allergy (Intermediate, Verified 08/15/25 11:57) Hives guaifenesin Allergy (Intermediate, Verified 08/15/25 11:57) Itching iodine Allergy (Intermediate, Verified 08/15/25 11:57) Rash levofloxacin (Levaquin) Allergy (Intermediate, Verified 08/15/25 11:57) Itching/rash lidocaine Allergy (Intermediate, Verified 08/15/25 11:57) Rash morphine Allergy (Intermediate, Verified 08/15/25 11:57) itching/rash/redness @ injection site nitrofurantoin (From Macrobid) Allergy (Intermediate, Verified 08/15/25 11:57) Itching nortriptyline Allergy (Intermediate, Verified 08/15/25 11:57) Itching oxcarbazepine (From Trileptal) Allergy (Intermediate, Verified 08/15/25 11:57) Hives penicillin V Allergy (Intermediate, Verified 08/15/25 11:57) rash/itch shellfish derived Allergy (Intermediate, Verified 08/15/25 11:57) Rash strawberry Allergy (Intermediate, Verified 08/15/25 11:57) Itching Sulfa (Sulfonamide Antibiotics) Allergy (Intermediate, Verified 08/15/25 11:57) Rash sumatriptan (From Imitrex) Allergy (Intermediate, Verified 08/15/25 11:57) skin reaction tramadol Allergy (Intermediate, Verified 08/15/25 11:57) Itching Tricyclic Antidepressants and Tricy (Tricyclic Compounds) Allergy (Intermediate, Verified 08/15/25 11:57) Rash adhesive tape Adverse Reaction (Intermediate, Verified 08/15/25 11:57) Rash bupropion (From Wellbutrin) Adverse Reaction (Intermediate, Verified 08/15/25 11:57) Hypertension buspirone Adverse Reaction (Intermediate, Verified 08/15/25 11:57) Hypertension duloxetine (From Cymbalta) Adverse Reaction (Intermediate, Verified 08/15/25 11:57) tachycardia fluticasone Adverse Reaction (Intermediate, Verified 08/15/25 11:57) burning of nasal passages mirtazapine (From Remeron) Adverse Reaction (Intermediate, Verified 08/15/25 11:57) HTN/weight gain montelukast Adverse Reaction (Intermediate, Verified 08/15/25 11:57) Depression prednisone Adverse Reaction (Intermediate, Verified 08/15/25 11:57) Headache thioridazine (From Mellaril) Adverse Reaction (Intermediate, Verified 08/15/25 11:57) Hypertension tiotropium (From Spiriva with HandiHaler) Adverse Reaction (Intermediate, Verified 08/15/25 11:57) Headache trazodone Adverse Reaction (Intermediate, Verified 08/15/25 11:57) Hallucinations Novocain Allergy (Intermediate, Uncoded 08/15/25 11:57) tachycardia (when given w/epinephrine) oxycodone/acetaminophen Allergy (Mild, Uncoded 08/15/25 11:57) Rash artificial sweetners Adverse Reaction (Unknown, Uncoded 08/15/25 11:57) Unknown Medication List - Last Reconciled 08/15/25 by Shyanne Castellanos LPN albuterol sulfate 90 mcg/actuation 2 inhalations inhalation Q6H PRN [Bariatric Multi 1 cap PO DAILY] calcium carbonate-vitamin D3 600 mg-10 mcg (400 unit) 1 tab PO BID famotidine 20 mg PO BID 30 days furosemide 20 mg PO DAILY 30 days gabapentin 900 mg (3 x 300 mg) PO BID 30 days hydromorphone 2 mg PO TID PRN 14 days hydroxyzine HCl 50 mg PO BID lamotrigine 25 mg PO BEDTIME levocetirizine 5 mg PO DAILY 30 days lidocaine 5% 1 appl topical DAILY lorazepam 1 mg PO BEDTIME PRN lurasidone 40 mg PO DAILY melatonin 10 mg PO BEDTIME PRN methocarbamol 2 tabs PO BID PRN 30 days nitroglycerin 0.4 mg sublingual Q5M PRN nystatin 1 appl See Protocol topical BID 30 days pen needle, diabetic As directed pravastatin 40 mg PO DAILY 30 days prazosin 2 caps PO BEDTIME propranolol ER 120 mg PO DAILY ropinirole 2 mg PO BEDTIME 30 days tirzepatide (Mounjaro) 5 mg subcut QWEEK tizanidine 4 mg PO TID PRN 30 days HPI Comments Details: History of Present Illness The patient is a 60 year old female presenting with follow-up for back and knee pain. She reports pain in her thoracic and lumbar back, from T11 down, which is exacerbated by walking. She describes a sensation of her back slipping, which she believes pinches a nerve. The patient notes that there is no surgical hardware in her back. Her wheelchair is currently inoperable as the hand iii cutter is not working. Her spinal cord stimulator is on but is not providing any relief, and she notes no difference whether it is on or off. An [employer] high school admissions representative recently reprogrammed the device after she received a new controller, which initially provided some improvement but is no longer effective. The patient expresses frustration with her chronic pain and the use of pain medications. Pain Description - Location: The patient reports thoracic and lumbar back pain, specifically from T11 down. - Quality: She describes a sensation of her back slipping, which she believes causes a pinched nerve. - Exacerbating factors: Pain is worse with walking. - Interventions: She has a spinal cord stimulator, which is currently not providing relief. Pain Management - Affect: The patient reports being tired of being in pain. - Analgesia: The patient is currently using a spinal cord stimulator, which is providing no relief. - Adverse Effects: No new adverse effects were discussed. - Activities of Daily Living: Pain is exacerbated by walking. - Aberrant Drug Related Behaviors: The patient states she is tired of pain medications, but no aberrant behaviors were noted. [facility] Medical History (Updated 07/09/25 @ 12:58 by Sonia Watson MD) PTSD (post-traumatic stress disorder) Bipolar disorder Lumbar spondylosis Failed back syndrome Tachycardia Diabetes Sleep apnea Congenital valgus deformity Acquired hallux valgus Chronic back pain Arthropathy of spinal facet joint Kidney stone Intestinal malabsorption of carbohydrate Asthma Transient cerebral ischemia Hypertensive disorder Restless leg Binge eating disorder Recurrent major depressive episodes Morbid obesity Hyperlipidemia Hyperthyroidism Surgical History (Updated 04/12/25 @ 00:01 by Background Daemon) Status post insertion of spinal cord stimulator History of surgery History of fusion of cervical spine H/O: hysterectomy History of laparoscopic cholecystectomy History of lumbar laminectomy History of fusion of lumbar spine H/O gastric sleeve Family History Mother Diabetes mellitus COPD (chronic obstructive pulmonary disease) Pemphigoid Depressive disorder Hyperlipidemia Father Malignant neoplastic disease Myocardial infarction Maternal Grandmother Myocardial infarction Social History Household Members: None Housing: Apartment Are you a primary healthcare corporate account director to a significant other at home: No Do you presently have visiting nurse or other home services: No Alcohol intake: never Patient Tobacco Use Status: Never used Tobacco Second Hand Smoke Exposure: No Advance Directives Date on File: 08/17/22 service: No Sexual orientation: Straight/Heterosexual Physical Exam Exam Exam: Physical Exam Procedure - Procedure: Trigger point injections. - Consent: Informed consent was obtained prior to the procedure. - Description: The patient was placed in the prone position. - The mid-back area was prepped with chloroprep. - A 25-gauge, 3-inch spinal needle was used to inject 1 mL of ropivacaine 0.25% into the rhomboid and multifidus muscles on each side. - The patient tolerated the procedure well with no blood loss. Vital Signs: Last Vital Signs Pulse 87 08/15/25 11:55 Resp 16 08/15/25 11:55 BP 155/72 H 08/15/25 11:55 Pulse Ox 94 08/15/25 11:55 Oxygen Delivery Method Room Air 08/15/25 11:55 BMI result Body Mass Index 50.4 Assessment & Plan Assessment & Plan (1) Failed back syndrome: Code(s): M96.1 - Postlaminectomy syndrome, not elsewhere classified Category: Medical (2) Myofascial pain: Code(s): M79.18 - Myalgia, other site Category: Medical Plan Plan Patient was informed and verbally consented to the use of an ambient scribe for clinic note documentation during this visit. 1. Chronic Back Pain - The patient reports worsening pain in her thoracic and lumbar spine, with a sensation of instability or slipping. - Trigger point injections were performed in the mid-back for symptomatic relief. - Dynamic flexion-extension X-rays of the spine have been ordered to evaluate for instability, as the patient feels her spine has been moving with motion. - Follow-up will be scheduled as needed to review the imaging results and determine further steps. 2. Spinal Cord Stimulator Management - The patient reports her spinal cord stimulator is not providing any pain relief, even after a recent reprogramming. - No immediate changes to the spinal cord stimulator programming or management were made during this visit. Discussion Notes I discussed with the patient that we have tried most other options for her pain and that she is tired of her current pain medications. I offered trigger point injections as a remaining option, and she agreed to proceed with the procedure today. The patient expressed a feeling of instability in her spine and requested an MRI to see if another surgery was possible. I explained that another surgery could potentially worsen her condition and that an MRI performed while she is lying flat is not the best study to assess for movement. Instead, I ordered dynamic flexion-extension X-rays to check for any instability. We will review the results of these X-rays and proceed accordingly. Patient Instructions - Please go to the imaging center to get the back X-rays that were ordered for you. - We performed trigger point injections in your back today for pain relief. - Please follow up as needed. - We will discuss the results of your X-rays at your next appointment to decide on the next steps. Orders: Orders XR lumbar spine bending only 08/15/25 M96.1 - Postlaminectomy syndrome, not elsewhere classified Coding Level of Care Code Est Pt Level 3 (54989) Diagnoses Failed back syndrome M96.1 Myofascial pain M79.18
== END 2025-08-15 12:33 | disposition home or self-care (01) ==
LOC: HO.PMC 11:26
PROVIDERS: PCP Family Medicine; Visit Provider Internal Medicine
DX: M96.1 Postlaminectomy syndrome, not elsewhere classified (principal); M79.18 Myalgia, other site
CPT/HCPCS: 20552; 99213

== ENCOUNTER → 2025-08-15 12:30 | Outpatient (BNV) | payer OTHER, SELFPAY | PROVIDERS: PCP Family Medicine; Visit Provider Radiology Diagnostic Ultrasound | DX: M96.1 Postlaminectomy syndrome, not elsewhere classified (principal); M47.815 Spondylosis without myelopathy or radiculopathy, thoracolumbar region; M43.16 Spondylolisthesis, lumbar region | CPT/HCPCS: 72120 ==

== ENCOUNTER 2025-08-21 09:18 | Outpatient (AMB) | payer OTHER, SELFPAY ==
--- NOTE | 2025-08-21 09:37 | MHC.OFFVIS ---
Intake Visit Reasons: EEG results , per Walter Allergies codeine Allergy (Severe, Verified 08/21/25 09:43) Itching divalproex sodium (Depakote) Allergy (Severe, Verified 08/21/25 09:43) rapid toxicity fluoxetine (Prozac) Allergy (Severe, Verified 08/21/25 09:43) suicidal ideation/HTN hydrochlorothiazide Allergy (Severe, Verified 08/21/25 09:43) vertigo benzonatate (Tessalon Perles) Allergy (Intermediate, Verified 08/21/25 09:43) Rash epinephrine Allergy (Intermediate, Verified 08/21/25 09:43) tachycardia erythromycin base Allergy (Intermediate, Verified 08/21/25 09:43) Hives Fish Containing Products Allergy (Intermediate, Verified 08/21/25 09:43) Hives guaifenesin Allergy (Intermediate, Verified 08/21/25 09:43) Itching iodine Allergy (Intermediate, Verified 08/21/25 09:43) Rash levofloxacin (Levaquin) Allergy (Intermediate, Verified 08/21/25 09:43) Itching/rash lidocaine Allergy (Intermediate, Verified 08/21/25 09:43) Rash morphine Allergy (Intermediate, Verified 08/21/25 09:43) itching/rash/redness @ injection site nitrofurantoin (From Macrobid) Allergy (Intermediate, Verified 08/21/25 09:43) Itching nortriptyline Allergy (Intermediate, Verified 08/21/25 09:43) Itching oxcarbazepine (From Trileptal) Allergy (Intermediate, Verified 08/21/25 09:43) Hives penicillin V Allergy (Intermediate, Verified 08/21/25 09:43) rash/itch shellfish derived Allergy (Intermediate, Verified 08/21/25 09:43) Rash strawberry Allergy (Intermediate, Verified 08/21/25 09:43) Itching Sulfa (Sulfonamide Antibiotics) Allergy (Intermediate, Verified 08/21/25 09:43) Rash sumatriptan (From Imitrex) Allergy (Intermediate, Verified 08/21/25 09:43) skin reaction tramadol Allergy (Intermediate, Verified 08/21/25 09:43) Itching Tricyclic Antidepressants and Tricy (Tricyclic Compounds) Allergy (Intermediate, Verified 08/21/25 09:43) Rash adhesive tape Adverse Reaction (Intermediate, Verified 08/21/25 09:43) Rash bupropion (From Wellbutrin) Adverse Reaction (Intermediate, Verified 08/21/25 09:43) Hypertension buspirone Adverse Reaction (Intermediate, Verified 08/21/25 09:43) Hypertension duloxetine (From Cymbalta) Adverse Reaction (Intermediate, Verified 08/21/25 09:43) tachycardia fluticasone Adverse Reaction (Intermediate, Verified 08/21/25 09:43) burning of nasal passages mirtazapine (From Remeron) Adverse Reaction (Intermediate, Verified 08/21/25 09:43) HTN/weight gain montelukast Adverse Reaction (Intermediate, Verified 08/21/25 09:43) Depression prednisone Adverse Reaction (Intermediate, Verified 08/21/25 09:43) Headache thioridazine (From Mellaril) Adverse Reaction (Intermediate, Verified 08/21/25 09:43) Hypertension tiotropium (From Spiriva with HandiHaler) Adverse Reaction (Intermediate, Verified 08/21/25 09:43) Headache trazodone Adverse Reaction (Intermediate, Verified 08/21/25 09:43) Hallucinations Novocain Allergy (Intermediate, Uncoded 08/21/25 09:43) tachycardia (when given w/epinephrine) oxycodone/acetaminophen Allergy (Mild, Uncoded 08/21/25 09:43) Rash artificial sweetners Adverse Reaction (Unknown, Uncoded 08/21/25 09:43) Unknown Medication List - Last Reconciled 08/21/25 by Carrie Woo, [employer] albuterol sulfate 90 mcg/actuation 2 inhalations inhalation Q6H PRN [Bariatric Multi 1 cap PO DAILY] calcium carbonate-vitamin D3 600 mg-10 mcg (400 unit) 1 tab PO BID diphenhydramine HCl (Benadryl Allergy) 25 mg PO BEDTIME PRN famotidine 20 mg PO BID 30 days furosemide 20 mg PO DAILY 30 days gabapentin 900 mg (3 x 300 mg) PO BID 30 days hydromorphone 2 mg PO TID PRN 14 days hydroxyzine HCl 50 mg PO BID lamotrigine 200 mg PO BEDTIME levocetirizine 5 mg PO DAILY 30 days lidocaine 5% 1 appl topical DAILY lorazepam 0.5 mg PO BEDTIME PRN lurasidone 40 mg PO DAILY melatonin 10 mg PO BEDTIME PRN methocarbamol 2 tabs PO BID PRN 30 days nitroglycerin 0.4 mg sublingual Q5M PRN nystatin 1 appl See Protocol topical BID 30 days pen needle, diabetic As directed pravastatin 40 mg PO DAILY 30 days prazosin 2 caps PO BEDTIME propranolol ER 120 mg PO DAILY ropinirole 2 mg PO BEDTIME 30 days tirzepatide (Mounjaro) 5 mg subcut QWEEK tizanidine 4 mg PO TID PRN 30 days HPI Comments Details: 60-year-old woman with past medical history significant for morbid obesity, bipolar disorder, chronic intractable depression with suicidal ideation status post treatment with TMS, type 2 diabetes mellitus, obstructive sleep apnea unable to tolerate CPAP, hypertension, chronic back pain with multiple lumbar spine surgeries following with pain management who initially presented for forgetfulness, but also reported episode of passing out in 12/2024. She was in her kitchen and walking with a walker when something happened and she fell down and found herself later on the floor. No previous history of similar events. She has not passed out since then. She has been taking numerous medications. She was here for EEG results. No episodes of passing out. She reports that she sometimes spaces out, but is unsure how often this happens. Her lamotrigine dose was increased to 200mg at bedtime around the end of 07/2025 by psychiatry which she feels has helped with depression. She was also working with therapist. She was under some stress recently as she found out insurance may not be covering some services that she had been getting. She was walking with cane as her transportation today was not wheelchair accessible. [facility] Medical History (Updated 08/21/25 @ 10:05 by Carrie Woo CNP) PTSD (post-traumatic stress disorder) Bipolar disorder Lumbar spondylosis Failed back syndrome Tachycardia Diabetes Sleep apnea Congenital valgus deformity Acquired hallux valgus Chronic back pain Arthropathy of spinal facet joint Kidney stone Intestinal malabsorption of carbohydrate Asthma Transient cerebral ischemia Hypertensive disorder Restless leg Binge eating disorder Recurrent major depressive episodes Morbid obesity Hyperlipidemia Hyperthyroidism Surgical History (Updated 04/12/25 @ 00:01 by Titus Hair) Status post insertion of spinal cord stimulator History of surgery History of fusion of cervical spine H/O: hysterectomy History of laparoscopic cholecystectomy History of lumbar laminectomy History of fusion of lumbar spine H/O gastric sleeve Family History Mother Diabetes mellitus COPD (chronic obstructive pulmonary disease) Pemphigoid Depressive disorder Hyperlipidemia Father Malignant neoplastic disease Myocardial infarction Maternal Grandmother Myocardial infarction Social History Household Members: None Housing: Apartment Are you a primary pet care attendant to a significant other at home: No Do you presently have visiting nurse or other home services: No Alcohol intake: never Patient Tobacco Use Status: Never used Tobacco Second Hand Smoke Exposure: No Advance Directives Date on File: 08/17/22 service: No Sexual orientation: Straight/Heterosexual Review of Systems Narrative Constitutional:? Complain of weight loss and gain and high blood pressure HEENT:?No headache, vision changes, hearing loss, nasal congestion, sore throat. Cardiovascular:?No chest pain, palpitations, orthopnea, PND, or leg swelling. Respiratory:? Complain of wheezing, +CHASE. Gastrointestinal:? Complain of diarrhea, nausea. Genitourinary:? Complain of urinary urgency. Musculoskeletal:? Complain of joint pain, back pain or neck pain. Neurological:? Complain of difficulty walking, confusion, cold intolerance, memory problems, heat intolerance, numbness and tingling, headaches, sleep problems, dizziness. Psychiatric:? Complain of anxiety, depression, suicidal thoughts. Endocrine:?No heat/cold intolerance, polydipsia, polyuria, or hair/skin changes. Hematologic/Lymphatic:?No easy bruising, bleeding, or lymphadenopathy. Integumentary (Skin):?No rash, lesions, itching, or color changes. Allergic/Immunologic:?No seasonal allergies, hives, or recurrent infections. Physical Exam Neuro Other: Mental Status: Alert and oriented to person, place, and time. Normal attention. Normal spontaneous speech, fluency, and comprehension. No obvious issues with mood and memory. Affect is appropriate. Cranial Nerves: CN II: Visual briones full to confrontation, visual acuity intact. CN III, IV, : Pupils equal, round, reactive to light and accommodation. Extraocular movements are normal. CN V: Facial sensation is normal. CN VII: Facial movements symmetrical. CN VIII: Hearing intact to bedside conversation is normal. CN IX, X: Palate elevates symmetrically. CN XI: Shoulder shrug and head turn symmetrical. CN XII: Tongue midline without atrophy or fasciculations. Gait: Slow and cautious with cane. Short of breath with ambulation. (Previously: She is in a wheelchair and able to navigate the motorized wheelchair. She is able to move her extremities. Due to morbid obesity examination is limited). Extrapyramidal: Full facial expressions and blinking. No rigidity. Movements are appropriate with no tremor or abnormality. Speech: Normal; no dysarthria or tremor. Results Reviewed Results Reviewed: [address] [address] Electroencephalogram Report Signed Patient: Seamus Meyer MR#: [id number] : 1965 Acct:[id number] Age/Sex: 60 / F ADM Date: 07/30/25 Loc: HO.NEURO Attending Dr: Sonia Watson MD Ordering Physician: Sonia Watson MD Date of Service: 07/30/25 Procedure(s): EEG Routine Accession Number(s): [id number] cc: Kylie Crook MD~ Reason for Exam: R55 - Syncope and collapse History: Syncope and collapse Medication: Acetaminophen Albuterol Sulfate Calcium Carbonate/Cholecalciferol Clotrimazole Dextrose Famotidine Furosemide Gabapentin Glucose Guaifenesin/Dextromethorphan Guaifenesin/Dextromethorphan Haloperidol Hydromorphone HCl Insulin Glargine Insulin Human Lispro Lamotrigine Lidocaine Loratadine Lorazepam Magnesium Hydroxide Melatonin Methocarbamol, Nitroglycerin Nystatin Ondansetron HCl Pioglitazone HCl Pravastatin Sodium Prazosin HCl Propranolol HCl Ropinirole HCl Tizanidine Technical Description Photic Stimulation: Yes Hyperventilation: Yes Behavioral State: Cooperative State of Consciousness: Awake Skull Defect: None Sedation: None Handedness: Right Duration: 30:13 Environmental Health And Safety Manager Comments: Last Meal: Time / date of last symptom: 12/2024 Description:This is a 16 channel EEG with an EKG lead. Patient is reported awake during the tracing. Background EEG rhythm is 5-7 hertz somewhat asymmetrical with frequent sharply controlled discharges in left hemispheric leads. This seem to be in parietal area. Photic stimulation did not produce any significant driving. Hyperventilation did not result in any different finding. Cardiac lead did not reveal any significant abnormality. Impression: Abnormal EEG with generalized slowing and left parietal discharges suggestive of seizure tendency Dictated By: Sonia Watson MD Signed By: <Electronically signed by Sonia Watson MD> 07/30/25 2103 -- CT brain at [facility] in 2024: [place] Labs at [facility] in 02/2025 (Vitamin B12, folate, TSH): ok Assessment & Plan Assessment & Plan (1) MCI (mild cognitive impairment): Comment: CT brain at [facility] in 2024: [place] Code(s): G31.84 - Mild cognitive impairment of uncertain or unknown etiology Category: Medical Plan: Mild cognitive impairment likely multifactorial from severe depression, morbid obesity with obstructive sleep apnea not treated as she could not tolerate CPAP, and multiple medicines, unlikely cognitive issues are cause by treatment with TMS. Continue to work with therapist and psychiatrist. Maintain regular sleep schedule. Encourage physical activity (as able/tolerated) and social/intellectual activity. (2) Seizure disorder: Code(s): G40.909 - Epilepsy, unspecified, not intractable, without status epilepticus Category: Medical Plan: EEG results reviewed - generalized slowing and left parietal discharges suggestive of seizure tendency. She was currently prescribed lamotrigine by psychiatry for mood disorder, with dose recently increased to 200mg a few weeks ago. This medication is also used for the treatment of seizures - recommend continuing lamotrigine. Follow up in 3 months or sooner as needed. (3) Syncope: Code(s): R55 - Syncope and collapse Category: Medical Qualifiers: Syncope type: unspecified Qualified Code(s): R55 - Syncope and collapse Plan . Coding Level of Care Code Est Pt Level 4 (13463) Diagnoses MCI (mild cognitive impairment) G31.84 Seizure disorder G40.909 Syncope, unspecified syncope type R55 Syncope type: unspecified
== END 2025-08-21 10:09 | disposition home or self-care (01) ==
LOC: HO.HSM 09:18
PROVIDERS: PCP Family Medicine; Visit Provider Registered Nurse
DX: G31.84 Mild cognitive impairment of uncertain or unknown etiology (principal); G40.909 Epilepsy, unspecified, not intractable, without status epilepticus; R55 Syncope and collapse
CPT/HCPCS: 99214

== ENCOUNTER → 2025-08-21 09:18 | Outpatient (BNVA) | payer OTHER, SELFPAY | PROVIDERS: PCP Family Medicine; Visit Provider Registered Nurse | DX: G31.84 Mild cognitive impairment of uncertain or unknown etiology (principal); G40.909 Epilepsy, unspecified, not intractable, without status epilepticus; R55 Syncope and collapse; E66.01 Morbid (severe) obesity due to excess calories; G47.33 Obstructive sleep apnea (adult) (pediatric); I10 Essential (primary) hypertension; Z79.899 Other long term (current) drug therapy | CPT/HCPCS: 99212 ==